=== PATIENT | female | born 1960 | race Caucasian/White ===

== ENCOUNTER 2020-08-23 15:36 | Emergency (ER) | payer MEDICAID, SELFPAY ==
[2020-08-23 15:42] VITALS: BP 110/74; PULSE 78; RESP 14; TEMP 37.1; O2SAT 98; BMI 20.5
[2020-08-23 15:43] VITALS: BP 142/78; PULSE 80
[2020-08-23 15:47] LABS: Glucose, Whole Blood 285 mg/dL (60-115)
[2020-08-23 16:02] VITALS: BP 110/73; PULSE 81; RESP 14; TEMP 37.1; O2SAT 96
--- NOTE | 2020-08-23 17:06 | ED_ITS ---
HPI - General Adult General Chief complaint: General Medical Stated complaint: HYPERGLYCEMIA Time Seen by Provider: 08/23/20 16:52 Source: patient and spanish medical interpreter Mode of arrival: ambulatory Limitations: no limitations History of Present Illness HPI narrative: 59-year-old female history of diabetes, patient was at her primary doctor's office for routine checkup and found to have a high blood sugar patient was sent to the emergency department for further evaluation, patient use oral medication and also to subcu insulin to control blood sugar. Patient also has been complaining of itching for the past 2 weeks itching is worsening at night time, patient have rash a a dose shoulder area, on the back, trunk area. Patient has no other sick contacts, patient lives home alone. Related Data Previous Rx's Medication Instructions Recorded omeprazole 20 mg capsule,delayed 20 mg PO DAILY 90 Days #90 cap 06/26/20 release blood sugar diagnostic #100 ea 08/15/20 metformin 500 mg tablet 500 mg PO BID #60 tab 08/20/20 permethrin 1 appl TOPICAL Q14D #60 g 08/23/20 Allergies Allergy/AdvReac Type Severity Reaction Status Date / Time morphine [Morphine] Allergy Mild ITCHING, Unverified 02/03/20 14:41 pruritus, rash Review of Systems Review of Systems: All other systems are reviewed and are negative Constitutional: Reports as per HPI and Reports no additional constitutional complaints Eyes: Reports as per HPI and Reports no additional eye complaints Reports system reviewed and no additional complaints, except as documented Cardiovascular: Reports as per HPI and Reports no additional cardiovascular complaints Respiratory: Reports as per HPI and Reports no additional respiratory complaints Gastrointestinal: Reports as per HPI and Reports no additional gastrointestinal complaints Genitourinary: Reports no additional female genitourinary complaints Musculoskeletal: Reports no additional musculoskeletal complaints Skin/Breast: Reports system reviewed and no additional complaints, except as docu Psychiatric: Reports no additional psychiatric complaints Endocrine: Reports no additional endocrine complaints Hematologic/Lymphatic: Reports no additional hematologic/lymphatic complaints Allergic/Immunologic: Reports no additional allergic/immunologic complaints Reports system reviewed and no additional complaints, except as documented and Reports Abnormal speech present [facility] Past Medical History Medical History Diabetes mellitus Social History Social History Alcohol intake: never Smoking Status: Never smoker Use of substances other than those prescribed or required for medical reasons: No Advance Directives: No Advance Directives Information Provided: Yes Physical Exam Vital Signs: Vital Signs: Last Vital Signs Temp 98.5 F 08/23/20 18:55 Pulse 72 08/23/20 18:55 Resp 18 08/23/20 18:55 BP 157/75 H 08/23/20 18:55 Pulse Ox 98 08/23/20 18:55 Body Mass Index 20.5 Vital signs have been reviewed as appeared to be correct. Blood pressure normal. Heart rate normal. Respiration rate normal. Temperature normal. Oxygen saturation normal. Appearance: Alert. Oriented X3. No acute distress. Head: Normal external exam. Normocephalic. Atraumatic. No [place] signs noted. N o raccoon eyes noted Eyes: PERRLA. EOMI. Conjunctiva and sclera normal. Eyelids normal. ENT: TM's Normal. Pharynx normal. Uvula midline. Moist mucous membranes. No trismus noted. No drooling noted. No muffled voice noted. Neck: Normal inspection. Neck supple. FROM. No adenopathy. Thyroid Normal. No meningeal signs. No neck mass noted. CVS: Normal heart rate and rhythm. Heart sound normal. No murmurs noted. Pulses normal throughout. Respiratory: No respiratory distress. Painless inspiration. Breath sounds normal. No wheezes/rales/rhonchi noted. Chest nontender. No accessory muscle usage noted or decreased air movement noted. Abdomen: Soft and nontender. Bowel sounds normal in all 4 quadrants. No distention noted. No organomegaly noted. No visible injury noted. Back: No CVA tenderness. Full range of motion noted. Skin: Skin warm and dry. Normal skin color. Normal skin turgor. Diffuse maculopapular rash on both shoulder, abdominal wall, on the back, no rash noticed on the web of the fingers, no lesions/lacerations noted. Extremities: No lower extremity edema. Extremities exhibit normal range of motion. Extremities nontender. Neuro: Oriented X 3. No motor deficit. No sensory deficit. Reflexes normal. Course Course Course Narrative: 59 years old female with history of diabetes came in with uncontrolled diabetes, also been complaining of rash and itching thought to be scabies. Patient was instructed to drink plenty of fluid and be more compliant with her diabetes medication and follow up with her primary doctor. Medical Decision Making Lab Data Lab results reviewed: Yes I reviewed the patient's lab results. Result diagrams: 08/23/20 17:14 08/23/20 17:14 Labs: Lab Results 08/23/20 08/23/20 08/23/20 Range/Units 15:44 17:14 17:14 WBC 9.0 (4.8-10.8) X10*3/uL RBC 4.93 (4.20-5.50) X10*6/uL Hgb 14.6 (12.0-16.0) g/dl Hct 45.4 (37-47) % MCV 92.1 (80-98) fL MCH 29.6 (27.0-33.0) pg MCHC 32.2 (31.0-35.0) g/dl RDW 13.6 (11.0-16.0) % Plt Count 302 (160-400) X10*3/uL MPV 10.1 (9.4-12.3) fL Immature Gran % (Auto) 0.2 (0.0-0.4) % Neut % (Auto) 64.6 (45-73) % Lymph % (Auto) 27.1 (20-40) % Lewis % (Auto) 6.1 (2-11) % Eos % (Auto) 1.8 (0-4) % Baso % (Auto) 0.2 (0-2) % Lymph # (Auto) 2.4 (1.2-4.9) X10*3/uL Lewis # (Auto) 0.6 (0.1-1.2) X10*3/uL Eos # (Auto) 0.2 (0.0-0.4) X10*3/uL Baso # (Auto) 0.0 (0.0-0.2) X10*3/uL Abs Immat Gran (auto) 0.02 (0.00-0.03) X10*3/uL Absolute Neuts (auto) 5.8 (2.0-8.3) X10*3/uL Absolute Nucleated RBC 0.000 (0.0-0.012) X10*3/uL Nucleated RBC % (auto) 0.0 (0.0-0.2) /100WBC Sodium 138 (135-145) mmol/L Potassium 4.3 (3.3-5.1) mmol/L Chloride 103 (96-108) mmol/L Carbon Dioxide 28 (22-29) mmol/L Anion Gap 11 L (12-20) BUN 17 H (9-16) mg/dL Creatinine 0.81 (0.5-1.4) mg/dL Estim Creat Clear Calc 52.4 Estimated GFR > 60 POC Glucose 285 H (60-115) mg/dL Random Glucose 336 H (60-115) mg/dL Calcium 8.9 (8.4-10.2) mg/dL Total Bilirubin 0.5 (0.0-1.0) mg/dL Direct Bilirubin 0.2 (0.0-0.5) mg/dL AST 15 (5-31) U/L ALT 18 (0-31) U/L Alkaline Phosphatase 62 (39-117) U/L Total Protein 6.7 (6.5-8.0) g/dL Albumin 4.2 (3.5-5.0) g/dL Lipase 35 (8-78) U/L 08/23/20 Range/Units 18:00 WBC (4.8-10.8) X10*3/uL RBC (4.20-5.50) X10*6/uL Hgb (12.0-16.0) g/dl Hct (37-47) % MCV (80-98) fL MCH (27.0-33.0) pg MCHC (31.0-35.0) g/dl RDW (11.0-16.0) % Plt Count (160-400) X10*3/uL MPV (9.4-12.3) fL Immature Gran % (Auto) (0.0-0.4) % Neut % (Auto) (45-73) % Lymph % (Auto) (20-40) % Lewis % (Auto) (2-11) % Eos % (Auto) (0-4) % Baso % (Auto) (0-2) % Lymph # (Auto) (1.2-4.9) X10*3/uL Lewis # (Auto) (0.1-1.2) X10*3/uL Eos # (Auto) (0.0-0.4) X10*3/uL Baso # (Auto) (0.0-0.2) X10*3/uL Abs Immat Gran (auto) (0.00-0.03) X10*3/uL Absolute Neuts (auto) (2.0-8.3) X10*3/uL Absolute Nucleated RBC (0.0-0.012) X10*3/uL Nucleated RBC % (auto) (0.0-0.2) /100WBC Sodium (135-145) mmol/L Potassium (3.3-5.1) mmol/L Chloride (96-108) mmol/L Carbon Dioxide (22-29) mmol/L Anion Gap (12-20) BUN (9-16) mg/dL Creatinine (0.5-1.4) mg/dL Estim Creat Clear Calc Estimated GFR POC Glucose 292 H (60-115) mg/dL Random Glucose (60-115) mg/dL Calcium (8.4-10.2) mg/dL Total Bilirubin (0.0-1.0) mg/dL Direct Bilirubin (0.0-0.5) mg/dL AST (5-31) U/L ALT (0-31) U/L Alkaline Phosphatase (39-117) U/L Total Protein (6.5-8.0) g/dL Albumin (3.5-5.0) g/dL Lipase (8-78) U/L Discharge Plan Discharge Clinical Impression: Hyperglycemia, Scabies Patient Disposition: Home, Self-Care Instructions: Scabies (ED) Prescriptions: New permethrin 5 % cream 1 appl topical Q14D Qty: 60 RF: 0 No Action omeprazole 20 mg capsule,delayed release(DR/EC) 20 mg PO DAILY 90 Days Qty: 90 RF: 1 (DME) FreeStyle Test Strip See Rx Instructions .ROUTE .MEDSUPPLY Qty: 100 RF: 11 metformin 500 mg tablet 500 mg PO BID Qty: 60 RF: 5 Referrals: Physician,Unknown [Primary Care Provider] - 2 days
[2020-08-23] MEDS: 0.9 % Sodium Chloride 1,000 ML 999 ML IVCONT ×2 (17:11→18:09)
[2020-08-23] MEDS: diphenhydrAMINE HCL 25 MG TABLET PO (17:11)
[2020-08-23 17:18] LABS: MANUAL DIFF FLAG NO
[2020-08-23 17:20] LABS: Basophils Percent Auto 0.2 % (0-2); Eosinophils Absolute Auto 0.2 X10*3/uL (0.0-0.4); Eosinophils Percent Auto 1.8 % (0-4); Hematocrit 45.4 % (37-47); Hemoglobin 14.6 g/dl (12.0-16.0); Imm Gran Abs Auto 0.02 X10*3/uL (0.00-0.03); Imm Gran Pct Auto 0.2 % (0.0-0.4); Lymphocytes Absolute Auto 2.4 X10*3/uL (1.2-4.9); Lymphocytes Percent Auto 27.1 % (20-40); Mean Corpuscular HGB Conc 32.2 g/dl (31.0-35.0); Mean Corpuscular Hemoglobin 29.6 pg (27.0-33.0); Mean Corpuscular Volume 92.1 fL (80-98); Mean Platelet Volume 10.1 fL (9.4-12.3); Monocytes Absolute Auto 0.6 X10*3/uL (0.1-1.2); Monocytes Percent Auto 6.1 % (2-11); Neutrophils Absolute Auto 5.8 X10*3/uL (2.0-8.3); Neutrophils Percent Auto 64.6 % (45-73); Platelet Count 302 X10*3/uL (160-400); Red Blood Count 4.93 X10*6/uL (4.20-5.50); Red Cell Distribution Width 13.6 % (11.0-16.0)
[2020-08-23 17:47] LABS: Alanine Aminotransferase 18 U/L (0-31); Albumin Level 4.2 g/dL (3.5-5.0); Alkaline Phosphatase 62 U/L (39-117); Anion Gap 11 (12-20); Aspartate Amino Transferase 15 U/L (5-31); Bilirubin Direct 0.2 mg/dL (0.0-0.5); Bilirubin Total 0.5 mg/dL (0.0-1.0); Blood Urea Nitrogen 17 mg/dL (9-16); Calcium 8.9 mg/dL (8.4-10.2); Carbon Dioxide 28 mmol/L (22-29); Chloride 103 mmol/L (96-108); Creatinine Clr Calc Pharmacy 52.4; Estimated Glomerular Filt Rate > 60; Glucose Random 336 mg/dL (60-115); Lipase 35 U/L (8-78); Potassium 4.3 mmol/L (3.3-5.1); Sodium 138 mmol/L (135-145); Total Protein 6.7 g/dL (6.5-8.0)
[2020-08-23 18:04] LABS: Glucose, Whole Blood 292 mg/dL (60-115)
[2020-08-23 18:55] VITALS: BP 157/75; PULSE 72; RESP 18; TEMP 36.9; O2SAT 98
--- NOTE | 2020-08-23 19:05 | PC.NURSE ---
IV flushed with normal saline flush without issue. Normal Saline liter continues to infuse as ordered, but encouraged patient to keep arm straight to increase infusion rate.
--- NOTE | 2020-08-23 20:15 | PC.NURSE ---
Pt requesting to leave. aware. Pt encouraged to stay for another POC glucose check, and agreed. POC Glucose 255. Provider aware. Plan to discharge home.
--- NOTE | 2020-08-23 20:17 | PC.NURSE ---
Insulin 10 units held by . Pt refusing to stay any longer. Provider writing discharge paperwork at this time. IV access removed without issue. Awaiting paperwork.
[2020-08-23 20:20] LABS: Glucose, Whole Blood 255 mg/dL (60-115)
== END 2020-08-23 20:23 | disposition home or self-care (01) ==
PROVIDERS: Emergency Provider Emergency Medicine
DX: E11.65 Type 2 diabetes mellitus with hyperglycemia (principal); Z79.84 Long term (current) use of oral hypoglycemic drugs; Z79.899 Other long term (current) drug therapy
CPT/HCPCS: 36415; 80048; 80076; 82947; 83690; 85025; 96365; 96375; 99284; Q0163

== ENCOUNTER 2020-11-20 21:35 | Emergency (ER) | payer MEDICAID, SELFPAY ==
--- NOTE | 2020-11-20 | ECG_ITS ---
Test Reason : CHEST PAIN Blood Pressure : / mmHG Vent. Rate : 067 BPM Atrial Rate : 067 BPM P-R Int : 136 ms QRS Dur : 084 ms QT Int : 398 ms P-R-T Axes : 038 -29 045 degrees QTc Int : 420 ms Normal sinus rhythm Minimal voltage criteria for LVH, may be normal variant Borderline ECG When compared with ECG of 04-MAY-2019 20:35, Vent. rate has decreased BY 47 BPM Referred By: Generic ED Physician Electronically Signed By:LAN GOODE
--- NOTE | ~2020-11-20 | XR_ITS ---
EXAMINATION: XR CHEST CLINICAL INFORMATION: Chest pain COMPARISON: 05/04/2019 TECHNIQUE: Frontal view of the chest was obtained. FINDINGS: No significant abnormality is noted involving the heart, lungs, mediastinum, bony thorax or soft tissues. XR/XR chest 1V IMPRESSION: Unremarkable examination.
[2020-11-20 21:37] VITALS: BP 170/79; PULSE 72; RESP 18; TEMP 37.2; O2SAT 100; BMI 27.4
--- NOTE | 2020-11-20 21:48 | ED_ITS ---
HPI - Chest Pain General Chief Complaint: Chest Pain Stated Complaint: chest pain Time Seen by Provider: 11/20/20 21:46 Source: patient Mode of arrival: EMS History of Present Illness HPI narrative: 60-year-old female with significant past medical history for diabetes, hypertension, hyperlipidemia called EMS this evening for onset of left -sided chest pressure that she rated initially as a 10/10, nonradiating, but associated with mild diaphoresis / shortness of breath /and nausea but denies dizziness. Otherwise, she denies any recent fever, chills, sore throat but states she has had a dry cough. She also describes some mild abdominal discomfort without diarrhea and denies any urinary pain /burning / frequency. On further questioning patient states that she uses IV drugs and last injected heroin yesterday. She denies any cocaine, marijuana, or alcohol use. Patient now states that her chest pain is 7/10 after receiving aspirin en route by EMS. Related Data Previous Rx's Medication Instructions Recorded omeprazole 20 mg capsule,delayed 20 mg PO DAILY 90 Days #90 cap 06/26/20 release blood sugar diagnostic #100 ea 08/15/20 metformin 500 mg tablet 500 mg PO BID #60 tab 08/20/20 permethrin 1 appl TOPICAL Q14D #60 g 08/23/20 Allergies Allergy/AdvReac Type Severity Reaction Status Date / Time morphine [Morphine] Allergy Mild ITCHING, Unverified 02/03/20 14:41 pruritus, rash Review of Systems Review of Systems: Pertinent positives and negatives as stated in HPI 10 point review of systems is otherwise negative. PMFSH Past Medical History Source: nursing notes reviewed Medical History Diabetes mellitus Social History Social History Alcohol intake: never Advance Directives: No Advance Directives Information Provided: Yes Patient : No Physical Exam Vital Signs: Vital Signs: Last Vital Signs Temp 99 F 11/20/20 21:37 Pulse 78 11/21/20 02:32 Resp 20 11/21/20 02:31 BP 162/90 H 11/21/20 02:32 Pulse Ox 95 11/21/20 00:20 Body Mass Index 27.4 VITAL SIGNS: Reviewed. GENERAL: Well developed, well nourished, in no acute distress. HEAD: Normocephalic/atraumatic EYES: PERRLA, EOMI OROPHARYNX: no oral lesions noted, posterior pharynx clear NECK: Supple, no adenopathy LUNGS: Normal breath sounds. No adventitious sounds or accessory muscle use. SpO2<100> CARDIOVASCULAR: Regular rate and rhythm without noted murmurs, no JVD or lower extremity edema. ABDOMEN: Soft, transient tenderness on palpation to right side of the abdomen but on repeat palpation no evidence of discomfort, non-distended with bowel sounds. SKIN: Inspection of the skin reveals no rashes NEUROLOGIC: Alert and oriented x 4. Strength and sensation to light touch were grossly intact x 4. Course Course Course Narrative: 60-year-old female with history and clinical presentation suggestive of possible pneumonia, cardiac etiology given history of diabetes /hypertension, low clinical suspicion for PE. Review of all investigations without acute findings to suggest pneumonia or infectious etiology, serial troponins detectable and patient is currently experiencing some mild withdrawal symptoms from her heroin and will be provided with clonidine and will obtain 3rd troponin as patient does not have transportation home. 0322: Patient now has a family member in the room despite stating that she had no transportation home and she is refusing the 3rd cardiac enzyme and will be otherwise discharged in stable condition. She has been strongly encouraged to follow-up with her primary care provider. Reevaluation(s) Reevaluation #1: Patient placed in physician observation because the patient needed more time to obtain transportation home. At the time observation was started the patient's vital signs were stable, patient is alert and oriented, neuro: Nonfocal, CV RRR, lungs clear Time: 02:24 Reevaluation #2: physician observation has ended as patient has safe transp ortation home and is noted to be in NAD, lungs clear, CV RRR, abdominal nontender, neuro intact. Time: 03:23 MDM - Chest Pain Lab Data Result diagrams: 11/20/20 22:06 11/20/20 22:06 Labs: Lab Results 11/20/20 11/20/20 11/20/20 Range/Units 22:06 22:06 22:06 WBC 10.7 (4.8-10.8) X10*3/uL RBC 5.04 (4.20-5.50) X10*6/uL Hgb 14.7 (12.0-16.0) g/dl Hct 44.5 (37-47) % MCV 88.3 (80-98) fL MCH 29.2 (27.0-33.0) pg MCHC 33.0 (31.0-35.0) g/dl RDW 14.7 (11.0-16.0) % Plt Count 325 (160-400) X10*3/uL MPV 10.2 (9.4-12.3) fL Immature Gran % (Auto) 0.3 (0.0-0.4) % Neut % (Auto) 77.3 H (45-73) % Lymph % (Auto) 15.3 L (20-40) % [place]uyler % (Auto) 5.9 (2-11) % Eos % (Auto) 0.9 (0-4) % Baso % (Auto) 0.3 (0-2) % Lymph # (Auto) 1.6 (1.2-4.9) X10*3/uL [place]yler # (Auto) 0.6 (0.1-1.2) X10*3/uL Eos # (Auto) 0.1 (0.0-0.4) X10*3/uL Baso # (Auto) 0.0 (0.0-0.2) X10*3/uL Abs Immat Gran (auto) 0.03 (0.00-0.03) X10*3/uL Absolute Neuts (auto) 8.3 (2.0-8.3) X10*3/uL Absolute Nucleated RBC 0.000 (0.0-0.012) X10*3/uL Nucleated RBC % (auto) 0.0 (0.0-0.2) /100WBC PT 13.7 H (9.9-13.0) SEC INR 1.2 H (0.9-1.1) Sodium 136 (135-145) mmol/L Potassium 4.3 (3.3-5.1) mmol/L Chloride 101 (96-108) mmol/L Carbon Dioxide 23 (22-29) mmol/L Anion Gap 16 (12-20) BUN 17 H (9-16) mg/dL Creatinine 0.74 (0.5-1.4) mg/dL Estim Creat Clear Calc 71.2 Estimated GFR > 60 POC Glucose (60-115) mg/dL Random Glucose 327 H (60-115) mg/dL Calcium 9.7 D (8.4-10.2) mg/dL Magnesium (1.6-2.6) mg/dL Total Bilirubin 0.8 (0.0-1.0) mg/dL AST 11 (5-31) U/L ALT 12 (0-31) U/L Alkaline Phosphatase 69 (39-117) U/L Troponin I High Sens (<3.5-17.0) ng/L Total Protein 6.8 (6.5-8.0) g/dL Albumin 4.1 (3.5-5.0) g/dL Lipase (8-78) U/L Urine Color Urine Appearance Urine pH (5.0-8.0) Ur Specific [place] (1.005-1.025) Urine Protein (NEG-TRACE) MG/DL Urine Glucose (UA) (NEG) MG/DL Urine Ketones (NEG) MG/DL Urine Blood (NEG) Urine Nitrite (NEG) Ur Leukocyte Esterase (NEG) Urine RBC (0) /HPF Urine WBC (0-4) /HPF Ur Squamous Epith Cells /LPF Urine Bacteria /LPF Urine Mucus /LPF Urine Yeast /HPF Urine Opiates Screen (Not Detect) Ur Barbiturates Screen (Not Detect) Ur Phencyclidine Scrn (Not Detect) Ur Amphetamines Screen (Not Detect) U Benzodiazepines Scrn (Not Detect) Urine Cocaine Screen (Not Detect) U Marijuana (THC) Screen (Not Detect) Ethyl Alcohol mg/dL 11/20/20 11/20/20 11/20/20 Range/Units 22:06 22:06 22:06 WBC (4.8-10.8) X10*3/uL RBC (4.20-5.50) X10*6/uL Hgb (12.0-16.0) g/dl Hct (37-47) % MCV (80-98) fL MCH (27.0-33.0) pg MCHC (31.0-35.0) g/dl RDW (11.0-16.0) % Plt Count (160-400) X10*3/uL MPV (9.4-12.3) fL Immature Gran % (Auto) (0.0-0.4) % Neut % (Auto) (45-73) % Lymph % (Auto) (20-40) % [place] % (Auto) (2-11) % Eos % (Auto) (0-4) % Baso % (Auto) (0-2) % Lymph # (Auto) (1.2-4.9) X10*3/uL [place] # (Auto) (0.1-1.2) X10*3/uL Eos # (Auto) (0.0-0.4) X10*3/uL Baso # (Auto) (0.0-0.2) X10*3/uL Abs Immat Gran (auto) (0.00-0.03) X10*3/uL Absolute Neuts (auto) (2.0-8.3) X10*3/uL Absolute Nucleated RBC (0.0-0.012) X10*3/uL Nucleated RBC % (auto) (0.0-0.2) /100WBC PT (9.9-13.0) SEC INR (0.9-1.1) Sodium (135-145) mmol/L Potassium (3.3-5.1) mmol/L Chloride (96-108) mmol/L Carbon Dioxide (22-29) mmol/L Anion Gap (12-20) BUN (9-16) mg/dL Creatinine (0.5-1.4) mg/dL Estim Creat Clear Calc Estimated GFR POC Glucose (60-115) mg/dL Random Glucose (60-115) mg/dL Calcium (8.4-10.2) mg/dL Magnesium 1.9 (1.6-2.6) mg/dL Total Bilirubin (0.0-1.0) mg/dL AST (5-31) U/L ALT (0-31) U/L Alkaline Phosphatase (39-117) U/L Troponin I High Sens 3.9 (<3.5-17.0) ng/L Total Protein (6.5-8.0) g/dL Albumin (3.5-5.0) g/dL Lipase 32 (8-78) U/L Urine Color Urine Appearance Urine pH (5.0-8.0) Ur Specific [place] (1.005-1.025) Urine Protein (NEG-TRACE) MG/DL Urine Glucose (UA) (NEG) MG/DL Urine Ketones (NEG) MG/DL Urine Blood (NEG) Urine Nitrite (NEG) Ur Leukocyte Esterase (NEG) Urine RBC (0) /HPF Urine WBC (0-4) /HPF Ur Squamous Epith Cells /LPF Urine Bacteria /LPF Urine Mucus /LPF Urine Yeast /HPF Urine Opiates Screen (Not Detect) Ur Barbiturates Screen (Not Detect) Ur Phencyclidine Scrn (Not Detect) Ur Amphetamines Screen (Not Detect) U Benzodiazepines Scrn (Not Detect) Urine Cocaine Screen (Not Detect) U Marijuana (THC) Screen (Not Detect) Ethyl Alcohol < 10 mg/dL 11/20/20 11/20/20 11/20/20 Range/Units 22:39 23:07 23:07 WBC (4.8-10.8) X10*3/uL RBC (4.20-5.50) X10*6/uL Hgb (12.0-16.0) g/dl Hct (37-47) % MCV (80-98) fL MCH (27.0-33.0) pg MCHC (31.0-35.0) g/dl RDW (11.0-16.0) % Plt Count (160-400) X10*3/uL MPV (9.4-12.3) fL Immature Gran % (Auto) (0.0-0.4) % Neut % (Auto) (45-73) % Lymph % (Auto) (20-40) % [place] % (Auto) (2-11) % Eos % (Auto) (0-4) % Baso % (Auto) (0-2) % Lymph # (Auto) (1.2-4.9) X10*3/uL [place] # (Auto) (0.1-1.2) X10*3/uL Eos # (Auto) (0.0-0.4) X10*3/uL Baso # (Auto) (0.0-0.2) X10*3/uL Abs Immat Gran (auto) (0.00-0.03) X10*3/uL Absolute Neuts (auto) (2.0-8.3) X10*3/uL Absolute Nucleated RBC (0.0-0.012) X10*3/uL Nucleated RBC % (auto) (0.0-0.2) /100WBC PT (9.9-13.0) SEC INR (0.9-1.1) Sodium (135-145) mmol/L Potassium (3.3-5.1) mmol/L Chloride (96-108) mmol/L Carbon Dioxide (22-29) mmol/L Anion Gap (12-20) BUN (9-16) mg/dL Creatinine (0.5-1.4) mg/dL Estim Creat Clear Calc Estimated GFR POC Glucose 288 H (60-115) mg/dL Random Glucose (60-115) mg/dL Calcium (8.4-10.2) mg/dL Magnesium (1.6-2.6) mg/dL Total Bilirubin (0.0-1.0) mg/dL AST (5-31) U/L ALT (0-31) U/L Alkaline Phosphatase (39-117) U/L Troponin I High Sens (<3.5-17.0) ng/L Total Protein (6.5-8.0) g/dL Albumin (3.5-5.0) g/dL Lipase (8-78) U/L Urine Color YELLOW Urine Appearance CLEAR Urine pH 6.5 (5.0-8.0) Ur Specific [place] <= 1.005 (1.005-1.025) Urine Protein NEG (NEG-TRACE) MG/DL Urine Glucose (UA) >=1000 H (NEG) MG/DL Urine Ketones 15 (NEG) MG/DL Urine Blood NEG (NEG) Urine Nitrite NEG (NEG) Ur Leukocyte Esterase NEG (NEG) Urine RBC 0-2 (0) /HPF Urine WBC 0-2 (0-4) /HPF Ur Squamous Epith Cells TRACE /LPF Urine Bacteria NONE /LPF Urine Mucus TRACE /LPF Urine Yeast TRACE /HPF Urine Opiates Screen POSITIVE H (Not Detect) Ur Barbiturates Screen Not Detected (Not Detect) Ur Phencyclidine Scrn Not Detected (Not Detect) Ur Amphetamines Screen Not Detected (Not Detect) U Benzodiazepines Scrn Not Detected (Not Detect) Urine Cocaine Screen Not Detected (Not Detect) U Marijuana (THC) Screen Not Detected (Not Detect) Ethyl Alcohol mg/dL 11/21/20 Range/Units 00:59 WBC (4.8-10.8) X10*3/uL RBC (4.20-5.50) X10*6/uL Hgb (12.0-16.0) g/dl Hct (37-47) % MCV (80-98) fL MCH (27.0-33.0) pg MCHC (31.0-35.0) g/dl RDW (11.0-16.0) % Plt Count (160-400) X10*3/uL MPV (9.4-12.3) fL Immature Gran % (Auto) (0.0-0.4) % Neut % (Auto) (45-73) % Lymph % (Auto) (20-40) % [place] % (Auto) (2-11) % Eos % (Auto) (0-4) % Baso % (Auto) (0-2) % Lymph # (Auto) (1.2-4.9) X10*3/uL [place] # (Auto) (0.1-1.2) X10*3/uL Eos # (Auto) (0.0-0.4) X10*3/uL Baso # (Auto) (0.0-0.2) X10*3/uL Abs Immat Gran (auto) (0.00-0.03) X10*3/uL Absolute Neuts (auto) (2.0-8.3) X10*3/uL Absolute Nucleated RBC (0.0-0.012) X10*3/uL Nucleated RBC % (auto) (0.0-0.2) /100WBC PT (9.9-13.0) SEC INR (0.9-1.1) Sodium (135-145) mmol/L Potassium (3.3-5.1) mmol/L Chloride (96-108) mmol/L Carbon Dioxide (22-29) mmol/L Anion Gap (12-20) BUN (9-16) mg/dL Creatinine (0.5-1.4) mg/dL Estim Creat Clear Calc Estimated GFR POC Glucose (60-115) mg/dL Random Glucose (60-115) mg/dL Calcium (8.4-10.2) mg/dL Magnesium (1.6-2.6) mg/dL Total Bilirubin (0.0-1.0) mg/dL AST (5-31) U/L ALT (0-31) U/L Alkaline Phosphatase (39-117) U/L Troponin I High Sens 5.7 (<3.5-17.0) ng/L Total Protein (6.5-8.0) g/dL Albumin (3.5-5.0) g/dL Lipase (8-78) U/L Urine Color Urine Appearance Urine pH (5.0-8.0) Ur Specific [place] (1.005-1.025) Urine Protein (NEG-TRACE) MG/DL Urine Glucose (UA) (NEG) MG/DL Urine Ketones (NEG) MG/DL Urine Blood (NEG) Urine Nitrite (NEG) Ur Leukocyte Esterase (NEG) Urine RBC (0) /HPF Urine WBC (0-4) /HPF Ur Squamous Epith Cells /LPF Urine Bacteria /LPF Urine Mucus /LPF Urine Yeast /HPF Urine Opiates Screen (Not Detect) Ur Barbiturates Screen (Not Detect) Ur Phencyclidine Scrn (Not Detect) Ur Amphetamines Screen (Not Detect) U Benzodiazepines Scrn (Not Detect) Urine Cocaine Screen (Not Detect) U Marijuana (THC) Screen (Not Detect) Ethyl Alcohol mg/dL ECG Data ECG #1: Attestation: I personally reviewed and interpreted this ECG as follows: Prior ECG tracings: available for review ( 05/04/2019 no acute changes on comparison) Interpretation: normal sinus rhythm, HR - 67, no evidence of acute ischemia, NH / QRS/ QTC are within normal limits. Discharge Plan Discharge Clinical Impression: Atypical chest pain, Heroin use Patient Disposition: Home, Self-Care Instructions: Costochondritis (ED) Additional Instructions: 1. reanude todos los medicamentos caseros seg?n lo prescrito. 2. Recomiende el uso de Tylenol / ibuprofeno de venta darlyn seg?n sea necesario para controlar el dolor de pecho. 3. Harmeet un seguimiento con zhang proveedor de atenci?n primaria en los pr?ximos 2-3 d?as para abigail reevaluaci?n. Regrese a la ester de emergencias por un empeoramiento mary de los s?ntomas. Prescriptions: No Action omeprazole 20 mg capsule,delayed release(DR/EC) 20 mg PO DAILY 90 Days Qty: 90 RF: 1 (DME) FreeStyle Test Strip See Rx Instructions .ROUTE .MEDSUPPLY Qty: 100 RF: 11 metformin 500 mg tablet 500 mg PO BID Qty: 60 RF: 5 permethrin 5 % cream 1 appl topical Q14D Qty: 60 RF: 0 Referrals: Physician,Unknown [Primary Care Provider] - 2 days Print Language: Yi
[2020-11-20 22:11] LABS: MANUAL DIFF FLAG NO
[2020-11-20 22:12] LABS: Basophils Percent Auto 0.3 % (0-2); Eosinophils Absolute Auto 0.1 X10*3/uL (0.0-0.4); Eosinophils Percent Auto 0.9 % (0-4); Hematocrit 44.5 % (37-47); Hemoglobin 14.7 g/dl (12.0-16.0); Imm Gran Abs Auto 0.03 X10*3/uL (0.00-0.03); Imm Gran Pct Auto 0.3 % (0.0-0.4); Lymphocytes Absolute Auto 1.6 X10*3/uL (1.2-4.9); Lymphocytes Percent Auto 15.3 % (20-40); Mean Corpuscular Hemoglobin 29.2 pg (27.0-33.0); Mean Corpuscular Volume 88.3 fL (80-98); Mean Platelet Volume 10.2 fL (9.4-12.3); Monocytes Absolute Auto 0.6 X10*3/uL (0.1-1.2); Monocytes Percent Auto 5.9 % (2-11); Neutrophils Absolute Auto 8.3 X10*3/uL (2.0-8.3); Neutrophils Percent Auto 77.3 % (45-73); Platelet Count 325 X10*3/uL (160-400); Red Blood Count 5.04 X10*6/uL (4.20-5.50); Red Cell Distribution Width 14.7 % (11.0-16.0); White Blood Count 10.7 X10*3/uL (4.8-10.8)
[2020-11-20 22:17] LABS: INTERNATIONAL NORM RATIO 1.2 (0.9-1.1); Prothrombin Time 13.7 SEC (9.9-13.0)
[2020-11-20 22:33] LABS: Ethanol < 10 mg/dL
[2020-11-20 22:37] LABS: Alanine Aminotransferase 12 U/L (0-31); Albumin Level 4.1 g/dL (3.5-5.0); Alkaline Phosphatase 69 U/L (39-117); Anion Gap 16 (12-20); Aspartate Amino Transferase 11 U/L (5-31); Bilirubin Total 0.8 mg/dL (0.0-1.0); Blood Urea Nitrogen 17 mg/dL (9-16); Calcium 9.7 mg/dL (8.4-10.2); Carbon Dioxide 23 mmol/L (22-29); Chloride 101 mmol/L (96-108); Creatinine Clr Calc Pharmacy 71.2; Estimated Glomerular Filt Rate > 60; Glucose Random 327 mg/dL (60-115); Potassium 4.3 mmol/L (3.3-5.1); Sodium 136 mmol/L (135-145); Total Protein 6.8 g/dL (6.5-8.0)
[2020-11-20 22:38] LABS: Lipase 32 U/L (8-78); Magnesium 1.9 mg/dL (1.6-2.6)
[2020-11-20 22:42] LABS: Troponin-I High Sensitivity 3.9 ng/L (<3.5-17.0)
[2020-11-20 22:44] LABS: Glucose, Whole Blood 288 mg/dL (60-115)
[2020-11-20 23:14] LABS: Glucose Urine UA >=1000 MG/DL (NEG); Leukocyte Esterase Urine NEG (NEG); Nitrite Urine NEG (NEG); PH 6.5 (5.0-8.0); Specific Gravity - Urine <= 1.005 (1.005-1.025); Urine Blood NEG (NEG); Urine Ketones 15 MG/DL (NEG); Urine Protein NEG (NEG-TRACE)
[2020-11-20 23:15] LABS: Appearance Urine CLEAR; Color Urine YELLOW
--- NOTE | 2020-11-20 23:16 | PC.NURSE ---
PT AMBULATORY TO BATHROOM WITH STEADY GAIT, ABLE TO PROVIDE A URINE SAMPLE. PT RESTING IN BED, WATCHING TV. PT IN NO DISTRESS.
--- NOTE | 2020-11-20 23:17 | PC.NURSE ---
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
--- NOTE | 2020-11-20 23:23 | PC.NURSE ---
PT RECEIVED 500ML OF 0.9% NS FROM EMS.
[2020-11-20 23:24] LABS: Mucus Urine TRACE /LPF; RBC Urine 0-2 /HPF (0); Squamous Epithelial Cell Urine TRACE /LPF; WBC Urine 0-2 /HPF (0-4)
[2020-11-20 23:25] LABS: Amphetamine Screen Urine Not Detected (Not Detect); Barbiturates, Urine Not Detected (Not Detect); Benzodiazepines Screen Urine Not Detected (Not Detect); Cannabinoid Screen Urine Not Detected (Not Detect); Cocaine Screen Urine Not Detected (Not Detect); Opiate Screen Urine POSITIVE (Not Detect); Phencyclidine Screen Urine Not Detected (Not Detect)
--- NOTE | 2020-11-21 00:10 | PC.NURSE ---
PT PULLED IV OUT BY ACCIDENT. 2-3 ATTEMPTS UNSUCCESSFUL. PT REFUSING FURTHER ATTEMPTS.
[2020-11-21 00:14] VITALS: PULSE 86; RESP 22
[2020-11-21 00:20] VITALS: BP 165/90; PULSE 70; RESP 13; O2SAT 95
[2020-11-21 01:31] LABS: Troponin-I High Sensitivity 5.7 ng/L (<3.5-17.0)
--- NOTE | 2020-11-21 02:27 | PC.NURSE ---
pt at times looks to be experiencing opiate withdrawal symptoms. yawning, not able to stay still, complaint of feeling cold. pt able to hydrate, requested ice water. provider went to speak to pt, pt does not have a ride home until morning.
[2020-11-21 02:31] VITALS: PULSE 70; RESP 20
[2020-11-21 02:32] VITALS: BP 162/90; PULSE 78
[2020-11-21] MEDS: cloNIDine HCL 0.1 MG TABLET PO (02:32)
--- NOTE | 2020-11-21 03:22 | PC.NURSE ---
pt has been in her room alone for the entire er visit. pt told md that she had no way home, and needed to stay until morning. pt's daughter arrived about an hour later, pt now wants to be discharged and is getting dressed. asked daughter if she would be willing to stay for third troponin level, and she replied no.
== END 2020-11-21 03:45 | disposition home or self-care (01) ==
PROVIDERS: Emergency Provider Student in an Organized Health Care Education/Training Program
DX: R07.89 Other chest pain (principal); F11.90 Opioid use, unspecified, uncomplicated; E11.9 Type 2 diabetes mellitus without complications; I10 Essential (primary) hypertension; Z79.84 Long term (current) use of oral hypoglycemic drugs; Z79.899 Other long term (current) drug therapy
CPT/HCPCS: 36415; 71045; 80053; 80307; 81001; 82077; 82947; 83690; 83735; 84484; 85025; 85610; 93005; 96361; 96374; 96375; 99284; 99285; 99291

== ENCOUNTER 2021-02-26 14:35 | Outpatient (REF) | payer MEDICAID, SELFPAY ==
--- NOTE | ~2021-02-26 | US_ITS ---
EXAMINATION: US PELVIS CLINICAL INFORMATION: Pain COMPARISON: CT of the abdomen and pelvis November 2017 TECHNIQUE: Ultrasound of the pelvis is performed using both transabdominal and transvaginal transducers along with Doppler. Transvaginal imaging is performed due to inadequate visualization transabdominally. FINDINGS: The uterus is anteverted and measures 8.2 x 3.1 x 4.8 cm in dimension. There is a 1.6 x 1.4 x 1.1 cm hypoechoic lesion in the posterior uterine fundus suggestive of a fibroid. No other focal uterine lesion is seen. The ovaries are seen transabdominally only. The ovaries are normal-appearing. The right ovary measures 1.9 x 1.3 x 1.9 cm and the left ovary measures 1.6 x 1.1 x 1.3 cm. There is no fluid in the pelvis. US/US pelvic and transvaginal IMPRESSION: Small uterine fibroid otherwise unremarkable exam.
== END 2021-02-26 14:36 | disposition home or self-care (01) ==
LOC: HO.US 14:35
PROVIDERS: PCP Internal Medicine; Visit Provider Internal Medicine
DX: R10.2 Pelvic and perineal pain (principal)
CPT/HCPCS: 76830; 76856

== ENCOUNTER 2021-03-12 14:34 | Emergency (ER) | payer MEDICAID, SELFPAY ==
[2021-03-12 14:39] VITALS: BP 122/83; PULSE 93; RESP 20; TEMP 36.9; O2SAT 98; BMI 22.4
== END 2021-03-12 18:37 | disposition left against medical advice (07) ==
PROVIDERS: Emergency Provider Emergency Medicine; PCP Internal Medicine
DX: R06.00 Dyspnea, unspecified (principal)
CPT/HCPCS: 99281; 99282

== ENCOUNTER 2021-03-15 15:30 | Outpatient (REF) | payer MEDICAID, SELFPAY ==
--- NOTE | ~2021-03-15 | MM_ITS ---
EXAMINATION: MM SCREENING DIGITAL BREAST TOMOSYNTHESIS, BILATERAL CLINICAL INFORMATION: Screening. Asymptomatic. The lifetime risk of breast cancer based on the Tyrer-Cuzick Model is 3.9%. COMPARISON: Mammography: 09/03/2018 and studies dating back to 03/25/2011. TECHNIQUE: Digital breast tomosynthesis is performed in both the craniocaudal and mediolateral oblique views along with computer-aided detection (CAD). Synthesized 2D images are generated from the tomosynthesis. FINDINGS: There are scattered areas of fibroglandular density (ACR BI-RADS breast composition Category b). There is a stable parenchymal pattern of the right breast. On left mediolateral oblique projection in the retroareolar region there is a question of some architectural distortion however this may just represent dense retroareolar tissue but was not seen to the same extent as has been in the past and the nipple is seen to be in profile. There is question of a few associated calcifications and for this reason spot compression view is recommended in mediolateral oblique projection. There is no craniocaudal correlation so this is more likely to represent retroareolar parenchyma. MM/MM tomosynthesis screening BI IMPRESSION: Prominent left retroareolar tissue compared to previous studies for which spot compression view is recommended and possible ultrasound to follow. ASSESSMENT: BI-RADS 0: Incomplete - Need Additional Imaging Evaluation RECOMMENDATION: 1. Additional views of the left breast. 2. Targeted ultrasound if warranted after review of the additional views. 3. Radiology department staff will contact the patient for additional imaging. This patient's information was entered into a reminder system with a target due date for their next mammogram.
== END 2021-03-15 15:31 | disposition home or self-care (01) ==
LOC: HO.MAMMO 15:30
PROVIDERS: Visit Provider Internal Medicine
DX: Z12.31 Encounter for screening mammogram for malignant neoplasm of breast (principal)
CPT/HCPCS: 77063; 77067

== ENCOUNTER 2021-03-28 10:41 | Outpatient (REF) | payer MEDICAID, SELFPAY ==
--- NOTE | ~2021-03-28 | MM_ITS ---
EXAMINATION: MM DIAGNOSTIC DIGITAL MAMMOGRAPHY, LEFT CLINICAL INFORMATION: Retroareolar density COMPARISON: Mammography: March 15, 2021 and studies dating back to June 25, 2013 TECHNIQUE: Digital mammography is performed in the following views: Spot compression view left breast in mediolateral oblique projection. FINDINGS: There are scattered areas of fibroglandular density (ACR BI-RADS breast composition Category b). The density is seen to represent superimposition of fibroglandular tissue with no persistent suspicious mass identified. Results are provided to the patient at time of visit by the technologist. MM/MM added views LT IMPRESSION: No mammographic evidence to suggest malignancy. ASSESSMENT: BI-RADS 1: Negative RECOMMENDATION: Routine annual mammography screening due in 12 months. This patient's information was entered into a reminder system with a target due date for their next mammogram.
== END 2021-03-28 10:42 | disposition home or self-care (01) ==
LOC: HO.MAMMO 10:41
PROVIDERS: Visit Provider Internal Medicine
DX: R92.1 Mammographic calcification found on diagnostic imaging of breast (principal)
CPT/HCPCS: 77065

== ENCOUNTER → 2021-06-22 08:52 | Outpatient (BNVA) | payer MEDICAID, SELFPAY | PROVIDERS: PCP Internal Medicine; Referring Provider Internal Medicine; Visit Provider Nurse Practitioner Family ==

== ENCOUNTER 2021-06-25 08:19 | Outpatient (REF) | payer MEDICAID, SELFPAY ==
--- NOTE | ~2021-06-25 | US_ITS ---
EXAMINATION: US ABDOMEN COMPLETE CLINICAL INFORMATION: Left upper quadrant pain. COMPARISON: CT abdomen and pelvis 12/11/2017. TECHNIQUE: Real-time imaging of the abdominal viscera. FINDINGS: PANCREAS: Normal. ABDOMINAL AORTA: The proximal, mid, and distal segments are normal in caliber. INFERIOR VENA CAVA: Visualized portions are normal. LIVER: Normal. The liver is normal in size. The liver contour is normal. Parenchymal echogenicity is normal. No focal hepatic lesion. There is no intrahepatic biliary duct dilatation seen. GALLBLADDER: Normal. The gallbladder is physiologically distended without evidence of stones, sludge, polyps, wall thickening or pericholecystic fluid. COMMON BILE DUCT: Normal in caliber measuring 0.4 cm in diameter. RIGHT KIDNEY: 2.0 cm benign-appearing lower pole renal cyst, no imaging follow-up recommended. No hydronephrosis or renal calculi. The kidney measures 11.6 cm in maximum dimension. LEFT KIDNEY: Normal. No hydronephrosis. No renal calculi or focal parenchymal lesions. The kidney measures 10.8 cm in maximum dimension. SPLEEN: Normal. The spleen measures 8.5 cm in maximum dimension. FREE FLUID: None. US/US abdomen complete IMPRESSION: Unremarkable abdominal ultrasound.
== END 2021-06-25 08:20 | disposition home or self-care (01) ==
LOC: HO.US 08:19
PROVIDERS: PCP Internal Medicine; Visit Provider Internal Medicine
DX: R10.12 Left upper quadrant pain (principal)
CPT/HCPCS: 76700

== ENCOUNTER 2021-08-18 08:10 | Outpatient (REF) | payer MEDICAID, SELFPAY ==
[2021-08-18 10:11] LABS: TSH reflex Free T4 0.76 uIU/mL (0.32-4.0)
[2021-08-20 09:20] LABS: Folate 18.1 ng/mL (> or = 4.0); Vitamin B12 296 pg/mL (200-900)
[2021-08-22 13:27] LABS: Vitamin D 25-OH, D2 <4 ng/mL; Vitamin D 25-OH, D3 18 ng/mL; Vitamin D 25-OH, Total 18 ng/mL (30-100)
== END 2021-08-18 08:11 | disposition home or self-care (01) ==
LOC: HO.LAB 08:10
PROVIDERS: Visit Provider Nurse Practitioner Family
DX: Z12.11 Encounter for screening for malignant neoplasm of colon (principal); E55.9 Vitamin D deficiency, unspecified; R19.7 Diarrhea, unspecified
CPT/HCPCS: 36415; 82306; 82607; 82746; 84443; 87338

== ENCOUNTER 2021-08-18 18:28 | Outpatient (REF) | payer MEDICAID, SELFPAY | END 2021-08-18 18:29 | disposition home or self-care (01) | LOC: HO.LNP 18:28 | PROVIDERS: Visit Provider Nurse Practitioner Family | DX: K21.9 Gastro-esophageal reflux disease without esophagitis (principal) | CPT/HCPCS: 87338 ==

== ENCOUNTER → 2021-08-20 09:08 | Outpatient (BNVA) | payer MEDICAID, SELFPAY | PROVIDERS: Visit Provider Nurse Practitioner Family | DX: K21.9 Gastro-esophageal reflux disease without esophagitis (principal); K58.1 Irritable bowel syndrome with constipation; K59.01 Slow transit constipation; R14.0 Abdominal distension (gaseous); Z79.899 Other long term (current) drug therapy | CPT/HCPCS: 99212 ==

== ENCOUNTER 2021-08-20 11:41 | Outpatient (REF) | payer MEDICAID, SELFPAY | END 2021-08-20 11:42 | disposition home or self-care (01) | LOC: HO.LNP 11:41 | PROVIDERS: Visit Provider Nurse Practitioner Family | DX: Z13.89 Encounter for screening for other disorder (principal) ==

== ENCOUNTER → 2021-12-06 10:09 | Outpatient (BNVA) | payer MEDICAID, SELFPAY | PROVIDERS: Visit Provider Nurse Practitioner Family | DX: K21.9 Gastro-esophageal reflux disease without esophagitis (principal); K58.1 Irritable bowel syndrome with constipation; K59.04 Chronic idiopathic constipation; Z79.899 Other long term (current) drug therapy | CPT/HCPCS: 99212 ==

== ENCOUNTER 2022-04-05 13:22 | Outpatient (REF) | payer MEDICAID, SELFPAY ==
--- NOTE | ~2022-04-05 | MM_ITS ---
EXAMINATION: MM SCREENING DIGITAL BREAST TOMOSYNTHESIS, BILATERAL CLINICAL INFORMATION: Screening. Asymptomatic. The lifetime risk of breast cancer based on the Tyrer-Cuzick Model is 5%. COMPARISON: Mammography: 03/28/2021, 03/15/2021, 09/03/2018, 11/29/2016, 11/22/2016 TECHNIQUE: Digital breast tomosynthesis is performed in both the craniocaudal and mediolateral oblique views along with computer-aided detection (CAD). Synthesized 2D images are generated from the tomosynthesis. FINDINGS: There are scattered areas of fibroglandular density (ACR BI-RADS breast composition Category b). There are no significant masses, abnormal calcifications, or other abnormalities. Parenchymal pattern is similar to prior studies. There is no developing density or architectural abnormality. The axilla and skin contours are unremarkable. No significant changes. MM/MM tomosynthesis screening BI IMPRESSION: No mammographic evidence of malignancy. ASSESSMENT: BI-RADS 1: Negative RECOMMENDATION: Routine annual mammography screening. This patient's information was entered into a reminder system with a target due date for their next mammogram.
== END 2022-04-05 13:23 | disposition home or self-care (01) ==
LOC: HO.MAMMO 13:22
PROVIDERS: PCP Registered Nurse; Visit Provider Registered Nurse
DX: Z12.31 Encounter for screening mammogram for malignant neoplasm of breast (principal)
CPT/HCPCS: 77063; 77067

== ENCOUNTER 2022-07-15 10:49 | Outpatient (REF) | payer MEDICAID, SELFPAY ==
--- NOTE | ~2022-07-15 | XR_ITS ---
EXAMINATION: BILATERAL KNEE STANDING. BILATERAL KNEE. CLINICAL INFORMATION: Bilateral knee pain. COMPARISON: None TECHNIQUE: AP bilateral knee standing. 2 views each knee. FINDINGS: AP bilateral knee: There is reduction in medial compartment joint space both knees with bony erosive changes. The lateral compartment joint space is preserved. No visible fracture or bony abnormality seen. Left knee: This mild reduction in patellofemoral compartment joint space with mild spurring along the posterior patellar surface. No abnormal suprapatellar joint effusion seen. There are no loose bodies. Right knee: There is mild reduction in the patellofemoral compartment joint space with superior patellar spurring. Also visualized is anterior tibial spurring but no loose bodies or joint effusion suspected. No acute fracture. XR/XR knee RT 2V IMPRESSION: Degenerative arthritic changes medial and patellofemoral compartment both knees. There is spurring along the patellar articular surface left knee and anterior tibial plateau right knee. No acute fracture or dislocation seen.
--- NOTE | ~2022-07-15 | XR_ITS ---
EXAMINATION: BILATERAL KNEE STANDING. BILATERAL KNEE. CLINICAL INFORMATION: Bilateral knee pain. COMPARISON: None TECHNIQUE: AP bilateral knee standing. 2 views each knee. FINDINGS: AP bilateral knee: There is reduction in medial compartment joint space both knees with bony erosive changes. The lateral compartment joint space is preserved. No visible fracture or bony abnormality seen. Left knee: This mild reduction in patellofemoral compartment joint space with mild spurring along the posterior patellar surface. No abnormal suprapatellar joint effusion seen. There are no loose bodies. Right knee: There is mild reduction in the patellofemoral compartment joint space with superior patellar spurring. Also visualized is anterior tibial spurring but no loose bodies or joint effusion suspected. No acute fracture. XR/XR knee LT 2V IMPRESSION: Degenerative arthritic changes medial and patellofemoral compartment both knees. There is spurring along the patellar articular surface left knee and anterior tibial plateau right knee. No acute fracture or dislocation seen.
--- NOTE | ~2022-07-15 | XR_ITS ---
EXAMINATION: BILATERAL KNEE STANDING. BILATERAL KNEE. CLINICAL INFORMATION: Bilateral knee pain. COMPARISON: None TECHNIQUE: AP bilateral knee standing. 2 views each knee. FINDINGS: AP bilateral knee: There is reduction in medial compartment joint space both knees with bony erosive changes. The lateral compartment joint space is preserved. No visible fracture or bony abnormality seen. Left knee: This mild reduction in patellofemoral compartment joint space with mild spurring along the posterior patellar surface. No abnormal suprapatellar joint effusion seen. There are no loose bodies. Right knee: There is mild reduction in the patellofemoral compartment joint space with superior patellar spurring. Also visualized is anterior tibial spurring but no loose bodies or joint effusion suspected. No acute fracture. XR/XR knee standing BI IMPRESSION: Degenerative arthritic changes medial and patellofemoral compartment both knees. There is spurring along the patellar articular surface left knee and anterior tibial plateau right knee. No acute fracture or dislocation seen.
== END 2022-07-15 10:50 | disposition home or self-care (01) ==
LOC: HO.HOSX 10:49
PROVIDERS: Visit Provider Physician Assistant
DX: M17.0 Bilateral primary osteoarthritis of knee (principal)
CPT/HCPCS: 73560; 73565; 99202

== ENCOUNTER 2022-09-19 19:13 | Emergency (ER) | payer MEDICAID, OTHER, SELFPAY ==
[2022-09-19 19:11] VITALS: BP 78/44; PULSE 100; O2SAT 100
[2022-09-19 19:16] VITALS: BP 93/59; PULSE 95; RESP 26; O2SAT 100; BMI 22.7
[2022-09-19] MEDS: Naloxone HCl 0.4 MG/ML VIAL IVPUSH (19:20)
[2022-09-19] MEDS: ondansetron HCL 4 MG/2 ML VIAL IVPUSH ×2 (19:21→21:00)
--- NOTE | 2022-09-19 19:27 | ECG_ITS ---
Test Reason : OD Blood Pressure : / mmHG Vent. Rate : 096 BPM Atrial Rate : 096 BPM P-R Int : 132 ms QRS Dur : 076 ms QT Int : 366 ms P-R-T Axes : 047 -36 028 degrees QTc Int : 462 ms Normal sinus rhythm Left axis deviation Minimal voltage criteria for LVH, may be normal variant ( R in aVL ) Septal infarct , age undetermined Abnormal ECG When compared with ECG of 20-NOV-2020 21:50, Septal infarct is now Present QT has lengthened Referred By: Rimma Gutiérrez Electronically Signed By:JODY BERGER MD
[2022-09-19 19:31] LABS: MANUAL DIFF FLAG NO
--- NOTE | 2022-09-19 19:31 | ED.OVERDOSE ---
HPI - Overdose General Chief Complaint: Overdose Stated Complaint: UNRESPONSIVE,BEING BAGGED @ THIS TIME PER EMS Time Seen by Provider: 09/19/22 19:27 Source: EMS Mode of arrival: EMS History of Present Illness HPI Narrative: 61-year-old female with history of diabetes is brought in by EMS after patient was found unresponsive with agonal breathing, EMS states that they gave a total 4 mg of Narcan without response in have continued to apply supportive ventilation via Ambu bag, POC glucose-over 500. Related Data Home Medications Medication Instructions Recorded Confirmed empagliflozin 25 mg tablet 25 mg PO DAILY 06/22/21 (Jardiance) insulin detemir U-100 100 unit/mL 100 unit subcut DAILY 06/22/21 subcutaneous solution (Levemir U-100 Insulin) insulin lispro 100 unit/mL 5 unit subcut TID 06/22/21 subcutaneous cartridge (Humalog U-100 Insulin) losartan 100 mg tablet 100 mg PO DAILY 06/22/21 insulin lispro 100 unit/mL 10 unit subcut TID 07/15/22 subcutaneous solution Previous Rx's Medication Instructions Recorded permethrin 5 % topical cream 1 appl topical Q14D 2 doses #60 08/23/20 grams simethicone 180 mg capsule (Gas 180 mg PO BID PRN abdominal 12/25/21 Relief (simethicone)) distention #60 caps docusate sodium 100 mg capsule 100 mg PO BEDTIME #30 caps 01/15/22 sennosides 8.6 mg tablet (Natural 17.2 mg PO BEDTIME constipation 01/15/22 Senna Laxative) #60 tabs famotidine 40 mg tablet 40 mg PO BEDTIME #30 tabs 02/05/22 cholecalciferol (vitamin D3) 50 50 mcg PO DAILY #90 caps 04/10/22 mcg (2,000 unit) capsule meloxicam 15 mg tablet 15 mg PO DAILY 30 days #30 tabs 07/15/22 walker #1 ea 07/15/22 walker #1 ea 07/16/22 metformin 500 mg tablet 500 mg PO BID #60 tabs 07/17/22 pantoprazole 40 mg tablet,delayed 40 mg PO DAILY #90 tabs 08/21/22 release blood sugar diagnostic (FreeStyle #100 ea 09/08/22 Test strips) Allergies Allergy/AdvReac Type Severity Reaction Status Date / Time morphine [Morphine] Allergy Mild ITCHING, Verified 07/15/22 09:21 pruritus, rash Review of Systems Review of Systems: Pertinent positives and negatives as stated in [facility] Past Medical History Source: nursing notes reviewed Medical History Diabetes mellitus High blood pressure High cholesterol Social History Social History Household Members: Spouse Alcohol intake: never Patient Tobacco Use Status: Tobacco use Unknown Advance Directives: No Advance Directives Information Provided: No Current occupational status: disabled 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 Medications Administered Discontinued Medications Generic Name Dose Route Start Last Admin Trade Name Freq PRN Reason Stop Dose Admin Sodium Chloride 1,000 mls @ 999 mls/hr 09/19/22 19:45 09/19/22 20:38 Ns IV 09/19/22 20:45 Infused .Q1H1M PAWAN Infusion Naloxone HCl 0.4 mg 09/19/22 19:27 09/19/22 19:20 Naloxone Hcl 0.4 Mg/Ml Vial IVPUSH 09/19/22 19:28 0.4 mg ONCE ONE Administration Naloxone HCl 4 mg 09/19/22 20:57 09/19/22 21:03 Naloxone Hcl Nasal 4 Mg [place] NOSTRILALT 09/19/22 20:58 4 mg ONCE ONE Administration Ondansetron HCl 4 mg 09/19/22 19:27 09/19/22 19:21 Ondansetron Hcl 4 Mg/2 Ml Vial IVPUSH 09/19/22 19:28 4 mg ONCE ONE Administration Ondansetron HCl 4 mg 09/19/22 20:57 09/19/22 21:00 Ondansetron Hcl 4 Mg/2 Ml Vial IVPUSH 05/04/23 20:58 4 mg ONCE ONE Administration Medical Decision Making Medical Decision Making [facility] Narrative: 61-year-old female with arrival via EMS and history standing consistent with overdose but patient also noted to be hyperglycemic, pupils pinpoint bilaterally. Patient oxygenating 100% without spontaneous respiration, EKG not indicative of primary cardiac issue and decision made to give IV Narcan in addition to Zofran with positive results. Patient awoke, asking where she was, blood pressure has improved and she is spontaneously breathing with supplemental oxygen at this time simply is a precaution. - labs, EKG, toxicology 1950: I was notified that when family came into the room to be with the patient the patient endorsed to them that she was attempting to commit suicide by using a bag of heroin. 1-1 has been ordered, patient will be Section 12, care team consult has been placed but at this time patient is not medically cleared. I reviewed all investigations and the noted acidosis on the VBG is secondary to patient's hypoxic event as well as the lactic acid is attributed to this as well. There is no evidence of acute infection. There is no evidence of DKA or HHS the slight bump in troponin is likely attributable to patient's hypoxic event, 13.9. Patient has remained somewhat drowsy and has been placed on capnography and received an additional dose of Zofran as well as 4 mg of Narcan intranasally. Signed out to Dr Bazzi. - f/u POC Glucose and increased arouseability as well as UDS Differential Diagnosis Please see the discussion above Lab Data Please see the discussion above 09/19/22 19:19 09/19/22 19:19 Labs: Lab Results 09/19/22 09/19/22 09/19/22 Range/Units 19:19 19:19 19:19 WBC 10.9 H (4.8-10.8) X10*3/uL RBC 4.75 (4.20-5.50) X10*6/uL Hgb 14.0 (12.0-16.0) g/dl Hct 43.2 (37.0-47.0) % MCV 90.9 (80.0-98.0) fL MCH 29.5 (27.0-33.0) pg MCHC 32.4 (31.0-35.0) g/dl RDW 14.0 (11.0-16.0) % Plt Count 325 (160-400) X10*3/uL MPV 9.9 (9.4-12.3) fL Immature Gran % (Auto) 0.6 H (0.0-0.4) % Neut % (Auto) 51.4 (45-73) % Lymph % (Auto) 39.3 (20-40) % [place] % (Auto) 5.9 (2-11) % Eos % (Auto) 2.5 (0-4) % Baso % (Auto) 0.3 (0-2) % Lymph # (Auto) 4.3 (1.2-4.9) X10*3/uL [place] # (Auto) 0.6 (0.1-1.2) X10*3/uL Eos # (Auto) 0.3 (0.0-0.4) X10*3/uL Baso # (Auto) 0.0 (0.0-0.2) X10*3/uL Abs Immat Gran (auto) 0.06 H (0.00-0.03) X10*3/uL Absolute Neuts (auto) 5.6 (2.0-8.3) x10*3/uL Absolute Nucleated RBC 0.000 (0.0-0.012) X10*3/uL Nucleated RBC % (auto) 0.0 (0.0-0.2) /100WBC PT 11.5 (10.0-13.1) SEC INR 1.0 (0.9-1.1) VBG pH (7.32-7.43) VBG pCO2 mmHg VBG pO2 mmHg VBG HCO3 (22-26) mmol/L VBG O2 Saturation % VBG Base Excess mmol/L Sodium 138 (135-145) mmol/L Potassium 5.0 (3.3-5.1) mmol/L Chloride 104 (96-108) mmol/L Carbon Dioxide 23 (22-29) mmol/L Anion Gap 17 (12-20) BUN 16 (9-16) mg/dL Creatinine 1.13 (0.5-1.4) mg/dL Estim Creat Clear Calc 38.4 Estimated GFR 49 POC Glucose (60-115) mg/dL Random Glucose 561 H* (60-115) mg/dL Lactic Acid (0.5-2.0) mmol/L Calcium 8.5 D (8.4-10.2) mg/dL Total Bilirubin 0.1 (0.0-1.0) mg/dL AST 109 H (5-31) U/L ALT 74 H (0-31) U/L Alkaline Phosphatase 81 (39-117) U/L Troponin I High Sens (<3.5-17.0) ng/L Total Protein 5.6 L (6.5-8.0) g/dL Albumin 3.6 (3.5-5.0) g/dL Acetaminophen Cancelled Ethyl Alcohol < 10 mg/dL Acetone, Qual Negative (Negative) 09/19/22 09/19/22 09/19/22 Range/Units 19:19 19:27 19:29 WBC (4.8-10.8) X10*3/uL RBC (4.20-5.50) X10*6/uL Hgb (12.0-16.0) g/dl Hct (37.0-47.0) % MCV (80.0-98.0) fL MCH (27.0-33.0) pg MCHC (31.0-35.0) g/dl RDW (11.0-16.0) % Plt Count (160-400) X10*3/uL MPV (9.4-12.3) fL Immature Gran % (Auto) (0.0-0.4) % Neut % (Auto) (45-73) % Lymph % (Auto) (20-40) % [place] % (Auto) (2-11) % Eos % (Auto) (0-4) % Baso % (Auto) (0-2) % Lymph # (Auto) (1.2-4.9) X10*3/uL [place] # (Auto) (0.1-1.2) X10*3/uL Eos # (Auto) (0.0-0.4) X10*3/uL Baso # (Auto) (0.0-0.2) X10*3/uL Abs Immat Gran (auto) (0.00-0.03) X10*3/uL Absolute Neuts (auto) (2.0-8.3) x10*3/uL Absolute Nucleated RBC (0.0-0.012) X10*3/uL Nucleated RBC % (auto) (0.0-0.2) /100WBC PT (10.0-13.1) SEC INR (0.9-1.1) VBG pH 7.16 L* (7.32-7.43) VBG pCO2 61 mmHg VBG pO2 91 mmHg VBG HCO3 22 (22-26) mmol/L VBG O2 Saturation 95.0 % VBG Base Excess -7.2 mmol/L Sodium (135-145) mmol/L Potassium (3.3-5.1) mmol/L Chloride (96-108) mmol/L Carbon Dioxide (22-29) mmol/L Anion Gap (12-20) BUN (9-16) mg/dL Creatinine (0.5-1.4) mg/dL Estim Creat Clear Calc Estimated GFR POC Glucose (60-115) mg/dL Random Glucose (60-115) mg/dL Lactic Acid 3.8 H* (0.5-2.0) mmol/L Calcium (8.4-10.2) mg/dL Total Bilirubin (0.0-1.0) mg/dL AST (5-31) U/L ALT (0-31) U/L Alkaline Phosphatase (39-117) U/L Troponin I High Sens 13.9 (<3.5-17.0) ng/L Total Protein (6.5-8.0) g/dL Albumin (3.5-5.0) g/dL Acetaminophen Ethyl Alcohol mg/dL Acetone, Qual (Negative) 09/19/22 Range/Units 19:31 WBC (4.8-10.8) X10*3/uL RBC (4.20-5.50) X10*6/uL Hgb (12.0-16.0) g/dl Hct (37.0-47.0) % MCV (80.0-98.0) fL MCH (27.0-33.0) pg MCHC (31.0-35.0) g/dl RDW (11.0-16.0) % Plt Count (160-400) X10*3/uL MPV (9.4-12.3) fL Immature Gran % (Auto) (0.0-0.4) % Neut % (Auto) (45-73) % Lymph % (Auto) (20-40) % [place] % (Auto) (2-11) % Eos % (Auto) (0-4) % Baso % (Auto) (0-2) % Lymph # (Auto) (1.2-4.9) X10*3/uL [place] # (Auto) (0.1-1.2) X10*3/uL Eos # (Auto) (0.0-0.4) X10*3/uL Baso # (Auto) (0.0-0.2) X10*3/uL Abs Immat Gran (auto) (0.00-0.03) X10*3/uL Absolute Neuts (auto) (2.0-8.3) x10*3/uL Absolute Nucleated RBC (0.0-0.012) X10*3/uL Nucleated RBC % (auto) (0.0-0.2) /100WBC PT (10.0-13.1) SEC INR (0.9-1.1) VBG pH (7.32-7.43) VBG pCO2 mmHg VBG pO2 mmHg VBG HCO3 (22-26) mmol/L VBG O2 Saturation % VBG Base Excess mmol/L Sodium (135-145) mmol/L Potassium (3.3-5.1) mmol/L Chloride (96-108) mmol/L Carbon Dioxide (22-29) mmol/L Anion Gap (12-20) BUN (9-16) mg/dL Creatinine (0.5-1.4) mg/dL Estim Creat Clear Calc Estimated GFR POC Glucose 503 H* (60-115) mg/dL Random Glucose (60-115) mg/dL Lactic Acid (0.5-2.0) mmol/L Calcium (8.4-10.2) mg/dL Total Bilirubin (0.0-1.0) mg/dL AST (5-31) U/L ALT (0-31) U/L Alkaline Phosphatase (39-117) U/L Troponin I High Sens (<3.5-17.0) ng/L Total Protein (6.5-8.0) g/dL Albumin (3.5-5.0) g/dL Acetaminophen Ethyl Alcohol mg/dL Acetone, Qual (Negative) Independent Interpretation I performed an independent interpretation of an: EKG Interpretation: Normal sinus rhythm, HR-96, no STEMI but there are peaked T-waves noted in V3/V4, ME/QRS/QTC is within normal limits. External Record Review External record reviewed: Outpatient record and Prior outpatient labs Chronic Conditions Patient?s care impacted by: Diabetes and Hypertension Discharge Plan Discharge Clinical Impression: Suicide attempt by drug overdose, Hyperglycemia due to diabetes mellitus Patient Disposition: Still a Patient Prescriptions: No Action simethicone [Gas Relief (simethicone)] 180 mg capsule 180 mg PO BID PRN (Reason: abdominal distention) Qty: 60 3RF docusate sodium 100 mg capsule 100 mg PO BEDTIME Qty: 30 3RF sennosides [Natural Senna Laxative] 8.6 mg tablet 17.2 mg PO BEDTIME Qty: 60 3RF famotidine 40 mg tablet 40 mg PO BEDTIME Qty: 30 3RF cholecalciferol (vitamin D3) 50 mcg (2,000 unit) capsule 50 mcg PO DAILY Qty: 90 3RF (DME) osmar [facility] See Rx Instructions .MEDSUPPLY Qty: 1 0RF Rx Instructions: Folding front wheeled walker metformin 500 mg tablet 500 mg PO BID Qty: 60 5RF pantoprazole 40 mg tablet,delayed release (DR/EC) 40 mg PO DAILY Qty: 90 2RF Rx Instructions: take one tablet half an hour before breakfast ([facility]) FreeStyle Test Strip See Rx Instructions .ROUTE .MEDSUPPLY Qty: 100 11RF Rx Instructions: Use 1 test strip four times a day permethrin 5 % cream 1 appl topical Q14D Qty: 60 0RF Rx Instructions: apply second treatment 14 days after first treatment if live lice remain losartan 100 mg tablet 100 mg PO DAILY Levemir U-100 Insulin 100 unit/mL solution 100 unit subcut DAILY Jardiance 25 mg tablet 25 mg PO DAILY Humalog U-100 Insulin 100 unit/mL cartridge 5 unit subcut TID insulin lispro 100 unit/mL solution 10 unit subcut TID ([facility]) osmar [facility] See Rx Instructions .ROUTE .MEDSUPPLY Qty: 1 0RF Rx Instructions: Folding front wheeled walker meloxicam 15 mg tablet 15 mg PO DAILY 30 Days Qty: 30 0RF
[2022-09-19 19:34] LABS: Basophils Percent Auto 0.3 % (0-2); Eosinophils Absolute Auto 0.3 X10*3/uL (0.0-0.4); Eosinophils Percent Auto 2.5 % (0-4); Hematocrit 43.2 % (37.0-47.0); Imm Gran Abs Auto 0.06 X10*3/uL (0.00-0.03); Imm Gran Pct Auto 0.6 % (0.0-0.4); Lymphocytes Absolute Auto 4.3 X10*3/uL (1.2-4.9); Lymphocytes Percent Auto 39.3 % (20-40); Mean Corpuscular HGB Conc 32.4 g/dl (31.0-35.0); Mean Corpuscular Hemoglobin 29.5 pg (27.0-33.0); Mean Corpuscular Volume 90.9 fL (80.0-98.0); Mean Platelet Volume 9.9 fL (9.4-12.3); Monocytes Absolute Auto 0.6 X10*3/uL (0.1-1.2); Monocytes Percent Auto 5.9 % (2-11); Neutrophils Absolute Auto 5.6 x10*3/uL (2.0-8.3); Neutrophils Percent Auto 51.4 % (45-73); Platelet Count 325 X10*3/uL (160-400); Red Blood Count 4.75 X10*6/uL (4.20-5.50); White Blood Count 10.9 X10*3/uL (4.8-10.8)
[2022-09-19] MEDS: 0.9 % Sodium Chloride 1,000 ML 999 ML IV ×2 (19:34→21:53)
[2022-09-19 19:36] LABS: Glucose, Whole Blood 503 mg/dL (60-115)
[2022-09-19 19:39] LABS: VBG Base Excess -7.2 mmol/L; VBG HCO3 22 mmol/L (22-26); VBG pCO2 61 mmHg; VBG pH 7.16 (7.32-7.43); VBG pO2 91 mmHg
[2022-09-19 19:41] LABS: Prothrombin Time 11.5 SEC (10.0-13.1); Venous Blood Gas Refer to POC result
[2022-09-19 19:45] LABS: Acetone, serum QL Negative (Negative)
[2022-09-19 19:52] LABS: Alanine Aminotransferase 74 U/L (0-31); Albumin Level 3.6 g/dL (3.5-5.0); Alkaline Phosphatase 81 U/L (39-117); Aspartate Amino Transferase 109 U/L (5-31); Bilirubin Total 0.1 mg/dL (0.0-1.0); Blood Urea Nitrogen 16 mg/dL (9-16); Calcium 8.5 mg/dL (8.4-10.2); Carbon Dioxide 23 mmol/L (22-29); Chloride 104 mmol/L (96-108); Creatinine Clr Calc Pharmacy 38.4; Estimated Glomerular Filt Rate 49; Ethanol < 10 mg/dL; Glucose Random 561 mg/dL (60-115); Sodium 138 mmol/L (135-145); Total Protein 5.6 g/dL (6.5-8.0)
[2022-09-19 20:04] LABS: Anion Gap 17 (12-20)
[2022-09-19 20:05] LABS: Troponin-I High Sensitivity 13.9 ng/L (<3.5-17.0)
--- NOTE | 2022-09-19 20:15 | PC.NURSE ---
ABDELRAHMAN PCT 1:1 AT BEDSIDE PER FACILITY PROTOCOL.
[2022-09-19 20:23] LABS: Lactic Acid 3.8 mmol/L (0.5-2.0)
[2022-09-19 20:35] VITALS: BP 121/72; PULSE 89; RESP 10; O2SAT 98
--- NOTE | 2022-09-19 20:36 | PC.NURSE ---
PT SOMNOLENT AT THIS TIME, ROUSED BY VOICE. CAPNOGRAPHY IN PLACE ETCO 29, 3L SUPP O2. HOSP SITTER AT BEDSIDE.
[2022-09-19] MEDS: Naloxone HCl Nasal 4 MG SPRAY NOSTRILALT (21:03)
[2022-09-19 21:31] VITALS: BP 121/72; PULSE 86; RESP 12; TEMP 36.6; O2SAT 98
[2022-09-19 21:34] LABS: Glucose, Whole Blood 395 mg/dL (60-115)
--- NOTE | 2022-09-19 22:00 | PC.NURSE ---
Addendum entered by Stacy Amado RN 09/19/22 22:01: Patient asked if she needed to void. she denies the need to urinate. Has gotten 1L from EMS and 1L from ER. Original Note: Patient denies any pain. Patient is c/o that her fingers are numb.
[2022-09-19 22:14] LABS: Reflex Lactate? Lactic Acid Added
--- NOTE | 2022-09-19 22:58 | PC.NURSE ---
Addendum entered by Stacy Amado RN 09/19/22 23:03: Patient confessed to daughters that she wanted to so she used a bag of heroin. Dr. Mcneal notified. Sec. 12. sitter at bedside. changed. Original Note: Patient came in via EMS bagging patient OPA in place. Tele: sinus tachycardia bp 93/59. rr-13, 53 ET CO2 53 2mg narcan given iv push and a second of narcan 0.4mg dose at 0 and zofran 4mg iv push. at 2122 became responsive. vitals in computer.
--- NOTE | 2022-09-19 23:13 | PC.NURSE ---
assumed care of patient at 2300 - pt resting comfortably on stretcher. alert and arousable to stimuli but sleepy. pt on chief airport guide. purewick placed to try to obtain urine sample. sitter in place for SI thoughts. will CTM
[2022-09-19 23:25] LABS: Salicylate < 5.0 mg/dL (15-30)
[2022-09-19 23:26] VITALS: BP 103/73; PULSE 83; RESP 13; TEMP 36.8; O2SAT 99
[2022-09-20 00:22] LABS: Acetaminophen LAB < 17 mcg/mL (<30)
[2022-09-20 01:15] VITALS: BP 119/76; PULSE 86; RESP 10; O2SAT 99
[2022-09-20 02:11] VITALS: BP 123/68; PULSE 102; RESP 18; O2SAT 92
[2022-09-20 03:02] LABS: Appearance Urine Clear; Color Urine Yellow; Glucose Urine UA >=1000 mg/dL (Negative); Leukocyte Esterase Urine Negative (Negative); Nitrite Urine Negative (Negative); Specific Gravity - Urine >= 1.030 (1.005-1.025); UMIC TRIGGER UACC YES; Urine Blood Negative (Negative); Urine Ketones Negative (Negative); Urine Protein Negative (Neg-Trace)
[2022-09-20 03:05] LABS: Glucose, Whole Blood 264 mg/dL (60-115)
[2022-09-20 03:13] LABS: Amphetamine Screen Urine Not Detected (Not Detect); Barbiturates, Urine Not Detected (Not Detect); Benzodiazepines Screen Urine Not Detected (Not Detect); Cannabinoid Screen Urine Not Detected (Not Detect); Cocaine Screen Urine POSITIVE (Not Detect); Fentanyl, urine POSITIVE (Not Detect); Opiate Screen Urine Not Detected (Not Detect); Phencyclidine Screen Urine Not Detected (Not Detect)
[2022-09-20] MEDS: Insulin Lispro 100 UNIT/ML 3 ML VIAL 6 UNIT SUBCUT (03:22)
[2022-09-20] MEDS: ondansetron HCL 4 MG/2 ML VIAL IVPUSH (03:22)
[2022-09-20] MEDS: Insulin Glargine,Hum.rec.anlog 100 UNIT/ML 10 ML VIAL 20 UNIT SUBCUT (03:22)
[2022-09-20 03:40] LABS: Bacteria Urine None Seen (None Seen); Granular Casts Urine Present; RBC Urine 0-2 /HPF (0-2); Squamous Epithelial Cell Urine 0-2 /HPF (0-2); UACC Culture Trigger YES
[2022-09-20 03:59] LABS: COVID-19 Test Negative (Negative); IDNOW Serial# 6674DD1D
--- NOTE | 2022-09-20 04:06 | PC.NURSE ---
Patient just got transferred from main ED after medically cleared, patient is currently in bed appears sleeping, no distress observed/reported, med rec completed/approved, care consult ordered/pending evaluation, behavior non concerning, VSS, will continue to monitor
[2022-09-20 04:55] LABS: Glucose, Whole Blood 216 mg/dL (60-115)
[2022-09-20] MEDS: Omeprazole 20 MG CAPSULE.DR PO (06:30)
[2022-09-20 06:41] LABS: Glucose, Whole Blood 447 mg/dL (60-115)
[2022-09-20 07:08] LABS: Glucose, Whole Blood 144 mg/dL (60-115)
[2022-09-20] MEDS: metFORMIN HCl 500 MG TABLET PO (07:11)
[2022-09-20] MEDS: Insulin Lispro 100 UNIT/ML 3 ML VIAL SUBCUT (07:11)
--- NOTE | 2022-09-20 07:20 | PHA.MEDREC ---
Pharmacy Consult ? Medication Reconciliation Pharmacy has reviewed the medication reconciliation.
[2022-09-20 10:25] VITALS: BP 118/66; PULSE 92; RESP 15; TEMP 36; O2SAT 97
[2022-09-20] MEDS: Ondansetron ODT 4 MG TAB.RAPDIS TRANSLINGU (10:34)
[2022-09-20] MEDS: Naloxone HCl Nasal TAKE HOME 4 MG SPRAY NOSTRILALT (12:14)
--- NOTE | 2022-09-20 12:42 | MHC.CARE ---
Referral to [facility] submitted
--- NOTE | 2022-09-23 14:22 | MHC.CARE ---
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 Pt reports still experiencing physical pain and anxiety and depression.? CARE Team began to provide pt with the number for [facility] but pt then hung up.
--- NOTE | 2022-09-24 12:37 | MHC.CARE ---
Pt was called today for follow up, she reports she did receive a call from [facility], however her phone cut out. She was provided the phone number today and reports she will call the agency to set up appointment.
== END 2022-09-20 12:22 | disposition home or self-care (01) ==
PROVIDERS: Student in an Organized Health Care Education/Training Program; Emergency Provider Internal Medicine
DX: R40.4 Transient alteration of awareness (principal); E11.65 Type 2 diabetes mellitus with hyperglycemia; T40.1X2A Poisoning by heroin, intentional self-harm, initial encounter; Y92.039 Unspecified place in apartment as the place of occurrence of the external cause; Z20.822 Contact with and (suspected) exposure to COVID-19; I10 Essential (primary) hypertension; E78.5 Hyperlipidemia, unspecified; Z79.899 Other long term (current) drug therapy; Z79.4 Long term (current) use of insulin
CPT/HCPCS: 36415; 80053; 80143; 80179; 80307; 81001; 81003; 82009; 82803; 82947; 83605; 84484; 85025; 85610; 87040; 87086; 87635; 93005; 96361; 96374; 96375; 96376; 99285; J2405; S9485

== ENCOUNTER 2022-11-02 21:27 | Emergency (ER) | payer MEDICAID, SELFPAY ==
--- NOTE | 2022-11-02 | ECG_ITS ---
Test Reason : CHEST PAIN Blood Pressure : / mmHG Vent. Rate : 083 BPM Atrial Rate : 083 BPM P-R Int : 132 ms QRS Dur : 084 ms QT Int : 372 ms P-R-T Axes : 043 -34 066 degrees QTc Int : 437 ms Normal sinus rhythm Left axis deviation Minimal voltage criteria for LVH, may be normal variant ( R in aVL ) Abnormal ECG When compared with ECG of 19-SEP-2022 19:14, Criteria for Septal infarct are no longer Present Referred By: Generic ED Physician Electronically Signed By:JODY BERGER MD
--- NOTE | ~2022-11-02 | XR_ITS ---
EXAMINATION: XR CHEST CLINICAL INFORMATION: Chest pain COMPARISON: 11/20/2020 TECHNIQUE: 2 views of the chest were obtained. FINDINGS: Osseous alignment is anatomic. No acute fracture is seen. No evidence of pneumothorax, pleural effusion, or pulmonary edema. The cardiomediastinal contour is unremarkable. No acute osseous findings are seen. XR/XR chest 2V IMPRESSION: No acute cardiopulmonary findings.
[2022-11-02 21:29] VITALS: BP 151/79; PULSE 90; RESP 18; TEMP 36.1; O2SAT 98; BMI 27.5
[2022-11-02 22:00] LABS: MANUAL DIFF FLAG NO
[2022-11-02 22:10] LABS: Basophils Absolute Auto 0.1 X10*3/uL (0.0-0.2); Basophils Percent Auto 0.6 % (0-2); Eosinophils Absolute Auto 0.2 X10*3/uL (0.0-0.4); Eosinophils Percent Auto 2.3 % (0-4); Hematocrit 42.8 % (37.0-47.0); Hemoglobin 14.2 g/dl (12.0-16.0); Imm Gran Abs Auto 0.04 X10*3/uL (0.00-0.03); Imm Gran Pct Auto 0.5 % (0.0-0.4); Lymphocytes Absolute Auto 2.9 X10*3/uL (1.2-4.9); Lymphocytes Percent Auto 33.1 % (20-40); Mean Corpuscular HGB Conc 33.2 g/dl (31.0-35.0); Mean Corpuscular Hemoglobin 30.1 pg (27.0-33.0); Mean Corpuscular Volume 90.7 fL (80.0-98.0); Mean Platelet Volume 9.8 fL (9.4-12.3); Monocytes Absolute Auto 0.5 X10*3/uL (0.1-1.2); Monocytes Percent Auto 5.8 % (2-11); Neutrophils Absolute Auto 5.1 x10*3/uL (2.0-8.3); Neutrophils Percent Auto 57.7 % (45-73); Platelet Count 358 X10*3/uL (160-400); Red Blood Count 4.72 X10*6/uL (4.20-5.50); Red Cell Distribution Width 15.2 % (11.0-16.0); White Blood Count 8.8 X10*3/uL (4.8-10.8)
[2022-11-02 22:13] LABS: Anion Gap 15 (12-20); Blood Urea Nitrogen 10 mg/dL (9-16); Calcium 10.1 mg/dL (8.4-10.2); Carbon Dioxide 25 mmol/L (22-29); Chloride 104 mmol/L (96-108); Creatinine Clr Calc Pharmacy 70.2; Estimated Glomerular Filt Rate > 60; Glucose Random 276 mg/dL (60-115); Potassium 3.9 mmol/L (3.3-5.1); Sodium 140 mmol/L (135-145)
[2022-11-02 22:21] LABS: Troponin-I High Sensitivity 3.6 ng/L (<3.5-17.0)
[2022-11-02 22:47] VITALS: BP 139/77; PULSE 80; RESP 15; TEMP 36.7; O2SAT 97
[2022-11-02 23:30] VITALS: BP 147/76; PULSE 80; RESP 18; TEMP 36.8; O2SAT 97
--- NOTE | 2022-11-02 23:48 | ED_ITS ---
HPI - SOB/Dyspnea General Chief Complaint: Dyspnea Stated Complaint: chest pain Time Seen by Provider: 11/02/22 23:44 Source: patient and family History of Present Illness HPI Narrative: 61-year-old female who presents emergency department for evaluation of left-s ided chest pain and shortness of breath. The patient states that she was moving her stone when she developed pain in her left chest. She states that the pain is a strong, burning, pressure-like pain which is 10/10. She states the pain is intermittent. The pain is worse with movement. She took aspirin at home with no relief for the pain. She had associated nausea with no vomiting. She denied fever, chills, cough. The patient states she does use intranasal cocaine and used cocaine earlier in the morning. Patient was seen in the emergency department on 09/19/2022 for altered mental status patient responded to Narcan and stated that she tried to commit suicide by using 1 bag of intranasal heroin. Related Data Home Medications Medication Instructions Recorded Confirmed aspirin 81 mg tablet,delayed 81 mg PO DAILY 09/20/22 11/02/22 release carvedilol 6.25 mg tablet 6.25 mg PO BID 09/20/22 11/02/22 empagliflozin 25 mg tablet 25 mg PO QAM 09/20/22 11/02/22 (Jardiance) losartan 100 mg tablet 100 mg PO QAM 09/20/22 11/02/22 metformin 500 mg tablet 500 mg PO BID 09/20/22 11/02/22 pantoprazole 40 mg tablet,delayed 40 mg PO QAM 09/20/22 11/02/22 release rosuvastatin 20 mg tablet 20 mg PO BEDTIME 09/20/22 11/02/22 Vitamin D3 units PO DAILY 11/02/22 Allergies Allergy/AdvReac Type Severity Reaction Status Date / Time morphine [Morphine] Allergy Mild ITCHING, Verified 07/15/22 09:21 pruritus, rash Review of Systems Review of Systems: Yes all other systems are reviewed and are negative [facility] Past Medical History Attestation statement: The following information was validated with the patient. 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 Physical Exam Vital Signs: Vital Signs: Last Vital Signs Temp 98.0 F 11/03/22 02:00 Pulse 72 11/03/22 02:00 Resp 16 11/03/22 02:00 BP 139/75 11/03/22 02:00 Pulse Ox 95 11/03/22 02:00 O2 Del Method Room Air 11/03/22 02:00 BMI result Body Mass Index 27.5 Const: Other: Awake, alert, female patient, pleasant, cooperative, she does appear to be in distress secondary to pain, she is holding her left chest HEENT: Head: Yes normal to inspection, Yes normocephalic and Yes atraumatic Ears: external ears normal General nose exam: Normal external nose present Face and sinus: Yes normal facial exam Mouth: Normal oral and palatal mucosa present Throat: Yes posterior oropharynx normal Eyes: General: appearance normal, both eyes and all related structures Pu pils: Equal, round and reactive pupils present Neck: Neck: Yes normal visual inspection, Yes no lymphadenopathy, Yes trachea midline and Yes supple Chest: Other: Patient does have tenderness palpation of her left chest wall Resp: Effort & Inspection: normal respiratory effort and able to speak in com plete sentences Auscultation: clear to auscultation bilaterally Cardio: Rate: regular rate Rhythm: regular rhythm Heart sounds: S1 normal heart sound present, S2 normal heart sound present and no murmurs GI: Inspection: Yes normal to inspection Palpation (GI): Soft to palpation, nontender and no guarding Auscultation: normal bowel sounds : General: Yes no CVA tenderness Back/Spine/Pelvis: Back: no CVA tenderness Skin: General skin exam: no rashes or lesions noted Neuro: Cranial nerves: Yes CN's II-XII intact bilaterally and Yes Equal, round and reactive pupils present Cognition (Neuro): normal cognition Motor exam (neuro): 5/5 motor strength present throughout Extrem: General: Yes normal to inspection Psych: Appearance: grossly normal Speech and movement: Normal speech and movement present Affect: normal affect Attitude: cooperative Thought process: Normal thought process present Thought content: Normal thought content present Medications Administered Discontinued Medications Generic Name Dose Route Start Last Admin Trade Name Alfredo PRN Reason Stop Dose Admin Ketorolac Tromethamine 15 mg 11/03/22 00:08 11/03/22 00:14 Ketorolac Tromethamine 15 Mg/Ml Vial IVPUSH 11/03/22 00:09 15 mg ONCE STA Administration Medical Decision Making Medical Decision Making [facility] Narrative: 61-year-old female with a history of diabetes mellitus, hypertension, hyperlipidemia, osteoarthritis, heroin use disorder, cocaine use disorder who presents emergency department for evaluation of left-sided chest pain that started after she tried moving her stove at 19:00 hours. Patient does admit to using intranasal cocaine this morning. Vital signs revealed an elevated blood pressure of 151/79 otherwise unremarkable pain. Physical examination did reveal reproducible left chest wall tenderness. I ordered the following tests: CBC, BMP,, 12 EKG. Patient was ordered to get Toradol 15 mg IV for her pain. 0145: My independent interpretation of patient's laboratory evaluation is as follows: CBC was normal. Glucose elevated 276. Initial troponin was detectable but not elevated at 3.6. Patient did get significant improvement and is pain-free after receiving IV Toradol. 0241: Patient's repeat troponin was less than 2.7 which is reassuring suggested the patient did not have myocardial infarction or myocardial injury is the cause for chest pain. Patient will be discharged home and advised to take ibuprofen Tylenol for pain. Lab Data [facility] Lab Attestation statement: I reviewed the patient's lab results. 11/02/22 21:55 11/02/22 21:55 Labs: Lab Results 11/02/22 11/02/22 11/02/22 Range/Units 21:55 21:55 21:55 WBC 8.8 (4.8-10.8) X10*3/uL RBC 4.72 (4.20-5.50) X10*6/uL Hgb 14.2 (12.0-16.0) g/dl Hct 42.8 (37.0-47.0) % MCV 90.7 (80.0-98.0) fL MCH 30.1 (27.0-33.0) pg MCHC 33.2 (31.0-35.0) g/dl RDW 15.2 (11.0-16.0) % Plt Count 358 (160-400) X10*3/uL MPV 9.8 (9.4-12.3) fL Immature Gran % (Auto) 0.5 H (0.0-0.4) % Neut % (Auto) 57.7 (45-73) % Lymph % (Auto) 33.1 (20-40) % [place] % (Auto) 5.8 (2-11) % Eos % (Auto) 2.3 (0-4) % Baso % (Auto) 0.6 (0-2) % Lymph # (Auto) 2.9 (1.2-4.9) X10*3/uL [place] # (Auto) 0.5 (0.1-1.2) X10*3/uL Eos # (Auto) 0.2 (0.0-0.4) X10*3/uL Baso # (Auto) 0.1 (0.0-0.2) X10*3/uL Abs Immat Gran (auto) 0.04 H (0.00-0.03) X10*3/uL Absolute Neuts (auto) 5.1 (2.0-8.3) x10*3/uL Absolute Nucleated RBC 0.000 (0.0-0.012) X10*3/uL Nucleated RBC % (auto) 0.0 (0.0-0.2) /100WBC Sodium 140 (135-145) mmol/L Potassium 3.9 D (3.3-5.1) mmol/L Chloride 104 (96-108) mmol/L Carbon Dioxide 25 (22-29) mmol/L Anion Gap 15 (12-20) BUN 10 (9-16) mg/dL Creatinine 0.80 (0.5-1.4) mg/dL Estim Creat Clear Calc 70.2 Estimated GFR > 60 Random Glucose 276 H (60-115) mg/dL Calcium 10.1 D (8.4-10.2) mg/dL Troponin I High Sens 3.6 D (<3.5-17.0) ng/L 11/03/22 Range/Units 01:35 WBC (4.8-10.8) X10*3/uL RBC (4.20-5.50) X10*6/uL Hgb (12.0-16.0) g/dl Hct (37.0-47.0) % MCV (80.0-98.0) fL MCH (27.0-33.0) pg MCHC (31.0-35.0) g/dl RDW (11.0-16.0) % Plt Count (160-400) X10*3/uL MPV (9.4-12.3) fL Immature Gran % (Auto) (0.0-0.4) % Neut % (Auto) (45-73) % Lymph % (Auto) (20-40) % [place] % (Auto) (2-11) % Eos % (Auto) (0-4) % Baso % (Auto) (0-2) % Lymph # (Auto) (1.2-4.9) X10*3/uL [place] # (Auto) (0.1-1.2) X10*3/uL Eos # (Auto) (0.0-0.4) X10*3/uL Baso # (Auto) (0.0-0.2) X10*3/uL Abs Immat Gran (auto) (0.00-0.03) X10*3/uL Absolute Neuts (auto) (2.0-8.3) x10*3/uL Absolute Nucleated RBC (0.0-0.012) X10*3/uL Nucleated RBC % (auto) (0.0-0.2) /100WBC Sodium (135-145) mmol/L Potassium (3.3-5.1) mmol/L Chloride (96-108) mmol/L Carbon Dioxide (22-29) mmol/L Anion Gap (12-20) BUN (9-16) mg/dL Creatinine (0.5-1.4) mg/dL Estim Creat Clear Calc Estimated GFR Random Glucose (60-115) mg/dL Calcium (8.4-10.2) mg/dL Troponin I High Sens < 2.7 (<3.5-17.0) ng/L Independent Interpretation I performed an independent interpretation of an: Plain X-Ray Interpretation: My independent interpretation patient's two view chest x-ray is as follows: no acute disease My independent interpretation of the patient's 12 EKG done at 21:45 hours is as follows: Normal sinus rhythm with a rate of 83, normal PA interval, QRS duration and QTC intervals, no ST segment elevation, no ST segment depression, no significant T-wave abnormalities, no PACs, no PVCs, when compared to EKG dated 09/19/2022 no significant change. Radiology Impression Discussion of test interpretation with radiology: I have reviewed the rad iologist's reading. Radiologist Impression: XR chest 2V IMPRESSION: No acute cardiopulmonary findings. Dictated By:Stoney Bello MD Discharge Plan Discharge Clinical Impression: Chest pain, Acute dyspnea, Cocaine use disorder Patient Disposition: Home, Self-Care Instructions: Chest Pain (ED) Additional Instructions: Your chest x-ray was normal. Your blood work was normal which is reassuring. Your EKG was normal. At this time, I believe that your chest pain is caused by inflammation of the joints and muscles of your chest Take ibuprofen 200 mg pills, 3 pills every 6 hours as needed for pain. Take Tylenol (acetaminophen) 500 mg pills, 2 pills every 4 to 6 hours as needed for pain. Follow-up with your doctor in 2 days. Please return to the emergency department if your symptoms get worse or if you develop any symptoms that are concerning to you. You should consider getting help with your cocaine and opiate use disorder. Prescriptions: No Action Vitamin D3 2,000 units PO DAILY carvedilol 6.25 mg tablet 6.25 mg PO BID pantoprazole 40 mg tablet,delayed release (DR/EC) 40 mg PO QAM Jardiance 25 mg tablet 25 mg PO QAM aspirin 81 mg tablet,delayed release (DR/EC) 81 mg PO DAILY rosuvastatin 20 mg tablet 20 mg PO BEDTIME metformin 500 mg tablet 500 mg PO BID losartan 100 mg tablet 100 mg PO QAM
[2022-11-03] MEDS: Ketorolac Tromethamine 15 MG/ML VIAL IVPUSH (00:14)
[2022-11-03 02:00] VITALS: BP 139/75; PULSE 72; RESP 16; TEMP 36.7; O2SAT 95
[2022-11-03 02:18] LABS: Troponin-I High Sensitivity < 2.7 ng/L (<3.5-17.0)
== END 2022-11-03 03:11 | disposition home or self-care (01) ==
PROVIDERS: Emergency Provider Emergency Medicine Emergency Medical Services
DX: R07.9 Chest pain, unspecified (principal); R06.00 Dyspnea, unspecified; F14.99 Cocaine use, unspecified with unspecified cocaine-induced disorder; E11.9 Type 2 diabetes mellitus without complications; I10 Essential (primary) hypertension; E78.5 Hyperlipidemia, unspecified; Z79.84 Long term (current) use of oral hypoglycemic drugs; Z79.02 Long term (current) use of antithrombotics/antiplatelets; Z79.899 Other long term (current) drug therapy
CPT/HCPCS: 36415; 71046; 80048; 84484; 85025; 93005; 96374; 99284; 99285; J1885

== ENCOUNTER 2023-01-13 16:20 | Outpatient (REF) | payer MEDICAID, SELFPAY ==
[2023-01-15 21:28] LABS: HPV mRNA E6/E7 rflx Not Detected (Not Detected)
== END 2023-01-13 16:21 | disposition home or self-care (01) ==
LOC: HO.HHCLNP 16:20
PROVIDERS: Visit Provider Advanced Practice Midwife
DX: Z12.4 Encounter for screening for malignant neoplasm of cervix (principal); Z11.51 Encounter for screening for human papillomavirus (HPV)
CPT/HCPCS: 87624; 88142

== ENCOUNTER 2023-01-24 12:48 | Outpatient (REF) | payer MEDICAID, SELFPAY ==
--- NOTE | ~2023-01-24 | US_ITS ---
EXAMINATION: US PELVIS COMPLETE CLINICAL INFORMATION: Pelvic pain COMPARISON: Pelvic ultrasound 02/26/2021 TECHNIQUE: Transabdominal and transvaginal imaging was performed. FINDINGS: The uterus is of normal size and echogenicity measuring 9.1 x 4.7 x 5.7 cm. A regular homogeneous endometrium is identified measuring 0.3 cm. Nabothian cysts in the cervix. A 3.4 x 3.5 x 3.7 cm mass in the right fundus of the uterus, previously 1.6 x 1.4 x 1.1 cm and a 1.7 x 1.7 x 1.5 cm mass in the right body of uterus new from prior. Both ovaries are of normal size and echogenicity. The right measures 2.2 x 1.3 x 1.9 cm for a volume of 2.8 mL. The left measures 1.6 x 1.3 x 1.1 cm for a volume of 1.2 mL. There is no pelvic free fluid. US/US pelvic and transvaginal IMPRESSION: A 3.7 cm mass in the right fundus of the uterus is increased in size from prior which and a 1.7 cm mass in the right body of the uterus is new from prior, which would be atypical for myomas given the postmenopausal state and therefore recommend further evaluation with contrast-enhanced MR pelvis. The report will be called to the ordering clinician by a [facility] Registrar.
== END 2023-01-24 12:49 | disposition home or self-care (01) ==
LOC: HO.US 12:48
PROVIDERS: Visit Provider Advanced Practice Midwife
DX: R10.2 Pelvic and perineal pain (principal)
CPT/HCPCS: 76830; 76856

== ENCOUNTER 2023-02-03 11:35 | Outpatient (REF) | payer MEDICAID, SELFPAY ==
[2023-02-03 13:41] LABS: MANUAL DIFF FLAG NO
[2023-02-03 13:54] LABS: Basophils Absolute Auto 0.1 X10*3/uL (0.0-0.2); Basophils Percent Auto 0.6 % (0-2); Eosinophils Absolute Auto 0.2 X10*3/uL (0.0-0.4); Eosinophils Percent Auto 2.8 % (0-4); Hematocrit 45.2 % (37.0-47.0); Hemoglobin 14.5 g/dl (12.0-16.0); Imm Gran Abs Auto 0.02 X10*3/uL (0.00-0.03); Imm Gran Pct Auto 0.2 % (0.0-0.4); Lymphocytes Absolute Auto 2.7 X10*3/uL (1.2-4.9); Lymphocytes Percent Auto 33.2 % (20-40); Mean Corpuscular HGB Conc 32.1 g/dl (31.0-35.0); Mean Corpuscular Hemoglobin 29.7 pg (27.0-33.0); Mean Corpuscular Volume 92.4 fL (80.0-98.0); Mean Platelet Volume 10.7 fL (9.4-12.3); Monocytes Absolute Auto 0.4 X10*3/uL (0.1-1.2); Neutrophils Absolute Auto 4.8 x10*3/uL (2.0-8.3); Neutrophils Percent Auto 58.2 % (45-73); Platelet Count 356 X10*3/uL (160-400); Red Blood Count 4.89 X10*6/uL (4.20-5.50); White Blood Count 8.2 X10*3/uL (4.8-10.8)
[2023-02-03 14:36] LABS: Creatinine Urine 34.03 mg/dL; Microalbum/Creatinine Ratio Ur 26.4 ug/mg cr (<30)
[2023-02-03 14:46] LABS: Alanine Aminotransferase 47 U/L (0-31); Albumin Level 4.6 g/dL (3.5-5.0); Alkaline Phosphatase 67 U/L (39-117); Anion Gap 15 (12-20); Aspartate Amino Transferase 30 U/L (5-31); Bilirubin Total 0.2 mg/dL (0.0-1.0); Blood Urea Nitrogen 25 mg/dL (9-16); Calcium 10.6 mg/dL (8.4-10.2); Carbon Dioxide 26 mmol/L (22-29); Chloride 104 mmol/L (96-108); Cholesterol 174 mg/dL (<200); Estimated Glomerular Filt Rate 59; Glucose Random 250 mg/dL (60-115); HDL Cholesterol 43 mg/dL (>40); LDL Cholesterol Calculated 59 mg/dL (<100); Potassium 4.7 mmol/L (3.3-5.1); Sodium 140 mmol/L (135-145); Total Protein 7.5 g/dL (6.5-8.0); Triglycerides 362 mg/dL (<150)
[2023-02-03 15:00] LABS: Folate 13.2 ng/mL (> or = 4.0); Vitamin B12 351 pg/mL (200-900)
[2023-02-03 15:05] LABS: TSH reflex Free T4 1.13 uIU/mL (0.32-4.0)
[2023-02-03 15:13] LABS: Estimated Average Glucose 220 mg/dL; Hemoglobin A1c % 9.3 % (<6.0)
[2023-02-03 15:19] LABS: CT PCR NOT DETECTED (Not Detect.); NG PCR NOT DETECTED (Not Detect.)
[2023-02-04 04:48] LABS: Syphilis Screen Nonreactive (Nonreactive)
[2023-02-04 05:23] LABS: HBS Num1 0.64 mIU/mL (0-7.99); HBc Num1 0.08 S/CO (0.00-0.79); HBsAGNum1 0.39 S/CO (0.00-0.99); HIV AB/AG Nonreactive (Nonreactive); HIV Num 1 0.05 S/CO (0.00-0.99); Hepatitis B Core Antibody Nonreactive (Nonreactive); Hepatitis B Surface Antigen Negative (Negative); ~HepC Num1 0.04 S/CO (0.00-0.79); ~Hepatitis B Surface Antibody NONREACTIVE (Nonreactive); ~Hepatitis C Antibody Nonreactive (Nonreactive)
[2023-02-08 00:44] LABS: VITAMIN D (1,25 OH) D3 34 pg/mL; Vit D (1,25-Dihydroxy) Total 34 pg/mL (18-72); Vitamin D (1,25 OH) D2 <8 pg/mL
== END 2023-02-03 11:36 | disposition home or self-care (01) ==
LOC: HO.HHCL 11:35
PROVIDERS: Visit Provider Student in an Organized Health Care Education/Training Program
DX: Z00.00 Encounter for general adult medical examination without abnormal findings (principal); Z11.4 Encounter for screening for human immunodeficiency virus [HIV]; Z11.3 Encounter for screening for infections with a predominantly sexual mode of transmission
CPT/HCPCS: 0353U; 80053; 80061; 82043; 82570; 82607; 82652; 82746; 83036; 84443; 85025; 86704; 86706; 86780; 86803; 87340; 87389

== ENCOUNTER 2023-02-04 | Outpatient (REF) | payer MEDICAID, SELFPAY | END 2023-02-04 00:01 | disposition home or self-care (01) | LOC: HO.HHCL | PROVIDERS: Visit Provider Student in an Organized Health Care Education/Training Program | DX: Z13.89 Encounter for screening for other disorder (principal) ==

== ENCOUNTER 2023-02-14 13:50 | Outpatient (AMB) | payer MEDICAID, SELFPAY ==
--- NOTE | 2023-02-14 10:39 | A.OFFVIS_ITS ---
Intake Intake Visit Reasons: LDCT SD Intake Note: Initial visit for this 62yo smoker with a 50PYH. Patient has been smoking since age 11 for 51 years at 1ppd. At Max was 2ppd, mainly 1ppd . Denies marijuana use. Denies second hand smoke exposure. Denies exposure to chemicals or substances like asbestos. . Denies known family history of lung cancer. Denies personal history of cancers. Denies chest CT in last year. . Denies recent travel outside the [place]. Denies recent respiratory illness or recent hospitalization for respiratory issues. Denies testing positive for COVID. Denies receiving COVID Vaccine. . Denies fever, chills, new/worsening cough, hemoptysis, hoarseness or dysphagia. Denies significant chest pain, significant dyspnea or unintentional weight loss. Patient Lung Cancer Screening Questionnaire reviewed with patient by provider. . Shared Decision Making Completed. Patient meets criteria. Discussed in detail with patient, the risk vs benefit of LDCT screening. Patient consents to proceed with scan. Discussed smoking cessation. Allergies morphine [Morphine] Allergy (Mild, Verified 07/15/22 09:21) ITCHING, pruritus, rash PFSH Medical History (Updated 02/14/23 @ 14:04 by Claudia Fontana PA-C) Polysubstance abuse Hypertension Hyperlipidemia Type 2 diabetes mellitus, with long-term current use of insulin IBD (inflammatory bowel disease) Gastroesophageal reflux disease Nicotine dependence, cigarettes, uncomplicated Surgical History (Updated 01/09/23 @ 09:32 by Claudia Fontana PA-C) History of colonoscopy History of esophagogastroduodenoscopy (EGD) History of appendectomy History of cataract surgery Social History (Updated 02/14/23 @ 14:04 by Claudia Fontana PA-C) Household Members: Spouse Alcohol intake: former Patient Tobacco Use Status: Current everyday Tobacco user Tobacco use type: Cigarette Cigarette Packs Per Day: 1 Years Smoked: onset 11yo, 1ppd x 51yrs, 50PYH Substance Use Type: Crack/Cocaine Current occupational status: disabled 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 - Patient meets criteria for LDCT for lung cancer screening purposes and is asymptomatic. - Smoking cessation counseling offered. Patients can always call [phone]. - Will arrange for a LDCT scan of the chest for screening purposes at [facility]. - Risks, benefits, and alternatives were discussed in detail and the patient agrees to proceed. - Risks discussed include but are not limited to: radiation exposure, anxiety during testing and while awaiting results, false negatives, false positives and possibility of additional intervention such as further imaging or surgical procedures for benign disease. - Benefits are obviously detection of lung cancer at an early stage which can lead to improved outcomes. - Discussed the importance of screening program compliance with adherence to yearly LDCT scan as scheduled - or sooner interval scans for personalized screening regimen. - Discussed follow up plan. Our office will send a letter discussing results and if needed set up phone call and office visit based on CT findings. - Patient educated on results categorization and the management decisions for suspicious findings potentially found on the screening LDCT scan. Any patient with a Lung RADS score of 3 or 4 will be reviewed by a multidisciplinary team at [facility] to form a plan of action in regards to scan findings. - If further work up is warranted for a suspicious lung finding this will be followed by the Lung Cancer Screening program in conjunction with the Thoracic Surgery Department at [facility]. - A copy of the office note and LDCT will be sent to the patient's PCP - as well as documentation on any associated further plans of care. - Incidental findings on LDCT are the PCP's responsibility. These findings are indicated with an S finding on the LDCT Assessment. A note discussing the findings will be sent to the PCP who is then responsible for further management. - All questions answered.? Coding Level of Care Code Lung Cancer Screening [id number] Diagnoses Nicotine dependence, cigarettes, uncomplicated F17.210
== END 2023-02-14 15:00 | disposition home or self-care (01) ==
PROVIDERS: Visit Provider Physician Assistant Medical
DX: F17.210 Nicotine dependence, cigarettes, uncomplicated (principal)
CPT/HCPCS: G0296

== ENCOUNTER 2023-02-14 14:05 | Outpatient (REF) | payer MEDICAID, SELFPAY ==
--- NOTE | ~2023-02-14 | CT_ITS ---
EXAMINATION: CT CHEST SCREENING CLINICAL INFORMATION: Current smoker with 51 pack year history COMPARISON: None, baseline TECHNIQUE: Multidetector volumetric CT imaging of the chest is performed without contrast using low dose technique. Additional 2D coronal and sagittal reformatted images and axial 3D maximum intensity projection (MIP) images are generated on the CT workstation. This CT examination was performed using dose optimization techniques as appropriate, variously including the following: *Automated exposure control *Adjustment of mA and/or kV according to patient size (this includes techniques or standardized protocols for targeted exams where dose is matched to indication/reason for exam; i.e. extremities or head) *Use of iterative reconstruction technique DLP: 38 mGy-cm FINDINGS: STEAM PAN SPONGER: Aortic calcifications. LUNGS: Study limited by motion and body habitus. Trachea and bronchi are patent. Dependent atelectasis. 4 mm left upper lobe groundglass nodule containing 2 mm central solid component, 4:20. 4 mm subpleural right upper lobe nodule, 4:14. MEDIASTINUM: Unremarkable thyroid. Nonspecific mediastinal lymph nodes. No pathologic lymphadenopathy. Nonenlarged heart. No pericardial effusions. Atherosclerotic calcifications nonaneurysmal aorta. Nonenlarged pulmonary arteries. CORONARY ARTERY CALCIFICATION: Moderate to moderately severe. PLEURA: There is no pleural effusion. No pleural mass or thickening. AXILLA: No lymphadenopathy. UPPER ABDOMEN: Enlarged spleen hypodense liver. OSSEOUS STRUCTURES: Unremarkable. CT/CT lung screening IMPRESSION: Subsolid and groundglass nodules, none larger than 4 mm. ASSESSMENT: Lung-RADS category 2: Benign RECOMMENDATION: Routine annual low-dose CT screening in 12 months.
== END 2023-02-14 14:06 | disposition home or self-care (01) ==
LOC: HO.CT 14:05
PROVIDERS: Visit Provider Physician Assistant Medical
DX: Z12.2 Encounter for screening for malignant neoplasm of respiratory organs (principal); F17.210 Nicotine dependence, cigarettes, uncomplicated
CPT/HCPCS: 71271; G0296

== ENCOUNTER 2023-03-03 13:04 | Outpatient (REF) | payer MEDICAID, SELFPAY ==
--- NOTE | ~2023-03-03 | MR_ITS ---
EXAMINATION: MR PELVIS WITHOUT AND WITH CONTRAST CLINICAL INFORMATION: Pelvic pain, enlarging uterine fibroid COMPARISON: Ultrasound examination of the pelvis on 01/24/2023 TECHNIQUE: Examination was performed in a high field strength MRI scanner. Pre-contrast multiplanar multisequence MR imaging of the pelvis was performed without IV contrast enhancement. Post-contrast axial T1 weighted fat suppressed images of the pelvis were obtained after IV injection of 6 mL Gadavist. FINDINGS: Uterus is anteverted, measuring 11.1 cm in vertical height, 4.5 cm in width, 6.1 cm in width. Endometrial stripe is normal in thickness. A large mildly T2 hyperintense enhancing mass lesion with scattered T2 hypointense components is seen in uterine fundus, measuring 3.7 cm in AP diameter, 4.1 cm in width, 4.4 cm in vertical height. A smaller T2 hypointense enhancing subserosal tumor is seen protruding from left lateral uterine fundus, measuring 2.4 cm in AP diameter, 1.3 cm in width, 1.6 cm in vertical height. No adnexal mass lesion could be seen. Urinary bladder is well filled with urine. Pelvic fat plane is clean. No pelvic ascites is seen. No abnormally enlarged iliac or inguinal lymph nodes are found. The pelvis and bilateral hips are intact. Bilateral femoral heads and necks show normal signal without focal lesion. No abnormal joint effusion can be seen. The visualized bony pelvis show normal signal. Bilateral sacroiliac joints also appear unremarkable. Exophytic simple cyst is seen protruding from lateral superior right renal cortex measuring 2.0 cm in diameter, for which no follow up imaging is recommended. MR/MR pelvis wo/w con IMPRESSION: A larger midline and a smaller subserosal left lateral uterine fundal leiomyomas are found.
[2023-03-03] MEDS: gadobutroL 7.5 ML VIAL IVPUSH (14:23)
== END 2023-03-03 13:05 | disposition home or self-care (01) ==
LOC: HO.MRI 13:04
PROVIDERS: Visit Provider Advanced Practice Midwife
DX: R10.2 Pelvic and perineal pain (principal); D21.9 Benign neoplasm of connective and other soft tissue, unspecified
CPT/HCPCS: 72197; A9585

== ENCOUNTER 2023-03-10 17:30 | Outpatient (REF) | payer MEDICAID, SELFPAY | END 2023-03-10 17:31 | disposition home or self-care (01) | LOC: HO.HHCLNP 17:30 | PROVIDERS: Visit Provider Nurse Practitioner Primary Care | DX: R35.0 Frequency of micturition (principal) | CPT/HCPCS: 87086; 87088; 87186 ==

== ENCOUNTER 2023-03-24 17:34 | Outpatient (REF) | payer MEDICAID, SELFPAY | END 2023-03-24 17:35 | disposition home or self-care (01) | LOC: HO.HHCLNP 17:34 | PROVIDERS: Visit Provider Emergency Medicine | DX: R30.0 Dysuria (principal) | CPT/HCPCS: 87086 ==

== ENCOUNTER 2023-04-08 13:58 | Outpatient (REF) | payer MEDICAID, SELFPAY ==
--- NOTE | ~2023-04-08 | MM_ITS ---
EXAMINATION: MM SCREENING DIGITAL BREAST TOMOSYNTHESIS, BILATERAL CLINICAL INFORMATION: Screening. Asymptomatic. COMPARISON: 04/05/2022, 03/28/2021, 03/15/2021, 09/03/2018, 11/29/2016, 11/22/2016. TECHNIQUE: Digital breast tomosynthesis is performed in both the craniocaudal and mediolateral oblique views along with computer-aided detection (CAD). Synthesized 2D images are generated from the tomosynthesis. FINDINGS: There are scattered areas of fibroglandular density (ACR BI-RADS breast composition Category b). There are benign appearing dystrophic rare calcifications bilaterally. There are no suspicious masses, suspicious grouped calcifications, or areas of architectural distortion in either breast. The parenchymal pattern is stable from prior exams. MM/MM tomosynthesis screening BI IMPRESSION: No mammographic evidence of malignancy. ASSESSMENT: BI-RADS BI-RADS 2 - Benign Findings RECOMMENDATION: Routine annual mammography screening. 1 year F/U This examination should not preclude the clinical evaluation of a suspicious palpable abnormality. This patient's information was entered into a reminder system with a target due date for their next mammogram.
--- NOTE | ~2023-04-08 | MM_ITS ---
EXAMINATION: BONE DENSITOMETRY CLINICAL INDICATION: Menopausal and perimenopausal disorder. COMPARISON: This is the patient's baseline examination. TECHNIQUE: Using a [employer] DXA System (software version: 13.1) manufactured by [employer], dual-energy x-ray absorptiometry was performed of the lumbar spine and left hip. The images are of good technical quality. Summary results are attached. FINDINGS: LEFT FEMUR, NECK: BMD 0.901 g/cm2, Z-score 0.5, T-score -1.0, normal. LEFT FEMUR, TOTAL: BMD 0.980 g/cm2, Z-score 1.1, T-score -0.2, normal. AP SPINE L1-L4: BMD 1.175 g/cm2, Z-score 1.7, T-score 0.0, normal. IDENTIFIED RISK FACTORS: Early menopause, secondary osteoporosis, history of fracture (adult), recurrent falls, current smoker. HISTORY OF FRACTURE: Wrist. MEDICATIONS: None listed. MM/XR DEXA axial skeleton IMPRESSION: 1. DIAGNOSIS: Normal bone density based on the lowest T-score value of -1.0 in the femoral neck applying World Health Organization criteria. 2. 10-YEAR FRACTURE RISK PREDICTION, FRAX: According to the guidelines, FRAX calculation should only be performed on patients in the osteopenia bone density category. Therefore, FRAX was not performed on this patient. 3. Treatment Recommendations: NOF guidelines recommend consideration for treatment in postmenopausal women and men age 50 and older presenting with the following: -A hip or vertebral (clinical or morphometric) fracture. -T-score less than or equal to -2.5 at the femoral neck or spine after appropriate evaluation to exclude secondary causes. -Low bone mass at the hip or spine and a 10-year fracture probability by FRAX of greater than or equal to 3% for hip fracture or greater than or equal to 20% for major osteoporotic fracture based on the [place] adapted WHO algorithm. 4. Other Recommendations: All treatment decisions require clinical judgment and consideration of individual patient factors, including patient preferences, comorbidities, previous drug use, risk factors not captured in the FRAX model (e.g. frailty, falls, vitamin D deficiency, increased bone turnover, interval significant decline in bone density) and possible under or overestimation of fracture risk by FRAX. FUTURE SCAN RECOMMENDATION: People with diagnosed cases of osteoporosis or at high risk for fracture should have regular bone mineral density tests. For patients eligible for Medicare, routine testing is allowed once every 2 years. The testing frequency can be increased to one year for patients who have rapidly progressing disease, those who are receiving or discontinuing medical therapy to restore bone mass, or have additional risk factors.
== END 2023-04-08 13:59 | disposition home or self-care (01) ==
LOC: HO.MAMMO 13:58
PROVIDERS: PCP Advanced Practice Midwife; Visit Provider Advanced Practice Midwife
DX: Z12.31 Encounter for screening mammogram for malignant neoplasm of breast (principal); Z13.820 Encounter for screening for osteoporosis; Z78.0 Asymptomatic menopausal state
CPT/HCPCS: 77063; 77067; 77080

== ENCOUNTER → 2023-04-08 14:30 | Outpatient (BNV) | payer MEDICAID, SELFPAY | PROVIDERS: PCP Advanced Practice Midwife; Visit Provider Radiology Diagnostic Radiology | DX: Z12.31 Encounter for screening mammogram for malignant neoplasm of breast (principal) | CPT/HCPCS: 77063; 77067 ==

== ENCOUNTER 2023-08-13 08:55 | Outpatient (AMB) | payer MEDICAID, SELFPAY ==
[2023-08-13 09:00] VITALS: BP 110/60; PULSE 84; BMI 23.5
--- NOTE | 2023-08-13 09:00 | A.OFFVIS_ITS ---
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, severe plaque in coronaries Intake Note: New patient dx plaque in coronaries seen on CT scan c/o left arm numbness Photo Colorer Required: Yes Photo Colorer Name: [facility] [place] Customer Supply Coordinator: Customer Supply Coordinator Present Accompanied by: Spouse Allergies morphine [Morphine] Allergy (Mild, Verified 07/15/22 09:21) ITCHING, pruritus, rash Medication List - Last Reconciled 08/13/23 by Erasmo Barroso MD aspirin 81 mg PO DAILY carvedilol 6.25 mg PO BID clonidine HCl 0.1 mg PO empagliflozin (Jardiance) 25 mg PO QAM gabapentin 300 mg PO BEDTIME insulin lispro 6 units subcut TID losartan 100 mg PO QAM metformin 500 mg PO BID pantoprazole 40 mg PO QAM rosuvastatin 20 mg PO BEDTIME [Vitamin D3 multiple units PO DAILY] HPI HPI Comments History of Present Illness Details Thank you for referring Shelby in cardiology consultation today for moderate to moderately severe calcium noted in the coronary arteries on recent CT scan of the lung for lung cancer screening. 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 Patient said over the last 6 months she has been getting intermittent chest tightness which she describes as tightness the chest when she gets under stressful situations. Symptoms usually subside within 10-15 minutes. She does not get any chest pain with exertion but she has very limited exercise capacity related to pain in her joints and muscles when she walks. She says she gets cramping in her legs thighs downward to the calves when she walks. No workup has been performed. She says she currently still smokes about half a pack a day. Has longstanding history of hypertension, hyperlipidemia, diabetes. She has no known prior heart history. She also does not carry any diagnosis of COPD. She denies any palpitations, lightheadedness, syncope. No clear orthopnea, PND, leg edema. [facility] Medical History (Updated 08/13/23 @ 09:59 by Erasmo Barroso MD) CAD (coronary artery disease) Polysubstance abuse Hypertension Hyperlipidemia Type 2 diabetes mellitus, with long-term current use of insulin IBD (inflammatory bowel disease) Gastroesophageal reflux disease Nicotine dependence, cigarettes, uncomplicated Surgical History History of colonoscopy History of esophagogastroduodenoscopy (EGD) History of appendectomy History of cataract surgery Social History Household Members: Spouse Alcohol intake: former Patient Tobacco Use Status: Current everyday Tobacco user Tobacco use type: Cigarette Cigarette Packs Per Day: 1 Years Smoked: onset 11yo, 1ppd x 51yrs, 50PYH Substance Use Type: Crack/Cocaine Current occupational status: disabled 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 [employer] Const Denies chills, Denies daytime sleepiness, Denies fatigue, Denies fever(s), Denies frequent falls, Denies poor appetite, Denies snoring, Denies stops breathing during sleep, Denies weakness, Denies weight gain and Denies weight loss Eyes Denies loss of vision ENT Denies dizziness and Denies hearing loss Card Denies chest pain, Denies claudication, Denies leg edema, Denies lightheadedness, Denies palpitations, Denies dyspnea, Denies dyspnea on exertion and Denies orthopnea Resp Denies cough, Denies excessive phlegm production, Denies dyspnea, Denies dyspnea on exertion, Denies snoring and Denies wheezing GI Denies abdominal pain, Denies hematochezia, Denies change in bowel habits, Denies nausea and Denies vomiting Denies urinary frequency and Denies dysuria Musc Denies arthralgias, Denies muscle weakness, Denies numbness and Denies other (frequent falls) Skin/Breast Denies nail changes and Denies rash Neuro Denies Abnormal speech present, Denies dizziness, Denies frequent falls, Denies loss of vision, Denies memory loss, Denies numbness and Denies weakness Psych Denies depression and Denies memory loss Endo Denies fatigue and Denies palpitations Ata/Lymph Reports easy bruising and Reports other (anemia) Aller/Immun Denies wheezing Physical Exam Vital Signs: Last Vital Signs Pulse 84 08/13/23 09:00 BP 110/60 08/13/23 09:00 BMI result Body Mass Index 23.5 Const General: cooperative, comfortable, no acute distress, alert and awake Nutritional Appearance: thin Orientation/consciousness: patient oriented x3 Limitations: no limitations HEENT Head: Yes normocephalic and Yes atraumatic Neck Neck: Yes trachea midline, Yes supple and Yes no JVD Carotids: bruit Resp Effort & Inspection: normal respiratory effort Auscultation: clear to auscultation bilaterally and diminished lung sounds Cardio Jugular venous distension: no JVD Palpation: normal PMI Rate: regular rate Rhythm: regular rhythm Heart sounds: S1 normal heart sound present, S2 normal heart sound present, no click, no gallops, no murmurs and no rubs Peripheral pulses: other (Reduced distal pulses in the legs) GI Auscultation: normal bowel sounds Skin General skin exam: no rashes or lesions noted Neuro General: patient oriented x3 and no focal motor deficits Speech: No Abnormal speech present Extrem General: Yes no clubbing, cyanosis or edema Office Procedures EKG Details: EKG shows normal sinus rhythm with normal EKG [id number]-[id number], Complete Assessment & Plan Assessment & Plan (1) Atypical angina: Code(s): I20.89 - Other forms of angina pectoris Plan: Patient with symptoms concerning for angina especially chest tightness and stressful situation. She has very limited exercise capacity and does not get any exertional chest tightness although with presence of significant coronary calcium does high likelihood of underlying obstructive coronary artery disease with multiple risk factors including diabetes, hypertension, hyperlipidemia as well as smoking. Recommend her to undergo vasodilating myocardial perfusion imaging to evaluate for further presence of prognostically significant coronary artery disease. Treatment based on the findings. Also suggest her to have an echocardiogram to rule out LV systolic and diastolic function to evaluate for hypertensive heart disease. (2) CAD (coronary artery disease): Code(s): I25.10 - Atherosclerotic heart disease of [place] coronary artery without angina pectoris Plan: Coronary artery disease based on presence of coronary calcium on the CT of chest. She has multiple risk factors for the same. Discussed with her about complete smoking cessation. Continue aggressive risk factor modification. Blo od pressure is currently well optimized. Target goal blood pressure less than 130/84. Importance of good blood pressure control was discussed. Aggressive diabetes control goal hemoglobin A1c less than 7% being pursue through your office. Continue high-intensity statin therapy. Target goal LDL closer to 60 mg/dL. She also complains of bilateral lower extremity discomfort which are suggestive of possible underlying peripheral vascular disease will suggest lower extremity duplex as well as presence of carotid bruits or suggest her to undergo carotid duplex. Will follow up in the clinic in 6 weeks time, sooner p.r.n.. Thank you for allowing me to partake in the care Coding Level of Care Code New Pt Level 4 (73816) Diagnoses Atypical angina I20.89 CAD (coronary artery disease) I25.10 CPT Codes EKG - CPT: 68474-[id number], Complete ([id number])
== END 2023-08-13 09:39 | disposition home or self-care (01) ==
PROVIDERS: PCP Advanced Practice Midwife; Referring Provider Advanced Practice Midwife; Visit Provider Internal Medicine Cardiovascular Disease
DX: I25.10 Atherosclerotic heart disease of native coronary artery without angina pectoris (principal)
CPT/HCPCS: 93010; 99204

== ENCOUNTER → 2023-08-13 08:55 | Outpatient (BNVA) | payer MEDICAID, SELFPAY | PROVIDERS: PCP Advanced Practice Midwife; Visit Provider Internal Medicine Cardiovascular Disease | DX: I25.118 Atherosclerotic heart disease of native coronary artery with other forms of angina pectoris (principal); I10 Essential (primary) hypertension; E78.5 Hyperlipidemia, unspecified; E11.9 Type 2 diabetes mellitus without complications; F17.210 Nicotine dependence, cigarettes, uncomplicated | CPT/HCPCS: 93005; 99202 ==

== ENCOUNTER 2023-08-19 13:37 | Outpatient (REF) | payer MEDICAID, SELFPAY ==
--- NOTE | ~2023-08-19 | US_ITS ---
EXAMINATION: Bilateral LOWER EXTREMITY DUPLEX CLINICAL INFORMATION: Peripheral vascular disease COMPARISON: None TECHNIQUE: Real-time ultrasound and Doppler techniques (integrating B-mode 2-D vascular images, Doppler spectral analysis and color flow Doppler imaging) were utilized to interrogate the lower extremities. FINDINGS: RIGHT LEG: Common femoral artery: 106.8 cm/s, multiphasic Profunda femoris artery: 77.8 cm/s, multiphasic Superficial femoral artery (proximal): 132.6 cm/s, multiphasic Superficial femoral artery (mid): 136.2 cm/s, multiphasic Superficial femoral artery (distal): 74.8 cm/s, multiphasic Proximal popliteal artery: 60.6 cm/s, multiphasic Distal popliteal artery: 100.5 cm/s, multiphasic Anterior tibial artery: 69.5 cm/s, multiphasic Peroneal artery: 26 cm/s, monophasic Posterior tibial artery: 52.9 cm/s, multiphasic Dorsalis pedis artery: 116.5 cm/s, multiphasic LEFT LEG: Common femoral artery: 118.4 cm/s, multiphasic Profunda femoris artery: 51.2 cm/s, multiphasic Superficial femoral artery (proximal): 74.6 cm/s, multiphasic Superficial femoral artery (mid): 118.8 cm/s, multiphasic Superficial femoral artery (distal): 75.3 cm/s, multiphasic Proximal popliteal artery: 80.7 cm/s, multiphasic Distal popliteal artery: 57.9 cm/s, multiphasic Anterior tibial artery: 77.2 cm/s, multiphasic Peroneal artery: Occluded Posterior tibial artery: 18.2 cm/s, monophasic Dorsalis pedis artery: 82.1 cm/s, multiphasic US/US arterial duplex LE BI IMPRESSION: Mild right lower extremity peripheral vascular disease without hemodynamic significance including monophasic waveform within the peroneal artery Left lower extremity peroneal artery occlusion. There is distal small vessel disease with monophasic waveform in the posterior tibial artery.
--- NOTE | ~2023-08-19 | US_ITS ---
EXAMINATION: US EXTRACRANIAL CAROTID DUPLEX, BILATERAL CLINICAL INFORMATION: Occlusion and stenosis of carotid artery COMPARISON: None available. TECHNIQUE: Real-time ultrasound and Doppler techniques (integrating B-mode 2-D vascular images, Doppler spectral analysis and color-flow Doppler imaging) were utilized to interrogate the extracranial carotid arteries, the vertebral arteries and proximal subclavian arteries bilaterally. The degree of stenosis is determined by criteria similar to NASCET. FINDINGS: Right Side: 1. There is mild atherosclerotic plaque seen in the bifurcation/proximal ICA region. 2. The common carotid artery PSV proximally is 69.9 cm/s and distally 57.1 cm/s. 3. The proximal internal carotid artery velocities are 63.3 cm/s systolic and 19.6 cm/s diastolic. 4. The proximal external carotid artery PSV is 94.5 cm/s. 5. The vertebral artery shows antegrade flow. 6. The subclavian artery waveforms are normal. Left Side: 1. There is mild atherosclerotic plaque seen in the bifurcation/proximal ICA region. 2. The common carotid artery PSV proximally is 64.9 cm/s and distally 60.4 cm/s. 3. The proximal internal carotid artery velocities are 60.7 cm/s systolic and 22.3 cm/s diastolic. 4. The proximal external carotid artery PSV is 66 cm/s. 5. The vertebral artery shows antegrade flow. 6. The subclavian artery waveforms are normal. US/US carotid duplex BI IMPRESSION: 1. RIGHT: Minimal, non-hemodynamically significant stenosis of the proximal right internal carotid artery corresponding to a 0-49% stenosis by velocity criteria. 2. LEFT: Minimal, non-hemodynamically significant stenosis of the proximal left internal carotid artery corresponding to a 0-49% stenosis by velocity criteria.
== END 2023-08-19 13:38 | disposition home or self-care (01) ==
LOC: HO.US 13:37
PROVIDERS: PCP Student in an Organized Health Care Education/Training Program; Visit Provider Internal Medicine Cardiovascular Disease
DX: I73.9 Peripheral vascular disease, unspecified (principal); I65.29 Occlusion and stenosis of unspecified carotid artery
CPT/HCPCS: 93880; 93925

== ENCOUNTER 2023-11-10 08:55 | Outpatient (REF) | payer MEDICAID, SELFPAY ==
[2023-11-10 12:44] LABS: Estimated Average Glucose 275 mg/dL; Hemoglobin A1c % 11.2 % (<6.0)
[2023-11-10 12:54] LABS: Alanine Aminotransferase 19 U/L (0-31); Albumin Level 4.6 g/dL (3.5-5.0); Alkaline Phosphatase 64 U/L (39-117); Anion Gap 17 (12-20); Aspartate Amino Transferase 16 U/L (5-31); Bilirubin Total 0.3 mg/dL (0.0-1.0); Blood Urea Nitrogen 15 mg/dL (9-16); Calcium 10.1 mg/dL (8.4-10.2); Carbon Dioxide 27 mmol/L (22-29); Chloride 103 mmol/L (96-108); Cholesterol 157 mg/dL (<200); Estimated Glomerular Filt Rate > 60; Glucose Random 361 mg/dL (60-115); HDL Cholesterol 44 mg/dL (>40); LDL Cholesterol Calculated 61 mg/dL (<100); Potassium 5.1 mmol/L (3.3-5.1); Sodium 142 mmol/L (135-145); Total Protein 7.9 g/dL (6.5-8.0); Triglycerides 260 mg/dL (<150)
[2023-11-10 13:06] LABS: Vitamin B12 275 pg/mL (200-900)
== END 2023-11-10 08:56 | disposition home or self-care (01) ==
LOC: HO.HHCL 08:55
PROVIDERS: Visit Provider Student in an Organized Health Care Education/Training Program
DX: E11.65 Type 2 diabetes mellitus with hyperglycemia (principal); Z79.4 Long term (current) use of insulin
CPT/HCPCS: 36415; 80053; 80061; 82607; 83036

== ENCOUNTER 2024-01-05 08:36 | Outpatient (REF) | payer MEDICARE, MEDICAID, SELFPAY ==
--- NOTE | ~2024-01-05 | XR_ITS ---
EXAMINATION: XR HIP, RIGHT CLINICAL INFORMATION: Right hip pain COMPARISON: None available. TECHNIQUE: Two views of the right hip. FINDINGS: No fracture. Alignment is anatomic. Hip joint space is maintained. Soft tissues are unremarkable. XR/XR hip RT min 2V IMPRESSION: Normal right hip.
== END 2024-01-05 08:37 | disposition home or self-care (01) ==
LOC: HO.HHCX 08:36
PROVIDERS: Visit Provider Student in an Organized Health Care Education/Training Program
DX: M25.551 Pain in right hip (principal)
CPT/HCPCS: 73502

== ENCOUNTER 2024-01-06 11:18 | Outpatient (REF) | payer MEDICARE, MEDICAID, SELFPAY ==
--- NOTE | ~2024-01-06 | CT_ITS ---
EXAMINATION: CT ABDOMEN AND PELVIS WITH CONTRAST CLINICAL INFORMATION: Right lower quadrant abdominal pain COMPARISON: 12/11/2017 and MRI pelvis from 03/03/2023 TECHNIQUE: Multidetector volumetric images were obtained from the superior aspect of the liver through the pubic symphysis following administration 85 mL of Omnipaque 350 intravenous contrast. Sagittal and coronal reformatted images were obtained on the technologist's workstation. Oral contrast: Yes This CT examination was performed using dose optimization techniques as appropriate, variously including the following: *Automated exposure control *Adjustment of mA and/or kV according to patient size (this includes techniques or standardized protocols for targeted exams where dose is matched to indication/reason for exam; i.e. extremities or head) *Use of iterative reconstruction technique DLP: 263 mGy-cm FINDINGS: LUNG BASES: The visualized lung bases are unremarkable. LIVER, GALLBLADDER, AND BILIARY TREE: The liver is normal in size, shape, and attenuation. No focal hepatic lesion or biliary ductal dilatation is present. The gallbladder is unremarkable with no evidence of radiopaque gallstones, gallbladder wall thickening, or obvious pericholecystic inflammatory changes. PANCREAS: Unremarkable. SPLEEN: Unremarkable. ADRENAL GLANDS: Unremarkable. KIDNEYS AND URETERS: The kidneys are normal in size, shape, and attenuation. No hydronephrosis, hydroureter, seen. No perinephric stranding. Stable exophytic simple cyst in the upper pole of the right kidney measuring 2.4 cm. No follow-up indicated. . 3 mm nonobstructing calcified stone in the upper pole of the right kidney. No ureteral calcifications seen BLADDER: Unremarkable. GASTROINTESTINAL TRACT: The small and large bowel are unremarkable. The appendix is not visualized. No secondary signs of acute appendicitis. ABDOMINAL WALL: No significant hernia is appreciated. LYMPH NODES: Normal. VASCULAR: Unremarkable. PELVIC VISCERA: Heterogeneous enhancing fibroid is seen in the right fundus of the uterus measuring 6.8 x 6.4 cm, previously measuring approximate 4.4 x 4.1 cm. No adnexal mass lesions OSSEOUS STRUCTURES: Unremarkable. CT/CT abdomen pelvis w IV con IMPRESSION: 1. No acute process. 2. Nonobstructing right renal calculus. 3. Uterine fibroid which has increased in size compared to the prior study. Electronically signed by: Ramses Cisneros MD 01/06/2024 04:02 PM EDT RP
[2024-01-06] MEDS: Barium Sulfate Oral (Vanilla) 450 ML ORAL.SUSP 900 ML PO (14:57)
[2024-01-06] MEDS: iohexoL 350 MG/ML 100 ML INFUS..BTL IV (14:59)
[2024-01-07 14:16] LABS: Creatinine POC 0.7 mg/dL (0.5-1.4); GFR POC 60
== END 2024-01-06 11:19 | disposition home or self-care (01) ==
LOC: HO.CT 11:18
PROVIDERS: PCP Student in an Organized Health Care Education/Training Program; Visit Provider Student in an Organized Health Care Education/Training Program
DX: R10.30 Lower abdominal pain, unspecified (principal)
CPT/HCPCS: 74177; 82565; Q9967

== ENCOUNTER 2024-04-20 11:18 | Outpatient (REF) | payer MEDICARE, MEDICAID, SELFPAY ==
--- NOTE | ~2024-04-20 | MM_ITS ---
EXAMINATION: MM SCREENING DIGITAL BREAST TOMOSYNTHESIS, BILATERAL CLINICAL INFORMATION: Screening. Asymptomatic. COMPARISON: Mammography: Comparison is made with available priors TECHNIQUE: Digital breast mammography with tomosynthesis is performed in both the craniocaudal and mediolateral oblique views along with computer-aided detection (CAD). FINDINGS: There are scattered areas of fibroglandular density (ACR BI-RADS breast composition Category b). There are no significant masses, abnormal calcifications, or other abnormalities. MM/MM tomosynthesis screening BI IMPRESSION: No mammographic evidence of malignancy. ASSESSMENT: BI-RADS BI-RADS 1 - Negative RECOMMENDATION: Routine annual mammography screening. 1 year F/U This examination should not preclude the clinical evaluation of a suspicious palpable abnormality. This patient's information was entered into a reminder system with a target due date for their next mammogram. Electronically signed by: Dulce Lopez DO 04/26/2024 05:25 PM [facility]
== END 2024-04-20 11:19 | disposition home or self-care (01) ==
LOC: HO.MAMMO 11:18
PROVIDERS: PCP Student in an Organized Health Care Education/Training Program; Visit Provider Advanced Practice Midwife
DX: Z12.31 Encounter for screening mammogram for malignant neoplasm of breast (principal)
CPT/HCPCS: 77063; 77067

== ENCOUNTER → 2024-04-20 12:00 | Outpatient (BNV) | payer MEDICARE, MEDICAID, SELFPAY | PROVIDERS: PCP Student in an Organized Health Care Education/Training Program; Visit Provider Internal Medicine | DX: Z12.31 Encounter for screening mammogram for malignant neoplasm of breast (principal) | CPT/HCPCS: 77063; 77067 ==

== ENCOUNTER 2024-04-29 13:23 | Outpatient (REF) | payer MEDICARE, MEDICAID, SELFPAY ==
[2024-04-29 10:47] VITALS: PULSE 81; O2SAT 98
--- NOTE | 2024-04-29 13:50 | PFT_ITS ---
Indication: Cough Spirometry [FEV1 to FVC 84%; FEV1 3.38 L; FVC 1.64 L. there was a significant worsening her both the FVC in the FEV1 after bronchodilators were administered.] Lung Volumes [Patient had difficulties with maneuvers therefore the lung volumes could not be measured appropriately.] Diffusion Capacity [DLCO 88% predicted] Comparisons [none] Interpretation [This is a suboptimal pulmonary function study. No evidence of any obstructive ventilatory defects. The patient could not perform the lung volumes. Diffusion capacity was within normal limits. Based on the limited results I would caution the accuracy of the measurements. Clinical correlation warranted.] MTDD
== END 2024-04-29 13:24 | disposition home or self-care (01) ==
LOC: HO.RESP 13:23
PROVIDERS: PCP Student in an Organized Health Care Education/Training Program; Visit Provider Student in an Organized Health Care Education/Training Program
DX: R05.3 Chronic cough (principal)
CPT/HCPCS: 94010; 94640; 94727; 94729

== ENCOUNTER → 2024-04-29 13:50 | Outpatient (BNV) | payer MEDICARE, MEDICAID, SELFPAY | PROVIDERS: PCP Student in an Organized Health Care Education/Training Program; Visit Provider Hospitalist | DX: R05.9 Cough, unspecified (principal) | CPT/HCPCS: 94060; 94729 ==

== ENCOUNTER 2024-06-10 09:59 | Emergency (ER) | payer OTHER, SELFPAY ==
--- NOTE | ~2024-06-10 | CT_ITS ---
CLINICAL HISTORY: low abdominal pain right side CT abdomen and pelvis without contrast Comparison: 01/06/2024, 07/23/2017 Findings: Nonspecific 1.5 cm left upper lobe nodule. Recommend follow-up nonemergent chest CT. Right lung base clear. No acute bony abnormalities. Multiple solid lesions in the liver, not well visualized. Findings concerning for metastatic disease. Pancreas and adrenal glands unremarkable. Gallbladder within normal limits. Punctate nonobstructing right renal stone noted. Small right renal cyst also noted. No bilateral ureteral stone or hydronephrosis. No evidence for aortic aneurysm. No free fluid or adenopathy is noted in the pelvis. No evidence for diverticulitis. Appendix not identified. Enlarged lobular uterus consistent with fibroids. No adnexal abnormalities. Impression: Multiple poorly defined hepatic lesions consistent with metastasis Left upper lobe nodule concerning for metastasis No acute process in the abdomen or pelvis This document has been electronically signed by: Stoney Arguelles MD on 06/10/2024 19:52:54
[2024-06-10 10:15] VITALS: BP 124/66; PULSE 89; RESP 16; TEMP 35.9; O2SAT 97; BMI 24.9
[2024-06-10 12:11] LABS: MANUAL DIFF FLAG NO
[2024-06-10 12:13] LABS: Basophils Absolute Auto 0.1 X10*3/uL (0.0-0.2); Basophils Percent Auto 0.4 % (0-2); Eosinophils Absolute Auto 0.2 X10*3/uL (0.0-0.4); Eosinophils Percent Auto 1.8 % (0-4); Hematocrit 41.5 % (37.0-47.0); Imm Gran Abs Auto 0.03 X10*3/uL (0.00-0.03); Imm Gran Pct Auto 0.3 % (0.0-0.4); Lymphocytes Absolute Auto 2.4 X10*3/uL (1.2-4.9); Lymphocytes Percent Auto 20.3 % (20-40); Mean Corpuscular HGB Conc 31.3 g/dl (31.0-35.0); Mean Corpuscular Hemoglobin 28.1 pg (27.0-33.0); Mean Corpuscular Volume 89.8 fL (80.0-98.0); Mean Platelet Volume 8.8 fL (9.4-12.3); Monocytes Absolute Auto 0.8 X10*3/uL (0.1-1.2); Monocytes Percent Auto 6.4 % (2-11); Neutrophils Absolute Auto 8.2 x10*3/uL (2.0-8.3); Neutrophils Percent Auto 70.8 % (45-73); Platelet Count 489 X10*3/uL (160-400); Red Blood Count 4.62 X10*6/uL (4.20-5.50); Red Cell Distribution Width 15.3 % (11.0-16.0); White Blood Count 11.6 X10*3/uL (4.8-10.8)
[2024-06-10 12:32] LABS: Alanine Aminotransferase 19 U/L (0-31); Albumin Level 4.3 g/dL (3.5-5.0); Alkaline Phosphatase 164 U/L (39-117); Anion Gap 14 (12-20); Aspartate Amino Transferase 24 U/L (5-31); Bilirubin Total 0.2 mg/dL (0.0-1.0); Blood Urea Nitrogen 15 mg/dL (9-16); Calcium 10.3 mg/dL (8.4-10.2); Carbon Dioxide 24 mmol/L (22-29); Chloride 109 mmol/L (96-108); Creatinine Clr Calc Pharmacy 65.6; Estimated Glomerular Filt Rate > 60; Glucose Random 228 mg/dL (60-115); Potassium 4.7 mmol/L (3.3-5.1); Sodium 142 mmol/L (135-145); Total Protein 7.9 g/dL (6.5-8.0)
[2024-06-10] MEDS: Ketorolac Tromethamine 15 MG/ML VIAL IVPUSH (16:40)
[2024-06-10] MEDS: HYDROmorphone HCl 0.5 MG/0.5 ML SYRINGE 0.25 MG IVPUSH (18:06)
[2024-06-10 18:24] VITALS: BP 139/70; PULSE 97; RESP 24; TEMP 36.7; O2SAT 95
--- NOTE | 2024-06-10 18:43 | ED_ITS ---
HPI - Abdominal Pain General Chief Complaint: Abdominal Pain Stated Complaint: ovaries r side pain into leg Time Seen by Provider: 06/10/24 14:49 History of Present Illness HPI narrative: Patient complains of right low abdominal pain which has been present mildly for many weeks and is attributed to a fibroid, but in the last 24 hours pain has become much more severe, she does have an appointment in a month to have it removed She denies fever she denies nausea vomiting or diarrhea,, denies any change to bowel or bladder no diarrhea no dysuria no frequency no constipation no incontinence There is no chest pain no cough no runny nose no sore throat no shortness of breath no blood in the stool no rash Related Data Home Medications ?Medication ?Instructions ?Recorded ?Confirmed aspirin 81 mg tablet,delayed 81 mg PO DAILY 09/20/22 08/13/23 release carvedilol 6.25 mg tablet 6.25 mg PO BID 09/20/22 08/13/23 empagliflozin 25 mg tablet 25 mg PO QAM 09/20/22 08/13/23 (Jardiance) losartan 100 mg tablet 100 mg PO QAM 09/20/22 08/13/23 metformin 500 mg tablet 500 mg PO BID 09/20/22 08/13/23 rosuvastatin 20 mg tablet 20 mg PO BEDTIME 09/20/22 08/13/23 Vitamin D3 units PO DAILY 11/02/22 08/13/23 clonidine HCl 0.1 mg tablet 0.1 mg PO 08/13/23 08/13/23 gabapentin 300 mg capsule 300 mg PO BEDTIME 08/13/23 08/13/23 insulin lispro 100 unit/mL 6 unit subcut TID diabetes mellitus 08/13/23 08/13/23 subcutaneous solution Previous Rx's ?Medication ?Instructions ?Recorded pantoprazole 40 mg tablet,delayed 40 mg PO QAM #30 tabs 03/22/24 release oxycodone 5 mg tablet 2.5 mg (1/2 x 5 mg) PO TID PRN 06/10/24 pain #12 tabs cefuroxime axetil 250 mg tablet 250 mg PO BID #14 tabs 06/12/24 Allergies Allergy/AdvReac Type Severity Reaction Status Date / Time morphine [Morphine] Allergy Mild ITCHING, Verified 06/10/24 10:22 pruritus, rash PMFSH Past Medical History Source: nursing notes reviewed Medical History (Updated 06/11/24 @ 00:01 by Rei Fox) CAD (coronary artery disease) Polysubstance abuse Hypertension Hyperlipidemia Type 2 diabetes mellitus, with long-term current use of insulin IBD (inflammatory bowel disease) Gastroesophageal reflux disease Nicotine dependence, cigarettes, uncomplicated Surgical History History of colonoscopy History of esophagogastroduodenoscopy (EGD) History of appendectomy History of cataract surgery Social History Social History Household Members: Spouse Alcohol intake: former Patient Tobacco Use Status: Current everyday Tobacco user Tobacco use type: Cigarette Cigarette Packs Per Day: 1 Years Smoked: onset 11yo, 1ppd x 51yrs, 50PYH Substance Use Type: Crack/Cocaine Advance Directives: No Advance Directives Information Provided: Yes Do you have a plan to hurt others: No Plan Current occupational status: disabled 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 Physical Exam ED Vital Signs: Vital Signs - 24 hr 06/10/24 10:15 06/10/24 18:24 Temperature 96.7 F L 98.1 F Pulse Rate 89 97 Respiratory Rate 16 24 H Blood Pressure 124/66 139/70 Pulse Oximetry 97 95 Oxygen Delivery Method Room Air Room Air BMI result Body Mass Index 24.9 General appearance is no acute distress but very uncomfortable cooperative alert and oriented Eyes anicteric no pallor Neck is supple Chest clear to auscultation bilateral Heart no murmur Abdomen is soft but there is tenderness on both sides of the lower abdomen and when I press on the left it hurts more on the right, there is no rebound or guarding, upper abdomen nontender, no masses palpated Extremities full range of motion x4 Skin no rash Neuro interaction comprehension and expression are all normal, motor is 5/5 x4, sensation intact and symmetrical, no focal deficits Course Course Course Narrative: CBC showed a white count of 11.6 no anemia Glucose was 228, renal function was normal, ALP was 164, no other acute abnormal on chemistry After analgesia was administrated with 0.25 of Dilaudid patient's pain was gone, I did repeat the abdominal exam which now is basically nontender, CT results still pending At 19:[address] I signed out to physician assistant to the vice president Cassia to follow urinalysis results and CT results and dispo patient >1723--received sign-out from TSEPHON Burrows patient awaiting CT results and UA however patient would like to leave AMA, would like her IV removed immediately. Reevaluation(s) Reevaluation #1: 16:33 06/12/24 Misty Zarate NP Received urinalysis results from ER visit 06/10/2024 positive nitrates, 1+ leukocyte esterase, 1+ urine bacteria, seen for abdominal pain, urine culture thus far growing Gram-negative rods concerning for urinary tract infection. Patient was contacted at home with use of a video game repair technician. I have sent a prescription for antibiotic to her pharmacy advised her to complete the entire course. Discussed worrisome signs and symptoms that would warrant re-evaluation in the emergency department. All questions answered. Medical Decision Making Lab Data MDM Lab Attestation statement: I reviewed the patient's lab results. 06/10/24 12:07 06/10/24 12:07 Labs: Lab Results 06/10/24 06/10/24 Range/Units 12:07 19:02 WBC 11.6 H (4.8-10.8) X10*3/uL RBC 4.62 (4.20-5.50) X10*6/uL Hgb 13.0 (12.0-16.0) g/dl Hct 41.5 (37.0-47.0) % MCV 89.8 (80.0-98.0) fL MCH 28.1 (27.0-33.0) pg MCHC 31.3 (31.0-35.0) g/dl RDW 15.3 (11.0-16.0) % Plt Count 489 H D (160-400) X10*3/uL MPV 8.8 L (9.4-12.3) fL Immature Gran % (Auto) 0.3 (0.0-0.4) % Neut % (Auto) 70.8 (45-73) % Lymph % (Auto) 20.3 (20-40) % [place] % (Auto) 6.4 (2-11) % Eos % (Auto) 1.8 (0-4) % Baso % (Auto) 0.4 (0-2) % Lymph # (Auto) 2.4 (1.2-4.9) X10*3/uL [place] # (Auto) 0.8 (0.1-1.2) X10*3/uL Eos # (Auto) 0.2 (0.0-0.4) X10*3/uL Baso # (Auto) 0.1 (0.0-0.2) X10*3/uL Abs Immat Gran (auto) 0.03 (0.00-0.03) X10*3/uL Absolute Neuts (auto) 8.2 (2.0-8.3) x10*3/uL Absolute Nucleated RBC 0.000 (0.0-0.012) X10*3/uL Nucleated RBC % (auto) 0.0 (0.0-0.2) /100WBC Sodium 142 (135-145) mmol/L Potassium 4.7 (3.3-5.1) mmol/L Chloride 109 H (96-108) mmol/L Carbon Dioxide 24 (22-29) mmol/L Anion Gap 14 (12-20) BUN 15 (9-16) mg/dL Creatinine 0.71 (0.5-1.4) mg/dL Estim Creat Clear Calc 65.6 Estimated GFR > 60 Random Glucose 228 H (60-115) mg/dL Calcium 10.3 H (8.4-10.2) mg/dL Total Bilirubin 0.2 (0.0-1.0) mg/dL AST 24 (5-31) U/L ALT 19 (0-31) U/L Alkaline Phosphatase 164 H (39-117) U/L Total Protein 7.9 (6.5-8.0) g/dL Albumin 4.3 (3.5-5.0) g/dL Urine Color Yellow Urine Appearance Clear Urine pH 5.5 (5.0-9.0) Ur Specific [place] >= 1.030 H (1.005-1.025) Urine Protein Negative (Neg-Trace) mg/dL Urine Glucose (UA) >=1000 H (Negative) mg/dL Urine Ketones Trace (Negative) mg/dL Urine Blood Negative (Negative) Urine Nitrite Positive H (Negative) Ur Leukocyte Esterase Small (1+) H (Negative) Urine RBC 0-2 (0-2) /HPF Urine WBC >50 H (0-5) /HPF Ur Squamous Epith Cells 0-2 (0-2) /HPF Urine Bacteria 1+ (None Seen) Hyaline Casts 0-2 (0-2) /LPF Medications Administered Discontinued Medications Generic Name Dose Route Start Last Admin Trade Name Yongq PRN Reason Stop Dose Admin Hydromorphone HCl 0.25 mg 06/10/24 17:33 06/10/24 18:06 Hydromorphone Hcl 0.5 Mg/0.5 Ml Syringe IVPUSH 06/10/24 17:34 0.25 mg ONCE ONE Administration Protocol Ketorolac Tromethamine 15 mg 06/10/24 16:36 06/10/24 16:40 Ketorolac Tromethamine 15 Mg/Ml Vial IVPUSH 06/10/24 16:37 15 mg ONCE ONE Administration Discharge Plan Discharge Clinical Impression: Fibroid Patient Disposition: Left Against Medical Advice Additional Instructions: No worrisome finding on labs or CT I wrote for oxycodone if needed if Tylenol does not work Follow with as scheduled your social services coordinator for further treatment of the fibroid Return to the ER any time any worse condition or any concerns Prescriptions: New oxycodone 5 mg tablet 2.5 mg PO TID PRN (Reason: pain) Qty: 12 0RF Rx Instructions: Partial Fill upon patient request. cefuroxime axetil 250 mg tablet 250 mg PO BID Qty: 14 0RF No Action pantoprazole 40 mg tablet,delayed release (DR/EC) 40 mg PO QAM Qty: 30 3RF Vitamin D3 2,000 units PO DAILY carvedilol 6.25 mg tablet 6.25 mg PO BID Jardiance 25 mg tablet 25 mg PO QAM aspirin 81 mg tablet,delayed release (DR/EC) 81 mg PO DAILY rosuvastatin 20 mg tablet 20 mg PO BEDTIME metformin 500 mg tablet 500 mg PO BID losartan 100 mg tablet 100 mg PO QAM insulin lispro 100 unit/mL solution 6 unit subcut TID gabapentin 300 mg capsule 300 mg PO BEDTIME clonidine HCl 0.1 mg tablet 0.1 mg PO Referrals: Linda Lorenzo MD [Primary Care Provider] - Stand Alone Forms: Against Medical Advice, Work/School Release Interventions: ED Discharge Assessment Last Done: 06/10/24 19:36 Discharge Date/Time: 06/10/24 19:39 Print Language: Faroese
[2024-06-10 19:08] LABS: Appearance Urine Clear; Color Urine Yellow; Glucose Urine UA >=1000 mg/dL (Negative); Leukocyte Esterase Urine Small (1+) (Negative); Nitrite Urine Positive (Negative); PH 5.5 (5.0-9.0); Specific Gravity - Urine >= 1.030 (1.005-1.025); UMIC TRIGGER UACC YES; Urine Blood Negative (Negative); Urine Ketones Trace mg/dL (Negative); Urine Protein Negative (Neg-Trace)
[2024-06-10 19:36] VITALS: BP 139/70; PULSE 97; RESP 24; TEMP 36.7; O2SAT 95
--- NOTE | 2024-06-10 19:38 | PC.NURSE ---
this nurse assumed care of pt at 1900. pt spouse called t/w to room, wanted to know status of imaging. Advised imaging has still not resulted. pt them lifted her arm requested IV be removed and to leave. IV was removed for R-FA, spoke with STEPHON steward pt to sign out AMA.
[2024-06-10 19:46] LABS: Bacteria Urine 1+ (None Seen); Hyaline Casts Urine 0-2 /LPF (0-2); RBC Urine 0-2 /HPF (0-2); Squamous Epithelial Cell Urine 0-2 /HPF (0-2); UACC Culture Trigger YES; WBC Urine >50 /HPF (0-5)
== END 2024-06-10 19:39 | disposition left against medical advice (07) ==
PROVIDERS: Emergency Provider Emergency Medicine; PCP Student in an Organized Health Care Education/Training Program
DX: D25.9 Leiomyoma of uterus, unspecified (principal); R10.9 Unspecified abdominal pain; I10 Essential (primary) hypertension; E11.9 Type 2 diabetes mellitus without complications; Z79.899 Other long term (current) drug therapy; Z53.29 Procedure and treatment not carried out because of patient's decision for other reasons
CPT/HCPCS: 36415; 74176; 80053; 81001; 85025; 87086; 87088; 87186; 96374; 96375; 99284; J1171; J1885

== ENCOUNTER → 2024-06-10 17:58 | Outpatient (BNV) | payer OTHER, SELFPAY | PROVIDERS: Emergency Provider Emergency Medicine; PCP Student in an Organized Health Care Education/Training Program; Visit Provider Radiology Diagnostic Radiology | DX: K76.89 Other specified diseases of liver (principal); R91.1 Solitary pulmonary nodule | CPT/HCPCS: 74176 ==

== ENCOUNTER 2024-06-15 10:18 | Emergency (ER) | payer OTHER, SELFPAY ==
--- NOTE | 2024-06-15 10:22 | ECG_ITS ---
Test Reason : abd pain Blood Pressure : */* mmHG Vent. Rate : 86 BPM Atrial Rate : 86 BPM P-R Int : 140 ms QRS Dur : 76 ms QT Int : 360 ms P-R-T Axes : 44 -35 50 degrees QTcB Int : 430 ms Normal sinus rhythm Left axis deviation Septal infarct , age undetermined Abnormal ECG When compared with ECG of 02-Nov-2022 21:45, Septal infarct is now Present Referred By: Katelynn Starr Electronically Signed By: LAN GOODE
--- NOTE | 2024-06-15 10:22 | ED_ITS ---
HPI - General Adult General Chief complaint: Abdominal Pain Stated complaint: RLQ RAD TO BACK PAIN ON/OFF FOR MONTHS PER EMS Time Seen by Provider: 06/15/24 10:22 Source: patient, EMS, RN notes reviewed, old records reviewed and inspector outside production Mode of arrival: EMS Limitations: language barrier History of Present Illness ED Provider: Matty HPI narrative: Patient is a 63-year-old Marshallese speaking female with history of CAD, HTN, HLD, T2DM on insulin, IBD, GERD, nicotine dependence, smoker 50PYH, polysubstance use, known uterine fibroid presenting to the emergency department with complaint of right lower quadrant abdominal pain for weeks to months, worsening over past few days. Reports constipation but denies nausea, vomiting or diarrhea. Describes the pain as cramping, likens it to menstrual cramps. Denies fevers. Denies hematochezia or melena. Seen in this ED 06/10 but left AMA. She was treated for UTI and states she has been taking the antibiotics as prescribed without a change in symptoms. MD complaint: abdominal pain Onset (ago): week(s) Location: abdomen Radiation: non-radiation Severity: severe Pain Consistency: colicky Related Data Home Medications ?Medication ?Instructions ?Recorded ?Confirmed aspirin 81 mg tablet,delayed 81 mg PO DAILY 09/20/22 08/13/23 release carvedilol 6.25 mg tablet 6.25 mg PO BID 09/20/22 08/13/23 empagliflozin 25 mg tablet 25 mg PO QAM 09/20/22 08/13/23 (Jardiance) losartan 100 mg tablet 100 mg PO QAM 09/20/22 08/13/23 metformin 500 mg tablet 500 mg PO BID 09/20/22 08/13/23 rosuvastatin 20 mg tablet 20 mg PO BEDTIME 09/20/22 08/13/23 Vitamin D3 units PO DAILY 11/02/22 08/13/23 clonidine HCl 0.1 mg tablet 0.1 mg PO 08/13/23 08/13/23 gabapentin 300 mg capsule 300 mg PO BEDTIME 08/13/23 08/13/23 insulin lispro 100 unit/mL 6 unit subcut TID diabetes mellitus 08/13/23 08/13/23 subcutaneous solution Previous Rx's ?Medication ?Instructions ?Recorded pantoprazole 40 mg tablet,delayed 40 mg PO QAM #30 tabs 03/22/24 release oxycodone 5 mg tablet 2.5 mg (1/2 x 5 mg) PO TID PRN 06/10/24 pain #12 tabs cefuroxime axetil 250 mg tablet 250 mg PO BID #14 tabs 06/12/24 Allergies Allergy/AdvReac Type Severity Reaction Status Date / Time morphine [Morphine] Allergy Mild ITCHING, Verified 06/15/24 10:39 pruritus, rash Review of Systems 2 Review of Systems: As per HPI Yes all other systems are reviewed and are negative Constitutional: Constitutional: Reports as per HPI [facility] Past Medical History Medical History (Updated 06/15/24 @ 13:40 by Katelynn Starr NP) CAD (coronary artery disease) Polysubstance abuse Hypertension Hyperlipidemia Type 2 diabetes mellitus, with long-term current use of insulin IBD (inflammatory bowel disease) Gastroesophageal reflux disease Nicotine dependence, cigarettes, uncomplicated Surgical History History of colonoscopy History of esophagogastroduodenoscopy (EGD) History of appendectomy History of cataract surgery Social History Social History Household Members: Spouse Alcohol intake: former Patient Tobacco Use Status: Current everyday Tobacco user Tobacco use type: Cigarette Cigarette Packs Per Day: 1 Years Smoked: onset 11yo, 1ppd x 51yrs, 50PYH Smoked in Last 30 Days: Yes Use of substances other than those prescribed or required for medical reasons: No Substance Use Type: Crack/Cocaine Advance Directives: No Advance Directives Information Provided: Yes Do you have a plan to hurt others: No Plan Current occupational status: disabled 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 Blood pressure normal. Heart rate normal. Respiratory rate normal. Temperature normal. Oxygen saturation normal. Const General: cooperative, healthy appearing and no acute distress Orientation/consciousness: oriented to person, oriented to place, oriented to time and patient oriented x3 Limitations: no limitations HENMT Head: Yes normocephalic and Yes atraumatic Ears: external ears normal General nose exam: Normal external nose present Face and sinus: Yes face symmetric Mouth: oropharynx normal and moist mucous membranes Throat: Yes uvula midline Eyes Pupils: Equal, round and reactive pupils present Neck Neck: Yes normal visual inspection and Yes supple Resp Effort & Inspection: normal respiratory effort and able to speak in complete sentences Auscultation: clear to auscultation bilaterally Cardio Rate: regular rate Rhythm: regular rhythm Heart sounds: S1 normal heart sound present and S2 normal heart sound present GI Palpation (GI): Soft to palpation, Tenderness to palpation present (GI) in the RLQ, no guarding and No Rebound tenderness present Auscultation: normoactive bowel sounds General: Yes no CVA tenderness Back/Spine/Pelvis Back: no CVA tenderness Skin General skin exam: elasticity normal and turgor normal Neuro General: oriented to person, oriented to place, oriented to time, patient oriented x3, moves all extremities, no focal motor deficits and CN's II-XI intact bilaterally Cranial nerves: Yes Equal, round and reactive pupils present Cognition (Neuro): normal cognition Extrem General: Yes full ROM, Yes no pedal edema and Yes no calf tenderness Psych Mental Status: mental status grossly normal Affect: normal affect Thought process: Normal thought process present Medical Decision Making Medical Decision Making MDM Narrative: Patient is a 63-year-old Marshallese speaking female with history of CAD, HTN, HLD, T2DM on insulin, IBD, GERD, nicotine dependence, smoker 50PYH, polysubstance use, known uterine fibroid presenting to the emergency department with complaint of right lower quadrant abdominal pain for weeks to months, worsening over past few days. On exam patient is awake, A+Ox3, VS WNL, afebrile, normal neurological exam without focal deficits, physical exam findings as above. Given reported symptoms and physical exam findings, initial differential includes but is not limited to uterine fibroid, electrolyte abnormality, UTI/pyelonephritis. Unlikely appendicitis, obstruction, perforation based on length of symptoms. Labs notable for mild leukocytosis, elevated glucose without anion gap, elevated alk phos, negative troponin. Review of CT A/P from 06/10 shows multiple hepatic and lung nodules concerning for metastasis as well as uterine fibroids. Urinalysis is without evidence of infection. Viral panel negative. Results of CT performed on 06/10/2024 were discussed with patient and . Will refer to General surgery and Hematology/Oncology for further evaluation. Instructed patient to contact surgeon's office who is scheduled to remove fibroids to discuss sooner appointment due to pain. Return precautions discussed at bedside. Patient verbalized understanding of and agreement with plan. In-person specialties operator was utilized for all interactions, assessments, and discussions. Differential Diagnosis Differential Diagnoses: The differential diagnosis associated with the presentation includes As per [facility] Admission/Observation Consideration of admission/observation: Escalation of care including admission/observation considered Patient would have been admitted to the hospital had their work up had any findings where hospital admission was appropriate and their clinical presentation warranted hospital admission. Lab Data [facility] Lab Attestation statement: I reviewed the patient's lab results. As per [facility] 06/15/24 11:06 06/15/24 11:06 Labs: Lab Results 06/15/24 06/15/24 Range/Units 11:06 11:10 WBC 12.9 H (4.8-10.8) X10*3/uL RBC 4.53 (4.20-5.50) X10*6/uL Hgb 12.8 (12.0-16.0) g/dl Hct 40.2 (37.0-47.0) % MCV 88.7 (80.0-98.0) fL MCH 28.3 (27.0-33.0) pg MCHC 31.8 (31.0-35.0) g/dl RDW 15.4 (11.0-16.0) % Plt Count 555 H (160-400) X10*3/uL MPV 8.6 L (9.4-12.3) fL Immature Gran % (Auto) 0.5 H (0.0-0.4) % Neut % (Auto) 73.1 H (45-73) % Lymph % (Auto) 17.5 L (20-40) % [place] % (Auto) 6.4 (2-11) % Eos % (Auto) 2.1 (0-4) % Baso % (Auto) 0.4 (0-2) % Lymph # (Auto) 2.3 (1.2-4.9) X10*3/uL [place] # (Auto) 0.8 (0.1-1.2) X10*3/uL Eos # (Auto) 0.3 (0.0-0.4) X10*3/uL Baso # (Auto) 0.1 (0.0-0.2) X10*3/uL Abs Immat Gran (auto) 0.06 H (0.00-0.03) X10*3/uL Absolute Neuts (auto) 9.4 H (2.0-8.3) x10*3/uL Absolute Nucleated RBC 0.000 (0.0-0.012) X10*3/uL Nucleated RBC % (auto) 0.0 (0.0-0.2) /100WBC PT 13.5 H (10.9-12.4) SEC INR 1.2 H (0.9-1.1) Sodium 137 (135-145) mmol/L Potassium 4.5 (3.3-5.1) mmol/L Chloride 103 (96-108) mmol/L Carbon Dioxide 25 (22-29) mmol/L Anion Gap 14 (12-20) BUN 14 (9-16) mg/dL Creatinine 0.64 (0.5-1.4) mg/dL Estim Creat Clear Calc 72.8 Estimated GFR > 60 Random Glucose 228 H (60-115) mg/dL Calcium 10.0 (8.4-10.2) mg/dL Total Bilirubin 0.2 (0.0-1.0) mg/dL AST 21 (5-31) U/L ALT 18 (0-31) U/L Alkaline Phosphatase 177 H (39-117) U/L Troponin I High Sens < 2.7 (<3.5-17.0) ng/L Total Protein 7.9 (6.5-8.0) g/dL Albumin 4.3 (3.5-5.0) g/dL Lipase 19 (8-78) U/L Urine Color Yellow Urine Appearance Clear Urine pH 5.5 (5.0-9.0) Ur Specific [place] 1.020 (1.005-1.025) Urine Protein Negative (Neg-Trace) mg/dL Urine Glucose (UA) >=1000 H (Negative) mg/dL Urine Ketones Negative (Negative) mg/dL Urine Blood Negative (Negative) Urine Nitrite Negative (Negative) Ur Leukocyte Esterase Negative (Negative) Urine RBC 0-2 (0-2) /HPF Urine WBC 0-5 (0-5) /HPF Ur Squamous Epith Cells 0-2 (0-2) /HPF Urine Bacteria None Seen (None Seen) Hyaline Casts 0-2 (0-2) /LPF Influenza Type A (PCR) NEGATIVE (Negative) Influenza Type B (PCR) NEGATIVE (Negative) RSV RNA Qual (PCR) NEGATIVE (Negative) SARS-CoV-2 RNA (RT-PCR) NEGATIVE (Negative) Independent Historian Clinical information obtained from an independent historian. History obtained from or confirmed by: Spouse External Record Review External record reviewed: Inpatient record, Office record and Outpatient record Discharge Plan Discharge Clinical Impression: Fibroid, uterine, Abnormal abdominal CT scan Patient Disposition: Home, Self-Care Additional Instructions: You were evaluated in the emergency department today for abdominal pain. Your evaluation did not show evidence of conditions requiring emergent medical treatment at this time. When you were here on 06/10/2024, you had a CT scan of your abdomen and pelvis. The scan has concerning findings and you need to follow-up with your primary care provider as well as General surgery for further evaluation. We recommend that you take acetaminophen (Tylenol) 650mg every 6 hours as needed for pain. You can also apply warm compresses to the affected area. We also recommend that you use the topical lidocaine patches that you have at home to the affected area. You can wear the lidocaine patches for up to 12 hours in a 24 hour period. Return to the emergency department with any new or concerning symptoms. Findings: Nonspecific 1.5 cm left upper lobe nodule. Recommend follow-up nonemergent chest CT. Right lung base clear. No acute bony abnormalities. Multiple solid lesions in the liver, not well visualized. Findings concerning for metastatic disease. Pancreas and adrenal glands unremarkable. Gallbladder within normal limits. Punctate nonobstructing right renal stone noted. Small right renal cyst also noted. No bilateral ureteral stone or hydronephrosis. No evidence for aortic aneurysm. No free fluid or adenopathy is noted in the pelvis. No evidence for diverticulitis. Appendix not identified. Enlarged lobular uterus consistent with fibroids. No adnexal abnormalities. Impression: Multiple poorly defined hepatic lesions consistent with metastasis Left upper lobe nodule concerning for metastasis No acute process in the abdomen or pelvis Prescriptions: No Action pantoprazole 40 mg tablet,delayed release (DR/EC) 40 mg PO QAM Qty: 30 3RF Vitamin D3 2,000 units PO DAILY carvedilol 6.25 mg tablet 6.25 mg PO BID Jardiance 25 mg tablet 25 mg PO QAM aspirin 81 mg tablet,delayed release (DR/EC) 81 mg PO DAILY rosuvastatin 20 mg tablet 20 mg PO BEDTIME metformin 500 mg tablet 500 mg PO BID losartan 100 mg tablet 100 mg PO QAM oxycodone 5 mg tablet 2.5 mg PO TID PRN (Reason: pain) Qty: 12 0RF Rx Instructions: Partial Fill upon patient request. cefuroxime axetil 250 mg tablet 250 mg PO BID Qty: 14 0RF insulin lispro 100 unit/mL solution 6 unit subcut TID gabapentin 300 mg capsule 300 mg PO BEDTIME clonidine HCl 0.1 mg tablet 0.1 mg PO Referrals: [facility] [Provider Group] - 1 week (Findings: Nonspecific 1.5 cm left upper lobe nodule. Recommend follow-up nonemergent chest CT. Right lung base clear. No acute bony abnormalities. Multiple solid lesions in the liver, not well visualized. Findings concerning for metastatic disease. Pancreas and adrenal glands unremarkable. Gallbladder within normal limits. Punctate nonobstructing right renal stone noted. Small right renal cyst also noted. No bilateral ureteral stone or hydronephrosis. No evidence for aortic aneurysm. No free fluid or adenopathy is noted in the pelvis. No evidence for diverticulitis. Appendix not identified. Enlarged lobular uterus consistent with fibroids. No adnexal abnormalities. Impression: Multiple poorly defined hepatic lesions consistent with metastasis Left upper lobe nodule concerning for metastasis No acute process in the abdomen or pelvis) Mile Kaiser MD [Physician] - Print Language: Marshallese
[2024-06-15 10:25] VITALS: BP 174/92; PULSE 92; O2SAT 97
[2024-06-15 10:38] VITALS: BP 147/71; PULSE 89; RESP 16; TEMP 37.1; O2SAT 97; BMI 24.9
[2024-06-15 10:45] VITALS: BP 147/71; PULSE 89; RESP 16; TEMP 37.1; O2SAT 97
[2024-06-15 11:10] LABS: MANUAL DIFF FLAG NO
[2024-06-15 11:11] LABS: Basophils Absolute Auto 0.1 X10*3/uL (0.0-0.2); Basophils Percent Auto 0.4 % (0-2); Eosinophils Absolute Auto 0.3 X10*3/uL (0.0-0.4); Eosinophils Percent Auto 2.1 % (0-4); Hematocrit 40.2 % (37.0-47.0); Hemoglobin 12.8 g/dl (12.0-16.0); Imm Gran Abs Auto 0.06 X10*3/uL (0.00-0.03); Imm Gran Pct Auto 0.5 % (0.0-0.4); Lymphocytes Absolute Auto 2.3 X10*3/uL (1.2-4.9); Lymphocytes Percent Auto 17.5 % (20-40); Mean Corpuscular HGB Conc 31.8 g/dl (31.0-35.0); Mean Corpuscular Hemoglobin 28.3 pg (27.0-33.0); Mean Corpuscular Volume 88.7 fL (80.0-98.0); Mean Platelet Volume 8.6 fL (9.4-12.3); Monocytes Absolute Auto 0.8 X10*3/uL (0.1-1.2); Monocytes Percent Auto 6.4 % (2-11); Neutrophils Absolute Auto 9.4 x10*3/uL (2.0-8.3); Neutrophils Percent Auto 73.1 % (45-73); Platelet Count 555 X10*3/uL (160-400); Red Blood Count 4.53 X10*6/uL (4.20-5.50); Red Cell Distribution Width 15.4 % (11.0-16.0); White Blood Count 12.9 X10*3/uL (4.8-10.8)
[2024-06-15 11:16] LABS: Appearance Urine Clear; Color Urine Yellow; Glucose Urine UA >=1000 mg/dL (Negative); Leukocyte Esterase Urine Negative (Negative); Nitrite Urine Negative (Negative); PH 5.5 (5.0-9.0); UMIC TRIGGER UACC YES; Urine Blood Negative (Negative); Urine Ketones Negative (Negative); Urine Protein Negative (Neg-Trace)
[2024-06-15 11:17] LABS: INTERNATIONAL NORM RATIO 1.2 (0.9-1.1); Prothrombin Time 13.5 SEC (10.9-12.4)
[2024-06-15 11:19] LABS: Bacteria Urine None Seen (None Seen); Hyaline Casts Urine 0-2 /LPF (0-2); RBC Urine 0-2 /HPF (0-2); Squamous Epithelial Cell Urine 0-2 /HPF (0-2); WBC Urine 0-5 /HPF (0-5)
[2024-06-15 11:33] LABS: Alanine Aminotransferase 18 U/L (0-31); Albumin Level 4.3 g/dL (3.5-5.0); Alkaline Phosphatase 177 U/L (39-117); Anion Gap 14 (12-20); Aspartate Amino Transferase 21 U/L (5-31); Bilirubin Total 0.2 mg/dL (0.0-1.0); Blood Urea Nitrogen 14 mg/dL (9-16); Carbon Dioxide 25 mmol/L (22-29); Chloride 103 mmol/L (96-108); Creatinine Clr Calc Pharmacy 72.8; Estimated Glomerular Filt Rate > 60; Glucose Random 228 mg/dL (60-115); Lipase 19 U/L (8-78); Potassium 4.5 mmol/L (3.3-5.1); Sodium 137 mmol/L (135-145); Total Protein 7.9 g/dL (6.5-8.0)
[2024-06-15 11:42] LABS: Troponin-I High Sensitivity < 2.7 ng/L (<3.5-17.0)
[2024-06-15 11:56] LABS: Influenza A PCR NEGATIVE (Negative); Influenza B PCR NEGATIVE (Negative); Resp Syncy Virus RNA Qual PCR NEGATIVE (Negative); SARS COV2 PCR INHOUSE NEGATIVE (Negative)
--- OUTSIDE RECORDS SUMMARY | 2024-06-15 12:01 | XMS_ITS | Encounter Summary ---
Author Organization [email or web address] Address [address] [place] [address] Care Team Providers Care Automobile Travel Club Counselor Name Role Phone Linda Lorenzo MD Primary Care Pro vider Encounter Details Date Type Department Care Team (Late st Contact Info) Description 06/15/2024 Orders Only GENERIC EXTERNAL DATA DEPARTMENT Provider, Generic External Data Social History Tobacco Use Types Packs/Day Years Used Date Smoking Tobacco: Every Day Cigarettes Passive Smoke Exposure: Never Smokeless Tobacco: Never Comments:Since 11 y of age u ntil now , 1 PQT a day x for majority of years since last 3 years decrease to 1/2 PQT a day Alcohol Use Standard Drinks/Week Comments Not Currently 0 (1 standard drink = 0.6 oz pur e alcohol) Depression Answer Date Recorded Patient Health Questionnaire-9 Score 6 06/12/2023 Patient Health Questionnaire-9 Score 6 06/12/2023 Last PHQ-9: Questionnaire Data Not on file 0 06/12/2023 Housing Stability Answer Date Recorded What is your housing situation today? I have tierney [place] 03/03/[address] you li ve. Do you have problems with any of the following? None of the above 03/03/2023 Food Insecurity Answer Date Recorded Within the past 12 months, y ou worried that your food would run out before you got money to buy more: Never True 03/03/2023 Within the past 12 months,th e food you bought just didn't last and you didn't have enough money to get more: Never True Transportation Answer Date Recorded In the past 12 months, has l ack of transportation kept you from medical appts, meetings, work or from getting things needed for daily living? No 03/03/2023 Utilities Answer Date Recorded In the past 12 months, has t he electric, gas, oil or water company threatened to shut off services in your home? No 03/03/2023 Depression Answer Date Recorded Patient Health Questionnaire-2 Score 2 06/12/2023 Comments No Sex and Gender Information Value Date Recorded Sex Assigned at Female 03/18/2022 10:14 AM EDT Legal Sex Female 10:14 AM EDT Gender Identity Female 03/18/2022 10:14 AM EDT Sexual Orientation Straight 12/10/2022 10 :37 AM EDT documented as of this encounter Plan of Treatment Not on file documented as of this encounter Procedures Procedure Name Priority Date/Time Associated Diagnosis Comments URINALYSIS, COMPLETE, WITH REFLEX TO CULTURE Routine 06/15/2024 11:10 AM EST documented in this encounter Results * (ABNORMAL) Urinalysis, Complete, with Reflex to Culture (06/15/2024 11:10 AM EST) Color Urine Yellow [facility] Appearance Urine Clear [facility] PH 5.5 5.0 - 9.0 [facility] Glucose Urine UA >=1000(A) Negative mg/dL [facility] Urine Blood Negative Negative [facility] Specific [place] - Urine 1.020 1.005 - 1.025 [facility] Urine Protein Negative Neg-Trace mg/dL [facility] Urine Ketones Negative Negative mg/dL [facility] Nitrite Urine Negative Negative [facility] Leukocyte Esterase Urine Negative Negative [facility] RBC Urine 0-2 0 - 2 /HPF [facility] Urine WBC 0-5 0 - 5 /HPF [facility] Urine Squamous Epithelial Cell 0-2 0 - 2 /HPF [facility] Urine Bacteria None Seen None Seen [facility] Hyaline Casts, Urine 0-2 0 - 2 /LPF [facility] 06/15/2024 11:1 0 AM EST 06/15/2024 11:13 AM EST Narrative [facility] - 06/15/2024 11:20 AM EST [id number], Clean [employer] us Generic External Data Provider LAB URINE ORDERAB LES Final Result [facility] [address] [place] [address] [phone] documented in this encounter Visit Diagnoses Not on filedocumented in this encounter Additional Health Concerns Assessment Noted Time PHQ-9 Depression Total Score: 6 06/12/19 24 10:45 AM EST documented as of this encounter Care Teams Automobile Travel Club Counselor Relationship Specialty Start Date End Date Linda Lorenzo MD [address] [place] [address] PCP - General Internal Medicine 10/21/22 documented as of this encounter
--- OUTSIDE RECORDS SUMMARY | 2024-06-15 12:01 | XMS_ITS | Encounter Summary ---
Author Organization [employer] Address [address] [place] [address] Care Team Providers Care Mailing Specialist Name Role Phone Linda Lorenzo MD Primary Care Pro vider Reason for Visit * Reason Comments Med Refill Patient walked reque sting refill for Motrin for patient , patient stated she went to pharmacy to get medication and it wasn't ready they sent her to green team. Encounter Details Date Type Department Care Team (Late st Contact Info) Description 01/21/2024 Refill [facility] [address] [place], [place] [phone] Linda Lorenzo MD [address] [place], [place] [phone] Social History Tobacco Use Types Packs/Day Years [...] the past 12 months, has t he [employer], gas, oil or water company threatened to [...] AM EDT documented as of this encounter Miscellaneous Notes * Telephone Encounter - Melida Hanley - 01/30/2024 9:40 AM EDT Patient walked requesting refill for Motrin for patient , patient stated she went to pharmacy to get medication and it wasn't ready they sent her to green team. documented in this encounter Plan of Treatment Not on file documented as of this encounter Visit Diagnoses Not on filedocumented in this encounter Additional Health Concerns Assessment Noted Time PHQ-9 Depression Total Score: 6 06/12/19 24 10:45 AM EST documented as of this encounter Care Teams Mailing Specialist Relationship Specialty Start Date End Date Linda Lorenzo MD [address] [place] [id number] PCP - General Internal Medicine 10/21/22 documented as of this encounter
--- OUTSIDE RECORDS SUMMARY | 2024-06-15 12:01 | XMS_ITS | Encounter Summary ---
Author Organization [employer] Address [address] [place] [address] Care Team Providers Care Anthropology Lecturer Name Role Phone Linda Lorenzo MD Primary Care Pro vider Reason for Visit * Reason Onset Date Comments Nurse Triage 06/15/2024 Encounter Details Date Type Department Care Team ([facility] st Contact Info) Description 06/15/2024 Telephone [facility] [address] [place], [place] [phone] Barb Hines RN [address] [place] [address] Nurse Triage Social History Tobacco Use Types Packs/Day Years [...] your housing situation today? I have tierney eliu 03/03/[address] you li [...] encounter Miscellaneous Notes * Telephone Encounter - Barb Hines RN - 06/15/2024 10:02 AM EST Pt being seen for CDTM visit when she started reporting 02/25 pelvic pain radiating to right flank.Pt doubled over, clutching her abdomen. Reports was at [facility] ED 06/12 Dxd with UTI,given cefuroxime 250mg. Urinary Sx have improved but pain worsened starting 3 days ago. Yesterday pt developed nausea and H/A. ANKITA Oneal saw pt briefly and agreed that she should return to the ED. EMS called to escort pt to [facility]. Pt agreeable. Tasking to green nurses to do status check once discharged. documented in this encounter Plan of Treatment Not on file documented as of this encounter Visit Diagnoses Not on filedocumented in this encounter Additional Health Concerns Assessment Noted Time PHQ-9 Depression Total Score: 6 06/12/19 24 10:45 AM EST documented as of this encounter Care Teams Anthropology Lecturer Relationship Specialty Start Date End Date Linda Lorenzo MD [address] [place] [id number] PCP - General Internal Medicine 10/21/22 documented as of this encounter
--- OUTSIDE RECORDS SUMMARY | 2024-06-15 12:01 | XMS_ITS | Encounter Summary ---
Author Organization [employer] Address [address] [facility] 7t [place] [address] Care Team Providers Care Cow Trimmer Name Role Phone Linda Lorenzo MD Primary Care Pro vider Reason for Referral * Consultation (STAT) - Authorized Specialty Diagnoses / Procedures Referred By Contsadi t Referred To Contact Hematology and Oncology Diagnoses Lung nodule seen on imaging study Lesion of liver Yaquelin Subramanian ANP [address] [place] [address] Phone: tel: fax: [facility] Referral ID Status Reason Start Date Expiration Date Visits Requested Visits Authorized [id number] Authorized Specialty Services Required 06/15/2024 06/15/2025 1 1 Encounter Details Date Type Department Care Team ([facility] st Contact Info) Description 06/11/2024 Orders Only [facility] MEDICINE [address] [place], [place] [phone] Yaquelin Subramanian ANP [address] [place], [place] [phone] Lung nodule seen on imaging study (Primary Dx); Lesion of liver; Acute cystitis without hematuria Social History Tobacco Use Types Packs/Day Years [...] AM EDT documented as of this encounter Progress Notes * ALICIA Oneal - 06/11/2024 4:22 PM EST Images from the original note were not included. In preparation for appointment Friday: PMH includes smoking, 50+ PYH, uncontrolled T2DM UPDATE: Pt no-showed to appt 06/14/24 to review ED imaging findings 06/10/24 concerning for malignancy (she left w/o being seen from ED). Does have appt w/ pharmacy today for CDTM for DM and did attend. Pharmacy discussed findings with pt and notified of referral to oncology. I also briefly discussedfindings with pt and reiterated same. Of note, pt sent back to [facility] ED today 06/15/24 (from pharmacy visit) d/t uncontrolled L flank and pelvic pain, chills, urinary retention. Patient had CT abdomen pelvis done December 2023 which was as below CT/CT abdomen pelvis w IV con IMPRESSION: 1. No acute process. 2. Nonobstructing right renal calculus. 3. Uterine fibroid which has increased in size compared to the prior study. Then, had ER visit for abdominal pain 06/10/2024 with concerning findings on CT abdomen pelvis as below. Patient does not have any history of malignancy but findings were concerning for metastasis. Patient left AMA without being seen from ER. Labs there were mildly abnormal, UA consistent w/ UTI, culture resulted. Started on cefuroxime 250mg BID x 7d 06/12/24. From last PCP note 03/19/2024 Reports pain for the last year in her RLQ that radiated to her right hip ,described as pressure ,tearing, can be intense, takes motring that helps w pain, Seen w similarcomplaints by INTELLIGENCE DIRECTOR ,never saw GI referred before. Pt had CT scan of Abd with enlarging uterine fibroid in right side, missed apt w INTELLIGENCE DIRECTOR scheduled by RN last time ,also has not seen GI Referral to GI active as of 12/2023 Lab Results Component Value Date HGBA1C 11.6 (A) 03/19/2024 HGBA1C 11.2 (H) 11/10/2023 HGBA1C 12.7 (A) 09/11/2023 LDCT Lung-RADS 2 02/2023. Mammo BI-RADS 1 - Negative 04/2024 Colonoscopy 2011: grade 1 Internal hemorrhoids , referred for repeat 2023 pap smear 12/2022 neg/ HPV neg [facility] ED CT abdomen pelvis wo IV con 06/10/[address] [address] [address] Scan Report Signed Patient: Shelby Dockery MR#: [id number] : 1960 Acct:[id number] Age/Sex: 63 / F ADM Date: 06/10/24 Loc: HO.ED Attending Dr: Ordering Physician: Kingsley Robles Date of Service: 06/10/24 Procedure(s): CT abdomen pelvis wo IV con Accession Number(s): [id number] cc: Linda Lorenzo MD; Kingsley Robles Report Number: [id number]: Total DLP = 396.00 mGy-cm CLINICAL HISTORY: low abdominal pain right side CT abdomen and pelvis without contrast Comparison: 01/06/2024, 07/23/2017 Findings: Nonspecific 1.5 cm left upper lobe nodule. Recommend follow-up nonemergent chest CT. Right lung base clear. No acute bony abnormalities. Multiple solid lesions in the liver, not well visualized. Findings concerning for metastatic disease. Pancreas and adrenal glands unremarkable. Gallbladder within normal limits. Punctate nonobstructing right renal stone noted. Small right renal cyst also noted. No bilateral ureteral stone or hydronephrosis. No evidence for aortic aneurysm. No free fluid or adenopathy is noted in the pelvis. No evidence for diverticulitis. Appendix not identified. Enlarged lobular uterus consistent with fibroids. No adnexal abnormalities. Impression: Multiple poorly defined hepatic lesions consistent with metastasis Left upper lobe nodule concerning for metastasis No acute process in the abdomen or pelvis This document has been electronically signed by: Stoney Arguelles MD on 06/10/2024 19:52:54 Labs from [facility] ED 06/10/24: documented in this encounter Plan of Treatment Scheduled Referrals Name Type Priority Associated Diagnoses Order Schedule Referral to Hematology / Oncology Outpatient Referral STAT Lung nodule seen on imaging study Lesion of liver Expected: 06/15/2024 (Approximate), Expires: 06/15/2025 documented as of this encounter Visit Diagnoses Diagnosis Lung nodule seen on imaging study- Primary Lesion of liver Acute cystitis without hematuria documented in this encounter Additional Health Concerns Assessment Noted Time PHQ-9 Depression Total Score: 6 06/12/19 24 10:45 AM EST documented as of this encounter Care Teams Cow Trimmer Relationship Specialty Start Date End Date Linda Lorenzo MD [address] [place] [phone] PCP - General Internal Medicine 10/21/22 documented as of this encounter
--- OUTSIDE RECORDS SUMMARY | 2024-06-15 12:01 | XMS_ITS | Encounter Summary ---
Author Organization [employer] Address [address] [facility] [address] 7[address] [place] [address] Care Team Providers Care Car Body Mechanic Name Role Phone Linda Lorenzo MD Primary Care Pro vider Reason for Visit * Reason Onset Date Comments Results 06/11/2024 Appointment Request 06/11/2024 Encounter Details Date Type Department Care Team ([facility] Contact Info) Description 06/11/2024 Telephone [facility] MEDICINE [address] [place], [place] [phone] Park Cordero DO [address] [place], [place] [phone] Results; Appointment Request Social History Tobacco Use Types Packs/Day Years [...] encounter Miscellaneous Notes * Telephone Encounter - Misty Dewitt RN - 06/11/2024 3:33 PM EST Telephone call to pt to advise of below request for appt to discuss results from ED visit. Scheduled pt for appt on 06/14 at 2:15pm. Reviewed with pt the director of special education nurse available 09/12 and also walk in clinic hours if any symptoms return before then. Pt verbalized understanding, to call clinic PRN. * Telephone Encounter - Park Cordero DO - 06/11/2024 2:22 PM EST Pt seen in ED with multiple liver lesions on CT concerning for metastasis. Please schedule pt for f/u with team provider constantin. Thank you. documented in this encounter Plan of Treatment Not on file documented as of this encounter Visit Diagnoses Not on filedocumented in this encounter Additional Health Concerns Assessment Noted Time PHQ-9 Depression Total Score: 6 06/12/19 10:45 AM EST documented as of this encounter Care Teams Car Body Mechanic Relationship Specialty Start Date End Date Linda Lorenzo MD [address] [place] [phone] PCP - General Internal Medicine 10/21/22 documented as of this encounter
--- OUTSIDE RECORDS SUMMARY | 2024-06-15 12:01 | XMS_ITS | Encounter Summary ---
Author Organization [employer] Address [address] [facility] [address] 7[address] [place] [address] Care Team Providers Care Contractor Field Hauling Name Role Phone Linda Lorenzo MD Primary Care Pro vider Encounter Details Date Type Department Care Team ([facility] st Contact Info) Description 02/25/2024 Orders Only [facility] MEDICINE [address] [place], [place] [phone] Hyun Monsivais MD [address] [place] [address] Social History Tobacco Use Types Packs/Day Years [...] documented as of this encounter Care Teams Contractor Field Hauling Relationship Specialty Start Date End Date Linda Lorenzo MD [address] [place] [phone] PCP - General Internal Medicine 10/21/22 documented as of this encounter
--- OUTSIDE RECORDS SUMMARY | 2024-06-15 12:01 | XMS_ITS | Encounter Summary ---
Author Organization [employer] Address [address] [facility] [address] 7[address] [place] [address] Care Team Providers Care Communications Advisor Name Role Phone Linda Lorenzo MD Primary Care Pro vider Encounter Details Date Type Department Care Team ([facility] st Contact Info) Description 06/10/2024 Telephone C OPTOMETRY [address] [place], [place] [phone] Maico, Mattie, OD [address] [place] [address] Social History Tobacco Use Types Packs/Day Years [...] documented as of this encounter Care Teams Communications Advisor Relationship Specialty Start Date End Date Linda Lorenzo MD [address] [place] [phone] PCP - General Internal Medicine 10/21/22 documented as of this encounter
--- OUTSIDE RECORDS SUMMARY | 2024-06-15 12:01 | XMS_ITS | Encounter Summary ---
Author Organization [employer] Address [address] [facility] 7t [place] [address] Care Team Providers Care Pipe Crew Foreman Name Role Phone Linda Lorenzo MD Primary Care Pro vider Reason for Visit * Reason Onset Date Comments Med Refill 06/10/2024 Encounter Details Date Type Department Care Team ([facility] st Contact Info) Description 06/10/2024 Refill [facility] MED & PEDS [address] [place], [place] [phone] Linda Lorenzo MD [address] [place] [address] Social History Tobacco Use Types Packs/Day Years [...] encounter Miscellaneous Notes * Telephone Encounter - Park Parks LPN - 06/10/2024 11:37 AM EST PCP off. Last seen 03/19/24. documented in this encounter Plan of Treatment Not on file documented as of this encounter Visit Diagnoses Not on filedocumented in this encounter Additional Health Concerns Assessment Noted Time PHQ-9 Depression Total Score: 6 06/12/19 24 10:45 AM EST documented as of this encounter Care Teams Pipe Crew Foreman Relationship Specialty Start Date End Date Linda Lorenzo MD [address] [place] [phone] PCP - General Internal Medicine 10/21/22 documented as of this encounter
--- OUTSIDE RECORDS SUMMARY | 2024-06-15 12:01 | XMS_ITS | Encounter Summary ---
Author Organization [employer] Address [address] [facility] [address] 7[address] [place] [address] Care Team Providers Care Farmworker Cranberry Name Role Phone Linda Lorenzo MD Primary Care Pro vider Encounter Details Date Type Department Care Team (Latest Contact Info) Description 06/15/2024 Travel Social History Tobacco Use Types Packs/Day Years [...] documented as of this encounter Care Teams Farmworker Cranberry Relationship Specialty Start Date End Date Linda Lorenzo MD [address] [place] [phone] PCP - General Internal Medicine 10/21/22 documented as of this encounter
--- OUTSIDE RECORDS SUMMARY | 2024-06-15 12:01 | XMS_ITS | Encounter Summary ---
Author Organization [employer] Address [address] [facility] [address] [place] [address] Care Team Providers Care Truck Greaser Name Role Phone Linda Lorenzo MD Primary Care Pro vider Encounter Details Date Type Department Care Team (Late st Contact Info) Description 06/10/2024 Orders Only GENERIC EXTERNAL DATA DEPARTMENT Provider, [...] Procedure Name Priority Date/Time Associated Diagnosis Comments CT ABDOMEN PELVIS WO CONTRAST Routine 06/10/2024 7:52 PM EST URINALYSIS, COMPLETE, WITH REFLEX TO CULTURE Routine 06/10/2024 7:02 PM EST CBC WITH AUTO DIFFERENTIAL Routine 06/10/2024 12:07 PM EST COMPREHENSIVE METABOLIC PANEL Routine 06/10/2024 12:07 PM EST CULTURE, URINE, ROUTINE Routine 06/10/2024 12:00 AM EST documented in this encounter Results * CT Abdomen Pelvis w/o Contrast (06/10/2024 7:52 PM EST) Anatomical Region Laterality Modality Body, Pelvis, Abdomen Computed T omography 06/10/2024 7:52 PM EST Narrative 06/10/2024 7:53 PM EST ? [facility] ?[address] ?[place] [address] ? CT Scan Report ? Signed ? Patient: Sarkis,Shelby ?MR#: [id number] ?? [id number] ? : 1960 ?Acct:[id number] ? Age/Sex: 63 / F ?ADM Date: 01/23/25 ? Loc: HO.ED ? Attending Dr: ? Ordering Physician: Kingsley Robles ?? Date of Service: 06/10/24 ?? Procedure(s): CT abdomen pelvis wo IV con ?? Accession Number(s): [id number] ? cc: Linda Lorenzo MD; Kingsley Robles ? Report Number: ?? [id number]: Total DLP = ??396.00 mGy-cm ? CLINICAL HISTORY: low abdominal pain right side ? CT abdomen and pelvis without contrast ? Comparison: 01/06/2024, 07/23/2017 ? Findings: ? Nonspecific 1.5 cm left upper lobe nodule. ?? Recommend follow-up nonemergent chest CT. ?? Right lung base clear. No acute bony abnormalities. ? Multiple solid lesions in the liver, not well visualized. ?? Findings concerning for metastatic disease. ?? Pancreas and adrenal glands unremarkable. ?? Gallbladder within normal limits. ? Punctate nonobstructing right renal stone noted. ?? Small right renal cyst also noted. ?? No bilateral ureteral stone or hydronephrosis. ? No evidence for aortic aneurysm. ? No free fluid or adenopathy is noted in the pelvis. ?? No evidence for diverticulitis. Appendix not identified. ? Enlarged lobular uterus consistent with fibroids. ?? No adnexal abnormalities. ? Impression: ? Multiple poorly defined hepatic lesions consistent with metastasis ? Left upper lobe nodule concerning for metastasis ? No acute process in the abdomen or pelvis ? This document has been electronically signed by: Stoney Arguelles MD on ?? 06/10/2024 19:52:54 ? Dictated By: ?Stoney Arguelles MD ? Signed By: ?<Electronically signed by Stoney Arguelles MD in OV> ? 06/10/241952 ? DD/ 51 ? TD/TT: 06/10/241951 ? Assembly Line Machine Operator: ? Procedure Note Pinky, Image - 06/10/[address] [address] [address] Scan Report Signed Patient: Shelby Dockery#: [id number] : 9Acct:[id number] Age/Sex: 63 / FADM Date: 06/10/24 Loc: HO.ED Attending Dr: Ordering Physician: Kingsley Robles Date of Service: 06/10/24 Procedure(s): CT abdomen pelvis wo IV con Accession Number(s): [id number] cc: Linda Lorenzo MD; Kingsley Robles Report Number: [id number]: Total DLP = 396.00 mGy-cm CLINICAL HISTORY: [...] by: Stoney Arguelles MD on 06/10/2024 19:52:54 Dictated By: Stoney Arguelles MD Signed By: <Electronically signed by Stoney Arguelles MD in OV> 06/10/241952 DD/ 51 TD/TT: 06/10/241951 Assembly Line Machine Operator: [facility] External Provider IMG CT PROCEDURES Final Result * (ABNORMAL) Urinalysis, Complete, with Reflex to Culture (06/10/2024 7:02 PM EST) Color Urine Yellow [facility] Appearance Urine Clear [facility] PH 5.5 5.0 - 9.0 [facility] Glucose Urine UA >=1000(A) Negative mg/dL [facility] Urine Blood Negative Negative [facility] Specific [place] - Urine >=1.030(H) 1.005 - 1.025 [facility] Urine Protein Negative Neg-Trace mg/dL [facility] Urine Ketones Trace Negative mg/dL [facility] Nitrite Urine Positive(A) Negative [facility] Leukocyte Esterase Urine Small (1+)(A) Negative [facility] RBC Urine 0-2 0 - 2 /HPF [facility] Urine WBC >50(A) 0 - 5 /HPF [facility] Urine Squamous Epithelial Cell 0-2 0 - 2 /HPF [facility] Urine Bacteria 1+ None Seen [facility] Hyaline Casts, Urine 0-2 0 - 2 /LPF [facility] 06/10/2024 7:02 PM EST 06/10/2024 7:05 PM EST Narrative [facility] - 06/10/2024 7:46 PM EST 1842Urine, Clean Catch us Generic External Data Provider LAB URINE ORDERAB LES Final Result [facility] [address] [place] [phone] * (ABNORMAL) Comprehensive Metabolic Panel (06/10/2024 12:07 PM EST) Sodium 142 135 - 145 mmol/L [facility] Potassium 4.7 3.3 - 5.1 mmol/L [facility] Chloride 109(H) 96 - 108 mmol/L [facility] Carbon Dioxide 24 22 - 29 mmol/L [facility] Anion Gap 14 12 - 20 [facility] Urea Nitrogen (BUN) 15 9 - 16 mg/dL [facility] Creatinine, Serum 0.71 0.5 - 1.4 mg/dL [facility] Creatinine Clr Calc Pharmacy 65.6 [facility] Comment:Provided height and weight: 154.94 cm,59.874 kg.eGFR (calculated from the MDRD study equation) and eCrCl(calculated from the Cockcroft-Gault equation) are based ondifferent parameters and may not yield comparable results.If eCrCl result is absurd, please check patient'sheight/weight. Estimated Glomerular Filt Rate >60 [facility] Comment:Chronic Kidney Disea se: Estimated GFR < 60 mL/min/1.87o5Xicfis Kidney Disease: Estimated GFR < 15 mL/min/1.73m2 Glucose 228(H) 60 - 115 mg/dL [facility] Calcium 10.3(H) 8.4 - 10.2 mg/dL [facility] Bilirubin, Total 0.2 0.0 - 1.0 mg/dL [facility] Aspartate Amino Transferase 24 5 - 31 U/L [facility] Alanine Aminotransferase 19 0 - 31 U/L [facility] Total Protein 7.9 6.5 - 8.0 g/dL [facility] Albumin Level 4.3 3.5 - 5.0 g/dL [facility] Alkaline Phosphatase 164(H) 39 - 117 U/L [facility] 06/10/2024 12:0 7 PM EST 06/10/2024 12:10 PM EST us Generic External Data Provider LAB BLOOD ORDERAB LES Final Result [facility] [address] [place] [address] [phone] * (ABNORMAL) CBC auto differential (06/10/2024 12:07 PM EST) White Blood Count 11.6(H) 4.8 - 10.8 X10*3/uL [facility] Red Blood Count 4.62 4.20 - 5.50 X10*6/uL [facility] Hemoglobin 13.0 12.0 - 16.0 g/dl [facility] Hematocrit 41.5 37.0 - 47.0 % [facility] Mean Corpuscular Volume 89.8 80.0 - 98.0 fL [facility] Mean Corpuscular Hemoglobin 28.1 27.0 - 33.0 pg [facility] Mean Corpuscular HGB Conc 31.3 31.0 - 35.0 g/dl [facility] Red Cell Distribution Width 15.3 11.0 - 16.0 % [facility] Platelet Count 489(H) 160 - 400 X10*3/uL [facility] Mean Platelet Volume 8.8(L) 9.4 - 12.3 fL [facility] Neutrophils Percent Auto 70.8 45 - 73 % [facility] Imm Gran Pct Auto 0.3 0.0 - 0.4 % [facility] Lymphocytes Percent Auto 20.3 20 - 40 % [facility] Monocytes Percent Auto 6.4 2 - 11 % [facility] Eosinophils Percent Auto 1.8 0 - 4 % [facility] Basophils Percent Auto 0.4 0 - 2 % [facility] NRBC Pct Auto 0.0 0.0 - 0.2 /100WBC [facility] Neutrophils Absolute Auto 8.2 2.0 - 8.3 x10*3/uL [facility] Imm Gran Abs Auto 0.03 0.00 - 0.03 X10*3/uL [facility] Lymphocytes Absolute Auto 2.4 1.2 - 4.9 X10*3/uL [facility] Monocytes Absolute Auto 0.8 0.1 - 1.2 X10*3/uL [facility] Eosinophils Absolute Auto 0.2 0.0 - 0.4 X10*3/uL [facility] Basophils Absolute Auto 0.1 0.0 - 0.2 X10*3/uL [facility] NRBC Abs Auto 0.000 0.0 - 0.012 X10*3/uL [facility] 06/10/2024 12:0 7 PM EST 06/10/2024 12:10 PM EST us Generic External Data Provider LAB BLOOD ORDERAB LES Final Result [facility] [address] [place] [phone] * Culture, Urine, Routine (06/10/2024 12:00 AM EST) Urine Urine specimen obtained by clean catch procedure / Unknown 06/10/2024 06/10/2024 [facility] N[facility] - 06/13/2024 7:33 AM EST Escherichia coli Quant > 100,000 cfu/mL Escherichia coli: Ampicillin <=2(S) Escherichia coli: Cefazolin (Urine) <=1(S) Escherichia coli: Cefepime <=0.12(S) Escherichia coli: Ceftriaxone <=0.25(S) Escherichia coli: Ciprofloxacin <=0.06(S) Escherichia coli: Gentamicin <=1(S) Escherichia coli: Nitrofurantoin <=16(S) Escherichia coli: Trimethoprim/Sulfamethoxazole <=20(S) Specimen Source: Urine clean catch us Generic External Data Provider LAB MICROBIOLOGY - GENERAL ORDERABLES Final Result [facility] [address] [place] [address] [phone] documented in this encounter Visit Diagnoses Not on filedocumented in this encounter Additional Health Concerns Assessment Noted Time PHQ-9 Depression Total Score: 6 06/12/19 24 10:45 AM EST documented as of this encounter Care Teams Truck Greaser Relationship Specialty Start Date End Date Linda Lorenzo MD [address] [place] [phone] PCP - General Internal Medicine 10/21/22 documented as of this encounter
--- OUTSIDE RECORDS SUMMARY | 2024-06-15 12:01 | XMS_ITS | Encounter Summary ---
Author Organization [employer] Address [address] [facility] 7t [place] [address] Care Team Providers Care Front Office Attendant Name Role Phone Linda Lorenzo MD Primary Care Pro vider Reason for Visit * Reason Onset Date Comments No Show 06/14/2024 Encounter Details Date Type Department Care Team ([facility] Contact Info) Description 06/14/2024 Telephone [facility] MEDICINE [address] [place], [place] [phone] Linda Lorenzo MD [address] [place], [place] [phone] No Show Social History Tobacco Use Types Packs/Day Years [...] encounter Miscellaneous Notes * Telephone Encounter - Delia Hurtado - 06/14/2024 3:49 PM EST Patient no show to FOLLOW UP appointment on 06/14/23. documented in this encounter Plan of Treatment Not on file documented as of this encounter Visit Diagnoses Not on filedocumented in this encounter Additional Health Concerns Assessment Noted Time PHQ-9 Depression Total Score: 6 06/12/19 10:45 AM EST documented as of this encounter Care Teams Front Office Attendant Relationship Specialty Start Date End Date Linda Lorenzo MD [address] [place] [phone] PCP - General Internal Medicine 10/21/22 documented as of this encounter
--- OUTSIDE RECORDS SUMMARY | 2024-06-15 12:02 | XMS_ITS | Encounter Summary ---
Author Organization [employer] Address [address] [facility] [address] [place] [address] Care Team Providers Care Corporate Traffic Manager Name Role Phone Linda Lorenzo MD Primary Care Pro vider Reason for Referral * Consultation (Routine) - Pending Review Specialty Diagnoses / Procedures Referred By Contsadi t Referred To Contact Pharmacy Diagnoses Type 2 diabetes mellitus with hyperglycemia, with long-term current use of insulin ([facility]) Juanpablo Watson MD [address] [place] [address] Phone: tel: fax: Referral ID Status Reason Start Date Expiration Date Visits Requested Visits Authorized [id number] Pending Review Consult and Treat 05/26/2024 05/26/2025 6 6 Encounter Details Date Type Department Care Team (Late st Contact Info) Description 05/26/[address] [facility] MEDICINE [address] [place], [place] [phone] Juanpablo Watson MD [address] [place], [place] [phone] Social History Tobacco Use Types Packs/Day Years [...] as of this encounter Miscellaneous Notes * Addendum Note - Juanpablo Felipe MD - 05/26/2024 4:29 PM ESTAddended by: JUANPABLO STEIN on: 05/26/2024 04:29 PM Modules accepted: Orders * Telephone Encounter - Ginger Bonner - 05/26/2024 4:12 PM EST Pharmacy is requesting an updated CDTM referral with a diagnosis of diabetes .Type 2 diabetes mellitus with hyperglycemia, with long-term current use of insulin [E11.65 and Essential hypertension [I10] This is to replace existing referral that no longer meets visit requirements. Please send at your earliest convenience. Thank you! documented in this encounter Plan of Treatment Scheduled Referrals Name Type Priority Associated Diagnoses Orde r Schedule Referral to Pharmacy CDTM Outpatient Referral Routine Type 2 diabetes mellitus with hyperglycemia, with long-term current use of insulin ([facility]) Ordered: 05/26/2024 documented as of this encounter Visit Diagnoses Diagnosis Type 2 diabetes mellitus with hyperglycemia, with long-term current use of insulin (CMS/[facility])- Primary documented in this encounter Additional Health Concerns Assessment Noted Time PHQ-9 Depression Total Score: 6 06/12/19 24 10:45 AM EST documented as of this encounter Care Teams Corporate Traffic Manager Relationship Specialty Start Date End Date Linda Lorenzo MD [address] [place] [id number] PCP - General Internal Medicine 10/21/22 documented as of this encounter
--- OUTSIDE RECORDS SUMMARY | 2024-06-15 12:02 | XMS_ITS | Encounter Summary ---
Author Organization [employer] Address [address] [facility] [address] [place] [address] Care Team Providers Care Plastics Sheet Finishing Press Operator Name Role Phone Linda Lorenzo MD Primary Care Pro vider Reason for Visit * Reason Comments Med Refill Encounter Details Date Type Department Care Team ([facility] st Contact Info) Description 03/03/[address] [facility] MEDICINE [address] [place], [place] [phone] Linda Lorenzo MD [address] [place] [address] Social History Tobacco Use Types Packs/Day Years [...] Answer Date Recorded Patient Health Questionnaire-9 Score 9 01/07/2023 Housing Stability Answer Date Recorded What is [...] Answer Date Recorded Patient Health Questionnaire-2 Score 3 01/07/2023 Comments No Sex and Gender Information Value [...] Assessment Noted Time PHQ-9 Depression Total Score: 9 01/08/20 23 11:21 AM EDT documented as of this encounter Care Teams Plastics Sheet Finishing Press Operator Relationship Specialty Start Date End Date Linda Lorenzo MD [address] [place] [id number] PCP - General Internal Medicine 10/21/22 documented as of this encounter
--- OUTSIDE RECORDS SUMMARY | 2024-06-15 12:02 | XMS_ITS | Encounter Summary ---
Author Organization [employer] Address [address] [facility] [address] [place] [address] Care Team Providers Care Senior Cost Analyst Name Role Phone Linda Lorenzo MD Primary Care Pro vider Reason for Visit * Reason Comments Med Refill Encounter Details Date Type Department Care Team ([facility] st Contact Info) Description 05/27/2023 Refill [facility] MEDICINE [address] [place], [place] [phone] Juanpablo Watson MD [address] [place] [address] Social History Tobacco Use Types Packs/Day Years [...] documented as of this encounter Care Teams Senior Cost Analyst Relationship Specialty Start Date End Date Linda Lorenzo MD [address] [place] [phone] PCP - General Internal Medicine 10/21/22 documented as of this encounter
--- OUTSIDE RECORDS SUMMARY | 2024-06-15 12:02 | XMS_ITS | Encounter Summary ---
Author Organization [employer] Address [address] [facility] [address] [place] [address] Care Team Providers Care Banquet Cook Name Role Phone Jhoana Oneal Primary Care Provider [phone] Linda Lorenzo MD Primary Care Pro vider Encounter Details Date Type Department Care Team (Late st Contact Info) Description 06/06/2022 Orders Only [facility] MEDICINE [address] [place] [phone] Muriel Velazquez LPN Social History Tobacco Use Types Packs/Day Years Used Date Smoking Tobacco: Some Days Cigarettes Smokeless Tobacco: Never Comments Unknown Sex and Gender Information Value Date Recorded Sex Assigned at Female 03/18/2022 10:14 AM EDT Legal Sex Female 10:14 AM EDT Gender Identity Female 03/18/2022 10:14 AM EDT Sexual Orientation Straight 12/10/2022 10 :37 AM EDT COVID-19 Exposure Response Date Recorded In the last 10 days, have yo u been in contact with someone who was confirmed or suspected to have Coronavirus/COVID-19? No / Unsure 06/06/2022 8:33 AM EST documented as of this encounter Plan of Treatment Not on file documented as of this encounter Visit Diagnoses Not on filedocumented in this encounter Care Teams Banquet Cook Relationship Specialty Start Date End Date Jhoana Oneal FNP PCP - General Family Medicine 04/04/22 10/20/22 Linda Lorenzo MD [address] [place], [place] [phone] PCP - General Internal Medicine 10/21/22 documented as of this encounter
--- OUTSIDE RECORDS SUMMARY | 2024-06-15 12:02 | XMS_ITS | Clinical Summary ---
Author Organization [employer] Address [address] [place] [address] Care Team Providers Care Drafting Layout Man Name Role Phone Linda Lorenzo MD Primary Care Pro vider Allergies Active Allergy Reactions Criticality Noted Date Comments Morphine Itching 04/29/2013 Medications * This document contains information received from the source organization and may not represent a complete record from that organization. pantoprazole (ProtoNix) 40 MG EC tablet Take 40 mg by mouth before breakfast. Do not crush, chew, or split. Active Diclofenac Sodium 1 % gel Apply 2 g topically every 6 (six) hours. 50 g 12/11/19 23 Active D3 Super Strength 50 MCG (1999 UT) capsuleIndications :Other specified abnormal findings of blood chemistry TAKE 1 CAPSULE BY MOUTH EVERY MORNING 90 capsule 3 08/05/19 24 Active carvedilol (Coreg) 6.25 MG tablet TAKE 1 TABLET BY MOUTH TWICE DAILY IN THE MORNING AND IN THE EVENING WITH FOOD 180 tablet 3 08/28/19 24 Active TRUEplus Insulin Syringe 31G X 5/16 0.5 ML misc USE FOUR TIMES DAILY 120 each 11 09/23/19 24 Active nitroglycerin (Nitrostat) 0.4 MG SL tablet DISSOLVE 1 TABLET UNDER THE TONGUE EVERY 5 MINUTES NEEDED FOR CHEST PAIN. CALL 911 IF NO RELIEF 25 tablet 1 11/03/19 24 Active dulaglutide (Trulicity) 4.5 MG/0.5ML solution pen-injectorIndica tions:Type 2 diabetes mellitus with hyperglycemia, with long-term current use of insulin ([facility]) Inject 4.5 mg under the skin 1 (one) time per week. If not available 4.5 mg dose please give 3 mg until can get 4.5 mg dose --thanks 4 each 11 01/02/20 Active triamcinolone (Kenalog) 0.1 % ointment Apply topically 2 times daily. 14 g 01/02/20 Active ipratropium (Atrovent) 17 MCG/ACT inhalerIndications :Chronic cough Inhale 2 puffs in the morning, at noon, in the evening, and at bedtime. 12.9 g 5 03/19/20 24 025 Active rosuvastatin (Crestor) 20 MG tabletIndications: Mixed hyperlipidemia Take 1 tablet (20 mg) by mouth at bedtime. 90 tablet 03/19/20 24 Active Aspirin Adult Low Strength 81 MG EC tabletIndications: Mixed hyperlipidemia TAKE 1 TABLET BY MOUTH EVERYDAY AT NOON 90 tablet 03/19/20 24 Active losartan (Cozaar) 100 MG tabletIndications: Primary hypertension TAKE 1 TABLET BY MOUTH EVERY MORNING 90 tablet 03/19/20 Active metFORMIN (Glucophage) 1000 MG tablet TAKE 1 TABLET BY MOUTH TWICE DAILY IN THE MORNING AND IN THE EVENING WITH FOOD 180 tablet 03/19/20 Active insulin lispro (HumaLOG Rodríguez KwikPen) 100 UNIT/ML injection Inject 15 Units under the skin with breakfast, with lunch, and with evening meal. 10.8 mL 2 03/19/20 24 Active insulin glargine (Lantus SoloStar) 100 UNIT/ML pen Inject 50 Units under the skin at bedtime. 15 mL 11 03/19/20 Active Continuous Glucose Sensor (FreeStyle Eulalio 14 Day Sensor) [facility] USE DIRECTED EVERY 14 DAYS 14 each 1 03/19/20 24 Active Continuous Glucose [employer] (FreeStyle Eulalio 14 Day [place]) device Inject 1 Device under the skin 4 times daily. 1 each 03/19/20 24 Active cloNIDine (Catapres) 0.1 MG tablet TAKE 1 TABLET BY MOUTH TWICE DAILY IN THE MORNING AND AT BEDTIME 60 tablet 2 03/22/20 Active gabapentin (Neurontin) 100 MG capsule Take 1 capsule (100 mg) by mouth Once per day. -continue??ga bapentin 300 mg HS and 100 mg in am 90 capsule 04/05/20 24 025 Active gabapentin (Neurontin) 300 MG capsule Take 1 capsule (300 mg) by mouth at bedtime. 90 capsule 04/05/20 24 Active ibuprofen 400 MG tablet Take 1 tablet (400 mg) by mouth every 8 (eight) hours if needed for moderate pain. 30 tablet 04/07/20 24 Active glucose blood (FREESTYLE LITE) test stripIndications:T ype 2 diabetes mellitus without complications ([facility]) TEST BLOOD SUGAR ONCE DAILY NEEDED 100 strip 11 04/22/20 Active FreeStyle lancets 1 each by Other route Once per day. Use as needed to verify Eulalio reading. dx type 2 diabetes 60 each 11 04/22/20 24 Active empagliflozin (Jardiance) 25 MGIndications:Type 2 diabetes mellitus with microalbuminuria, with long-term current use of insulin ([facility]) TAKE 1 TABLET BY MOUTH EVERY MORNING 90 tablet 1 04/22/20 24 Active pen needle 32G x 5 mm misc USE FOUR TIMES DAILY 100 each 3 06/10/19 25 Active nitrofurantoin, macrocrystal-monoh ydrate, (Macrobid) 100 MG capsuleIndications :Acute cystitis without hematuria Take 1 capsule (100 mg) by mouth 2 times daily for 5 days. 10 capsule 06/15/19 25 025 Discontin ued(Alter madeline therapy) Active Problems Problem Noted Date Diagnosed Date Poor memory 03/20/2024 Chronic cough 03/20/2024 Lower abdominal pain 01/02/2024 Knee pain 10/20/2023 Mood disorder 06/13/2023 Uncomplicated opioid dependence 06/12/2023 Moderate nonproliferative di abetic retinopathy of both eyes without macular edema associated with type 2 diabetes mellitus 06/12/2023 Uterine leiomyoma 06/12/2023 Coronary artery calcification 06/12/2023 Hyperlipidemia 12/10/2022 Assessment & Plan (02/04/2023 1:12 PM EDT): 01/2023 LDL 59,total ch 174, HDL 43,trig 362 not in fasting, AST 30<---109,ALT 47<---74 -per pt to be complaint w statins ,test was not done in fasting -will repeat fasting lipids and chem in 2 mo , if trig still elevated will add omega 3 daily Knee osteoarthritis 12/10/2022 Assessment & Plan (02/04/2023 1:04 PM EDT): From records hx of knee OA-not found XR in previous system Chronic pain affecting with ambulation -advised tylenol prn and topical diclofenac -referred today for bl knee XR -prescribed already RW and shower chair- -request today again to nurse staff to check status of prescription -pt anxious to get supplies Assessment & Plan (01/07/2023 12:30 PM EDT): From records hx of knee OA-not found XR in previous system Chronic pain affecting with ambulation -advised tylenol prn and topical diclofenac -will refer at next apt x bl knee XR If not able to obtain records of last XR- per pt done recently at [facility] knee XR -requested already to nurse staff for RW and shower chair-done already -request today nurse staff to check status of prescription -pt anxious to get supplies Assessment & Plan (12/10/2022 12:45 PM EDT): From records hx of knee OA-not found XR in previous system Chronic pain affecting with ambulation -advised tylenol prn and topical diclofenac -will refer at next apt x bl knee XR -requested today to nurse staff for RW and shower chair Neuropathy 12/10/2022 Assessment & Plan (02/04/2023 1:00 PM EDT): Pt reports symptoms of neuropathy in her hands and feet likely associated w uncontrolled DM Improving since started gabapentin -will try to improve DM control -referred to marketing communications associate -TAURUS gave today to pt # to call for apt -increase gabapentin to 200 from 100 mg HS Assessment & Plan (01/07/2023 12:27 PM EDT): Pt reports symptoms of neuropathy in her hands and feet likely associated w uncontrolled DM -will try to improve DM control -referred to marketing communications associate -TAURUS to check status of referral -start gabapentin 100 mg HS-explained possible SE -if tolerates will increase dose at next apt Assessment & Plan (12/10/2022 12:53 PM EDT): Pt reports symptoms of neuropathy in her hands and feet likely associated w uncontrolled DM -will try to improve DM control -referred today to marketing communications associate -start cymbalta today for depression and may help w neuropathy ' -if symptoms not improve will refer to neurologist Health care maintenance 12/10/2022 Assessment & Plan (02/04/2023 1:23 PM EDT): -menopause: 48 y of age -pap smear : pap neg/ HPV neg. ---from [facility] note: Pelvic ultrasound showed fibroids,enlarged for which was referred for MRI with contrast--pt reports to have apt x next month -MM 03/2022: BIRADS 1 -Colonoscopy : 2012: grade 1 Internal hemorrhoids -referred already to GI -DEXA scan: will start next year at 63 -vaccines: s/p p23x3, s/p p20, tdap 11/2022 ,zoster x2, covid : none -refuse vaccination offered again today , flu vaccine today, hep B not immune to start series today ---- 01/2023 BUN 25 and ca elevated as well at 10.6 ,denies melenas nor BRPR so BUN elev seems not related w GIB but most likely w dehydration -she had labs yesterday that is when used cocaine -will repeat chem in 2 months , FOBT order today Assessment & Plan (01/07/2023 12:38 PM EDT): -menopause: 48 y of age -pap smear :last 2014 was neg-referred today here -MM 03/2022: BIRADS 1 -Colonoscopy : 2012: grade 1 Internal hemorrhoids -referred already to GI -DEXA scan: will start next year at 63 -vaccines: s/p p23x3, s/p p20, tdap 11/2022 ,,zoster x2, covid : none -refuse vaccination offered again today -labs x annual exam -will RTC in fasting -pt agreed to have STI testing including HIV to have for baseline -encouraged again to pt to have blood workup ordered at last visit -print orders today for pt Assessment & Plan (12/10/2022 1:00 PM EDT): -menopause: 48 y of age -pap smear : last 1 y ago per pt--- ---- requested record to [facility]RIS 03/2022: BIRADS 1 -Colonoscopy : 2012: grade ! Internal hemorrhoids -referred today to GI -DEXA scan: will start next year at 63 -vaccines: s/p p23x3, today p20, tdap 2013 today booster,zoster x2, covid : none -refuse vaccination -labs x annual exam -will RTC in fasting -pt agreed to have STI testing including HIV to have for baseline --- -debrox x ear wax Depression 12/10/2022 Assessment & Plan (02/04/2023 1:16 PM EDT): PHQ9: 9 again ,denies anxiety,hallucinations nor elias,no fx hx of psych dx , denies SI but reports sometimes thoughts to be better off ,symptoms are reported as chronic -never on tx per pt -tried cymbalta 30 mg daily for depression and neuropathy -only took 1 dose and had worsening depression and anger -discussed w pt that usually symptoms improves after taking for couple weeks but pt refusing to continue trying and refusing to try any other antidepressant for now. Pt appears more calm -since previous visits and seems gabapentin started recently maybe helping with her mood as well increasing dose today for neuropathy -pt was seen already by at last apt and referred for out pt tx -pt states that s not getting any call but does not want to do therapy -will continue to monitor -I called today [facility] service and discussed all meds changes done today Assessment & Plan (01/07/2023 12:42 PM EDT): PHQ9 today is 9 again ,denies anxiety,hallucinations nor elias,no fx hx of psych dx , denies SI but reports sometimes thoughts to be better off ,symptoms are reported as chronic -never on tx per pt -tried cymbalta 30 mg daily for depression and neuropathy -only took 1 dose and had worsening depression and anger -discussed w pt that usually symptoms improves after taking for couple weeks antidepressants but pt refusing to continue trying and refusing to try any other antidepressant for now. -pt was seen already by at last apt and referred for out pt tx -pt states that s not getting any call but does not want to do therapy -will monitor here in 4 weeks ,to start today clonidine for cocaine cravings and gabapentin for neuropathy that may have an effect in her mood. --I called today [facility] px service and discussed all meds changes done today -alarm signs and symptoms discussed Assessment & Plan (12/10/2022 12:59 PM EDT): PHQ9 today is 9 ,denies anxiety,hallucinations nor elias,no fx hx of psych dx , denies SI but reports sometimes thoughts to be better off ,symptoms are reported as chronic -never on tx per pt -will start low dose cymbalta 30 mg daily x now for depression and neuropathy -explained possible SE to pt---if tolerates to increase at next apt to 60 mg daily -I called today -they saw pt today in office to refer x outpt therapy -will monitor here in 4 weeks History of cocaine use 09/13/2022 Assessment & Plan (02/04/2023 1:09 PM EDT): Pt reports snort cocaine -last use yesterday -refusing referral x CRS x now and recovery couches offered again today -p tolerating well clonidine 0.1 mg daily x cravings -will increase dose to BID ( advised pt to monitor BP if lowering will need to decrease at next apt dose of her losartan at next apt-pt will call clinic if noticing low BP readings Assessment & Plan (01/07/2023 12:35 PM EDT): Pt reports snort cocaine -states sporadically but last use today -refusing referral x CRS x now and recovery couches -pt agreed to try clonidine-to start 0.1 mg daily x cravings Assessment & Plan (12/10/2022 12:49 PM EDT): Pt reports snorted cocaine -states sporadically -refusing referral x CRS x now and recovery couches -will discuss w pt about clonidine x cravings at next apt Type 2 diabetes mellitus 09/13/2022 Assessment & Plan (02/04/2023 2:40 PM EDT): 01/2023 hb1AC 9.3<----10.5 , CBG 370. microalb neg, LDL 59,total ch 174, HDL 43,trig 362 not in fasting Pt not started yet GLP1 but unfortunately she decreased her basal insulin to 40 mg HS and rapid insulin to 6 u TID -rec only when she starts GLP1 -ophthalmology : w Moderate nonproliferative diabetic retinopathy of both eyes seen in 12/2022 to f in 1 year -Store Custodian referred already-gave today phone number to Call for apt -continue jardiance 25 mg ,resume previous dose of insulin basal 50 u HS and lispro 10 u TID and metformin 1000 mg BID -To start trulicity 0.75 mg weekly-confirm today med is cover w px staff - ozempic not covered-denies personal of fx hx of thyroid ca nor pancreatitis hx -px to get trained . Once starts getting GLP1 advise to decrease basal insulin by 20 % ( so levemir to decrease to 40 u HS and lispro 6 u w meals) -advised to continue f CBGS premeals and 2 h after biggest meal -pt on continues glucose check -refusing manager outpatient referral -DM labs in 2 months in fasting Assessment & Plan (01/07/2023 12:33 PM EDT): 11/2022 hb1AC 10.5 , CBG 237 -DM labs -Pd to be done -ophthalmology : w diabetic retinopathy seen in 06/2022 To f in 12/2022 -Store Custodian referred already -pt on jardiance 25 mg ,insulin basal 50 u HS and lispro 10 u TID and metformin recently increased at last visit to 1000 mg BID -will add today ozempic 0.25 mg weekly x 4 weeks and then 0.5 mg weekly-denies personal of fx hx of thyroid ca nor pancreatitis hx -pt states she knows how to use med but advised as well to check with px to get trained as well. Once starts getting ozempic advise to decrease basal insulin by 20 % ( so levemir to decrease to 40 u HS and lispro 6 u w meals) -advised to continue f CBGS premeals and 2 h after biggest meal -pt on continues glucose check -will discuss about manager outpatient referral at next apt Assessment & Plan (12/10/2022 1:04 PM EDT): Today hb1AC 10.5 , CBG 237 -DM labs -ophthalmology : w diabetic retinopathy seen in 06/2022 To f in 12/2022 -Store Custodian referred today -pt on jardiance 25 mg ,insulin basal 50 u HS and lispro 10 u TID and metformin --will increase for now metformin to 1000 mg BID-denies SE w med ,not recalls higher doses. -will consider GLP1 at next apt -advised to continue f CBGS premeals and 2 h after biggest meal -pt on continues glucose check -will discuss about manager outpatient referral at next apt Substance abuse 12/04/2012 Assessment & Plan (02/04/2023 1:10 PM EDT): stopped heroine in 09/2022 ,Sill cocaine use snort -used to be on suboxone program but had SE from med and refusing to try anything else x now --noted ER visit in 09/2022 x heroine overdose -from note pt was suicidal - pt denies having SI and states is trying to avoid -will continue to monitor at next visit and to discuss again about other options as methadone -advised to continue CRS program in 1st floor bur refusing -refill Already narcan Assessment & Plan (01/07/2023 12:36 PM EDT): stopped heroine in 09/2022 ,Sill cocaine use snort -used to be on suboxone program but had SE from med and refusing to try anything else x now --noted ER visit in 09/2022 x heroine overdose -from note pt was suicidal - pt denies having SI and states is trying to avoid -will continue to monitor at next visit and to discuss again about other options as methadone -advised to continue CRS program in 1st floor bur refusing -refill Already narcan Assessment & Plan (12/10/2022 12:52 PM EDT): stopped heroine in 09/2022 ,Sill cocaine use snort -used to be on suboxone program but had SE from med and refusing to try anything else x now --noted ER visit in 09/2022 x heroine overdose -from note pt was suicidal - pt denies having SI and states is trying to avoid -will continue to monitor at next visit and to discuss again about other options as methadone -advised to continue CRS program in 1st floor bur refusing -refill today narcan Gastroesophageal reflux disease 06/29/2012 Assessment & Plan (02/04/2023 1:03 PM EDT): On chronic PPIs -gastric empty study 2020: normal -Abd US 2021:Unremarkable abdominal ultrasound. -used to f w GI but lost care -referred back to GI may need to repeat EGD and colonoscopy -MA gave today to pt written info for pt to all for apt Assessment & Plan (01/07/2023 12:29 PM EDT): On chronic PPIs -gastric empty study 2020: normal -Abd US 2021:Unremarkable abdominal ultrasound. -used to f w GI but lost care -referred back to GI may need to repeat EGD and colonoscopy -MA to check today status of referral Assessment & Plan (12/10/2022 1:03 PM EDT): On chronic PPIs -gastric empty studue 2020: normal -Abd US 2021:Unremarkable abdominal ultrasound. -used to f w GI but lost care -referred today back to GI may need to repeat EGD and colonoscopy Tobacco dependence syndrome 06/29/2012 Assessment & Plan (02/04/2023 1:10 PM EDT): Since 11 y of age until now , 1 PQT a day x for majority of years since last 3 years decrease to 1/2 PQT a day ,smoking x 49 years until now .PQT calc 51 -referred already for tobacco cessation program-not following -referred x lung ca screening program x CT chest-has apt for 01/2023 -pt agreed today to try w nicotine patch will start 14 mg daily x 6 weeks and then will decrease dose to 7 mg daily for 2 weeks + nicotine lozenges 2 mg Prn -will monitor at next visit Assessment & Plan (01/07/2023 12:36 PM EDT): Since 11 y of age until now , 1 PQT a day x for majority of years since last 3 years decrease to 1/2 PQT a day ,smoking x 49 years until now .PQT calc 51 -referred already for tobacco cessation program-per pt has upcoming apt -will monitor at next visit -referred x lung ca screening program x CT chest-has apt for 01/2023 Assessment & Plan (12/10/2022 12:50 PM EDT): Since 11 y of age until now , 1 PQT a day x for majority of years since last 3 years decrease to 1/2 PQT a day ,smoking x 49 years until now .PQT calc 51 -advised x tobacco cessation program-pt agreed -referred today -will monitor at next visit -referred today x lung ca screening program x CT chest Essential hypertension 10/28/2011 Assessment & Plan (02/04/2023 1:02 PM EDT): BP controlled today -ophthalmology : w Moderate nonproliferative diabetic retinopathy of both eyes seen in 12/2022 to f in 1 year 12/2022 Microalb neg EKG for baseline today : normal variant,QTC 444, HR 82x' -advised pt to bring home BP readings-pt to bring BP machine at next apt Assessment & Plan (01/07/2023 12:28 PM EDT): BP controlled today -advised pt to bring home BP readings -ophthalmology seen in 06/2022 w diabetic retinopathy to f in 6 mo ---next apt x 01/10/2023 -microalb ordered -will do EKG at next apt x baseline Assessment & Plan (12/10/2022 12:43 PM EDT): Slight elevated BP today -reports took her BP meds prior coming -advised pt to bring home BP readings at next apt and would adjust meds as needed -may need to consider clonidine for cocaine use -ophthalmology seen in 06/2022 w diabetic retinopathy to f in 6 mo ---next apt x 12/23/2022 -microalb -will do EKG at next apt x baseline Resolved Problems Problem Noted Date Diagnosed Date Resolved Date Chronic pain 12/06/2022 12/10/2022 Type 2 diabetes mellitus without complication 12/07/19 23 12/10/2022 Pure hypercholesterolemia 10/28/2011 Encounters Date Type Department Care Team Description 06/15/2024 Orders Only GENERIC EXTERNAL DATA DEPARTMENT Provider, Generic External Data 06/15/2024 Telephone [facility] [address] [place] [address] Barb Hines, RN Nurse Triage 06/15/2024 Travel 06/14/2024 Telephone [facility] [address] [place] [address] Linda Lorenzo MD No Show 06/11/2024 Orders Only [facility] [address] [place] [address] Yaquelin Subramanian ANP Lung nodule seen on imaging study (Primary Dx); Lesion of liver; Acute cystitis without hematuria 06/11/2024 Telephone [facility] [address] [place] [address] Park Cordero DO Results; Appointment Request 06/10/2024 Telephone [facility] [address] [place] [address] Mattie Nina, OD 06/10/2024 Orders Only GENERIC EXTERNAL DATA DEPARTMENT Provider, Generic External Data 06/10/2024 Refill [facility] [address] [place] [address] Linda Lorenzo MD 06/08/2024 Telephone [facility] [address] [place] [address] Linda Lorenzo MD Medication Question 05/26/2024 Telephone [facility] [address] [place] [address] Juanpablo Watson MD 04/22/2024 Refill [facility] [address] [place] [address] Barb Hines, RN Type 2 diabetes mellitus without complications ([facility]); Type 2 diabetes mellitus with microalbuminuria, with long-term current use of insulin ([facility]) 04/22/2024 Refill [facility] [address] [place] [address] Linda Lorenzo MD Type 2 diabetes mellitus with microalbuminuria, with long-term current use of insulin ([facility]) 04/07/2024 Refill [facility] [address] [place] [address] Linda Lorenzo MD 04/05/2024 Telephone [facility] [place] [address] Misty Dewitt RN 04/05/2024 Orders Only [facility] [address] [place] [address] Linda Lorenzo MD 03/25/[address] [address] Carmen Celaya [place] Notes requested from [place] 03/20/2024 Refill [facility] [address] [place] [address] Linda Lorenzo MD 03/19/2024 9:00 AM EDT Office Visit [address] [address] Linda Lorenzo MD Type 2 diabetes mellitus with hyperglycemia, with long-term current use of insulin (CMS/HCC) (Primary Dx); Essential hypertension; Encounter for immunization; Chronic cough; Memory problem; Mixed hyperlipidemia; Primary hypertension; Type 2 diabetes mellitus with microalbuminuria, with long-term current use of insulin (CMS/HCC); Poor memory; Lower abdominal pain; Uterine leiomyoma, unspecified location; Health care maintenance; History of cocaine use; Tobacco dependence syndrome 03/19/[address] [address] Barb Hines, RN Error (VOID this visit) 03/19/[address] [address] Barb Hines, RN Appointment Request 03/19/[address] [address] Robyn Stephens [place] Appointment 03/19/2024 Travel from Last 3 Months Immunizations Name Administration Dates Next Due Hep B, adult 08/07/2023,03/06/2023,02/04/2023 Influenza injectable quadriv alent preservative free 02/04/2023 Influenza, High Dose Seasona l, Preservative Free 03/19/2024 Influenza, IIV3, injectable 05/08/2017,1 05/31/2014,03/17/2014,01/29 Influenza, Split (incl. lo fied surface antigen) 06/29/2012 Pneumococcal Polysaccharide PPSV23 2018,,07/23/2001 RSV Bivalent 04/05/2024 TD (adult), 2 Lf tetanus tox oid, preservative free, adsorbed 10/19/2003 Tdap 06/29/2012 Zoster, Recombinant 01/23/2021,01/09/2021 Social History Tobacco Use Types Packs/Day Years Used Date Smoking Tobacco: Every Day Cigarettes Passive Smoke Exposure: Never Smokeless Tobacco: Never Tobacco Cessation:Ready to Q uit: Not Asked; Counseling Given: Not Answered Comments:Since 11 y of age until now , 1 PQT a day x [...] is your housing situation today? I have [place] 03/03/[address] you [...] Orientation Straight 12/10/2022 10 :37 AM EDT Last Filed Vital Signs Vital Sign Reading Time Taken Comments Blood Pressure 149/83 03/19/2024 9:05 AM EDT Pulse 53 03/19/2024 9:05 AM EDT Temperature 36.3 ??C (97.3 ??F) 03/19/2024 9:05 AM ED T Respiratory Rate 20 03/19/2024 9:05 AM EDT Oxygen Saturation 98% 03/19/2024 9:05 AM EDT Inhaled Oxygen Concentration - - Weight 60.4 kg (133 lb 3.2 oz) 03/19/2024 9:05 A M EDT Height 154.9 cm (5' 1 ) 03/19/2024 9:05 AM EDT Body Mass Index 25.17 03/19/2024 9:05 AM EDT Plan of Treatment Health Maintenance Due Date Last Done Comments CT Colonography 1960 Colonoscopy 1960 Colorectal Cancer Screening 1960 FIT DNA/Cologuard 1958 FIT 1960 FOBT 1960 Sigmoidoscopy 1958 Diabetes: Foot Exam 1968 Alcohol/Substance Use Screening 1970 Hepatitis A Vaccines (1 of 2 - Risk 2-dose series) 1977 Pneumococcal Vaccine: 65+ Years (2 of 2 - PCV) 11/14/2019 2018, 05/08/2017, 07/23/2001 Zoster Vaccines (2 of 2) 03/20/2021 01/23/2021, 12/18 DTaP/Tdap/Td Vaccines (2 - Td or Tdap) 06/29/2022 06/29/2012, 10/19/2003 Eye Exam 01/11/2024 01/10/2023, 12/18, 01/10/2023, Additional history exists COVID-19 Vaccine ( season) 2024 SDOH Screening 06/04/2024 06/04/2023 Depression Screening 06/12/2024 06/12/2023, 06/12/19 Diabetes: Hemoglobin A1C 06/19/2024 024, 11/10/2023, 09/11/2023, Additional history exists Lipid Panel 11/09/2024 11/10/2023, 01/17, 01/25/2021 Tobacco Screening 06/15/2025 06/15/2024 Pap Smear 01/13/2026 01/13/2023 Mammogram 04/20/2026 04/20/2024, 03/20, 04/05/2022, Additional history exists Cervical Cancer Screening 01/14/2028 HPV/Cotest 01/14/2028 01/13/2023 Hepatitis C Screening Completed 02/03/2023 Hepatitis B Vaccines Completed 08/07/2023, 03/06/2023, 02/04/2023 Influenza Vaccine Completed 03/19/2024, , 05/08/2017, Additional history exists RSV Patients and Patients Aged 60 years or older Completed 04/05/2024 HIB Vaccines Aged Out No longer eligi ble based on patient's age to complete this topic HPV Vaccines Aged Out No longer eligi ble based on patient's age to complete this topic IPV Vaccines Aged Out No longer eligi ble based on patient's age to complete this topic Meningococcal Vaccine Aged Out No yanique marie eligible based on patient's age to complete this topic RSV under 20 months Aged Out No longe r eligible based on patient's age to complete this topic Rotavirus Vaccines Aged Out No longer eligible based on patient's age to complete this topic Procedures Procedure Name Priority Date/Time Associated Diagnosis Comments URINALYSIS, COMPLETE, WITH REFLEX TO CULTURE Routine 06/15/2024 11:[address] ABDOMEN PELVIS WO CONTRAST Routine 06/10/2024 7:52 PM EST URINALYSIS, COMPLETE, WITH REFLEX TO CULTURE Routine 06/10/2024 7:02 PM EST COMPREHENSIVE METABOLIC PANEL Routine 06/10/2024 12:07 PM EST CBC WITH AUTO DIFFERENTIAL Routine 06/10/2024 12:07 PM EST CULTURE, URINE, ROUTINE Routine 06/10/2024 12:00 AM EST BI MAMMOGRAM SCREENING TOMOSYNTHESIS BILATERAL Routine 04/20/2024 11:30 AM EST POCT GLYCATED HEMOGLOBIN, TOTAL Routine 03/19/2024 9:47 AM EDT Type 2 diabetes mellitus with hyperglycemia, with long-term current use of insulin ([facility]/HCC) POCT GLUCOSE Routine 03/19/2024 9:30 AM EDT Type 2 diabetes mellitus with hyperglycemia, with long-term current use of insulin (CMS/HCC) LIPID PANEL, STANDARD Routine 11/10/2023 9:02 AM EDT Type 2 diabetes mellitus with hyperglycemia, with long-term current use of insulin (CMS/HCC) HEPATITIS C AB W/REFL TO HCV RNA, QN, PCR Routine 02/03/2023 11:42 AM EDT Health care maintenance HPV MRNA E6/E7 REFLEX TO HPV 16, 18/45 Routine 01/13/2023 11:06 AM EDT PAP SMEAR Routine 01/13/2023 11:06 AM EDT from Last 3 Months or Most Recently Relevant to Health Maintenance Results * (ABNORMAL) Urinalysis, Complete, with Reflex to Culture (06/15/2024 11:10 AM EST) Only the most recent of2 resultswithin the time period is included. Color Urine Yellow [facility] Appearance Urine Clear [facility] PH 5.5 5.0 - 9.0 [facility] Glucose Urine UA >=1000(A) Negative mg/dL [facility] Urine Blood Negative Negative [facility] Specific [place] - Urine 1.020 1.005 - 1.025 [facility] Urine Protein Negative Neg-Trace mg/dL [facility] Urine Ketones Negative Negative mg/dL [facility] Nitrite Urine Negative Negative [facility] Leukocyte Esterase Urine Negative Negative [facility] RBC Urine 0-2 0 - 2 /HPF [facility] Urine WBC 0-5 0 - 5 /HPF [facility] Urine Squamous Epithelial Cell 0-2 0 - 2 /HPF [facility] Urine Bacteria None Seen None Seen [facility] Hyaline Casts, Urine 0-2 0 - 2 /LPF [facility] 06/15/2024 11:1 0 AM EST 06/15/2024 11:13 AM EST Narrative [facility] - 06/15/2024 11:20 AM EST [id number], Clean Catch us Generic External Data Provider LAB URINE ORDERAB LES Final Result Performing Organization Address City/State/[facility] Co de Phone Number [facility] [address] [place] [address] [phone] * CT Abdomen Pelvis w/o Contrast (06/10/2024 7:52 PM EST) Anatomical Region Laterality Modality Body, Pelvis, Abdomen Computed T omography 06/10/2024 7:52 PM EST Narrative 06/10/2024 7:53 PM EST ? [facility] ?[address] ?[place] [address] ? CT Scan Report ? Signed ? Patient: Sarkis,Shelby ?MR#: [id number] ?? [id number] ? : 1960 ?Acct:[id number] ? Age/Sex: 63 / F ?ADM Date: 01/23/25 ? Loc: HO.ED ? Attending Dr: ? Ordering Physician: Kingsley Robles ?? Date of Service: 06/10/24 ?? Procedure(s): CT abdomen pelvis wo IV con ?? Accession Number(s): [id number] ? cc: Linda Lorenzo MD; Kingsley Robles ? Report Number: ?? [id number]: Total DLP = ??396.00 mGy-cm ? CLINICAL [...] ? DD/ 51 ? TD/TT: 06/10/241951 ? Casting Cleaner: ? Procedure Note Estevan Vance - 06/10/[address] [address] [address] Scan Report Signed Patient: Shelby DockeryMR#: [id number] : 9Acct:[id number] Age/Sex: 63 / FADM Date: 06/10/24 Loc: HO.ED Attending Dr: Ordering Physician: Kingsley Robles Date of Service: 06/10/24 Procedure(s): CT abdomen pelvis wo IV con Accession Number(s): [id number] cc: Linda Lorenzo MD; Kingsley Robles Report Number: [id number]: Total DLP = 396.00 mGy-cm CLINICAL HISTORY: [...] in OV> 06/10/241952 DD/ 51 TD/TT: 06/10/241951 Casting Cleaner: [facility] External Provider IMG CT PROCEDURES Final Result * (ABNORMAL) CBC auto differential (06/10/2024 12:07 PM EST) White Blood Count 11.6(H) 4.8 - 10.8 X10*3/uL [facility] Red Blood Count 4.62 4.20 - 5.50 X10*6/uL [facility] Hemoglobin 13.0 12.0 - 16.0 g/dl [facility] Hematocrit 41.5 37.0 - 47.0 % [facility] Mean Corpuscular Volume 89.8 80.0 - 98.0 fL [facility] Mean Corpuscular Hemoglobin 28.1 27.0 - 33.0 pg [facility] Mean Corpuscular HGB Conc 31.3 31.0 - 35.0 g/dl [facility] Red Cell Distribution Width 15.3 11.0 - 16.0 % [facility] Platelet Count 489(H) 160 - 400 X10*3/uL [facility] Mean Platelet Volume 8.8(L) 9.4 - 12.3 fL [facility] Neutrophils Percent Auto 70.8 45 - 73 % [facility] Imm Gran Pct Auto 0.3 0.0 - 0.4 % [facility] Lymphocytes Percent Auto 20.3 20 - 40 % [facility] Monocytes Percent Auto 6.4 2 - 11 % [facility] Eosinophils Percent Auto 1.8 0 - 4 % [facility] Basophils Percent Auto 0.4 0 - 2 % [facility] NRBC Pct Auto 0.0 0.0 - 0.2 /100WBC [facility] Neutrophils Absolute Auto 8.2 2.0 - 8.3 x10*3/uL [facility] Imm Gran Abs Auto 0.03 0.00 - 0.03 X10*3/uL [facility] Lymphocytes Absolute Auto 2.4 1.2 - 4.9 X10*3/uL [facility] Monocytes Absolute Auto 0.8 0.1 - 1.2 X10*3/uL [facility] Eosinophils Absolute Auto 0.2 0.0 - 0.4 X10*3/uL [facility] Basophils Absolute Auto 0.1 0.0 - 0.2 X10*3/uL [facility] NRBC Abs Auto 0.000 0.0 - 0.012 X10*3/uL [facility] 06/10/2024 12:0 7 PM EST 06/10/2024 12:10 PM EST us Generic External Data Provider LAB BLOOD ORDERAB LES Final Result [facility] [address], [place] [phone] * (ABNORMAL) Comprehensive Metabolic Panel (06/10/2024 12:07 PM EST) Sodium 142 135 - 145 mmol/L [facility] Potassium 4.7 3.3 - 5.1 mmol/L [facility] Chloride 109(H) 96 - 108 mmol/L [facility] Carbon Dioxide 24 22 - 29 mmol/L [facility] Anion Gap 14 12 - 20 [facility] Urea Nitrogen (BUN) 15 9 - 16 mg/dL [facility] Creatinine, Serum 0.71 0.5 - 1.4 mg/dL [facility] Creatinine Clr Calc Pharmacy 65.6 [facility] Comment:Provided height and weight: 154.94 cm,59.874 kg.eGFR (calculated from the MDRD study equation) and eCrCl(calculated from the Cockcroft-Gault equation) are based ondifferent parameters and may not yield comparable results.If eCrCl result is absurd, please check patient'sheight/weight. Estimated Glomerular Filt Rate >60 [facility] Comment:Chronic Kidney Disea se: Estimated GFR < 60 mL/min/1.03f9Azszge Kidney Disease: Estimated GFR < 15 mL/min/1.73m2 Glucose 228(H) 60 - 115 mg/dL [facility] Calcium 10.3(H) 8.4 - 10.2 mg/dL [facility] Bilirubin, Total 0.2 0.0 - 1.0 mg/dL [facility] Aspartate Amino Transferase 24 5 - 31 U/L [facility] Alanine Aminotransferase 19 0 - 31 U/L [facility] Total Protein 7.9 6.5 - 8.0 g/dL [facility] Albumin Level 4.3 3.5 - 5.0 g/dL [facility] Alkaline Phosphatase 164(H) 39 - 117 U/L [facility] 06/10/2024 12:0 7 PM EST 06/10/2024 12:10 PM EST us Generic External Data Provider LAB BLOOD ORDERAB LES Final Result [facility] [address] [place] [address] [phone] * Culture, Urine, Routine (06/10/2024 12:00 AM EST) Urine Urine specimen obtained by clean catch procedure / Unknown 06/10/2024 06/10/2024 Comment:[facility] Narrative [facility] - 06/13/2024 7:33 AM EST Escherichia coli Quant > 100,000 cfu/mL Escherichia coli: Ampicillin <=2(S) Escherichia coli: Cefazolin (Urine) <=1(S) Escherichia coli: Cefepime <=0.12(S) Escherichia coli: Ceftriaxone <=0.25(S) Escherichia coli: Ciprofloxacin <=0.06(S) Escherichia coli: Gentamicin <=1(S) Escherichia coli: Nitrofurantoin <=16(S) Escherichia coli: Trimethoprim/Sulfamethoxazole <=20(S) Specimen Source: Urine clean catch Generic External Data Provider LAB MICROBIOLOGY - GENERAL ORDERABLES Final Result [facility] [address] [place] [address] [phone] * BI Mammogram Screening Tomosynthesis Bilateral (04/20/2024 11:30 AM EST) Anatomical Region Laterality Modality Breast Bilateral Mammography 04/20/2024 11:3 0 AM EST Narrative 04/26/2024 5:28 PM EST ? [facility] [place] ? [address] [facility] ?[place] [address] ? Mammography Report ? Signed ? Patient: Sarkis,Shelby ?MR#: [id number] ?? [id number] ? : 1960 ?Acct:[id number] ? Age/Sex: 63 / F ?ADM Date: 12/03/24 ? Loc: HO.MAMMO ? Attending Dr: Maral Morrissey CNM ? Ordering Physician: Linda Lorenzo MD ?Re ?? sults: 1Negative ? Date of Service: 04/20/24 ?Follow Up: 1 Year From Orig ?? inal Mammogram ? Procedure(s): MM tomosynthesis screening BI ?? Accession Number(s): [id number] ? cc: Linda Lorenzo MD ? EXAMINATION: ?? MM SCREENING DIGITAL BREAST TOMOSYNTHESIS, BILATERAL ? CLINICAL INFORMATION: ? Screening. Asymptomatic. ? COMPARISON: ?? Mammography: Comparison is made with available priors ? TECHNIQUE: ?? Digital breast mammography with tomosynthesis is performed in both the ?? craniocaudal and mediolateral oblique views along with computer-aided ?? detection (CAD). ? FINDINGS: ?? There are scattered areas of fibroglandular density (ACR BI-RADS breast ?? composition Category b). ? There are no significant masses, abnormal calcifications, or other ?? abnormalities. ? MM/MM tomosynthesis screening BI ?? IMPRESSION: ?? No mammographic evidence of malignancy. ? ASSESSMENT: ? BI-RADS BI-RADS 1 - Negative ? RECOMMENDATION: ?? Routine annual mammography screening. ? 1 year F/U ? This examination should not preclude the clinical evaluation of a ?? suspicious palpable abnormality. ? This patient's information was entered into a reminder system with a ?? target due date for their next mammogram. ? Electronically signed by: ??Dulce Lopez DO ??04/26/2024 05:25 PM EST ?? RP ? Dictated By: ?Dulce Lopez DO ? Signed By: ?<Electronically signed by Dulce Lopez, DO in OV> ? 04/26/24 1725 ? DD/ 1130 ? TD/TT: 04/20/24 1135 ? Casting Cleaner: ? Procedure Note Donotstephanyinterpreter, Image - 04/26/2024 Ghada [facility] [address] [place] [address] Mammography Report Signed Patient: Shelby DockeryMR#: [id number] : 9Acct:[id number] Age/Sex: 63 / FADM Date: 04/20/24 Loc: HO.MAMMO Attending Dr: Maral Morrissey CNM Ordering Physician: Linda Lorenzo sults: 1Negative Date of Service: 04/20/24Follow Up: 1 Year From Orig inal Mammogram Procedure(s): MM tomosynthesis screening BI Accession Number(s): [id number] cc: Linda Lorenzo MD EXAMINATION: MM SCREENING DIGITAL BREAST TOMOSYNTHESIS, BILATERAL CLINICAL INFORMATION: Screening. Asymptomatic. COMPARISON: Mammography: Comparison is made with available priors TECHNIQUE: Digital breast mammography with tomosynthesis is performed in both the craniocaudal and mediolateral oblique views along with computer-aided detection (CAD). FINDINGS: There are scattered areas of fibroglandular density (ACR BI-RADS breast composition Category b). There are no significant masses, abnormal calcifications, or other abnormalities. MM/MM tomosynthesis screening BI IMPRESSION: No mammographic evidence of malignancy. ASSESSMENT: BI-RADS BI-RADS 1 - Negative RECOMMENDATION: Routine annual mammography screening. 1 year F/U This examination should not preclude the clinical evaluation of a suspicious palpable abnormality. This patient's information was entered into a reminder system with a target due date for their next mammogram. Electronically signed by: Dulce Lopez DO 04/26/2024 05:25 PM EST Dictated By: Dulce Lopez DO Signed By: <Electronically signed by Dulce Lopez DO in OV> 04/26/24 1725 DD/ 1130 TD/TT: 04/20/24 1135 Casting Cleaner: Linda Bond MD IMG BI PROCEDURES Final Result * (ABNORMAL) POCT HGB A1C (03/19/2024 9:47 AM EDT) Pathologist [facility] Hemoglobin A1C 11.6(A) 4.0 - 6.0 % QC Media Lot # [id number] Lot# Expiration Date ,535 Blood 03/19/2024 9:47 AM EDT Linda Bond MD POINT OF CARE MAEGAN T ENTER/EDIT ORDERABLES Final Result * (ABNORMAL) POCT Glucose (03/19/2024 9:30 AM EDT) Pathologist [facility] Glucose Blood, POC 324(A) 60 - 200 mg/dL QC Media Lot # [id number] Lot# Expiration Date [id number] Blood Capillary blood specimen / Unknown 03/19/2024 9:30 AM EDT Linda Bond MD POINT OF CARE MAEGAN T ENTER/EDIT ORDERABLES Final Result * (ABNORMAL) Lipid Panel, Standard (11/10/2023 9:02 AM EDT) Pathologist [facility] Triglycerides 260(H) <150 mg/dL [facility] Comment:Desirable Triglyceri de: less than 150 mg/dLBorderline High Triglyceride 150-199 mg/dLHigh Triglyceride: 200-499 mg/dLVery High Triglyceride: greater than or equal to 5OO mg/dL Cholesterol 157 <200 mg/dL [facility] Comment:Desirable Cholestero l: less than 200 mg/dLBorderline High Cholesterol: 200-239 mg/dLHigh Cholesterol: greater than 239 mg/dL LDL Cholesterol Calculated 61 <100 mg/dL [facility] Comment:Desirable LDL: less than 100 mg/dLNear Optimal/Above Optimal LDL: 110- 129 mg/dLBorderline High LDL: 130-159 mg/dLHigh LDL: 160-189 mg/dLVery High LDL: greater than or equal to 190 mg/dL HDL Cholesterol 44 >40 mg/dL [facility] Comment:Desirable HDL: great er than 40 mg/dL Note: This HDL assay may give artificially low results in patients with liver disease. Blood Venous blood specimen / Unknown 11/10/2023 9:02 AM EDT 11/10/2023 12:13 PM EDT us Linda Bond MD LAB BLOOD ORDERAB LES Final Result Performing Organization Address [facility]/ZIP Co de Phone Number [facility] [address] [place] [phone] * Hepatitis C Antibody with Reflex to HCV, RNA, Quantitative, Real-Time PCR (02/03/2023 11:42 AM EDT) Hepatitis C Antibody Nonreactive Nonreactive [facility] Comment:Antibodies to HCV no t detected; does not exclude early acuteHCV infection. Blood Venous blood specimen / Unknown 02/03/2023 11:42 AM EDT 02/03/2023 1:37 PM EDT us Linda Bond MD LAB BLOOD ORDERAB LES Final Result Performing Organization Address [facility] Co de Phone Number [facility] [address] [place] [phone] * HPV mRNA E6/E7 w/Reflex to HPV Genotypes 16, 18/45 (01/13/2023 11:06 AM EDT) HPV nRNA E6/E7 Not Detected Not Detected [facility] Comment:Methodology: Transcr iption-Mediated AmplificationThis assay detects E6/E7 viral messenger RNA (mRNA) from 14high-risk HPV types (16,18,31,33,35,39,45,51,52,56,58,59,66,68).Cervical sources are required for HPV testing.If a vaginal source from a patient who has had atotal hysterectomy with removal of cervix wassubmitted, please contact the testing laboratoryfor alternative testing options.For additional information, please refer [email or web address]/[email or web address](This link if provided for information/educational purposes only.)THIS TEST WAS PERFORMED AT:[facility] [place] [phone] RUIZ MD HPV mRNA E6/E7 TNP [facility] HPV 16 RNA TNP [facility] HPV 18/45 RNA TNP [facility] 01/13/2023 11:0 6 AM EDT 01/14/2023 11:25 AM EDT Maral Morrissey CNM LAB CYTOLOGY ORDERABLES F inal Result [facility] [address] [place] [address] [phone] * Pap Smear (01/13/2023 11:06 AM EDT) 01/13/2023 11:0 6 AM EDT 01/14/2023 11:25 AM EDT Narrative [facility] - 01/25/2023 2:15 PM EDT ----- ------- Name: Shelby Dockery ?Age/Sex: 62/F ? : 1960 Unit#: [id number] ?? Attend Dr: MARAL MORRISSEY CNM ?Re01/13/23 ?Status: DEP REF ? [facility] ? Disch: ? ----- ------- SPEC : [id number] ?RECD: 01/14/23 ? STATUS: ??SOUT ? REQ NUM: [id number] ? JAMES: 01/13/23-1106 ? SUBM DR: MARAL MORRISSEY CNM ? ENTERED: ??01/14/23-1222 ?SP TYPE: Pap Smr ?OTHR : ? ORDERED: ??Pap Smear ? Interpretation ?? Satisfactory for evaluation. ?? Negative for intraepithelial lesion or malignancy. ?? Moderate inflammation. ?? Atrophic. ? HPV mRNA E6/E7: ?NOT DETECTED ? This assay detects E6/E7 viral messenger RNA (mRNA) from 14 high-risk HPV types (16, 18, ?? 31, 33, 35, 39, 45, 51, 52, 56, 58, 59, 66, 68) ? HPV testing performed by [employer], [place], [place]. ??See reference laboratory ?? portion of the EMR for entire report. ?Clinical Information LMP: Unknown date Previous PAP test: Unknown date/findings ? Material Received ?? ThinPrep-Vaginal/Cervical ----- ------- Signed (signature on file) Meredith Hernandez Red 01/25/23 1415 ? ----- ------- ? END OF REPORT ? us Maral Morrissey [facility] CYTOLOGY ORDERABLES F inal Result [facility] [address], [place] [phone] from Last 3 Months or Most Recently Relevant to Health Maintenance Insurance [facility] Care Teams Drafting Layout Man Relationship Specialty Start Date End Date Linda Lorenzo MD [address] [place] [phone] PCP - General Internal Medicine 10/21/22
--- OUTSIDE RECORDS SUMMARY | 2024-06-15 12:02 | XMS_ITS | Encounter Summary ---
Author Organization [employer] Address [address] [facility] [address] [place] [address] Care Team Providers Care Gas Desulfurizer Name Role Phone Linda Lorenzo MD Primary Care Pro vider Reason for Visit * Reason Onset Date Comments Medication Question 06/08/2024 Encounter Details Date Type Department Care Team ([facility] Contact Info) Description 06/08/2024 Telephone [facility] [address] [place], [place] [phone] Linda Lorenzo MD [address] [place], [place] [phone] Medication Question Social History Tobacco Use Types Packs/Day Years [...] encounter Miscellaneous Notes * Telephone Encounter - Rosalie Katz RN - 06/11/2024 12:08 PM EST Request for pended rx noted. Per review of chart, rx for pen needles was sent to pharmacy yesterdayby covering provider. * Telephone Encounter - Misty Dewitt RN - 06/09/2024 3:21 PM EST Called [facility] pharmacy, pt no longer on insulin via vials just pens (lantus and humalog). Will send message to covering provider to send pen needles. * Telephone Encounter - Abimael Hanley - 06/08/2024 3:00 PM EST Tc from [facility] pharmacy requesting call calling in regards to [employer] Insulin Syringe 31G X 5/16 0.5ML [facility] stating they need a script for pen needles because pt uses pens instead of vials. If any questions you can contact pharmacy at [phone]. documented in this encounter Plan of Treatment Not on file documented as of this encounter Visit Diagnoses Not on filedocumented in this encounter Additional Health Concerns Assessment Noted Time PHQ-9 Depression Total Score: 6 06/12/19 24 10:45 AM EST documented as of this encounter Care Teams Gas Desulfurizer Relationship Specialty Start Date End Date Linda Lorenzo MD [address] [place] [phone] PCP - General Internal Medicine 10/21/22 documented as of this encounter
--- OUTSIDE RECORDS SUMMARY | 2024-06-15 12:02 | XMS_ITS | Encounter Summary ---
Author Organization [employer] Address [address] [facility] [address] [place] [address] Care Team Providers Care Yard Jockey Name Role Phone Linda Lorenzo MD Primary Care Pro vider Reason for Visit * Reason Comments Med Refill Encounter Details Date Type Department Care Team ([facility] st Contact Info) Description 03/04/2023 Refill [facility] [address] [place], [place] [phone] Linda Lorenzo MD [address] [place] [phone] Social History Tobacco Use Types Packs/Day Years [...] documented as of this encounter Care Teams Yard Jockey Relationship Specialty Start Date End Date Linda Lorenzo MD [address] [place] [phone] PCP - General Internal Medicine 10/21/22 documented as of this encounter
[2024-06-15 14:18] VITALS: BP 142/85; PULSE 93; RESP 15; TEMP 36.7; O2SAT 95
[2024-06-15] MEDS: Acetaminophen 325 MG TABLET 650 MG PO (14:21)
== END 2024-06-15 14:19 | disposition home or self-care (01) ==
PROVIDERS: Registered Nurse Emergency; Emergency Provider Emergency Medicine Emergency Medical Services; PCP Student in an Organized Health Care Education/Training Program
DX: D25.9 Leiomyoma of uterus, unspecified (principal); R10.31 Right lower quadrant pain; R93.5 Abnormal findings on diagnostic imaging of other abdominal regions, including retroperitoneum; E11.9 Type 2 diabetes mellitus without complications; I10 Essential (primary) hypertension; E78.5 Hyperlipidemia, unspecified; F19.10 Other psychoactive substance abuse, uncomplicated; F17.210 Nicotine dependence, cigarettes, uncomplicated; Z03.818 Encounter for observation for suspected exposure to other biological agents ruled out; Z79.4 Long term (current) use of insulin; Z79.82 Long term (current) use of aspirin; Z79.84 Long term (current) use of oral hypoglycemic drugs; Z79.02 Long term (current) use of antithrombotics/antiplatelets; Z79.899 Other long term (current) drug therapy
CPT/HCPCS: 0241U; 80053; 81001; 83690; 84484; 85025; 85610; 93005; 99283; 99285

== ENCOUNTER → 2024-06-15 10:22 | Outpatient (BNV) | payer OTHER, SELFPAY | PROVIDERS: Emergency Provider Emergency Medicine Emergency Medical Services; PCP Student in an Organized Health Care Education/Training Program; Visit Provider Internal Medicine | DX: R94.31 Abnormal electrocardiogram [ECG] [EKG] (principal) | CPT/HCPCS: 93010 ==

== ENCOUNTER → 2024-06-21 14:42 | Outpatient (BNV) | payer OTHER, SELFPAY | PROVIDERS: PCP Student in an Organized Health Care Education/Training Program; Visit Provider Internal Medicine Medical Oncology | DX: C78.7 Secondary malignant neoplasm of liver and intrahepatic bile duct (principal); C80.1 Malignant (primary) neoplasm, unspecified | CPT/HCPCS: 99203 ==

== ENCOUNTER → 2024-06-23 08:58 | Outpatient (BNVA) | payer OTHER, SELFPAY | PROVIDERS: PCP Student in an Organized Health Care Education/Training Program; Visit Provider Surgery | DX: R91.8 Other nonspecific abnormal finding of lung field (principal); C78.7 Secondary malignant neoplasm of liver and intrahepatic bile duct; C80.1 Malignant (primary) neoplasm, unspecified; F17.210 Nicotine dependence, cigarettes, uncomplicated | CPT/HCPCS: 99202 ==

== ENCOUNTER 2024-06-23 15:19 | Outpatient (REF) | payer OTHER, SELFPAY ==
--- NOTE | ~2024-06-23 | CT_ITS ---
EXAMINATION: CT CHEST WITHOUT CONTRAST CLINICAL INFORMATION: Liver metastases and lung nodules. COMPARISON: CT lung screening 02/14/2023 TECHNIQUE: Multidetector volumetric CT imaging of the chest was done. Axial MIP volume rendering provided. Sagittal and coronal reformatted images were obtained. This CT examination was performed using dose optimization techniques as appropriate, variously including the following: *Automated exposure control *Adjustment of mA and/or kV according to patient size (this includes techniques or standardized protocols for targeted exams where dose is matched to indication/reason for exam; i.e. extremities or head) *Use of iterative reconstruction technique Patient refuse IV contrast. DLP: 176 mGy/cm. FINDINGS: BEHAVIORAL HEALTH ASSISTANT: Well-inflated lungs. LUNGS: The multiple bilateral pulmonary nodules. The former nodule right upper lobe axial image 24/3, a lobulated 1.3 cm nodule right upper lobe axial image 65/3 4 mm nodule right lower lobe axial image 64/3 ligated appearing lung nodules measuring 7 mm, 5 mm and 7 mm right lower lobe axial image 75/3 through 77/3 Large lingular nodule measuring 2 cm axial image 83/3, 4 and nodule left lower lobe anterior segment axial image 78/3, 3 mm nodule left upper lobe axial image 49/3, 8 mm nodule left lower lobe superior segment axial image 43/3, 2 minute nodule left lung apex image 21/3. MEDIASTINUM: The thyroid lobes are symmetrical and normal. The central trachea and the bronchi are widely patent. Heart size and the great vessels are normal caliber. No abnormal size mediastinal or hilar lymph nodes seen. No pericardial effusion. CORONARY ARTERY CALCIFICATION: Moderate coronary artery calcifications are noted. PLEURA: There is no pleural effusion. No pleural mass or thickening. AXILLA: No abnormal axillary lymph nodes seen. The chest wall is unremarkable. UPPER ABDOMEN: There is a solitary large hypodense lesion left hepatic lobe measuring 3.4 cm axial image 45/2. It is new since 01/06/2024 CT abdomen exam. The exam is limited secondary lack of IV contrast which patient refused. Spleen, pancreas and adrenal glands are unremarkable. OSSEOUS STRUCTURES: No aggressive lytic or sclerotic process seen. CT/CT chest wo IV con IMPRESSION: Multiple bilateral lung nodules consistent metastatic disease. Several nodules are new with the largest nodule measuring 2 cm in the lingula. Metastatic liver nodules in the left hepatic lobe. Lack of IV contrast restricts evaluation of liver and other nodules. Fleischner guidelines were followed. Electronically signed by: Hal Mai MD 06/23/2024 04:58 PM [facility] RP
--- OUTSIDE RECORDS SUMMARY | 2024-06-23 16:14 | XMS_ITS | Encounter Summary ---
Author Organization [employer] Address [address] [facility] [address] 7t [place] [address] Care Team Providers Care Steel Division Supervisor Name Role Phone Linda Lorenzo MD Primary [...] as of this encounter Plan of Treatment Upcoming Encounters Date Type Department Care Team (Late st Contact Info) Description 07/07/2024 11:15 AM EST Office Visit [facility] [address] [place], [place] [phone] Hyun Monsivais MD [address] [place] [address] documented as of this encounter Procedures Procedure Name Priority Date/Time Associated Diagnosis Comments URINALYSIS, COMPLETE, WITH REFLEX TO CULTURE Routine 06/15/2024 11:10 AM EST documented in this encounter Results * (ABNORMAL) Urinalysis, Complete, with Reflex to Culture (06/15/2024 11:10 AM EST) Color Urine Yellow [facility] Appearance Urine Clear [facility] PH 5.5 5.0 - 9.0 [facility] Glucose Urine UA >=1000(A) Negative mg/dL [facility] Urine Blood Negative Negative [facility] Specific [place] - Urine 1.020 1.005 - 1.025 [facility] Urine Protein Negative Neg-Trace mg/dL [facility] Urine Ketones Negative Negative mg/dL [facility] Nitrite Urine Negative Negative [facility] Leukocyte Esterase Urine Negative Negative [facility] RBC Urine 0-2 0 - 2 /HPF [facility] Urine WBC 0-5 0 - 5 /HPF [facility] Urine Squamous Epithelial Cell 0-2 0 - 2 /HPF [facility] Urine Bacteria None Seen None Seen [facility] Hyaline Casts, Urine 0-2 0 - 2 /LPF [facility] 06/15/2024 11:1 0 AM EST 06/15/2024 11:13 AM EST Narrative [facility] - 06/15/2024 11:20 AM EST [id number], Clean Catch us Generic External Data Provider LAB URINE ORDERAB LES Final Result Performing Organization Address City/State/[facility] Co de Phone Number [facility] [address] [place] [phone] [phone] documented in this encounter Visit Diagnoses Not on filedocumented in this encounter Additional Health Concerns Assessment Noted Time PHQ-9 Depression Total Score: 6 06/12/19 24 10:45 AM EST documented as of this encounter Care Teams Steel Division Supervisor Relationship Specialty Start Date End Date Linda Lorenzo MD [address] [place] [phone] PCP - General Internal Medicine 10/21/22 documented as of this encounter
--- OUTSIDE RECORDS SUMMARY | 2024-06-23 16:14 | XMS_ITS | Encounter Summary ---
Author Organization [employer] Address [address] [facility] [address] [place] [address] Care Team Providers Care Traffic Survey Technician Name Role Phone Linda Lorenzo MD Primary Care Pro vider Reason for Visit * Reason Comments Med Refill Patient walked reque sting refill for Motrin for patient , patient stated she went to pharmacy to get medication and it wasn't ready they sent her to green team. Encounter Details Date Type Department Care Team (Late st Contact Info) Description 01/21/[address] [facility] MED[facility] [address] [place], [place] [phone] Linda Lorenzo MD 230 [place], [place] [phone] Social History Tobacco Use Types Packs/Day Years [...] the past 12 months, has t he [employer], gas, oil or water [employer] threatened to shut off services in your [...] documented in this encounter Plan of Treatment Upcoming Encounters Date Type Department Care Team (Late st Contact Info) Description 07/07/2024 11:15 AM EST Office Visit [facility] [address] [place] [phone] Hyun Monsivais MD [address] [place] [phone] documented as of this encounter Visit Diagnoses Not on filedocumented in this encounter Additional Health Concerns Assessment Noted Time PHQ-9 Depression Total Score: 6 06/12/19 24 10:45 AM EST documented as of this encounter Care Teams Traffic Survey Technician Relationship Specialty Start Date End Date Linda Lorenzo MD [address] [place] [phone] PCP - General Internal Medicine 10/21/22 documented as of this encounter
--- OUTSIDE RECORDS SUMMARY | 2024-06-23 16:14 | XMS_ITS | Encounter Summary ---
Author Organization [employer] Address 75 [facility] 7t [place] [address] Care Team Providers Care Managed Care Director Name Role Phone Linda Lorenzo MD Primary Care Pro vider Reason for Referral * Consultation (STAT) - Closed Specialty Diagnoses / Procedures Referred By Contsadi t Referred To Contact Hematology and Oncology Diagnoses Lung nodule seen on imaging study Lesion of liver Yaquelin Subramanian ANP [address] [place] [address] Phone: tel: fax: [facility] Referral ID Status Reason Start Date Expiration Date V isits Requested Visits Authorized [id number] Closed Specialty Services Required 06/15/2024 06/15/2025 1 1 Encounter Details Date Type Department Care Team ([facility] st Contact Info) Description 06/11/2024 Orders Only [facility]INE [address] [place], [place] [phone] Yaquelin Subramanian ANP [address] [place], [place] [phone] Lung nodule seen on imaging study (Primary [...] same. Of note, pt sent back to [facility] today 06/15/24 (from pharmacy visit) d/t [...] helps w pain, Seen w similarcomplaints by PETROLEUM INSPECTOR ,never saw GI referred before. Pt had CT scan of Abd with enlarging uterine fibroid in right side, missed apt w PETROLEUM INSPECTOR scheduled by RN last time ,also has not seen GI Referral to GI active as of 12/2023 Lab Results Component Value Date HGBA1C 11.6 (A) 03/19/2024 HGBA1C 11.2 (H) 11/10/2023 HGBA1C 12.7 (A) 09/11/2023 LDCT Lung-RADS 2 02/2023. Mammo BI-RADS 1 - Negative 04/2024 Colonoscopy 2011: grade 1 Internal hemorrhoids , referred for repeat 2023 pap smear 12/2022 neg/ HPV neg [facility] ED CT abdomen pelvis wo IV con 06/10/[address] [address] [address] Scan Report Signed Patient: Shelby Dockery MR#: [id number] : 1960 Acct:[id number] Age/Sex: 63 / F ADM Date: 06/10/24 Loc: HO.ED Attending Dr: Ordering Physician: Kingsley Robles Date of Service: 06/10/24 Procedure(s): CT abdomen pelvis wo IV con Accession Number(s): [id number] cc: Linda Lorenzo MD; Kingsley Robles Report Number: [id number]: Total DLP = 396.00 mGy-cm CLINICAL HISTORY: [...] Arguelles MD on 06/10/2024 19:52:54 Labs from [facility] 06/10/24: documented in this encounter Plan of Treatment Upcoming Encounters Date Type Department Care Team (Late st Contact Info) Description 07/07/2024 11:15 AM EST Office Visit [facility] [address] [place] [phone] Hyun Monsivais MD [address] [place] [phone] Pending Results Name Type Priority Associated Diagnoses Date /Time Referral to Hematology / Oncology Outpatient Referral STAT Lung nodule seen on imaging study Lesion of liver 06/21/2024 Scheduled Referrals Name Type Priority Associated Diagnoses [...] documented as of this encounter Care Teams Managed Care Director Relationship Specialty Start Date End Date Linda Lorenzo MD [address] [place] [phone] PCP - General Internal Medicine 10/21/22 documented as of this encounter
--- OUTSIDE RECORDS SUMMARY | 2024-06-23 16:14 | XMS_ITS | Encounter Summary ---
Author Organization [employer] Address 75 [facility] 7t [place] [address] Care Team Providers Care Mortgage Loan Assistant Name Role Phone Linda Lorenzo MD Primary Care Pro vider Reason for Visit * Reason Comments Med Refill Encounter Details Date Type Department Care Team ([facility] st Contact Info) Description 06/19/2024 Refill [facility] [address] [place], [place] [phone] Linda Lorenzo MD 230 [place] [address] Social History Tobacco Use Types Packs/Day Years [...] housing situation today? I have tierney [place] 06/21/[address] you li ve. Do you have problems with any of the following? None of the above 06/21/2024 Food Insecurity Answer Date Recorded Within the past 12 months, y ou worried that your food would run out before you got money to buy more: Never True 06/21/2024 Within the past 12 months,th e food you bought just didn't last and you didn't have enough money to get more: Never True 07/2024 Transportation Answer Date Recorded In the past 12 months, has l ack of transportation kept you from medical appts, meetings, work or from getting things needed for daily living? No 06/21/2024 Utilities Answer Date Recorded In the past 12 months, has t he electric, gas, oil or water company threatened to shut off services in your home? No 06/21/2024 Depression Answer Date Recorded Patient Health Questionnaire-2 Score 2 06/12/2023 Internet Access Answer Date Recorded Internet Access Q1 No 06/21/2024 Internet Access Q2 Not on file 06/21/2024 Comments No Sex and Gender Information Value [...] Description 07/07/2024 11:15 AM EST Office Visit [facility] [address] [place] [phone] Hyun Monsivais MD [address] [place] [phone] documented as of this encounter Visit Diagnoses Not on filedocumented in this encounter Additional Health Concerns Assessment Noted Time PHQ-9 Depression Total Score: 6 06/12/19 24 10:45 AM EST documented as of this encounter Care Teams Mortgage Loan Assistant Relationship Specialty Start Date End Date Linda Lorenzo MD [address] [place] [phone] PCP - General Internal Medicine 10/21/22 documented as of this encounter
--- OUTSIDE RECORDS SUMMARY | 2024-06-23 16:14 | XMS_ITS | Encounter Summary ---
Author Organization [employer] Address [address] [facility] [address] 7t [place] [address] Care Team Providers Care Livestock Exhibitor Name Role Phone Linda Lorenzo MD Primary [...] Description 07/07/2024 11:15 AM EST Office Visit [facility] MEDICINE [address] [place] [address] [phone] Hyun Monsivais MD [address] [place] [phone] documented as of this encounter Visit Diagnoses Not on filedocumented in this encounter Additional Health Concerns Assessment Noted Time PHQ-9 Depression Total Score: 6 06/12/19 24 10:45 AM EST documented as of this encounter Care Teams Livestock Exhibitor Relationship Specialty Start Date End Date Linda Lorenzo MD [address] [place] [address] [phone] PCP - General Internal Medicine 10/21/22 documented as of this encounter
--- OUTSIDE RECORDS SUMMARY | 2024-06-23 16:14 | XMS_ITS | Encounter Summary ---
Author Organization [employer] Address 75 [facility] 7t [place] [address] Care Team Providers Care Literacy Tutor Name Role Phone Linda Lorenzo MD Primary Care Pro vider Reason for Visit * Reason Onset Date Comments Med Refill 06/10/2024 Encounter Details Date Type Department Care Team ([facility] st Contact Info) Description 06/10/2024 Refill [facility] [address] [place], [place] [phone] Linda Lorenzo MD [address] [place] [address] Social History Tobacco Use Types Packs/Day Years [...] Description 07/07/2024 11:15 AM EST Office Visit [facility] MEDICINE [address] [place] [phone] Hyun Monsivais MD [address] [place] [address] documented as of this encounter Visit Diagnoses Not on filedocumented in this encounter Additional Health Concerns Assessment Noted Time PHQ-9 Depression Total Score: 6 06/12/19 10:45 AM EST documented as of this encounter Care Teams Literacy Tutor Relationship Specialty Start Date End Date Linda Lorenzo MD [address] [place] [phone] PCP - General Internal Medicine 10/21/22 documented as of this encounter
--- OUTSIDE RECORDS SUMMARY | 2024-06-23 16:14 | XMS_ITS | Encounter Summary ---
Author Organization [employer] Address [address] [facility] [address] 7t [place] [address] Care Team Providers Care Hr Recruiter Name Role Phone Linda Lorenzo MD Primary Care Pro vider Reason for Visit * Reason Onset Date Comments Nurse Triage 06/15/2024 Encounter Details Date Type Department Care Team ([facility] Contact Info) Description 06/15/2024 Telephone [facility] MEDICINE 230 [place], [place] [phone] Barb Hines RN [address] [place] [address] Nurse Triage Social History Tobacco Use Types [...] encounter Miscellaneous Notes * Telephone Encounter - Ursula Buckley RN - 06/17/2024 10:36 AM EST TC placed to pt with S alteration worker Meg #[id number] to inquire on [facility] ED visit on 06/15/2024. Pt was sent out from [facility] for pelvic and right flank pain. Pt was currently on a course of antibiotics for adiagnosed UTI. Pt was discharged with findings including a uterine fibroid and abnormal CT scan. Pthas already been referred to general surgery and Hematology/Oncology. Pt was scheduled to see Yaquelin Subramanian on 06/14 to go over recent results but pt did not attend this appointment. Pt agreeable to scheduling with Dr. Monsivais on 06/21/2024 to f/u on this ED visit and abnormal CT findings. * Telephone Encounter - Barb Hines RN - 06/15/2024 10:02 AM EST Pt being seen for CDTM visit when she started reporting 1010 pelvic pain radiating to right flank.Pt doubled over, clutching her abdomen. Reports was at [facility] ED 06/12 Dxd with UTI,given cefuroxime 250mg. Urinary Sx have improved but pain worsened starting 3 days ago. Yesterday pt developed nausea and H/A. ANKITA Oneal saw pt briefly and agreed that she should return to the ED. EMS called to escort pt to [facility]. Pt agreeable. Tasking to green nurses to do status check once discharged. documented in this encounter Plan of Treatment Upcoming Encounters Date Type Department Care Team (Late st Contact Info) Description 07/07/2024 11:15 AM EST Office Visit [facility] MEDICINE [address] [place] [address] [phone] Hyun Monsivais MD [address] [place] [address] [phone] documented as of this encounter Visit Diagnoses Not on filedocumented in this encounter Additional Health Concerns Assessment Noted Time PHQ-9 Depression Total Score: 6 06/12/19 24 10:45 AM EST documented as of this encounter Care Teams Hr Recruiter Relationship Specialty Start Date End Date Linda Lorenzo MD [address] [place] [address] [phone] PCP - General Internal Medicine 10/21/22 documented as of this encounter
--- OUTSIDE RECORDS SUMMARY | 2024-06-23 16:14 | XMS_ITS | Encounter Summary ---
Author Organization [employer] Address [address] [facility] [address] 7[address] [place] [address] Care Team Providers Care Appliances Sample Maker Name Role Phone Linda Lorenzo MD Primary Care Pro vider Encounter Details Date Type Department Care Team ([facility] st Contact Info) Description 06/10/2024 Telephone [facility] [address] [place], [place] [phone] Maico, Mattie, OD [address] [place] [address] Social History Tobacco Use Types Packs/Day Years [...] Description 07/07/2024 11:15 AM EST Office Visit [facility] MEDICINE [address] [place] [phone] Hyun Monsivais MD [address] [place] [phone] documented as of this encounter Visit Diagnoses Not on filedocumented in this encounter Additional Health Concerns Assessment Noted Time PHQ-9 Depression Total Score: 6 06/12/19 24 10:45 AM EST documented as of this encounter Care Teams Appliances Sample Maker Relationship Specialty Start Date End Date Linda Lorenzo MD [address] [place] [address] PCP - General Internal Medicine 10/21/22 documented as of this encounter
--- OUTSIDE RECORDS SUMMARY | 2024-06-23 16:14 | XMS_ITS | Encounter Summary ---
Author Organization [employer] Address 75 [facility] 7t [place] [address] Care Team Providers Care Change Management Consultant Name Role Phone Linda Lorenzo MD Primary Care Pro vider Reason for Visit * Reason Onset Date Comments No Show 06/14/2024 Encounter Details Date Type Department [facility] Description 06/14/2024 Telephone [facility]INE [address] [place], [place] [phone] Linda Lorenzo MD 230 [place], [place] [phone] No Show Social History Tobacco Use Types [...] Description 07/07/2024 11:15 AM EST Office Visit [facility] MED[facility]INE [address] [place] [phone] Hyun Monsivais MD [address] [place] [phone] documented as of this encounter Visit Diagnoses Not on filedocumented in this encounter Additional Health Concerns Assessment Noted Time PHQ-9 Depression Total Score: 6 06/12/19 10:45 AM EST documented as of this encounter Care Teams Change Management Consultant Relationship Specialty Start Date End Date Linda Lorenzo MD [address] [place] [phone] PCP - General Internal Medicine 10/21/22 documented as of this encounter
--- OUTSIDE RECORDS SUMMARY | 2024-06-23 16:14 | XMS_ITS | Encounter Summary ---
Author Organization [employer] Address [address] [facility] [address] 7t [place] [address] Care Team Providers Care Doctor Podiatric Medicine Name Role Phone Linda Lorenzo MD Primary Care Pro vider Reason for Visit * Reason Onset Date Comments Results 06/11/2024 Appointment Request 06/11/2024 Encounter Details Date Type Department Care Team ([facility] Contact Info) Description 06/11/2024 Telephone [facility] MED[facility]INE 230 [place], [place] [phone] Park Cordero DO 230 [place], [place] [phone] Results; Appointment Request Social History Tobacco Use [...] 06/14 at 2:15pm. Reviewed with pt the continuing education instructor nurse available 09/12 and also walk in [...] 11:15 AM EST Office Visit [facility]INE 230 [place] [address] Hyun Monsivais MD [address] [place] [phone] documented as of this encounter Visit Diagnoses Not on filedocumented in this encounter Additional Health Concerns Assessment Noted Time PHQ-9 Depression Total Score: 6 06/12/19 24 10:45 AM EST documented as of this encounter Care Teams Doctor Podiatric Medicine Relationship Specialty Start Date End Date Linda Lorenzo MD 230 [place] [address] PCP - General Internal Medicine 10/21/22 documented as of this encounter
--- OUTSIDE RECORDS SUMMARY | 2024-06-23 16:14 | XMS_ITS | Encounter Summary ---
Author Organization [employer] Address [address] [facility] [place] [address] Care Team Providers Care Variety Saw Operator Name Role Phone Linda Lorenzo MD Primary Care Pro vider Encounter Details Date Type Department Care Team (Late st Contact Info) Description 06/21/2024 11:00 AM EST Office Visit [facility] [address] [place], [place] [phone] Hyun Monsivais MD [address] [place], [place] [phone] Right lower quadrant pain (Primary Dx); Type 2 diabetes mellitus with hyperglycemia, with long-term current use of insulin (CMS/HCC); Pulmonary nodule, left; Lesion of liver; Essential hypertension Social History Tobacco Use Types Packs/Day Years [...] the past 12 months, has t he [employer], gas, oil or water company threatened to [...] AM EDT documented as of this encounter Last Filed Vital Signs Vital Sign Reading Time Taken Comments Blood Pressure 134/79 06/21/2024 10:31 AM EST Pulse 114 06/21/2024 10:31 AM EST Temperature 36.1 ??C (96.9 ??F) 06/21/2024 1 0:31 AM EST Respiratory Rate 14 06/21/2024 10:3 1 AM EST Oxygen Saturation 97% 06/21/2024 10: 31 AM EST Inhaled Oxygen Concentration - - Weight 62.5 kg (137 lb 12.8 oz) 025 10:31 AM EST Height - - Body Mass Index 26.04 03/19/2024 9:05 AM EDT documented in this encounter Progress Notes * Hyun Monsivais MD - 06/21/2024 11:00 AM EST Subjective Shelby Dockery is a 63 y.o. female who has hypertension, diabetes mellitus type 2, and mood disorder, and patient presents for ED visit follow up. Background: Seen [place] [facility] on 06/10/24 for RLQ pain. Patient attributed it to fibroids. UA suggestive of UTI. Patient left before completing all the evaluation. Abd/pelvis CT were still pending. Rx cefuroxime andoxycodone. On-call provider, Dr. Cordero, received a call regarding to abnormal imaging result. 06/10/24 Findings: Nonspecific 1.5 cm left upper lobe [...] acute process in the abdomen or pelvis Patient missed appointment with Yaquelin VARGAS on 06/14/24. Referred to Heme/Onc by Yaquelin. Seen in [facility] on 06/15/24 for persistent pain despite prescribed antibiotic. Patient was referred to general surgeon. Today: The pt reports lower quadrant abdominal pain. It has been seven months with this pain, with an increase in intensity over the last few months. She describes the pain as constant and compares the feeling to labor contractions, but without actual contractions. She visited the emergency department twice where a CT scan was performed. She was informed of spots on the liver and lung, raising concerns about possible metastasis. She denies any family history of cancer. She has upcoming appointment on 06/23/24 for further evaluation of the lung. She denies any history of kidney stones. She denies smoking or drinking. She denies any difficulty breathing, difficulty urinating, blood in urine, or nausea. Review of Systems Constitutional: Negative for activity change, appetite change and fever. Respiratory: Negative for shortness of breath. Cardiovascular: Negative for chest pain. Gastrointestinal: Negative for nausea. Genitourinary: Negative for difficulty urinating. Objective Vitals: 06/21/24 1031 BP: 134/79 Pulse: (!) 114 Resp: 14 Temp: 96.9 ??F (36.1 ??C) TempSrc: Oral SpO2: 97% Weight: 137 lb 12.8 oz (62.5 kg) Physical Exam Constitutional: General: She is not in acute distress. Appearance: Normal appearance. She is ill-appearing. HENT: Head: Normocephalic and atraumatic. Mouth/Throat: Mouth: Mucous membranes are moist. Eyes: Extraocular Movements: Extraocular movements intact. Pupils: Pupils are equal, round, and reactive to light. Cardiovascular: Rate and Rhythm: Normal rate and regular rhythm. Heart sounds: No murmur heard. Pulmonary: Effort: Pulmonary effort is normal. No respiratory distress. Breath sounds: Normal breath sounds. No wheezing or rhonchi. Abdominal: General: Bowel sounds are normal. Palpations: Abdomen is soft. Tenderness: There is abdominal tenderness in the right lower quadrant. Skin: General: Skin is warm. Neurological: Mental Status: She is alert. Mental status is at baseline. Psychiatric: Mood and Affect: Mood normal. Results: Lab Results Component Value Date NA 142 06/10/2024 K 4.7 06/10/2024 CL 109 (H) 06/10/2024 CO2 24 06/10/2024 BUN 15 06/10/2024 CREATININE 0.71 06/10/2024 CRCLCALCPH 65.6 06/10/2024 EGFR >60 06/10/2024 GLUCOSE 228 (H) 06/10/2024 TOTALBILIRUB 0.2 06/10/2024 AST 24 06/10/2024 ALT 19 06/10/2024 TOTPROTEIN 7.9 06/10/2024 ALB 4.3 06/10/2024 ALP 164 (H) 06/10/2024 Lab Results Component Value Date TRIG 260 (H) 11/10/2023 CHOL 157 11/10/2023 LDLCHOLCAL 61 11/10/2023 HDL 44 11/10/2023 Lab Results Component Value Date HGBA1C 11.6 (A) 03/19/2024 MICROALBUR 9.0 02/03/2023 CREATUR 34.03 02/03/2023 MICROALBCREU 26.4 02/03/2023 Lab Results Component Value Date WBC 11.6 (H) 06/10/2024 HGB 13.0 06/10/2024 HCT 41.5 06/10/2024 PLT 489 (H) 06/10/2024 MCV 89.8 06/10/2024 The 10-year ASCVD risk score (Fouzia JAIME, et al., 2019) is: 25.7% Values used to calculate the score: Age: 63 years Sex: Female Is Non- : No Diabetic: Yes Tobacco smoker: Yes Systolic Blood Pressure: 134 mmHg Is BP treated: Yes HDL Cholesterol: 44 mg/dL Total Cholesterol: 157 mg/dL Assessment/Plan Problem List Items Addressed This Visit Essential hypertension Type 2 diabetes mellitus (CMS/HCC) 01/2023 hb1AC 9.3<----10.5 , CBG 370. microalb [...] in 12/2022 to f in 1 year -Pinking Machine Operator referred already-gave today phone number to Call for apt -continue jardiance 25 mg ,resume previous dose of insulin basal 50 u HS and lispro 10 u TID and metformin 1000 mg BID -To start trulicity 0.75 mg weekly-confirm today med is cover w px staff - ozempic not covered-denies personal of fx hx of thyroid ca nor pancreatitis hx - px to get trained . Once starts getting GLP1 advise to decrease basal insulin by 20 % ( so levemir to decrease to 40 u HS and lispro 6 u w meals) -advised to continue f CBGS premeals and 2 h after biggest meal -pt on continues glucose check -refusing mobile application engineer referral -DM labs in 2 months in fasting Relevant Orders POCT glucose manually resulted POCT glycosylated hemoglobin (Hgb A1c) Right lower quadrant pain - Primary - UTI recently. Treated with cefuroxime. - current pain is not the location of liver. ?ureteral stone. - Advised the patient on the risk of oxycodone and the possibility of having to use Narcan if she overdoses. Relevant Medications oxyCODONE (Roxicodone) 5 MG immediate release tablet naloxone (Narcan) 4 mg/0.1 mL nasal spray Pulmonary nodule, left - incidental finding on abdominal CT - upcoming appointment with oncologist Lesion of liver - multiple lesions on recent CT scan - upcoming appointment with oncologist for further evaluation Allergies Allergen Reactions Morphine Itching Current Outpatient Medications Medication Instructions Aspirin Adult Low Strength 81 MG EC tablet TAKE 1 TABLET BY MOUTH EVERYDAY AT NOON carvedilol (Coreg) 6.25 MG tablet TAKE 1 TABLET BY MOUTH TWICE DAILY IN THE MORNING AND IN THE EVENING WITH FOOD cloNIDine (Catapres) 0.1 MG tablet TAKE 1 TABLET BY MOUTH TWICE DAILY IN THE MORNING AND AT BEDTIME Continuous Glucose Cutting Machine Operator Helper (FreeStyle Eulalio 14 Day [place]) device 1 Device, Subcutaneous, 4 times daily Continuous Glucose Sensor (FreeStyle Eulalio 14 Day Sensor) misc USE DIRECTED EVERY 14 DAYS D3 Super Strength 50 mcg, Oral, Every morning Diclofenac Sodium 2 g, Topical, Every 6 hours empagliflozin (Jardiance) 25 MG TAKE 1 TABLET BY MOUTH EVERY MORNING FreeStyle lancets 1 each, Other, Daily, Use as needed to verify Eulalio reading. dx type 2 diabetes gabapentin (NEURONTIN) 100 mg, Oral, Daily, -continue gabapentin 300 mg HS and 100 mg in am gabapentin (NEURONTIN) 300 mg, Oral, Nightly glucose blood (FREESTYLE LITE) test strip TEST BLOOD SUGAR ONCE DAILY NEEDED ibuprofen 400 mg, Oral, Every 8 hours PRN insulin lispro (HUMALOG BAKARI KWIKPEN) 15 Units, Subcutaneous, 3 times daily with meals ipratropium (Atrovent) 17 MCG/ACT inhaler 2 puffs, Inhalation, 4 times daily RT Lantus SoloStar 50 Units, Subcutaneous, Nightly losartan (Cozaar) 100 MG tablet TAKE 1 TABLET BY MOUTH EVERY MORNING metFORMIN (Glucophage) 1000 MG tablet TAKE 1 TABLET BY MOUTH TWICE DAILY IN THE MORNING AND IN THE EVENING WITH FOOD naloxone (NARCAN) 4 mg, Nasal, As needed, May repeat every 2-3 minutes if needed, alternating nostrils, until medical assistance becomes available. nitroglycerin (Nitrostat) 0.4 MG SL tablet DISSOLVE 1 TABLET UNDER THE TONGUE EVERY 5 MINUTES NEEDED FOR CHEST PAIN. CALL 911 IF NO RELIEF oxyCODONE (ROXICODONE) 2.5 mg, Oral, 2 times daily PRN pantoprazole (PROTONIX) 40 mg, Oral, Daily before breakfast, Do not crush, chew, or split. pen needle 32G x 5 mm misc USE FOUR TIMES DAILY rosuvastatin (CRESTOR) 20 mg, Oral, Nightly triamcinolone (Kenalog) 0.1 % ointment Topical, 2 times daily TRUEplus Insulin Syringe 31G X 5/16 0.5 ML misc USE FOUR TIMES DAILY Trulicity 4.5 mg, Subcutaneous, Weekly, If not available 4.5 mg dose please give 3 mg until can get4.5 mg dose --thanks Follow-up: 2 weeks or sooner if any problem arises. Scribe Attestation: Vu Ridley, am serving as a scribe to document services personally performed by Hyun Monsivais MD,based on the patient's response to questions by provider and provides statements to me. Physicians Attestation: IHyun, have reviewed the information by the scribe, Harpreet Robles, for accuracy and agree with its content. documented in this encounter Miscellaneous Notes * Assessment & Plan Note - Hyun Monsivais MD - 06/21/2024 9:52 PM ESTAssociated Problem(s): Lesion of liver - multiple lesions on recent CT scan - upcoming appointment with oncologist for further evaluation * Assessment & Plan Note - Hyun Monsivais MD - 06/21/2024 9:51 PM ESTAssociated Problem(s): Pulmonary nodule, left - incidental finding on abdominal CT - upcoming appointment with oncologist * Assessment & Plan Note - Vu Mauro - 06/21/2024 11:24 AM ESTAssociated Problem(s): Right lower quadrant pain - UTI recently. Treated with cefuroxime. - current pain is not the location of liver. ?ureteral stone. - Advised the patient on the risk of oxycodone and the possibility of having to use Narcan if she overdoses. * Assessment & Plan Note - Vu Mauro - 06/21/2024 11:22 AM ESTAssociated Problem(s): Type 2 diabetes mellitus (CMS/HCC) 01/2023 hb1AC 9.3<----10.5 , CBG 370. microalb [...] in 12/2022 to f in 1 year -Pinking Machine Operator referred already-gave today phone number to Call for apt -continue jardiance 25 mg ,resume previous dose of insulin basal 50 u HS and lispro 10 u TID and metformin 1000 mg BID -To start trulicity 0.75 mg weekly-confirm today med is cover w px staff - ozempic not covered-denies personal of fx hx of thyroid ca nor pancreatitis hx - px to get trained . Once starts getting GLP1 advise to decrease basal insulin by 20 % ( so levemir to decrease to 40 u HS and lispro 6 u w meals) -advised to continue f CBGS premeals and 2 h after biggest meal -pt on continues glucose check -refusing mobile application engineer referral -DM labs in 2 months in fasting documented in this encounter Plan of Treatment Upcoming Encounters Date Type Department Care Team (Late st Contact Info) Description 07/07/2024 11:15 AM EST Office Visit [facility] [address] [place] [phone] Hyun Monsivais MD [address] [place] [address] documented as of this encounter Procedures Procedure Name Priority Date/Time Associated Diagnosis Comments POCT GLYCOSYLATED HEMOGLOBIN (HGB A1C) Routine 06/21/2024 9:36 AM EST Type 2 diabetes mellitus with hyperglycemia, with long-term current use of insulin (CMS/[facility]) POCT GLUCOSE Routine 06/21/2024 9:36 AM EST Type 2 diabetes mellitus with hyperglycemia, with long-term current use of insulin ([facility]) documented in this encounter Results * (ABNORMAL) POCT glycosylated hemoglobin (Hgb A1c) (06/21/2024 9:36 AM EST) Hemoglobin A1C 9.8(A) 4.0 - 6.0 % QC Media Lot # [id number] Lot# Expiration Date Blood Capillary blood specimen / Unknown 06/21/2024 9:36 AM EST us Hyun Monsivais MD POINT OF CARE TEST ENTER/EDIT OR DERABLES Final Result * POCT glucose manually resulted (06/21/2024 9:36 AM EST) Glucose Blood, POC 123 60 - 200 mg/dL QC Media Lot # [id number] Lot# Expiration Date Blood Capillary blood specimen / Unknown 06/21/2024 9:36 AM EST us Hyun Monsivais MD POINT OF CARE TEST ENTER/EDIT OR DERABLES Final Result documented in this encounter Visit Diagnoses Diagnosis Right lower quadrant pain- Primary Type 2 diabetes mellitus with hyperglycemia, with long-term current use of insulin ([facility]) Pulmonary nodule, left Other diseases of lung, not elsewhere classified Lesion of liver Essential hypertension Unspecified essential hypertension documented in this encounter Additional Health Concerns Assessment Noted Time PHQ-9 Depression Total Score: 6 06/12/19 24 10:45 AM EST documented as of this encounter Care Teams Variety Saw Operator Relationship Specialty Start Date End Date Linda Lorenzo MD [address] [place] [phone] PCP - General Internal Medicine 10/21/22 documented as of this encounter
--- OUTSIDE RECORDS SUMMARY | 2024-06-23 16:14 | XMS_ITS | Encounter Summary ---
Author Organization [employer] Address [address] [facility] [address] [place] [address] Care Team Providers Care Emergency Department Director Name Role Phone Linda Lorenzo MD Primary Care Pro vider Encounter Details Date Type Department Care Team (Latest Contact Info) Description 06/21/2024 Travel Social History Tobacco Use Types Packs/Day [...] Description 07/07/2024 11:15 AM EST Office Visit [facility] [address] [place] [address] [phone] Hyun Monsivais MD [address] [place] [address] [phone] documented as of this encounter Visit Diagnoses Not on filedocumented in this encounter Additional Health Concerns Assessment Noted Time PHQ-9 Depression Total Score: 6 06/12/19 24 10:45 AM EST documented as of this encounter Care Teams Emergency Department Director Relationship Specialty Start Date End Date Linda Lorenzo MD [address] [place] [address] [phone] PCP - General Internal Medicine 10/21/22 documented as of this encounter
--- OUTSIDE RECORDS SUMMARY | 2024-06-23 16:14 | XMS_ITS | Encounter Summary ---
Author Organization [employer] Address [address] [facility] 7t [place] [address] Care Team Providers Care Mineral Mixer Name Role Phone Linda Lorenzo MD Primary Care Pro vider Encounter Details Date Type Department Care Team ([facility] st Contact Info) Description 06/21/2024 Telephone [facility] [address] [place], [place] [phone] Linda Lorenzo MD [address] [place] [address] Social History Tobacco Use Types Packs/Day Years [...] Description 07/07/2024 11:15 AM EST Office Visit [facility] [address] [place] [phone] Hyun Monsivais MD [address] [place] [address] [phone] documented as of this encounter Visit Diagnoses Not on filedocumented in this encounter Additional Health Concerns Assessment Noted Time PHQ-9 Depression Total Score: 6 06/12/19 24 10:45 AM EST documented as of this encounter Care Teams Mineral Mixer Relationship Specialty Start Date End Date Linda Lorenzo MD [address] [place] [address] [phone] PCP - General Internal Medicine 10/21/22 documented as of this encounter
--- OUTSIDE RECORDS SUMMARY | 2024-06-23 16:14 | XMS_ITS | Encounter Summary ---
Author Organization [employer] Address [address] [facility] [address] [place] [address] Care Team Providers Care Field Liability Generalist Name Role Phone Linda Lorenzo MD Primary Care Pro vider Encounter Details Date Type Department Care Team ([facility] st Contact Info) Description 02/25/2024 Orders Only [facility] [address] [place], [place] [phone] Hyun Monsivais MD [address] [place] [address] Social History Tobacco Use Types Packs/Day Years [...] Description 07/07/2024 11:15 AM EST Office Visit [facility] [address] [place] [phone] Hyun Monsivais MD [address] [place] [phone] documented as of this encounter Visit Diagnoses Not on filedocumented in this encounter Additional Health Concerns Assessment Noted Time PHQ-9 Depression Total Score: 6 06/12/19 24 10:45 AM EST documented as of this encounter Care Teams Field Liability Generalist Relationship Specialty Start Date End Date Linda Lorenzo MD [address] [place] [phone] PCP - General Internal Medicine 10/21/22 documented as of this encounter
--- OUTSIDE RECORDS SUMMARY | 2024-06-23 16:15 | XMS_ITS | Encounter Summary ---
Author Organization [employer] Address [address] [place] [address] Care Team Providers Care Slab Depiler Operator Name Role Phone Linda Lorenzo MD [...] Description 07/07/2024 11:15 AM EST Office Visit [facility] [address] [place], [place] [phone] Hyun Monsivais MD [address] [place] [address] documented as of this encounter Procedures Procedure [...] EST Narrative 06/10/2024 7:53 PM EST ? [facility] ?[address] ?[place] [address] ? CT Scan Report ? Signed ? Patient: Sarkis,Shelby ?MR#: [id number] ?? [id number] ? : 1960 ?Acct:[id number] ? Age/Sex: 63 / F ?ADM Date: 06/10/24 ? Loc: HO.ED ? Attending Dr: ? Ordering Physician: Kingsley Robles ?? Date of Service: 06/10/24 ?? Procedure(s): CT abdomen pelvis wo IV con ?? Accession Number(s): [id number] ? cc: Linda Lorenzo MD; Kingsley Robles ? Report Number: ?? [id number]: Total DLP = ??396.00 mGy-cm ? CLINICAL [...] ? DD/ 51 ? TD/TT: 06/10/241951 ? Aids Nurse: ? Procedure Note Pinky, Estevan - 06/10/[address] [address] [address] Scan Report Signed Patient: Shelby DockeryMR#: [id number] : 9Acct:[id number] Age/Sex: 63 / FADM Date: 06/10/24 Loc: HO.ED Attending Dr: Ordering Physician: Kingsley Robles Date of Service: 06/10/24 Procedure(s): CT abdomen pelvis wo IV con Accession Number(s): [id number] cc: Linda Lorenzo MD; Kingsley Robles Report Number: [id number]: Total DLP = 396.00 mGy-cm CLINICAL HISTORY: [...] in OV> 06/10/241952 DD/ 51 TD/TT: 06/10/241951 Aids Nurse: [facility] External Provider IMG CT PROCEDURES Final Result * (ABNORMAL) Urinalysis, Complete, with Reflex to Culture (06/10/2024 7:02 PM EST) Color Urine Yellow [facility] Appearance Urine Clear [facility] PH 5.5 5.0 - 9.0 [facility] Glucose Urine UA >=1000(A) Negative mg/dL [facility] Urine Blood Negative Negative [facility] Specific Alba - Urine >=1.030(H) 1.005 - 1.025 [facility] Urine Protein Negative Neg-Trace mg/dL [facility] Urine Ketones Trace Negative mg/dL [facility] Nitrite Urine Positive(A) Negative [facility] Leukocyte Esterase Urine Small (1+)(A) Negative [facility] RBC Urine 0-2 0 - 2 /HPF [facility] Urine WBC >50(A) 0 - 5 /HPF [facility] Urine Squamous Epithelial Cell 0-2 0 - 2 /HPF [facility] Urine Bacteria 1+ None Seen [facility] Hyaline Casts, Urine 0-2 0 - 2 /LPF [facility] 06/10/2024 7:02 PM EST 06/10/2024 7:05 PM EST Narrative [facility] - 06/10/2024 7:46 PM EST 1842Urine, Clean Catch us Generic External Data Provider LAB URINE ORDERAB LES Final Result Performing Organization Address City/State/[facility] Co de Phone Number [facility] [address] [place] [phone] * (ABNORMAL) Comprehensive Metabolic Panel (06/10/2024 12:07 PM EST) Sodium 142 135 - 145 mmol/L [facility] Potassium 4.7 3.3 - 5.1 mmol/L [facility] Chloride 109(H) 96 - 108 mmol/L [facility] Carbon Dioxide 24 22 - 29 mmol/L [facility] Anion Gap 14 12 - 20 [facility] Urea Nitrogen (BUN) 15 9 - 16 mg/dL [facility] Creatinine, Serum 0.71 0.5 - 1.4 mg/dL [facility] Creatinine Clr Calc Pharmacy 65.6 [facility] Comment:Provided height and weight: 154.94 cm,59.874 kg.eGFR (calculated from the MDRD study equation) and eCrCl(calculated from the Cockcroft-Gault equation) are based ondifferent parameters and may not yield comparable results.If eCrCl result is absurd, please check patient'sheight/weight. Estimated Glomerular Filt Rate >60 [facility] Comment:Chronic Kidney Disea se: Estimated GFR < 60 mL/min/1.74y0Bpssmy Kidney Disease: Estimated GFR < 15 mL/min/1.73m2 Glucose 228(H) 60 - 115 mg/dL [facility] Calcium 10.3(H) 8.4 - 10.2 mg/dL [facility] Bilirubin, Total 0.2 0.0 - 1.0 mg/dL [facility] Aspartate Amino Transferase 24 5 - 31 U/L [facility] Alanine Aminotransferase 19 0 - 31 U/L [facility] Total Protein 7.9 6.5 - 8.0 g/dL [facility] Albumin Level 4.3 3.5 - 5.0 g/dL [facility] Alkaline Phosphatase 164(H) 39 - 117 U/L [facility] 06/10/2024 12:0 7 PM EST 06/10/2024 12:10 PM EST us Generic External Data Provider LAB BLOOD ORDERAB LES Final Result [facility] [address] [place] [address] [phone] * (ABNORMAL) CBC auto differential (06/10/2024 12:07 PM EST) White Blood Count 11.6(H) 4.8 - 10.8 X10*3/uL [facility] Red Blood Count 4.62 4.20 - 5.50 X10*6/uL [facility] Hemoglobin 13.0 12.0 - 16.0 g/dl [facility] Hematocrit 41.5 37.0 - 47.0 % [facility] Mean Corpuscular Volume 89.8 80.0 - 98.0 fL [facility] Mean Corpuscular Hemoglobin 28.1 27.0 - 33.0 pg [facility] Mean Corpuscular HGB Conc 31.3 31.0 - 35.0 g/dl [facility] Red Cell Distribution Width 15.3 11.0 - 16.0 % [facility] Platelet Count 489(H) 160 - 400 X10*3/uL [facility] Mean Platelet Volume 8.8(L) 9.4 - 12.3 fL [facility] Neutrophils Percent Auto 70.8 45 - 73 % [facility] Imm Gran Pct Auto 0.3 0.0 - 0.4 % [facility] Lymphocytes Percent Auto 20.3 20 - 40 % [facility] Monocytes Percent Auto 6.4 2 - 11 % [facility] Eosinophils Percent Auto 1.8 0 - 4 % [facility] Basophils Percent Auto 0.4 0 - 2 % [facility] NRBC Pct Auto 0.0 0.0 - 0.2 /100WBC [facility] Neutrophils Absolute Auto 8.2 2.0 - 8.3 x10*3/uL [facility] Imm Gran Abs Auto 0.03 0.00 - 0.03 X10*3/uL [facility] Lymphocytes Absolute Auto 2.4 1.2 - 4.9 X10*3/uL [facility] Monocytes Absolute Auto 0.8 0.1 - 1.2 X10*3/uL [facility] Eosinophils Absolute Auto 0.2 0.0 - 0.4 X10*3/uL [facility] Basophils Absolute Auto 0.1 0.0 - 0.2 X10*3/uL [facility] NRBC Abs Auto 0.000 0.0 - 0.012 X10*3/uL [facility] 06/10/2024 12:0 7 PM EST 06/10/2024 12:10 PM EST us Generic External Data Provider LAB BLOOD ORDERAB LES Final Result [facility] [address] [place] [phone] * Culture, Urine, Routine (06/10/2024 12:00 AM EST) Urine Urine specimen obtained by clean catch procedure / Unknown 06/10/2024 06/10/2024 Comment:UACC Narrative [facility] - 06/13/2024 7:33 AM EST Escherichia coli Quant > 100,000 cfu/mL Escherichia coli: Ampicillin <=2(S) Escherichia coli: Cefazolin (Urine) <=1(S) Escherichia coli: Cefepime <=0.12(S) Escherichia coli: Ceftriaxone <=0.25(S) Escherichia coli: Ciprofloxacin <=0.06(S) Escherichia coli: Gentamicin <=1(S) Escherichia coli: Nitrofurantoin <=16(S) Escherichia coli: Trimethoprim/Sulfamethoxazole <=20(S) Specimen Source: Urine clean catch Generic External Data Provider LAB MICROBIOLOGY - GENERAL ORDERABLES Final Result [facility] [address] [place] [phone] documented in this encounter Visit Diagnoses Not on filedocumented in this encounter Additional Health Concerns Assessment Noted Time PHQ-9 Depression Total Score: 6 06/12/19 24 10:45 AM EST documented as of this encounter Care Teams Slab Depiler Operator Relationship Specialty Start Date End Date Linda Lorenzo MD [address] [place] [phone] PCP - General Internal Medicine 10/21/22 documented as of this encounter
--- OUTSIDE RECORDS SUMMARY | 2024-06-23 16:15 | XMS_ITS | Encounter Summary ---
Author Organization [employer] Address [address] [facility] 7t [place] [address] Care Team Providers Care Ur Coordinator Name Role Phone Linda Lorenzo MD Primary Care Pro vider Reason for Visit * Reason Onset Date Comments chart prep 06/08/2024 Encounter Details Date Type Department Care Team ([facility] Contact Info) Description 06/08/2024 Telephone [facility] [address] [place], [place] [phone] Linda Lorenzo MD [address] [place] [phone] chart prep Social History Tobacco Use Types Packs/Day Years [...] encounter Miscellaneous Notes * Telephone Encounter - Kimber Hurtado [place] - 06/17/2024 1:43 PM EST ..Chart Prep Labs: not applicable Images: not applicable Vaccines due: Covid Due, Tdap Due, Hep A Due, PCV20 Due, and Shingles in pharmacy Due Referrals: Completed Screenings: Colonoscopy , Eye Exam, and Foot Exam Overdue care gaps: A1C, Glucose, Sbirt, and SDOH * Telephone Encounter - Rosalie Katz RN - 06/11/2024 12:08 PM EST Request for pended rx noted. Per review of chart, rx for pen needles was sent to pharmacy yesterdayby covering provider. * Telephone Encounter - Misty Dewitt RN - 06/09/2024 3:21 PM EST Called [facility] pharmacy, pt no longer on insulin via vials just pens (lantus and humalog). Will send message to covering provider to send pen needles. * Telephone Encounter - Abimael Hanley - 06/08/2024 3:00 PM EST Tc from [facility] pharmacy requesting call calling in regards to [employer] Insulin Syringe 31G X 5/16 0.5ML misc stating they need a script for pen needles because pt uses pens instead of vials. If any questions you can contact pharmacy at [phone]. documented in this encounter Plan of Treatment Upcoming Encounters Date Type Department Care Team (Late st Contact Info) Description 07/07/2024 11:15 AM EST Office Visit [facility] [address] [place] [address] [phone] Hyun Monsivais MD [address] [place] [address] [phone] documented as of this encounter Visit Diagnoses Not on filedocumented in this encounter Additional Health Concerns Assessment Noted Time PHQ-9 Depression Total Score: 6 06/12/19 24 10:45 AM EST documented as of this encounter Care Teams Ur Coordinator Relationship Specialty Start Date End Date Linda Lorenzo MD [address] [place] [phone] PCP - General Internal Medicine 10/21/22 documented as of this encounter
--- OUTSIDE RECORDS SUMMARY | 2024-06-23 16:15 | XMS_ITS | Encounter Summary ---
Author Organization [employer] Address [address] [facility] 7t [place] [address] Care Team Providers Care Bill Adjuster Name Role Phone Linda Lorenzo MD Primary Care Pro vider Reason for Visit * Reason Comments Med Refill Encounter Details Date Type Department Care Team ([facility] st Contact Info) Description 03/04/2023 Refill [facility] 230 [place], [place] [phone] Linda Lorenzo MD 230 [place] [address] Social History Tobacco Use Types Packs/Day Years [...] Description 07/07/2024 11:15 AM EST Office Visit [facility] [address] [place] [address] [phone] Hyun Monsivais MD [address] [place] [address] [phone] documented as of this encounter Visit Diagnoses Not on filedocumented in this encounter Additional Health Concerns Assessment Noted Time PHQ-9 Depression Total Score: 9 01/08/20 23 11:21 AM EDT documented as of this encounter Care Teams Bill Adjuster Relationship Specialty Start Date End Date Linda Lorenzo MD [address] [place] [address] [phone] PCP - General Internal Medicine 10/21/22 documented as of this encounter
--- OUTSIDE RECORDS SUMMARY | 2024-06-23 16:15 | XMS_ITS | Encounter Summary ---
Author Organization [employer] Address [address] [facility] 7t [place] [address] Care Team Providers Care Banjo Repairer Name Role Phone Jhoana Oneal Tuyet HEBERT Primary Care Provider [phone] Linda Lorenzo MD Primary Care Pro vider Encounter Details Date Type Department Care Team (Late st Contact Info) Description 06/06/2022 Orders Only [facility] [address] [place] [address] [phone] Muriel Velazquez LPN Social History Tobacco Use [...] Description 07/07/2024 11:15 AM EST Office Visit [facility] [address] [place] [address] [phone] Hyun Monsivais MD 230 [place] [phone] documented as of this encounter Visit Diagnoses Not on filedocumented in this encounter Care Teams Banjo Repairer Relationship Specialty Start Date End Date Jhoana Oneal FNP PCP - General Family Medicine 04/04/22 10/20/22 Linda Lorenzo MD [address] [place] [phone] PCP - General Internal Medicine 10/21/22 documented as of this encounter
--- OUTSIDE RECORDS SUMMARY | 2024-06-23 16:15 | XMS_ITS | Encounter Summary ---
Author Organization [employer] Address [address] 7[address] [place] [address] Care Team Providers Care Director Of [employer] Name Role Phone Linda Lorenzo MD Primary Care Pro vider Reason for Visit * Reason Comments Med Refill Encounter Details Date Type Department Care Team ([facility] st Contact Info) Description 05/27/2023 Refill [facility] [address] [place], [place] [phone] Juanpablo Watson MD [address] [place] [address] Social History Tobacco Use Types Packs/Day Years [...] Description 07/07/2024 11:15 AM EST Office Visit [facility] [address] [place] [address] [phone] Hyun Monsivais MD [address] [place] [phone] documented as of this encounter Visit Diagnoses Not on filedocumented in this encounter Additional Health Concerns Assessment Noted Time PHQ-9 Depression Total Score: 9 01/08/20 23 11:21 AM EDT documented as of this encounter Care Teams Director Of [employer] Relationship Specialty Start Date End Date Linda Lorenzo MD [address] [place] [address] [phone] PCP - General Internal Medicine 10/21/22 documented as of this encounter
--- OUTSIDE RECORDS SUMMARY | 2024-06-23 16:15 | XMS_ITS | Encounter Summary ---
Author Organization [employer] Address [address] [facility] 7t [place] [address] Care Team Providers Care Biology Faculty Member Name Role Phone Linda Lorenzo MD Primary Care Pro vider Reason for Referral * Consultation (Routine) - Pending Review Specialty Diagnoses / Procedures Referred By Contsadi t Referred To Contact Pharmacy Diagnoses Type 2 diabetes mellitus with hyperglycemia, with long-term current use of insulin ([facility]) Juanpablo Watson MD 230 [place] [address] Phone: tel: fax: Referral ID Status Reason Start Date Expiration Date Visits Requested Visits Authorized [id number] Pending Review Consult and Treat 05/26/2024 05/26/2025 6 6 Encounter Details Date Type Department Care Team (Late st Contact Info) Description 05/26/2024 Telephone [facility] [address] [place], [place] [phone] Juanpablo Watson MD 230 [place], [place] [phone] Social History Tobacco Use Types Packs/Day Years [...] Description 07/07/2024 11:15 AM EST Office Visit [facility] [address] [place] [phone] Hyun Monsivais MD [address] [place] [phone] Scheduled Referrals Name Type Priority Associated Diagnoses Orde r Schedule Referral to Pharmacy CDTM Outpatient Referral Routine Type 2 diabetes mellitus with hyperglycemia, with long-term current use of insulin (CMS/HCC) Ordered: 05/26/2024 documented as of this encounter Visit Diagnoses Diagnosis Type 2 diabetes mellitus with hyperglycemia, with long-term current use of insulin (CMS/HCC)- Primary documented in this encounter Additional Health Concerns Assessment Noted Time PHQ-9 Depression Total Score: 6 06/12/19 24 10:45 AM EST documented as of this encounter Care Teams Biology Faculty Member Relationship Specialty Start Date End Date Linda Lorenzo MD [address] [place] [phone] PCP - General Internal Medicine 10/21/22 documented as of this encounter
--- OUTSIDE RECORDS SUMMARY | 2024-06-23 16:15 | XMS_ITS | Clinical Summary ---
Author Organization [employer] Address [address] [place] [address] Care Team Providers Care Underwriting Support Specialist Name Role Phone Linda Lorenzo MD [...] topically every 6 (six) hours. 50 g 023 Active D3 Super Strength 50 MCG (1999 UT) capsuleIndication s:Other specified abnormal findings of blood chemistry TAKE 1 CAPSULE BY MOUTH EVERY MORNING 90 capsule 3 024 Active carvedilol (Coreg) 6.25 MG tablet TAKE 1 TABLET BY MOUTH TWICE DAILY IN THE MORNING AND IN THE EVENING WITH FOOD 180 tablet 3 024 Active TRUEplus Insulin Syringe 31G X 5/16 0.5 ML misc USE FOUR TIMES DAILY 120 each 11 024 Active nitroglycerin (Nitrostat) 0.4 MG SL tablet DISSOLVE 1 TABLET UNDER THE TONGUE EVERY 5 MINUTES NEEDED FOR CHEST PAIN. CALL 911 IF NO RELIEF 25 tablet 1 024 Active dulaglutide (Trulicity) 4.5 MG/0.5ML solution pen-injectorIndic ations:Type 2 diabetes mellitus with hyperglycemia, with long-term current use of insulin ([facility]) Inject 4.5 mg under the skin 1 (one) time per week. If not available 4.5 mg dose please give 3 mg until can get 4.5 mg dose --thanks 4 each 11 Active triamcinolone (Kenalog) 0.1 % ointment Apply topically 2 times daily. 14 g Active ipratropium (Atrovent) 17 MCG/ACT inhalerIndication s:Chronic cough Inhale 2 puffs in the morning, at noon, in the evening, and at bedtime. 12.9 g 5 2024 Active rosuvastatin (Crestor) 20 MG tabletIndications :Mixed hyperlipidemia Take 1 tablet (20 mg) by mouth at bedtime. 90 tablet Active Aspirin Adult Low Strength 81 MG EC tabletIndications :Mixed hyperlipidemia TAKE 1 TABLET BY MOUTH EVERYDAY AT NOON 90 tablet Active losartan (Cozaar) 100 MG tabletIndications :Primary hypertension TAKE 1 TABLET BY MOUTH EVERY MORNING 90 tablet Active metFORMIN (Glucophage) 1000 MG tablet TAKE 1 TABLET BY MOUTH TWICE DAILY IN THE MORNING AND IN THE EVENING WITH FOOD 180 tablet Active insulin lispro (HumaLOG Rodríguez KwikPen) 100 UNIT/ML injection Inject 15 Units under the skin with breakfast, with lunch, and with evening meal. 10.8 mL 2 2024 Active insulin glargine (Lantus SoloStar) 100 UNIT/ML pen Inject 50 Units under the skin at bedtime. 15 mL 11 Active Continuous Glucose Sensor (FreeStyle Eulalio 14 Day Sensor) [facility] USE DIRECTED EVERY 14 DAYS 14 each 1 Active Continuous Glucose Payroll Officer (FreeStyle Eulalio 14 Day Terry) device Inject 1 Device under the skin 4 times daily. 1 each Active gabapentin (Neurontin) 100 MG capsule Take 1 capsule (100 mg) by mouth Once per day. -continue??giovanna apentin 300 mg HS and 100 mg in am 90 capsule 024 2024 Active gabapentin (Neurontin) 300 MG capsule Take 1 capsule (300 mg) by mouth at bedtime. 90 capsule Active ibuprofen 400 MG tablet Take 1 tablet (400 mg) by mouth every 8 (eight) hours if needed for moderate pain. 30 tablet Active glucose blood (FREESTYLE LITE) test stripIndications: Type 2 diabetes mellitus without complications ([facility]) TEST BLOOD SUGAR ONCE DAILY NEEDED 100 strip 11 Active FreeStyle lancets 1 each by Other route Once per day. Use as needed to verify Eulalio reading. dx type 2 diabetes 60 each 11 Active empagliflozin (Jardiance) 25 MGIndications:Typ e 2 diabetes mellitus with microalbuminuria, with long-term current use of insulin ([facility]) TAKE 1 TABLET BY MOUTH EVERY MORNING 90 tablet 1 Active pen needle 32G x 5 mm misc USE FOUR TIMES DAILY 100 each 3 Active cloNIDine (Catapres) 0.1 MG tablet TAKE 1 TABLET BY MOUTH TWICE DAILY IN THE MORNING AND AT BEDTIME 60 tablet 2 Active oxyCODONE (Roxicodone) 5 MG immediate release tabletIndications :Right lower quadrant pain Take 0.5 tablets (2.5 mg) by mouth if needed in the morning and at bedtime for severe pain. 28 tablet Active naloxone (Narcan) 4 mg/0.1 mL nasal sprayIndications: Right lower quadrant pain Administer 1 spray (4 mg) into affected nostril(s) if needed for opioid reversal. May repeat every 2-3 minutes if needed, alternating nostrils, until medical assistance becomes available. 2 each 025 2025 Active cloNIDine (Catapres) 0.1 MG tablet TAKE 1 TABLET BY MOUTH TWICE DAILY IN THE MORNING AND AT BEDTIME 60 tablet 2 024 2024 Discontinued nitrofurantoin, macrocrystal-mono hydrate, (Macrobid) 100 MG capsuleIndication s:Acute cystitis without hematuria Take 1 capsule (100 mg) by mouth 2 times daily for 5 days. 10 capsule 025 2024 Discontinued(A lternate therapy) Active Problems Problem Noted Date Diagnosed Date Pulmonary nodule, left 06/21/2024 Assessment & Plan (06/21/2024 9:51 PM EST): - incidental finding on abdominal CT - upcoming appointment with oncologist Lesion of liver 06/21/2024 Assessment & Plan (06/21/2024 9:52 PM EST): - multiple lesions on recent CT scan - upcoming appointment with oncologist for further evaluation Poor memory 03/20/2024 Chronic cough 03/20/2024 Right lower quadrant pain 01/02/2024 Assessment & Plan (06/21/2024 9:54 PM EST): - UTI recently. Treated with cefuroxime. - current pain is not the location of liver. ?ureteral stone. - Advised the patient on the risk of oxycodone and the possibility of having to use Narcan if she overdoses. Knee pain 10/20/2023 Mood disorder 06/13/2023 Uncomplicated [...] last XR- per pt done recently at [facility] knee XR -requested already to nurse staff [...] try to improve DM control -referred to electrical assembler -MA gave today to pt # to call for apt -increase gabapentin to 200 from 100 mg HS Assessment & Plan (01/07/2023 12:27 PM EDT): Pt reports symptoms of neuropathy in her hands and feet likely associated w uncontrolled DM -will try to improve DM control -referred to electrical assembler -MA to check status of referral -start gabapentin 100 mg HS-explained possible SE -if tolerates will increase dose at next apt Assessment & Plan (12/10/2022 12:53 PM EDT): Pt reports symptoms of neuropathy in her hands and feet likely associated w uncontrolled DM -will try to improve DM control -referred today to electrical assembler -start cymbalta today for depression and may [...] per pt--- ---- requested record to Marquis GuerrierMM 03/2022: BIRADS 1 -Colonoscopy : 2012: grade ! Internal hemorrhoids -referred today to GI -DEXA scan: will start next year at 63 -vaccines: s/p p23x3, today p20, tdap 2012 today booster,zoster x2, covid : none -refuse [...] 2 diabetes mellitus 09/13/2022 Assessment & Plan (06/21/2024 11:22 AM EST): 01/2023 hb1AC 9.3<----10.5 , CBG 370. microalb [...] in 12/2022 to f in 1 year -Trimmer And Borer Machine Operator referred already-gave today phone number [...] meal -pt on continues glucose check -refusing industrial roofer helper referral -DM labs in 2 months in fasting Assessment & Plan (02/04/2023 2:40 PM EDT): [...] in 12/2022 to f in 1 year -Trimmer And Borer Machine Operator referred already-gave today phone number [...] meal -pt on continues glucose check -refusing industrial roofer helper referral -DM labs in 2 months in fasting Assessment & Plan (01/07/2023 12:33 PM EDT): 11/2022 hb1AC 10.5 , CBG 237 -DM labs -Pd to be done -ophthalmology : w diabetic retinopathy seen in 06/2022 To f in 12/2022 -Trimmer And Borer Machine Operator referred already -pt on jardiance 25 mg [...] on continues glucose check -will discuss about industrial roofer helper referral at next apt Assessment & Plan (12/10/2022 1:04 PM EDT): Today hb1AC 10.5 , CBG 237 -DM labs -ophthalmology : w diabetic retinopathy seen in 06/2022 To f in 12/2022 -Trimmer And Borer Machine Operator referred today -pt on jardiance 25 mg ,insulin basal 50 u HS and lispro 10 u TID and metformin --will increase for now metformin to 1000 mg BID-denies SE w med ,not recalls higher doses. -will consider GLP1 at next apt -advised to continue f CBGS premeals and 2 h after biggest meal -pt on continues glucose check -will discuss about industrial roofer helper referral at next apt Substance abuse 12/04/2012 [...] 12/10/2022 Type 2 diabetes mellitus without complication 12/07/1912/10/2022 Pure hypercholesterolemia 10/28/2011 Encounters Date Type Department Care Team Description 06/21/2024 11:00 AM EST Office Visit [address] [address] Hyun Monsivais MD Right lower quadrant pain (Primary Dx); Type 2 diabetes mellitus with hyperglycemia, with long-term current use of insulin (CMS/HCC); Pulmonary nodule, left; Lesion of liver; Essential hypertension 06/21/2024 Telephone [facility] MEDICINE [address] [place] [phone] Linda Lorenzo MD 06/21/2024 Travel 06/19/2024 Refill [facility] MED & PEDS [address] [place] [address] Linda Lorenzo MD 06/15/2024 Orders Only GENERIC EXTERNAL DATA DEPARTMENT Provider, Generic External Data 06/15/[address] [address] Barb Hines, RN Nurse Triage 06/15/2024 Travel 06/14/[address] [phone] Linda Lorenzo MD No Show 06/11/2024 Orders Only [address] [address] Yaquelin Subramanian ANP Lung nodule seen on imaging study (Primary Dx); Lesion of liver; Acute cystitis without hematuria 06/11/[address] [address] Park Cordero, DO Results; Appointment Request 06/10/2024 Telephone [facility] OPTOMETRY [address] [place] [address] Mattie Nina OD 06/10/2024 Orders Only GENERIC EXTERNAL DATA DEPARTMENT Provider, Generic External Data 06/10/2024 Refill [facility] MED & PEDS [address] [place] [address] Linda Lorenzo MD 06/08/2024 Telephone [facility] MEDICINE [address] [place] [address] Linda Lorenzo MD chart prep 05/26/2024 Telephone [facility] MEDICINE [address] [place] [phone] Juanpablo Watson MD 04/22/2024 Refill [facility] MEDICINE [address] [place] [address] Barb Hines, RN Type 2 diabetes mellitus without complications ([facility]); Type 2 diabetes mellitus with microalbuminuria, with long-term current use of insulin ([facility]) 04/22/2024 Refill [facility] MED & PEDS [address] [place] [address] Linda Lorenzo MD Type 2 diabetes mellitus with microalbuminuria, with long-term current use of insulin ([facility]) 04/07/2024 Refill [facility] MED & PEDS [address] [place] [address] Linda Lorenzo MD 04/05/2024 Telephone [facility] MEDICINE [address] [place] [address] Misty Dewitt RN 04/05/2024 Orders Only [facility] MEDICINE [address] [place] [address] Linda Lorenzo MD 03/25/2024 Telephone [facility] MEDICINE [address] [place] [address] Carmen Celaya MA Notes requested from Sheldon from Last 3 Months Immunizations Name Administration [...] 12.8 oz) 025 10:31 AM EST Height 154.9 cm (5' 1 ) 03/19/2024 9:05 AM EDT Body Mass Index 26.04 03/19/2024 9:05 AM EDT Plan of Treatment Upcoming Encounters Date Type Department Care Team (Late st Contact Info) Description 07/07/2024 11:15 AM EST Office Visit [facility] MEDICINE [address] [place] [phone] Hyun Monsivais MD [address] [place] [address] Health Maintenance Due Date Last Done Comments CT Colonography 1960 Colonoscopy 1960 Colorectal Cancer Screening 1960 FIT DNA/Cologuard 1960 FIT 1960 FOBT 1960 Sigmoidoscopy 1958 Diabetes: Foot Exam 1968 Hepatitis A Vaccines (1 of 2 - Risk 2-dose series) 1977 Pneumococcal Vaccine: 50+ Years (2 of 2 - PCV) 11/14/2019 2018, 05/08/2017, 07/23/2001 Zoster Vaccines (2 of 2) 03/20/2021 01/23/2021, 12/18 DTaP/Tdap/Td Vaccines (2 - Td or Tdap) 06/29/2022 06/29/2012, 10/19/2003 Eye Exam 01/11/2024 01/10/2023, 12/18, 01/10/2023, Additional history exists COVID-19 Vaccine ( season) 2024 Depression Screening 06/12/2024 06/12/2023, 06/12/19 Diabetes: Hemoglobin A1C 09/18/2024 025, 03/19/2024, 11/10/2023, Additional history exists Lipid Panel 11/09/2024 11/10/2023, 01/17, 01/25/2021 Alcohol/Substance Use Screening 06/21/2025 06/21/2024 SDOH Screening 06/21/2025 06/21/2024 Tobacco Screening 06/21/2025 06/21/2024 Pap Smear 01/13/2026 01/13/2023 Mammogram 04/20/2026 04/20/2024, [...] with long-term current use of insulin (CMS/HCC) POCT GLUCOSE Routine 06/21/2024 9:36 AM EST Type 2 diabetes mellitus with hyperglycemia, with long-term current use of insulin (CMS/HCC) URINALYSIS, COMPLETE, WITH REFLEX TO CULTURE Routine [...] TOMOSYNTHESIS BILATERAL Routine 04/20/2024 11:30 AM EST LIPID PANEL, STANDARD Routine 11/10/2023 9:02 AM EDT Type 2 diabetes mellitus with hyperglycemia, with long-term current use of insulin ([facility]/HCC) HEPATITIS C AB W/REFL TO HCV RNA, QN, PCR Routine 02/03/2023 11:42 AM EDT Health care maintenance HPV MRNA E6/E7 REFLEX TO HPV 16, 18/45 Routine 01/13/2023 11:06 AM EDT PAP SMEAR Routine 01/13/2023 11:06 AM EDT from Last 3 Months or Most Recently Relevant to Health Maintenance Results * (ABNORMAL) POCT glycosylated hemoglobin (Hgb A1c) (06/21/2024 9:36 AM EST) Hemoglobin A1C 9.8(A) 4.0 - 6.0 % QC Media Lot # [id number] Lot# Expiration Date Blood Capillary blood specimen / Unknown 06/21/2024 9:36 AM EST Hyun Monsivais MD POINT OF CARE TEST ENTER/EDIT OR DERABLES Final Result * POCT glucose manually resulted (06/21/2024 9:36 AM EST) Glucose Blood, POC 123 60 - 200 mg/dL QC Media Lot # [id number] Lot# Expiration Date Blood Capillary blood specimen / Unknown 06/21/2024 9:36 AM EST Hyun Monsivais MD POINT OF CARE TEST ENTER/EDIT OR DERABLES Final Result * (ABNORMAL) Urinalysis, Complete, with Reflex to Culture (06/15/2024 11:10 AM EST) Only the most recent of2 resultswithin the time period is included. Color Urine Yellow [facility] Appearance Urine Clear [facility] PH 5.5 5.0 - 9.0 [facility] Glucose Urine UA >=1000(A) Negative mg/dL [facility] Urine Blood Negative Negative [facility] Specific [place] - Urine 1.020 1.005 - 1.025 [facility] Urine Protein Negative Neg-Trace mg/dL [facility] Urine Ketones Negative Negative mg/dL [facility] Nitrite Urine Negative Negative [facility] Leukocyte Esterase Urine Negative Negative [facility] RBC Urine 0-2 0 - 2 /HPF [facility] Urine WBC 0-5 0 - 5 /HPF [facility] Urine Squamous Epithelial Cell 0-2 0 - 2 /HPF [facility] Urine Bacteria None Seen None Seen [facility] Hyaline Casts, Urine 0-2 0 - 2 /LPF [facility] 06/15/2024 11:1 0 AM EST 06/15/2024 11:13 AM EST Narrative [facility] - 06/15/2024 11:20 AM EST [id number], Clean Catch us Generic External Data Provider LAB URINE ORDERAB LES Final Result [facility] [address] [place] [address] [phone] * CT Abdomen Pelvis w/o Contrast (06/10/2024 7:52 PM EST) Anatomical Region Laterality Modality Body, Pelvis, Abdomen Computed T omography 06/10/2024 7:52 PM EST Narrative 06/10/2024 7:53 PM EST ? [facility] ?[address] ?[place] [address] ? CT Scan Report ? Signed ? Patient: Shelby Dockery ?MR#: [id number] ?? [id number] ? : 1960 ?Acct:[id number] ? Age/Sex: 63 / F ?ADM Date: 06/10/24 ? Loc: HO.ED ? Attending Dr: ? Ordering Physician: Kingsley Robles ?? Date of Service: 06/10/24 ?? Procedure(s): CT abdomen pelvis wo IV con ?? Accession Number(s): [id number] ? cc: Linda Lorenzo MD; Kingsley Robles ? Report Number: ?? [id number]: Total DLP = ??396.00 mGy-cm ? CLINICAL [...] ? DD/ 51 ? TD/TT: 06/10/241951 ? Meal Packer: ? Procedure Note Donfrantzter, Image - 06/10/[address] [place] [address] [address] Scan Report Signed Patient: Shelby DockeryMR#: [id number] : 9Acct:[id number] Age/Sex: 63 / FADM Date: 06/10/24 Loc: HO.ED Attending Dr: Ordering Physician: Kingsley Robles Date of Service: 06/10/24 Procedure(s): CT abdomen pelvis wo IV con Accession Number(s): [id number] cc: Linda Lorenzo MD; Kingsley Robles Report Number: [id number]: Total DLP = 396.00 mGy-cm CLINICAL HISTORY: [...] in OV> 06/10/241952 DD/ 51 TD/TT: 06/10/241951 Meal Packer: [facility] External Provider IMG CT PROCEDURES Final Result * (ABNORMAL) CBC auto differential (06/10/2024 12:07 PM EST) White Blood Count 11.6(H) 4.8 - 10.8 X10*3/uL [facility] Red Blood Count 4.62 4.20 - 5.50 X10*6/uL [facility] Hemoglobin 13.0 12.0 - 16.0 g/dl [facility] Hematocrit 41.5 37.0 - 47.0 % [facility] Mean Corpuscular Volume 89.8 80.0 - 98.0 fL [facility] Mean Corpuscular Hemoglobin 28.1 27.0 - 33.0 pg [facility] Mean Corpuscular HGB Conc 31.3 31.0 - 35.0 g/dl [facility] Red Cell Distribution Width 15.3 11.0 - 16.0 % [facility] Platelet Count 489(H) 160 - 400 X10*3/uL [facility] Mean Platelet Volume 8.8(L) 9.4 - 12.3 fL [facility] Neutrophils Percent Auto 70.8 45 - 73 % [facility] Imm Gran Pct Auto 0.3 0.0 - 0.4 % [facility] Lymphocytes Percent Auto 20.3 20 - 40 % [facility] Monocytes Percent Auto 6.4 2 - 11 % [facility] Eosinophils Percent Auto 1.8 0 - 4 % [facility] Basophils Percent Auto 0.4 0 - 2 % [facility] NRBC Pct Auto 0.0 0.0 - 0.2 /100WBC [facility] Neutrophils Absolute Auto 8.2 2.0 - 8.3 x10*3/uL [facility] Imm Gran Abs Auto 0.03 0.00 - 0.03 X10*3/uL [facility] Lymphocytes Absolute Auto 2.4 1.2 - 4.9 X10*3/uL [facility] Monocytes Absolute Auto 0.8 0.1 - 1.2 X10*3/uL [facility] Eosinophils Absolute Auto 0.2 0.0 - 0.4 X10*3/uL [facility] Basophils Absolute Auto 0.1 0.0 - 0.2 X10*3/uL [facility] NRBC Abs Auto 0.000 0.0 - 0.012 X10*3/uL [facility] 06/10/2024 12:0 7 PM EST 06/10/2024 12:10 PM EST us Generic External Data Provider LAB BLOOD ORDERAB LES Final Result [facility] [address] [place] [phone] * (ABNORMAL) Comprehensive Metabolic Panel (06/10/2024 12:07 PM EST) Sodium 142 135 - 145 mmol/L [facility] Potassium 4.7 3.3 - 5.1 mmol/L [facility] Chloride 109(H) 96 - 108 mmol/L [facility] Carbon Dioxide 24 22 - 29 mmol/L [facility] Anion Gap 14 12 - 20 [facility] Urea Nitrogen (BUN) 15 9 - 16 mg/dL [facility] Creatinine, Serum 0.71 0.5 - 1.4 mg/dL [facility] Creatinine Clr Calc Pharmacy 65.6 [facility] Comment:Provided height and weight: 154.94 cm,59.874 kg.eGFR (calculated from the MDRD study equation) and eCrCl(calculated from the Cockcroft-Gault equation) are based ondifferent parameters and may not yield comparable results.If eCrCl result is absurd, please check patient'sheight/weight. Estimated Glomerular Filt Rate >60 [facility] Comment:Chronic Kidney Disea se: Estimated GFR < 60 mL/min/1.10c4Hsktun Kidney Disease: Estimated GFR < 15 mL/min/1.73m2 Glucose 228(H) 60 - 115 mg/dL [facility] Calcium 10.3(H) 8.4 - 10.2 mg/dL [facility] Bilirubin, Total 0.2 0.0 - 1.0 mg/dL [facility] Aspartate Amino Transferase 24 5 - 31 U/L [facility] Alanine Aminotransferase 19 0 - 31 U/L [facility] Total Protein 7.9 6.5 - 8.0 g/dL [facility] Albumin Level 4.3 3.5 - 5.0 g/dL [facility] Alkaline Phosphatase 164(H) 39 - 117 U/L [facility] 06/10/2024 12:0 7 PM EST 06/10/2024 12:10 PM EST us Generic External Data Provider LAB BLOOD ORDERAB LES Final Result [facility] [address] [place] [address] [phone] * Culture, Urine, Routine (06/10/2024 12:00 AM EST) Urine Urine specimen obtained by clean catch procedure / Unknown 06/10/2024 06/10/2024 Comment:UACC Narrative [facility] - 06/13/2024 7:33 AM EST Escherichia coli Quant > 100,000 cfu/mL Escherichia coli: Ampicillin <=2(S) Escherichia coli: Cefazolin (Urine) <=1(S) Escherichia coli: Cefepime <=0.12(S) Escherichia coli: Ceftriaxone <=0.25(S) Escherichia coli: Ciprofloxacin <=0.06(S) Escherichia coli: Gentamicin <=1(S) Escherichia coli: Nitrofurantoin <=16(S) Escherichia coli: Trimethoprim/Sulfamethoxazole <=20(S) Specimen Source: Urine clean catch us Generic External Data Provider LAB MICROBIOLOGY - GENERAL ORDERABLES Final Result [facility] [address] [place] [address] [phone] * BI Mammogram Screening Tomosynthesis Bilateral (04/20/2024 11:30 AM EST) Anatomical Region Laterality Modality Breast Bilateral Mammography 04/20/2024 11:3 0 AM EST Narrative 04/26/2024 5:28 PM EST ? [facility] [place] ? [address] ?[place] [address] ? Mammography Report ? Signed ? Patient: Sarkis,Shelby ?MR#: [id number] ?? [id number] ? : 1960 ?Acct:[id number] ? Age/Sex: 63 / F ?ADM Date: 04/20/ ? Loc: HO.MAMMO ? Attending Dr: Maral Morrissey CNM ? Ordering Physician: Linda Lorenzo MD ?Re ?? sults: 1Negative ? Date of Service: 04/20/24 ?Follow Up: 1 Year From Orig ?? inal Mammogram ? Procedure(s): MM tomosynthesis screening BI ?? Accession Number(s): [id number] ? cc: Linda Lorenzo MD ? EXAMINATION: [...] DD/ 1130 ? TD/TT: 04/20/24 1135 ? Meal Packer: ? Procedure Note Estevan Vance - 04/26/2024 [facility] [address] [place], [place] [address] Mammography Report Signed Patient: Shelby DockeryMR#: [id number] : 9Acct:[id number] Age/Sex: 63 / FADM Date: 04/20/24 Loc: HO.MAMMO Attending Dr: Maral WILLIS Ordering Physician: Linda Lorenzo sults: 1Negative Date of Service: 04/20/24Follow Up: 1 Year From Orig ina Mammogram Procedure(s): MM tomosynthesis screening BI Accession Number(s): [id number] cc: Linda Lorenzo MD EXAMINATION: MM SCREENING [...] by: Dulce Lopez DO 04/26/2024 05:25 PM [facility] Dictated By: Dulce Lopez DO Signed By: <Electronically signed by Dulce Lopez DO in OV> 04/26/24 1725 DD/ 1130 TD/TT: 04/20/24 1135 Meal Packer: us Linda Bond MD IMG BI PROCEDURES Final Result * (ABNORMAL) Lipid Panel, Standard (11/10/2023 9:02 AM EDT) Triglycerides 260(H) <150 mg/dL [facility] Comment:Desirable Triglyceri de: less than 150 mg/dLBorderline High Triglyceride 150-199 mg/dLHigh Triglyceride: 200-499 mg/dLVery High Triglyceride: greater than or equal to 5OO mg/dL Cholesterol 157 <200 mg/dL [facility] Comment:Desirable Cholestero l: less than 200 mg/dLBorderline High Cholesterol: 200-239 mg/dLHigh Cholesterol: greater than 239 mg/dL LDL Cholesterol Calculated 61 <100 mg/dL [facility] Comment:Desirable LDL: less than 100 mg/dLNear Optimal/Above Optimal LDL: 110- 129 mg/dLBorderline High LDL: 130-159 mg/dLHigh LDL: 160-189 mg/dLVery High LDL: greater than or equal to 190 mg/dL HDL Cholesterol 44 >40 mg/dL [facility] Comment:Desirable HDL: great er than 40 mg/dL Note: This HDL assay may give artificially low results in patients with liver disease. Blood Venous blood specimen / Unknown 11/10/2023 9:02 AM EDT 11/10/2023 12:13 PM EDT us Linda Bond MD LAB BLOOD ORDERAB LES Final Result Performing Organization Address [facility] Co de Phone Number [facility] [address] [place], [place] [phone] * Hepatitis C Antibody with Reflex to HCV, RNA, Quantitative, Real-Time PCR (02/03/2023 11:42 AM EDT) Hepatitis C Antibody Nonreactive Nonreactive [facility] Comment:Antibodies to HCV no t detected; does not exclude early acuteHCV infection. Blood Venous blood specimen / Unknown 02/03/2023 11:42 AM EDT 02/03/2023 1:37 PM EDT us Linda Bond MD LAB BLOOD ORDERAB LES Final Result Performing Organization Address [facility] Co de Phone Number [facility] [address] [place] [phone] * HPV mRNA E6/E7 w/Reflex to HPV Genotypes 16, 18/45 (01/13/2023 11:06 AM EDT) HPV nRNA E6/E7 Not Detected Not Detected [facility] Comment:Methodology: Transcr iption-Mediated AmplificationThis assay detects E6/E7 viral messenger RNA (mRNA) from 14high-risk HPV types (16,18,31,33,35,39,45,51,52,56,58,59,66,68).Cervical sources are required for HPV testing.If a vaginal source from a patient who has had atotal hysterectomy with removal of cervix wassubmitted, please contact the testing laboratoryfor alternative testing options.For additional information, please refer tohttp://education.[employer]/faq/YBY624s7(This link if provided for information/educational purposes only.)THIS TEST WAS PERFORMED AT:[facility] [place] [phone] RUIZ MD HPV mRNA E6/E7 [facility] HPV 16 RNA [facility] HPV 18/45 RNA [facility] 01/13/2023 11:0 6 AM EDT 01/14/2023 11:25 AM EDT Maral Morrissey [facility] CYTOLOGY ORDERABLES F inal Result [facility] [address] [place] [phone] * Pap Smear (01/13/2023 11:06 AM EDT) 01/13/2023 11:0 6 AM EDT 01/14/2023 11:25 AM EDT Narrative [facility] - 01/25/2023 2:15 PM EDT ----- ------- Name: Shelby Dockery ?Age/Sex: 62/F ? : 1960 Unit#: [id number] ?? Attend Dr: MARAL MORRISSEY CNM ?Re01/13/23 ?Status: DEP REF ? Location: [facility] ? Disch: ? ----- ------- SPEC : [id number] ?RECD: 01/14/23 ? STATUS: ??SOUT ? REQ NUM: [id number] ? JAMES: 01/13/23-1106 ? SUBM DR: MARAL [...] 66, 68) ? HPV testing performed by [facility], [place], [place]. ??See reference laboratory ?? portion of the EMR for entire report. ?Clinical Information LMP: Unknown date Previous PAP test: Unknown date/findings ? Material Received ?? ThinPrep-Vaginal/Cervical ----- ------- Signed (signature on file) Meredith Hernandez Red 01/25/23 1415 ? ----- ------- ? END OF REPORT ? us aMral Morrissey [facility] CYTOLOGY ORDERABLES F inal Result [facility] [address] [place] [phone] from Last 3 Months or Most Recently Relevant to Health Maintenance Insurance [facility] STANDARD Member Subscriber Plan / Payer (Ef fective 2023-Present) Name:Shelby Dockery Relation to Subscriber:Self Name:Shelby Dockery Payer ID:Not on file Group ID:Not on file Type:Medicaid Address: [address] [place] [id number] [place] [address] HMO Care Teams Underwriting Support Specialist Relationship Specialty Start Date End Date Linda Lorenzo MD [address] [place] [phone] PCP - General Internal Medicine 10/21/22
--- OUTSIDE RECORDS SUMMARY | 2024-06-23 16:15 | XMS_ITS | Encounter Summary ---
Author Organization [employer] Address [address] [facility] [address] [place] [address] Care Team Providers Care Mother Repairer Name Role Phone Linda Lorenzo MD Primary Care Pro vider Reason for Visit * Reason Comments Med Refill Encounter Details Date Type Department Care Team ([facility] st Contact Info) Description 03/03/2023 Refill [facility] [address] [place], [place] [phone] Linda Lorenzo MD [address] [place] [phone] Social History Tobacco Use Types Packs/Day Years [...] 11:15 AM EST Office Visit [facility] [address] [place] [address] [phone] Hyun Monsivais MD [address] [place] [address] [phone] documented as of this encounter Visit Diagnoses Not on filedocumented in this encounter Additional Health Concerns Assessment Noted Time PHQ-9 Depression Total Score: 9 01/08/20 23 11:21 AM EDT documented as of this encounter Care Teams Mother Repairer Relationship Specialty Start Date End Date Linda Lorenzo MD [address] [place] [address] [phone] PCP - General Internal Medicine 10/21/22 documented as of this encounter
== END 2024-06-23 15:20 | disposition home or self-care (01) ==
LOC: HO.CT 15:19
PROVIDERS: PCP Student in an Organized Health Care Education/Training Program; Visit Provider Internal Medicine Medical Oncology
DX: C78.7 Secondary malignant neoplasm of liver and intrahepatic bile duct (principal); C80.1 Malignant (primary) neoplasm, unspecified; R91.8 Other nonspecific abnormal finding of lung field; F17.210 Nicotine dependence, cigarettes, uncomplicated
CPT/HCPCS: 71250; 99202

== ENCOUNTER → 2024-06-23 15:22 | Outpatient (BNV) | payer OTHER, SELFPAY | PROVIDERS: PCP Student in an Organized Health Care Education/Training Program; Visit Provider Radiology Diagnostic Radiology | DX: R91.1 Solitary pulmonary nodule (principal) | CPT/HCPCS: 71250 ==

== ENCOUNTER 2024-07-12 08:53 | Day surgery (SDC) | payer OTHER, SELFPAY ==
[2024-07-12] VITALS (12 sets, daily range): BP systolic 104–154; BP diastolic 64–86; PULSE 89–102; RESP 15–26; TEMP 36.3–36.9; O2SAT 95–97; BMI 26.1
--- NOTE | ~2024-07-12 | US_ITS ---
63-year-old female with multiple liver masses, in addition to lung masses. Oncology requests a biopsy of a liver mass. PROCEDURES: 1. Limited preprocedure ultrasound of the abdomen. Permanent images saved in PACS. 2. Ultrasound-guided biopsy of the right lobe liver mass. 3. Limited post procedure ultrasound of the abdomen. Permanent images saved in PACS. CLINICIANS: Rakan Ivory PA-C MEDICATIONS: -Versed 1 mg, Fentanyl 75 mcg, and lidocaine 1% 10 mL SQ -Antibiotics: None -For additional details, please see nursing flowsheet. COMPLICATIONS: None ESTIMATED BLOOD LOSS: < 5 ml CONTRAST: None SPECIMENS: 6 x 20 g cores were sent to pathology MODERATE SEDATION TIME: 15 min PROCEDURE NOTE: The procedure, risks, benefits, and alternatives were carefully explained to the patient and written informed consent was obtained. The patient was placed supine on the exam table. A timeout was performed. A limited ultrasound of the abdomen was performed to localize the right lobe liver lesion and choose appropriate needle entry and trajectory. The patient was prepped and draped in usual sterile fashion. The skin and deeper soft tissues were anesthetized with lidocaine. Under ultrasound guidance, a 19 gauge trocar needle was advanced to the right lobe liver lesion. A 20 gauge biopsy device was inserted through the trocar needle advanced into the liver lesion. A total of 6, 20 gauge cores were performed. The specimens were placed in formalin. A total of 2 Gelfoam torpedoes were then administered through the trocar needle into the biopsy tract and at the level of the liver capsule. The needle was removed. A limited post procedure ultrasound was then performed. Images were saved in PACS. A dry dressing was applied and secured with Tegaderm. There were no immediate complications. The patient was stable after the procedure and was transferred to the post anesthesia care unit. The procedure was done under moderate sedation with a dedicated nurse for monitoring of vital signs. US/US biopsy liver Impression: Ultrasound-guided biopsy of a right lobe liver mass. This procedure was performed by Rakan Ivory PA-C and supervised by Dr. Kovacs. Electronically signed by: Mike Kovacs MD 07/12/2024 04:17 PM [facility]
[2024-07-12 10:33] LABS: Glucose, Whole Blood 202 mg/dL (60-115)
--- NOTE | 2024-07-12 11:47 | MHC.SHP ---
Pre-Procedural Eval Section A - 24 Hr Update-Section A only Date of Service: 07/12/24 Section B - Complete if H&P > 30 days Chief Complaint: malignant neoplasm of liver Details of Present Illness: 62 y/o female with liver masses concerning for metastases Relevant Family History (Specify if Yes): No Relevant Social History: Tobacco Use Present Medications: see Short Stay Collaborative assessment Medical History: Significant History History of Previous Operations: No relevant previous surgery Allergies: Allergies Allergy/AdvReac Type Severity Reaction Status Date / Time morphine [Morphine] Allergy Mild ITCHING, Verified 06/23/24 09:06 pruritus, rash Review of Systems Sugical H&P ROS: Negative: Constitution, Cardiovascular and Respiratory and Yes, Specify: Musculoskeletal (leg pain) Exam Surgical H&P Exam: Normal: Heart, Normal: Lungs, Normal: Abdomen (soft, nt), Normal: Skin and Normal: Neurological Plan 62 y/o female with multiple liver masses -Image guided liver biopsy Time Spent With Patient Time: Total time managing care of this patient today ____ minutes.
[2024-07-12] MEDS: Midazolam HCl 2 MG/2 ML VIAL 1 MG IVPUSH (11:58)
[2024-07-12] MEDS: fentaNYL citrate/PF 100 MCG/2 ML VIAL 50 MCG IVPUSH (11:59)
[2024-07-12] MEDS: fentaNYL citrate/PF 100 MCG/2 ML VIAL 25 MCG IVPUSH (12:04)
[2024-07-12] MEDS: Lidocaine HCl 1 % MPF 5 ML VIAL 10 ML SUBCUT (12:18)
[2024-07-12] MEDS: BUPivacaine MPF 0.25 % 30 ML VIAL 10 ML SUBCUT (12:19)
== END 2024-07-12 14:05 | disposition home or self-care (01) ==
LOC: HO.SSS 08:54
PROVIDERS: Physician Assistant Surgical; PCP Student in an Organized Health Care Education/Training Program; Visit Provider Internal Medicine Medical Oncology
DX: D37.6 Neoplasm of uncertain behavior of liver, gallbladder and bile ducts (principal); R91.1 Solitary pulmonary nodule; I10 Essential (primary) hypertension; I25.10 Atherosclerotic heart disease of native coronary artery without angina pectoris; E78.5 Hyperlipidemia, unspecified; E11.9 Type 2 diabetes mellitus without complications; Z79.4 Long term (current) use of insulin; Z79.84 Long term (current) use of oral hypoglycemic drugs; Z79.82 Long term (current) use of aspirin; Z79.899 Other long term (current) drug therapy; Z88.5 Allergy status to narcotic agent; F19.10 Other psychoactive substance abuse, uncomplicated; F17.210 Nicotine dependence, cigarettes, uncomplicated
CPT/HCPCS: 47000; 76942; 82947; 86850; 86900; 86901; 88307; 88313; 88341; 88342; J0665; J2003; J2250; J2310; J3010

== ENCOUNTER → 2024-07-12 10:37 | Outpatient (BNV) | payer OTHER, SELFPAY | PROVIDERS: PCP Student in an Organized Health Care Education/Training Program; Visit Provider Physician Assistant Surgical | DX: R16.0 Hepatomegaly, not elsewhere classified (principal) | CPT/HCPCS: 47000; 76942 ==

== ENCOUNTER 2024-08-04 15:19 | Outpatient (REF) | payer OTHER, SELFPAY | END 2024-08-04 15:20 | disposition home or self-care (01) | LOC: HO.MRI 15:19 | PROVIDERS: PCP Student in an Organized Health Care Education/Training Program; Visit Provider Internal Medicine Medical Oncology | DX: Z13.89 Encounter for screening for other disorder (principal) ==

== ENCOUNTER 2024-08-19 16:02 | Outpatient (REF) | payer OTHER, SELFPAY ==
--- NOTE | ~2024-08-19 | MR_ITS ---
CLINICAL HISTORY: [place] liver,to delineate lesions prior toTACE MR abdomen with and without gadolinium Comparison: CT/SD/SR - CT ABDOMEN PELVIS WO IV CON - 06/10/24 18:[address]/SR - CT ABDOMEN PELVIS W IV CON - 01/06/24 14:35 EDT Findings: There are multiple bibasilar pulmonary nodules, largest visualized of which is in the left anterior lung base measuring 18 mm. Heart size is normal. Multiple heterogeneously enhancing hepatic masses are present, largest of which is in the right hepatic lobe inferomedially measuring 42 mm, and within the medial segment left hepatic lobe measuring 47 mm. Gallbladder, biliary tree, and pancreas are within normal limits. Spleen, adrenals, and kidneys are within normal limits. Visualized bowel loops and vasculature are normal in caliber. No adenopathy. Visualized osseous structures are within normal limits. IMPRESSION: 1. 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 This document has been electronically signed by: Isac Calderon MD on 08/19/2024 18:47:44
[2024-08-19] MEDS: gadobutroL 7.5 ML VIAL IVPUSH (16:53)
--- OUTSIDE RECORDS SUMMARY | 2024-08-19 17:09 | XMS_ITS | Encounter Summary ---
Author Organization [employer] Address [address] [facility] [address] [place] [address] Care Team Providers Care Truss Driver Helper Name Role Phone Linda Lorenzo MD Primary Care Pro vider Reason for Visit * Reason Comments Med Refill Encounter Details Date Type Department Care Team ([facility] st Contact Info) Description 03/04/2023 Refill [facility] [address] [place], [place] [phone] Linda Lorenzo MD [address] [place] [address] Social History Tobacco Use Types Packs/Day Years [...] Care Team (Late st Contact Info) Description 08/26/2024 2:15 PM EDT Office Visit [facility] [address] [place] [phone] Linda Lorenzo MD [address] [place] [phone] documented as of this encounter Visit Diagnoses Not on filedocumented in this encounter Additional Health Concerns Assessment Noted Time PHQ-9 Depression Total Score: 9 01/08/20 23 11:21 AM EDT documented as of this encounter Care Teams Truss Driver Helper Relationship Specialty Start Date End Date Linda Lorenzo MD [address] [place] [address] [phone] PCP - General Internal Medicine 10/21/22 documented as of this encounter
--- OUTSIDE RECORDS SUMMARY | 2024-08-19 17:09 | XMS_ITS | Clinical Summary ---
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 50 g 023 Active TRUEplus Insulin Syringe 31G X 5/16 0.5 ML misc USE FOUR TIMES DAILY 120 each 024 Active nitroglycerin (Nitrostat) 0.4 MG SL tablet DISSOLVE 1 TABLET UNDER THE TONGUE EVERY 5 MINUTES NEEDED FOR CHEST PAIN. CALL 911 IF NO RELIEF 25 tablet 1 024 Active dulaglutide (Trulicity) 4.5 MG/0.5ML solution pen-injectorIndi cations:Type 2 diabetes mellitus with hyperglycemia, with long-term current use of insulin ([facility]) Inject 4.5 mg under the skin 1 (one) time per week. If not available 4.5 mg dose please give 3 mg until can get 4.5 mg dose --thanks 4 each 11 Active triamcinolone (Kenalog) 0.1 % ointment Apply topically 2 times daily. 14 g 024 Active ipratropium (Atrovent) 17 MCG/ACT inhalerIndicatio ns:Chronic cough Inhale 2 puffs in the morning, at noon, in the evening, and at bedtime. 12.9 g 5 2024 Active insulin glargine (Lantus SoloStar) 100 UNIT/ML pen Inject 50 Units under the skin at bedtime. 15 mL 11 Active Continuous Glucose Sensor (FreeStyle Eulalio 14 Day Sensor) misc USE DIRECTED EVERY 14 DAYS 14 each 1 Active Continuous Glucose Music Orchestrator (FreeStyle Eulalio 14 Day [employer]) device Inject 1 Device under the skin 4 times daily. 1 each Active gabapentin (Neurontin) 100 MG capsule Take 1 capsule (100 mg) by mouth Once per day. -continue??gabap entin 300 mg HS and 100 mg in am 90 capsule 2024 Active ibuprofen 400 MG tablet Take 1 tablet (400 mg) by mouth every 8 (eight) hours if needed for moderate pain. 30 tablet Active glucose blood (FREESTYLE LITE) test stripIndications :Type 2 diabetes mellitus without complications ([facility]/HCC) TEST BLOOD SUGAR ONCE DAILY NEEDED 100 strip 11 Active FreeStyle lancets 1 each by Other route Once per day. Use as needed to verify Eulalio reading. dx type 2 diabetes 60 each 11 Active empagliflozin (Jardiance) 25 MGIndications:Ty pe 2 diabetes mellitus with microalbuminuria , with long-term current use of insulin ([facility]) TAKE 1 TABLET BY MOUTH EVERY MORNING 90 tablet 1 Active pen needle 32G x 5 mm misc USE FOUR TIMES DAILY 100 each 3 Active cloNIDine (Catapres) 0.1 MG tablet TAKE 1 TABLET BY MOUTH TWICE DAILY IN THE MORNING AND AT BEDTIME 60 tablet 2 Active naloxone (Narcan) 4 mg/0.1 mL nasal sprayIndications :Right lower quadrant pain Administer 1 spray (4 mg) into affected nostril(s) if needed for opioid reversal. May repeat every 2-3 minutes if needed, alternating nostrils, until medical assistance becomes available. 2 each 025 2025 Active losartan (Cozaar) 100 MG tabletIndication s:Primary hypertension TAKE 1 TABLET BY MOUTH EVERY MORNING 90 tablet 025 Active gabapentin (Neurontin) 300 MG capsule TAKE 1 CAPSULE BY MOUTH AT BEDTIME 30 capsule 1 025 Active insulin lispro (HumaLOG Rodríguez KwikPen) 100 UNIT/ML pen INJECT 15 UNITS SUBCUTANEOUSLY WITH BREAKFAST, WITH LUNCH, AND WITH DINNER 15 mL 2 025 Active cholecalciferol (D3 Super Strength) 50 MCG (1999 UT) capsuleIndicatio ns:Other specified abnormal findings of blood chemistry TAKE 1 CAPSULE BY MOUTH EVERY MORNING 90 capsule 025 Active oxyCODONE (Roxicodone) 5 MG immediate release tabletIndication s:Right lower quadrant pain Take 1 tablet (5 mg) by mouth at bedtime. Do not start before August 13, 2024. 28 tablet 025 Active aspirin (Aspirin Low Dose) 81 MG EC tabletIndication s:Mixed hyperlipidemia TAKE 1 TABLET BY MOUTH EVERYDAY AT NOON 90 tablet 1 025 Active metFORMIN (Glucophage) 1000 MG tablet TAKE 1 TABLET BY MOUTH TWICE DAILY IN THE MORNING AND IN THE EVENING WITH FOOD 180 tablet 1 025 Active rosuvastatin (Crestor) 20 MG tabletIndication s:Mixed hyperlipidemia TAKE 1 TABLET BY MOUTH AT BEDTIME 90 tablet 1 025 Active carvedilol (Coreg) 6.25 MG tablet TAKE 1 TABLET BY MOUTH TWICE DAILY IN THE MORNING AND IN THE EVENING WITH FOOD 180 tablet 1 025 Active carvedilol (Coreg) 6.25 MG tablet TAKE 1 TABLET BY MOUTH TWICE DAILY IN THE MORNING AND IN THE EVENING WITH FOOD 180 tablet 3 024 2024 Discontinued(R eorder (will not trigger notification to Pharmacy)) rosuvastatin (Crestor) 20 MG tabletIndication s:Mixed hyperlipidemia Take 1 tablet (20 mg) by mouth at bedtime. 90 tablet 024 2024 Discontinued Aspirin Adult Low Strength 81 MG EC tabletIndication s:Mixed hyperlipidemia TAKE 1 TABLET BY MOUTH EVERYDAY AT NOON 90 tablet 024 2024 Discontinued metFORMIN (Glucophage) 1000 MG tablet TAKE 1 TABLET BY MOUTH TWICE DAILY IN THE MORNING AND IN THE EVENING WITH FOOD 180 tablet 024 2024 Discontinued oxyCODONE (Roxicodone) 5 MG immediate release tabletIndication s:Right lower quadrant pain Take 1 tablet (5 mg) by mouth at bedtime. 28 tablet 025 2024 Discontinued(R eorder (will not trigger notification to Pharmacy)) Active Problems Problem Noted Date Diagnosed Date Pulmonary nodule, left 06/21/2024 Assessment & Plan (06/21/2024 9:51 PM EST): - incidental finding on abdominal CT - upcoming appointment with oncologist Lesion of liver 06/21/2024 Assessment & Plan (07/11/2024 5:27 PM EST): - multiple lesions on recent CT scan - had appointment with oncologist and general surgeon for further evaluation Assessment & Plan (06/21/2024 9:52 PM EST): - multiple lesions on recent CT scan - upcoming appointment with oncologist for further evaluation Poor memory 03/20/2024 Chronic cough 03/20/2024 Right lower quadrant pain 01/02/2024 Assessment & Plan (07/07/2024 12:39 PM EST): - Pt is currently in the process of cancer evaluation and staging - Continue judicial use of Oxycodone 5 mg at night time Assessment & Plan (06/21/2024 9:54 PM EST): [...] last XR- per [facility] -requested already to nurse [...] try to improve DM control -referred to fiberglass ski maker -MA gave today to pt # to call for apt -increase gabapentin to 200 from 100 mg HS Assessment & Plan (01/07/2023 12:27 PM EDT): Pt reports symptoms of neuropathy in her hands and feet likely associated w uncontrolled DM -will try to improve DM control -referred to fiberglass ski maker -[place] to check status of referral -start gabapentin 100 mg HS-explained possible SE -if tolerates will increase dose at next apt Assessment & Plan (12/10/2022 12:53 PM EDT): Pt reports symptoms of neuropathy in her hands and feet likely associated w uncontrolled DM -will try to improve DM control -referred today to fiberglass ski maker -start cymbalta today for depression and may [...] month -MM 03/2022: BIRADS 1 -Colonoscopy : 2011: grade 1 Internal hemorrhoids -referred already to [...] here -MM 03/2022: BIRADS 1 -Colonoscopy : 2011: grade 1 Internal hemorrhoids -referred already to [...] 2 diabetes mellitus 09/13/2022 Assessment & Plan (07/07/2024 12:40 PM EST): 01/2023 hb1AC 9.3<----10.5 , CBG 370. [...] in 12/2022 to f in 1 year -Lead Enterprise Architect referred already-gave today phone number to Call [...] meal -pt on continues glucose check -refusing flotation tender referral -DM labs in 2 months in fasting Assessment & Plan (06/21/2024 11:22 AM EST): [...] in 12/2022 to f in 1 year -Lead Enterprise Architect referred already-gave today phone number to Call [...] meal -pt on continues glucose check -refusing flotation tender referral -DM labs in 2 months in [...] in 12/2022 to f in 1 year -Lead Enterprise Architect referred already-gave today phone number to Call [...] meal -pt on continues glucose check -refusing flotation tender referral -DM labs in 2 months in fasting Assessment & Plan (01/07/2023 12:33 PM EDT): 11/2022 hb1AC 10.5 , CBG 237 -DM labs -Pd to be done -ophthalmology : w diabetic retinopathy seen in 06/2022 To f in 12/2022 -Lead Enterprise Architect referred already -pt on jardiance 25 mg [...] on continues glucose check -will discuss about flotation tender referral at next apt Assessment & Plan (12/10/2022 1:04 PM EDT): Today hb1AC 10.5 , CBG 237 -DM labs -ophthalmology : w diabetic retinopathy seen in 06/2022 To f in 12/2022 -Lead Enterprise Architect referred today -pt on jardiance 25 mg ,insulin basal 50 u HS and lispro 10 u TID and metformin --will increase for now metformin to 1000 mg BID-denies SE w med ,not recalls higher doses. -will consider GLP1 at next apt -advised to continue f CBGS premeals and 2 h after biggest meal -pt on continues glucose check -will discuss about flotation tender referral at next apt Substance abuse 12/04/2012 [...] Tobacco dependence syndrome 06/29/2012 Assessment & Plan (07/11/2024 5:28 PM EST): Since 11 y of age until now [...] monitor at next visit Assessment & Plan (02/04/2023 1:10 PM EDT): [...] chest Essential hypertension 10/28/2011 Assessment & Plan (07/07/2024 12:40 PM EST): BP controlled today -ophthalmology : w Moderate nonproliferative diabetic retinopathy of both eyes seen in 12/2022 to f in 1 year 12/2022 Microalb neg EKG for baseline today : normal variant,QTC 444, HR 82x' -advised pt to bring home BP readings-pt to bring BP machine at next apt Assessment & Plan (02/04/2023 1:02 PM EDT): [...] Encounters Date Type Department Care Team Description 08/18/2024 Refill [facility] [address] [place] [address] Linda Lorenzo MD Mixed hyperlipidemia 08/18/2024 Refill [facility] [address] [place] [address] Juanpablo Watson MD 08/17/2024 Telephone [facility] [address] [place] [address] Linda Lorenzo MD chart prep 08/16/2024 Telephone [facility] [address] [place] [address] Linda Lorenzo MD Appointment Confirmation 08/09/2024 Refill [facility] [address] [facility] [place] [address] Lyla Cha RN Right lower quadrant pain 08/09/2024 Telephone [facility] [address] [place] [address] Linda Lorenzo MD Med Refill 07/22/2024 Telephone [facility] [address] [place] [address] Linda Lorenzo MD 07/19/2024 Refill [facility] [address] [place] [address] Linda Lorenzo MD Other specified abnormal findings of blood chemistry 07/18/2024 Refill [facility] [address] [place] [address] Linda Lorenzo MD Other specified abnormal findings of blood chemistry 07/12/2024 Orders Only GENERIC EXTERNAL DATA DEPARTMENT Provider, [facility] External Data 07/08/2024 Telephone [facility] [address] [place] [address] Linda Lorenzo MD Appointment Request 07/07/2024 11:15 AM EST Office Visit [facility] [address] [place] [address] Hyun Monsivais MD Essential hypertension (Primary Dx); Right lower quadrant pain; Type 2 diabetes mellitus with hyperglycemia, with long-term current use of insulin (CMS/HCC); Dietary counseling; Exercise counseling; Overweight; Lesion of liver; Mood disorder (CMS/HCC); Tobacco dependence syndrome 07/07/2024 Travel 06/25/2024 Refill [facility] [address] [place] [address] Linda Lorenzo MD Primary hypertension 06/23/2024 Orders Only [facility] External Provider, [facility] 06/21/2024 11:00 AM EST Office Visit [facility] [address] [place] [address] Hyun Monsivais MD Right lower quadrant pain (Primary Dx); Type 2 diabetes mellitus with hyperglycemia, with long-term current use of insulin (CMS/HCC); Pulmonary nodule, left; Lesion of liver; Essential hypertension 06/21/2024 Telephone [facility] [address] [place] [address] Linda Lorenzo MD 06/21/2024 Travel 06/19/2024 Refill [facility] [address] [place], [place] [phone] Linda Lorenzo MD 06/15/2024 Orders Only GENERIC EXTERNAL DATA DEPARTMENT Provider, Generic External Data 06/15/2024 Telephone [facility] [address] [place] [phone] Barb Hines, RN Nurse Triage 06/15/2024 Travel 06/14/2024 Telephone [facility] [address] [place] [address] Linda Lorenzo MD No Show 06/11/2024 Orders Only [facility] [address] [place] [phone] Yaquelin Subramanian ANP Lung nodule seen on imaging study (Primary Dx); Lesion of liver; Acute cystitis without hematuria 06/11/2024 Telephone [facility] [address] [place] [address] Park Cordero DO Results; Appointment Request 06/10/2024 Telephone [facility] [address] [place] [address] Mattie Nina, VANIA 06/10/2024 Orders Only GENERIC EXTERNAL DATA DEPARTMENT Provider, Generic External Data 06/10/2024 Refill [facility] [address] [place] [address] Linda Lorenzo MD 06/08/2024 Telephone [facility] [address] [place] [phone] Linda Lorenzo MD chart prep 05/26/2024 Telephone [facility] [address] [place], [place] [phone] Juanpablo Watson MD from Last 3 Months Immunizations Name Administration Dates Next Due Hep B, adult 08/07/2023,03/06/2023,02/04/2023 Influenza injectable quadriv alent preservative free 02/04/2023 Influenza, High Dose Seasona l, Preservative Free 03/19/2024 Influenza, IIV3, injectable 05/08/2017,1 05/31/2014,03/17/2014,01/29 Influenza, Split (incl. ol fied surface antigen) 06/29/2012 Pneumococcal Polysaccharide PPSV23 [...] housing situation today? I have [place] 06/21/[address] you [...] Sign Reading Time Taken Comments Blood Pressure 160/74 07/07/2024 10:59 AM EST Pulse 105 07/07/2024 10:59 AM EST Temperature 36.1 ??C (96.9 ??F) 07/07/2024 1 0:59 AM EST Respiratory Rate 14 07/07/2024 10:5 9 AM EST Oxygen Saturation 97% 06/21/2024 10: 31 AM EST Inhaled Oxygen Concentration - - Weight 61.1 kg (134 lb 12.8 oz) 025 10:59 AM EST Height 154.9 cm (5' 1 ) 03/19/2024 9:05 AM EDT Body Mass Index 25.47 03/19/2024 9:05 AM EDT Plan of Treatment Upcoming Encounters Date Type Department Care Team (Late st Contact Info) Description 08/26/2024 2:15 PM EDT Office Visit [facility] [address] [place] [phone] Linda Lorenzo MD [address] [place], [place] [phone] Health Maintenance Due Date Last Done Comments [...] 06/21/2024 SDOH Screening 06/21/2025 06/21/2024 Tobacco Screening 07/11/2025 07/11/2024 Pap Smear 01/13/2026 01/13/2023 Mammogram 04/20/2026 04/20/2024, [...] Procedure Name Priority Date/Time Associated Diagnosis Comments CEA STAIN Routine 07/12/2024 12:11 PM EST US GUIDED NEEDLE LIVER BIOPSY Routine 07/12/2024 11:50 AM EST TYPE AND SCREEN Routine 07/12/2024 10:50 AM EST GLUCOSE, WHOLE BLOOD Routine 07/12/2024 10:[address] CHEST WO CONTRAST Routine 06/23/2024 3:43 PM EST POCT GLYCOSYLATED HEMOGLOBIN (HGB A1C) Routine 06/21/2024 9:36 AM EST Type 2 diabetes mellitus with hyperglycemia, with long-term current use of insulin ([facility]) POCT GLUCOSE Routine 06/21/2024 9:36 AM EST Type 2 diabetes mellitus with hyperglycemia, with long-term current use of insulin ([facility]) URINALYSIS, COMPLETE, WITH REFLEX TO CULTURE Routine [...] Recently Relevant to Health Maintenance Results * CEA Stain (07/12/2024 12:11 PM EST) 07/12/2024 12:1 1 PM EST 07/12/2024 1:12 PM EST [facility] - 07/28/2024 12:48 PM EDT ----- ------- Name: Shelby Dockery ?Age/Sex: 63/F ? : 1960 Unit#: [id number] ?? Attend Dr: Jean Duggan MD ?Re07/12/24 ?Status: DEP SDC ? Location: HO.SSS ?Disch: ? ----- ------- SPEC : [id number] ?RECD: 07/12/24-1311 ? STATUS: ??SOUT ? REQ NUM: [id number] ? JAMES: 07/12/24-1 ? SUBM DR: Rakan Ivory ? ENTERED: ??07/12/24-1316 ?SP TYPE: Surgical ? OTHR DR: Jean Duggan MD ?Linda Lorenzo MD ORDERED: ??CEA Stain, HE Stain/2, Gross Micro L5, Cytokeratin, S 100, IHC, Add. /15, ?Special st. 2, CK7, CK20, Napsin, PAX-8, TTF-1, CD10 COMMENTS: Block A1 sent to [facility] for multiple IHC's on 07/23/24. ?Block A1 sent to [facility] for CK EUGENIO, Arginase 1, Glypican-3 ?and Desmin IHC's on 07/15/24. ? Diagnosis ?? Liver, right lobe mass, needle biopsy: ??Pleomorphic epithelioid neoplasm. ??See ?? description and comment. ? 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 ?Clinical History Liver masses ?Microscopic Description Sections have cores of liver tissue largely replaced by a carcinoma comprised of sheets of pleomorphic tumor cells with abundant eosinophilic cytoplasm and oval/irregularly-shaped nuclei with variably dark chromatin, many with distinct nucleoli. ??By immunohistochemistry, the tumor cells are reactive with caldesmon, smooth muscle actin and desmin; they are non- reactive with CK7, CK20, CEA, HSA, pancytokeratin, PAX8, CD10, S-100, napsin, TTF1, EUGENIO keratin, arginase, glypican, inhibin, myoD1, myogenin, HMB-45 and Melan A. ? Material Received ?? Right lobe liver mass-6x20 g cores ? Gross Description Received in formalin labeled ?right lobe liver mass? are several minute to 1.1 cm in length irregular shards and cylindrical threads of pale, bentley-white tissue, submitted in toto in cassettes A1 and A2. ??CEDS Tumor block: A2 This case was reviewed intradepartmentally; preliminary results were communicated to Dr. Duggan via secure text on 07/23/2024. Special studies ordered and performed: immunostains for caldesmon, smooth muscle actin, desmin, CK7, CK20, CEA, HSA, pancytokeratin, PAX8, CD10, S-100, napsin, TTF1, EUGENIO keratin, arginase, glypican, inhibin, myoD1, myogenin, HMB-45 and Melan A. ? CONTINUED ON NEXT PAGE ----- ------- Name: Shelby Dockery ?Age/Sex: 63/F ? : 1960 Unit#: [id number] ?? Attend Dr: Jean Duggan MD ?Re07/12/24 ?Status: DEP SDC ? Location: HO.SSS ?Disch: ? ----- ------- SPEC : [id number] ?RECD: 07/12/24-1311 ? STATUS: ??SOUT ? REQ NUM: [id number] ? JAMES: 07/12/24-1210 ? SUBM DR: Rakan Ivory ? ENTERED: ??07/12/24-1316 ?SP TYPE: Surgical ? OTHR DR: Jean Duggan MD ?Linda Lorenzo MD ORDERED: ??CEA Stain, HE Stain/2, Gross Micro L5, Cytokeratin, S 100, IHC, Add. immunos/15, ?Special st. 2, CK7, CK20, Napsin, PAX-8, TTF-1, CD10 COMMENTS: Block A1 sent to [facility] for multiple IHC's on 07/23/24. ?Block A1 sent to [facility] for CK EUGENIO, Arginase 1, Glypican-3 ?and Desmin IHC's on 07/15/24. ? Gross Description ?(Continued) Technical services for HMB45, MelanA, myoD1, myogenin, SMA, caldesmon, arginase, EUGENIO keratin, glypican and desmin immunohistochemistry studies performed at [facility] [employer] [address] Sumit Graham [place]; [place] #[id number] Copies To: ?? Jean Duggan MD ?? [facility] Oncology/Hematology ?? [address] ?? [place] [address] ?? [phone] ?? Linda Lorenzo MD ?? [address] [facility] ?? [place] [address] ?? [phone] ?? Rakan Ivory ?? [address] ?? [place] ?? [phone] ?? [email or web address] ----- ------- Signed (signature on file) Stefano Zamora MD 07/28/24 1248 ? ----- ------- ? END OF REPORT ? us Generic External Data Provider LAB MICROBIOLOGY - GENERAL ORDERABLES Final Result [facility] [address] [place] [address] [phone] * US Guided Needle Liver Biopsy (07/12/2024 11:50 AM EST) Anatomical Region Laterality Modality Liver Ultrasound 07/12/2024 11:5 0 AM EST Narrative 07/12/2024 4:20 PM EST ? [facility] ?[address] ?[place] [address] ? Ultrasound Report ? Signed ? Patient: Sarkis,Shelby ?MR#: [id number] ?? [id number] ? : 1960 ?Acct:[id number] ? Age/Sex: 63 / F ?ADM Date: 07/12/24 ? Loc: HO.SSS ? Attending Dr: Jean Duggan MD ? Ordering Physician: Jean Duggan MD ?? Date of Service: 07/12/24 ?? Procedure(s): US biopsy liver ?? Accession Number(s): [id number] ? cc: Jean Duggan MD; Linda Lorenzo MD ? 63-year-old female with multiple liver masses, in addition to lung ?? masses. Oncology requests a biopsy of a liver mass. ?? PROCEDURES: ?? 1. Limited preprocedure ultrasound of the abdomen. Permanent images ?? saved in PACS. ?? 2. Ultrasound-guided biopsy of the right lobe liver mass. ?? 3. Limited post procedure ultrasound of the abdomen. Permanent images ?? saved in PACS. ? CLINICIANS: ?? Rakan Ivory PA-C ? MEDICATIONS: ?? -Versed 1 mg, Fentanyl 75 mcg, and lidocaine 1% 10 mL SQ ?? -Antibiotics: None ?? -For additional details, please see nursing flowsheet. ? COMPLICATIONS: None ?? ESTIMATED BLOOD LOSS: < 5 ml ?? CONTRAST: None ?? SPECIMENS: 6 x 20 g cores were sent to pathology ?? MODERATE SEDATION TIME: 15 min ? PROCEDURE NOTE: ?? The procedure, risks, benefits, and alternatives were carefully ?? explained to the patient and written informed consent was obtained. The ?? patient was placed supine on the exam table. A timeout was performed. A ?? limited ultrasound of the abdomen was performed to localize the right ?? lobe liver lesion and choose appropriate needle entry and trajectory. ?? The patient was prepped and draped in usual sterile fashion. ? The skin and deeper soft tissues were anesthetized with lidocaine. ?? Under ultrasound guidance, a 19 gauge trocar needle was advanced to the ?? right lobe liver lesion. A 20 gauge biopsy device was inserted through ?? the trocar needle advanced into the liver lesion. A total of 6, 20 ?? gauge cores were performed. The specimens were placed in formalin. A ?? total of 2 Gelfoam torpedoes were then administered through the trocar ?? needle into the biopsy tract and at the level of the liver capsule. The ?? needle was removed. A limited post procedure ultrasound was then ?? performed. Images were saved in PACS. A dry dressing was applied and ?? secured with Tegaderm. There were no immediate complications. ? The patient was stable after the procedure and was transferred to the ?? post anesthesia care unit. ? The procedure was done under moderate sedation with a dedicated nurse ?? for monitoring of vital signs. ? US/US biopsy liver ?? Impression: ?? Ultrasound-guided biopsy of a right lobe liver mass. ? This procedure was performed by Rakan Ivory PA-C and supervised by ?? Fermín. ? Electronically signed by: ??Mike Kovacs MD ??07/12/2024 04:17 PM EST RP ? Dictated By: ?Cachorro,Rakan SZYMANSKI ? Signed By: ?<Electronically signed by Rakan Ivory in OV> ? 07/12/24 1617 ?<Electronically signed by Mike Kovacs MD in OV> ? 07/12/24 1620 ? DD/ 1150 ? TD/TT: 07/12/24 1220 ? Silk Screen Operator: ? Procedure Note Donotuseinterpreter, Image - 07/12/2024 [place] [id number] Ultrasound Report Signed Patient: Shelby DockeryMR#: [id number] : 9Acct:[id number] Age/Sex: 63 / FADM Date: 07/12/24 Loc: .[facility] Attending Dr: Jean Duggan MD Ordering Physician: Jean Duggan MD Date of Service: 07/12/24 Procedure(s): US biopsy liver Accession Number(s): [id number] cc: Jean Duggan MD; Linda Lorenzo MD 63-year-old female with multiple liver masses, in addition to lung masses. Oncology requests a biopsy of a liver mass. PROCEDURES: 1. Limited preprocedure ultrasound of the abdomen. Permanent images saved in PACS. 2. Ultrasound-guided biopsy of the right lobe liver mass. 3. Limited post procedure ultrasound of the abdomen. Permanent images saved in PACS. CLINICIANS: Rakan Ivory PA-C MEDICATIONS: -Versed 1 mg, Fentanyl 75 mcg, and lidocaine 1% 10 mL SQ -Antibiotics: None -For additional details, please see nursing flowsheet. COMPLICATIONS: None ESTIMATED BLOOD LOSS: < 5 ml CONTRAST: None SPECIMENS: 6 x 20 g cores were sent to pathology MODERATE SEDATION TIME: 15 min PROCEDURE NOTE: The procedure, risks, benefits, and alternatives were carefully explained to the patient and written informed consent was obtained. The patient was placed supine on the exam table. A timeout was performed. A limited ultrasound of the abdomen was performed to localize the right lobe liver lesion and choose appropriate needle entry and trajectory. The patient was prepped and draped in usual sterile fashion. The skin and deeper soft tissues were anesthetized with lidocaine. Under ultrasound guidance, a 19 gauge trocar needle was advanced to the right lobe liver lesion. A 20 gauge biopsy device was inserted through the trocar needle advanced into the liver lesion. A total of 6, 20 gauge cores were performed. The specimens were placed in formalin. A total of 2 Gelfoam torpedoes were then administered through the trocar needle into the biopsy tract and at the level of the liver capsule. The needle was removed. A limited post procedure ultrasound was then performed. Images were saved in PACS. A dry dressing was applied and secured with Tegaderm. There were no immediate complications. The patient was stable after the procedure and was transferred to the post anesthesia care unit. The procedure was done under moderate sedation with a dedicated nurse for monitoring of vital signs. US/US biopsy liver Impression: Ultrasound-guided biopsy of a right lobe liver mass. This procedure was performed by Rakan Ivory PA-C and supervised by Dr. Kovacs. Electronically signed by: Mike Kovacs MD 07/12/2024 04:17 PM EST Dictated By: Rakan Ivory Signed By: <Electronically signed by Rakan Ivory in OV> 07/12/24 1617 <Electronically signed by Mike Kovacs MD in OV> 07/12/24 1620 DD/ 1150 TD/TT: 07/12/24 1220 Silk Screen Operator: us [facility] External Provider IMG US PROCEDURES Final Result * Type and screen (07/12/2024 10:50 AM EST) Blood Type AP [facility] Antibody Screen NEGATIVE [facility] 07/12/2024 10:5 0 AM EST 07/12/2024 10:56 AM EST us Generic External Data Provider LAB BLOOD BANK TE ST ORDERABLES Final Result [facility] [address] [place] [phone] * (ABNORMAL) Glucose, Whole Blood (07/12/2024 10:28 AM EST) Glucose, Whole Blood 202(H) 60 - 115 mg/dL [facility] Comment:METER #: [id number] 07/12/2024 10:2 8 AM EST 07/12/2024 10:32 AM EST us Generic External Data Provider LAB BLOOD ORDERAB LES Final Result [facility] [address] [facility] [phone] * CT Chest w/o Contrast (06/23/2024 3:43 PM EST) Anatomical Region Laterality Modality Body, Chest Computed Tomogra phy 06/23/2024 3:43 PM EST Narrative 06/23/2024 5:00 PM EST ? [facility] ?[address] ?[place] [address] ? CT Scan Report ? Signed ? Patient: Sarkis,Shelby ?MR#: [id number] ?? [id number] ? : 1960 ?Acct:[id number] ? Age/Sex: 63 / F ?ADM Date: 06/23/24 ? Loc: HO.CT ? Attending Dr: Jean Duggan MD ? Ordering Physician: Jean Duggan MD ?? Date of Service: 06/23/24 ?? Procedure(s): CT chest wo IV con ?? Accession Number(s): [id number] ? cc: Jean Duggan MD; Linda Lorenzo MD ? Report Number: ?? [id number]: Total DLP = ??176.00 mGy-cm ?? EXAMINATION: ?? CT CHEST WITHOUT CONTRAST ? CLINICAL INFORMATION: ?? Liver metastases and lung nodules. ? COMPARISON: ?? CT lung screening 02/14/2023 ? TECHNIQUE: ?? Multidetector volumetric CT imaging of the chest was done. Axial MIP ?? volume rendering provided. Sagittal and coronal reformatted images were ?? obtained. ? This CT examination was performed using dose optimization techniques as ?? appropriate, variously including the following: ?? *Automated exposure control ?? *Adjustment of mA and/or kV according to patient size (this includes ?? techniques or standardized protocols for targeted exams where dose is ?? matched to indication/reason for exam; i.e. extremities or head) ?? *Use of iterative reconstruction technique ?? Patient refuse IV contrast. DLP: 176 mGy/cm. ? FINDINGS: ? BUSINESS ANALYSIS ANALYST: Well-inflated lungs. ? LUNGS: The multiple bilateral pulmonary nodules. The former nodule ?? right upper lobe axial image 24/3, a lobulated 1.3 cm nodule right ?? upper lobe axial image 65/3 4 mm nodule right lower lobe axial image ?? 64/3 ligated appearing lung nodules measuring 7 mm, 5 mm and 7 mm right ?? lower lobe axial image 75/3 through 77/3 ? Large lingular nodule measuring 2 cm axial image 83/3, 4 and nodule ?? left lower lobe anterior segment axial image 78/3, 3 mm nodule left ?? upper lobe axial image 49/3, 8 mm nodule left lower lobe superior ?? segment axial image 43/3, 2 minute nodule left lung apex image 21/3. ? MEDIASTINUM: The thyroid lobes are symmetrical and normal. The central ?? trachea and the bronchi are widely patent. Heart size and the great ?? vessels are normal caliber. No abnormal size mediastinal or hilar lymph ?? nodes seen. No pericardial effusion. ? CORONARY ARTERY CALCIFICATION: Moderate coronary artery calcifications ?? are noted. ? PLEURA: There is no pleural effusion. No pleural mass or thickening. ? AXILLA: No abnormal axillary lymph nodes seen. The chest wall is ?? unremarkable. ? UPPER ABDOMEN: There is a solitary large hypodense lesion left hepatic ?? lobe measuring 3.4 cm axial image 45/2. It is new since 01/06/2024 CT ?? abdomen exam. The exam is limited secondary lack of IV contrast which ?? patient refused. Spleen, pancreas and adrenal glands are unremarkable. ? OSSEOUS STRUCTURES: No aggressive lytic or sclerotic process seen. ? CT/CT chest wo IV con ?? IMPRESSION: ?? Multiple bilateral lung nodules consistent metastatic disease. Several ?? nodules are new with the largest nodule measuring 2 cm in the lingula. ? Metastatic liver nodules in the left hepatic lobe. Lack of IV contrast ?? restricts evaluation of liver and other nodules. ? Fleischner guidelines were followed. ? Electronically signed by: ??Hal Mai MD ??06/23/2024 04:58 PM EST RP ? Dictated By: ?Hal Mai MD ? Signed By: ?<Electronically signed by Hal Mai MD in OV> ?06/23/24 1658 ? DD/ 1543 ? TD/TT: 06/23/24 1615 ? Silk Screen Operator: MSM ? Procedure Note Donfrantzter, Image - 06/23/[address] [address] [address] Scan Report Signed Patient: Shelby DockeryMR#: [id number] : 9Acct:[id number] Age/Sex: 63 / FADM Date: 06/23/24 Loc: HO.CT Attending Dr: Jean Duggan MD Ordering Physician: Jean Duggan MD Date of Service: 06/23/24 Procedure(s): CT chest wo IV con Accession Number(s): [id number] cc: Jean Duggan MD; Linda Lorenzo MD Report Number: [id number]: Total DLP = 176.00 mGy-cm EXAMINATION: CT CHEST WITHOUT CONTRAST CLINICAL INFORMATION: Liver metastases and lung nodules. COMPARISON: CT lung screening 02/14/2023 TECHNIQUE: Multidetector volumetric CT imaging of the chest was done. Axial MIP volume rendering provided. Sagittal and coronal reformatted images were obtained. This CT examination was performed using dose optimization techniques as appropriate, variously including the following: *Automated exposure control *Adjustment of mA and/or kV according to patient size (this includes techniques or standardized protocols for targeted exams where dose is matched to indication/reason for exam; i.e. extremities or head) *Use of iterative reconstruction technique Patient refuse IV contrast. DLP: 176 mGy/cm. FINDINGS: BUSINESS ANALYSIS ANALYST: Well-inflated lungs. LUNGS: The multiple bilateral pulmonary nodules. The former nodule right upper lobe axial image 24/3, a lobulated 1.3 cm nodule right upper lobe axial image 65/3 4 mm nodule right lower lobe axial image 64/3 ligated appearing lung nodules measuring 7 mm, 5 mm and 7 mm right lower lobe axial image 75/3 through 77/3 Large lingular nodule measuring 2 cm axial image 83/3, 4 and nodule left lower lobe anterior segment axial image 78/3, 3 mm nodule left upper lobe axial image 49/3, 8 mm nodule left lower lobe superior segment axial image 43/3, 2 minute nodule left lung apex image 21/3. MEDIASTINUM: The thyroid lobes are symmetrical and normal. The central trachea and the bronchi are widely patent. Heart size and the great vessels are normal caliber. No abnormal size mediastinal or hilar lymph nodes seen. No pericardial effusion. CORONARY ARTERY CALCIFICATION: Moderate coronary artery calcifications are noted. PLEURA: There is no pleural effusion. No pleural mass or thickening. AXILLA: No abnormal axillary lymph nodes seen. The chest wall is unremarkable. UPPER ABDOMEN: There is a solitary large hypodense lesion left hepatic lobe measuring 3.4 cm axial image 45/2. It is new since 01/06/2024 CT abdomen exam. The exam is limited secondary lack of IV contrast which patient refused. Spleen, pancreas and adrenal glands are unremarkable. OSSEOUS STRUCTURES: No aggressive lytic or sclerotic process seen. CT/CT chest wo IV con IMPRESSION: Multiple bilateral lung nodules consistent metastatic disease. Several nodules are new with the largest nodule measuring 2 cm in the lingula. Metastatic liver nodules in the left hepatic lobe. Lack of IV contrast restricts evaluation of liver and other nodules. Fleischner guidelines were followed. Electronically signed by: Hal Mai MD 06/23/2024 04:58 PM EST Dictated By: Hal Mai MD Signed By: <Electronically signed by Hal Mai MD in OV> 06/23/24 1658 DD/ 1543 TD/TT: 06/23/24 1615 Silk Screen Operator: BONITA [facility] External Provider IMG CT PROCEDURES Edited Result - Final * (ABNORMAL) POCT glycosylated hemoglobin (Hgb A1c) (06/21/2024 9:36 AM EST) Hemoglobin A1C 9.8(A) 4.0 - 6.0 % QC Media Lot # [id number] Lot# Expiration Date 252 Blood Capillary blood specimen / Unknown 06/21/2024 [...] time period is included. Color Urine Yellow [facility] Appearance Urine Clear [facility] PH 5.5 5.0 - 9.0 [facility] Glucose Urine UA >=1000(A) Negative mg/dL [facility] Urine Blood Negative Negative [facility] Specific [place] - Urine 1.020 1.005 - 1.025 [facility] Urine Protein Negative Neg-Trace mg/dL [facility] Urine Ketones Negative Negative mg/dL [facility] Nitrite Urine Negative Negative [facility] Leukocyte Esterase Urine Negative Negative [facility] RBC Urine 0-2 0 - 2 /HPF [facility] Urine WBC 0-5 0 - 5 /HPF [facility] Urine Squamous Epithelial Cell 0-2 0 - 2 /HPF [facility] Urine Bacteria None Seen None Seen [facility] Hyaline Casts, Urine 0-2 0 - 2 /LPF [facility] 06/15/2024 11:1 0 AM EST 06/15/2024 11:13 AM EST Narrative [facility] - 06/15/2024 11:20 AM EST [id number], Clean Catch us Generic External Data Provider LAB URINE ORDERAB LES Final Result Performing Organization Address [facility]/State/ZIP Co de Phone Number [facility] [address] [facility] [place] [address] [phone] * CT Abdomen Pelvis w/o Contrast (06/10/2024 7:52 PM EST) Anatomical Region Laterality Modality Body, Pelvis, Abdomen Computed T omography 06/10/2024 7:52 PM EST Narrative 06/10/2024 7:53 PM EST ? [facility] ?[address] ?[place] [address] ? CT Scan Report ? Signed ? Patient: Sarkis,Shelby ?MR#: [id number] ?? [id number] ? : 1960 ?Acct:[id number] ? Age/Sex: 63 / F ?ADM Date: 06/10/24 ? Loc: HO.ED ? Attending Dr: ? Ordering Physician: Kingsley Robles ?? Date of Service: 06/10/24 ?? Procedure(s): CT abdomen pelvis wo IV con ?? Accession Number(s): [id number] ? cc: Linda Lorenzo MD; Kingsley Robles ? Report Number: ?? [id number]: Total DLP = ??396.00 mGy-cm ? CLINICAL [...] ? DD/ 51 ? TD/TT: 06/10/241951 ? Silk Screen Operator: ? Procedure Note Donfrantzter, Image - 06/10/[address] [place] [address] [address] Scan Report Signed Patient: Shelby DockeryMR#: [id number] : 9Acct:[id number] Age/Sex: 63 / FADM Date: 06/10/24 Loc: HO.ED Attending Dr: Ordering Physician: Kingsley Robles Date of Service: 06/10/24 Procedure(s): CT abdomen pelvis wo IV con Accession Number(s): [id number] cc: Linda Lorenzo MD; Kingsley Robles Report Number: [id number]: Total DLP = 396.00 mGy-cm CLINICAL HISTORY: [...] in OV> 06/10/241952 DD/ 51 TD/TT: 06/10/241951 Silk Screen Operator: [facility] External Provider IMG CT PROCEDURES Final Result * (ABNORMAL) CBC auto differential (06/10/2024 12:07 PM EST) White Blood Count 11.6(H) 4.8 - 10.8 X10*3/uL [facility] Red Blood Count 4.62 4.20 - 5.50 X10*6/uL [facility] Hemoglobin 13.0 12.0 - 16.0 g/dl [facility] Hematocrit 41.5 37.0 - 47.0 % [facility] Mean Corpuscular Volume 89.8 80.0 - 98.0 fL [facility] Mean Corpuscular Hemoglobin 28.1 27.0 - 33.0 pg [facility] Mean Corpuscular HGB Conc 31.3 31.0 - 35.0 g/dl [facility] Red Cell Distribution Width 15.3 11.0 - 16.0 % [facility] Platelet Count 489(H) 160 - 400 X10*3/uL [facility] Mean Platelet Volume 8.8(L) 9.4 - 12.3 fL [facility] Neutrophils Percent Auto 70.8 45 - 73 % [facility] Imm Gran Pct Auto 0.3 0.0 - 0.4 % [facility] Lymphocytes Percent Auto 20.3 20 - 40 % [facility] Monocytes Percent Auto 6.4 2 - 11 % [facility] Eosinophils Percent Auto 1.8 0 - 4 % [facility] Basophils Percent Auto 0.4 0 - 2 % [facility] NRBC Pct Auto 0.0 0.0 - 0.2 /100WBC [facility] Neutrophils Absolute Auto 8.2 2.0 - 8.3 x10*3/uL [facility] Imm Gran Abs Auto 0.03 0.00 - 0.03 X10*3/uL [facility] Lymphocytes Absolute Auto 2.4 1.2 - 4.9 X10*3/uL [facility] Monocytes Absolute Auto 0.8 0.1 - 1.2 X10*3/uL [facility] Eosinophils Absolute Auto 0.2 0.0 - 0.4 X10*3/uL [facility] Basophils Absolute Auto 0.1 0.0 - 0.2 X10*3/uL [facility] NRBC Abs Auto 0.000 0.0 - 0.012 X10*3/uL [facility] 06/10/2024 12:0 7 PM EST 06/10/2024 12:10 PM EST us Generic External Data Provider LAB BLOOD ORDERAB LES Final Result [facility] [address] [place] [phone] [phone] * (ABNORMAL) Comprehensive Metabolic Panel (06/10/2024 12:07 PM EST) Sodium 142 135 - 145 mmol/L [facility] Potassium 4.7 3.3 - 5.1 mmol/L [facility] Chloride 109(H) 96 - 108 mmol/L [facility] Carbon Dioxide 24 22 - 29 mmol/L [facility] Anion Gap 14 12 - 20 [facility] Urea Nitrogen (BUN) 15 9 - 16 mg/dL [facility] Creatinine, Serum 0.71 0.5 - 1.4 mg/dL [facility] Creatinine Clr Calc Pharmacy 65.6 [facility] Comment:Provided height and weight: 154.94 cm,59.874 kg.eGFR (calculated from the MDRD study equation) and eCrCl(calculated from the Cockcroft-Gault equation) are based ondifferent parameters and may not yield comparable results.If eCrCl result is absurd, please check patient'sheight/weight. Estimated Glomerular Filt Rate >60 [facility] Comment:Chronic Kidney Disea se: Estimated GFR < 60 mL/min/1.93w6Bnaosg Kidney Disease: Estimated GFR < 15 mL/min/1.73m2 Glucose 228(H) 60 - 115 mg/dL [facility] Calcium 10.3(H) 8.4 - 10.2 mg/dL [facility] Bilirubin, Total 0.2 0.0 - 1.0 mg/dL [facility] Aspartate Amino Transferase 24 5 - 31 U/L [facility] Alanine Aminotransferase 19 0 - 31 U/L [facility] Total Protein 7.9 6.5 - 8.0 g/dL [facility] Albumin Level 4.3 3.5 - 5.0 g/dL [facility] Alkaline Phosphatase 164(H) 39 - 117 U/L [facility] 06/10/2024 12:0 7 PM EST 06/10/2024 12:10 PM EST us Generic External Data Provider LAB BLOOD ORDERAB LES Final Result Performing Organization Address [facility]/State/[facility] Co de Phone Number [facility] [address] [place] [phone] * Culture, Urine, Routine (06/10/2024 12:00 AM EST) Urine Urine specimen obtained by clean catch procedure / Unknown 06/10/2024 06/10/2024 Comment:UACC Narrative [facility] - 06/13/2024 7:33 AM EST Escherichia coli Quant > 100,000 cfu/mL Escherichia coli: Ampicillin <=2(S) Escherichia coli: Cefazolin (Urine) <=1(S) Escherichia coli: Cefepime <=0.12(S) Escherichia coli: Ceftriaxone <=0.25(S) Escherichia coli: Ciprofloxacin <=0.06(S) Escherichia coli: Gentamicin <=1(S) Escherichia coli: Nitrofurantoin <=16(S) Escherichia coli: Trimethoprim/Sulfamethoxazole <=20(S) Specimen Source: Urine clean catch us Generic External Data Provider LAB MICROBIOLOGY - GENERAL ORDERABLES Final Result Performing Organization Address [facility]/State/ZIP Co de Phone Number [facility] [address] [facility] [address] [phone] * BI Mammogram Screening Tomosynthesis Bilateral (04/20/2024 11:30 AM EST) Anatomical Region Laterality Modality Breast Bilateral Mammography 04/20/2024 11:3 0 AM EST Narrative 04/26/2024 5:28 PM EST ? [facility] ? [address] ?[place] [address] ? Mammography Report ? Signed ? Patient: Sarkis,Shelby ?MR#: [id number] ?? [id number] ? : 1960 ?Acct:[id number] ? Age/Sex: 63 / F ?ADM Date: 04/20/24 ? Loc: HO.MAMMO ? Attending Dr: Maral Morrissey CNM ? Ordering Physician: Linda Lorenzo MD ?Re ?? sults: 1Negative ? Date of Service: 04/20/24 ?Follow Up: 1 Year From Orig ?? inal Mammogram ? Procedure(s): MM tomosynthesis screening BI ?? Accession Number(s): [id number] ? cc: Linda Lorenzo MD ? EXAMINATION: [...] ??Dulce Lopez DO ??04/26/2024 05:25 PM EST ? Dictated By: ?Dulce Lopez DO ? Signed By: ?<Electronically signed by Dulce Lopez, DO in OV> ? 04/26/24 1725 ? DD/ 1130 ? TD/TT: 04/20/24 1135 ? Silk Screen Operator: ? Procedure Note Pinky, Image - 04/26/2024 [facility] [address] [place] [address] Dr. [place], [place] [address] Mammography Report Signed Patient: Shelby Dockery#: [id number] : 9Acct:[id number] Age/Sex: 63 / FADM Date: 04/20/24 Loc: HO.MAMMO Attending Dr: Maral Morrissey CNM Ordering Physician: Linda Lorenzo sults: 1Negative Date of Service: 04/20/24Follow Up: 1 Year From Orig ina Mammogram Procedure(s): MM tomosynthesis screening BI Accession Number(s): [id number] cc: Linda Lorenzo MD EXAMINATION: MM SCREENING [...] by: Dulce Lopez DO 04/26/2024 05:25 PM [facility] Dictated By: Dulce Lopez DO Signed By: <Electronically signed by Dulce Lopez DO in OV> 04/26/24 1725 DD/ 1130 TD/TT: 04/20/24 1135 Silk Screen Operator: Linda Bond MD [facility] BI PROCEDURES Final Result * (ABNORMAL) Lipid Panel, Standard (11/10/2023 9:02 AM EDT) Triglycerides 260(H) <150 mg/dL [facility] Comment:Desirable Triglyceri de: less than 150 mg/dLBorderline High Triglyceride 150-199 mg/dLHigh Triglyceride: 200-499 mg/dLVery High Triglyceride: greater than or equal to 5OO mg/dL Cholesterol 157 <200 mg/dL [facility] Comment:Desirable Cholestero l: less than 200 mg/dLBorderline High Cholesterol: 200-239 mg/dLHigh Cholesterol: greater than 239 mg/dL LDL Cholesterol Calculated 61 <100 mg/dL [facility] Comment:Desirable LDL: less than 100 mg/dLNear Optimal/Above Optimal LDL: 110- 129 mg/dLBorderline High LDL: 130-159 mg/dLHigh LDL: 160-189 mg/dLVery High LDL: greater than or equal to 190 mg/dL HDL Cholesterol 44 >40 mg/dL [facility] Comment:Desirable HDL: great er than 40 mg/dL Note: This HDL assay may give artificially low results in patients with liver disease. Blood Venous blood specimen / Unknown 11/10/2023 9:02 AM EDT 11/10/2023 12:13 PM EDT Linda Bond MD LAB BLOOD ORDERAB LES Final Result Performing Organization Address [facility] Co de Phone Number [facility] [address] [place] [phone] * Hepatitis C Antibody with Reflex to HCV, RNA, Quantitative, Real-Time PCR (02/03/2023 11:42 AM EDT) Hepatitis C Antibody Nonreactive Nonreactive [facility] Comment:Antibodies to HCV no t detected; does not exclude early acuteHCV infection. Blood Venous blood specimen / Unknown 02/03/2023 11:42 AM EDT 02/03/2023 1:37 PM EDT us Linda Bond MD LAB BLOOD ORDERAB LES Final Result Performing Organization Address City/[facility]/ZIP Co de Phone Number [facility] [address] [place] [phone] * HPV mRNA E6/E7 w/Reflex to HPV Genotypes 16, 18/45 (01/13/2023 11:06 AM EDT) HPV nRNA E6/E7 Not Detected Not Detected [facility] Comment:Methodology: Transcr iption-Mediated AmplificationThis assay detects E6/E7 viral messenger RNA (mRNA) from 14high-risk HPV types (16,18,31,33,35,39,45,51,52,56,58,59,66,68).Cervical sources are required for HPV testing.If a vaginal source from a patient who has had atotal hysterectomy with removal of cervix wassubmitted, please contact the testing laboratoryfor alternative testing options.For additional information, please refer tohttp://education.[employer]/faq/XYO258r9(This link if provided for information/educational purposes only.)THIS TEST WAS PERFORMED AT:[facility] [place] [phone] RUIZ MD HPV mRNA E6/E7 TNP [facility] HPV 16 RNA [facility] HPV 18/45 RNA [facility] 01/13/2023 11:0 6 AM EDT 01/14/2023 11:25 AM EDT Maral Morrissey [facility] CYTOLOGY ORDERABLES F inal Result [facility] [address] [place] [phone] * Pap Smear (01/13/2023 11:06 AM EDT) 01/13/2023 11:0 6 AM EDT 01/14/2023 11:25 AM EDT Narrative [facility] - 01/25/2023 2:15 PM EDT ----- ------- Name: Shelby Dockery ?Age/Sex: 62/F ? : 1960 Unit#: [id number] ?? Attend Dr: MARAL MORRISSEY CNM ?Re01/13/23 ?Status: DEP REF ? [facility] ? Disch: ? ----- ------- SPEC : [id number] ?RECD: 01/14/23 ? STATUS: ??SOUT ? REQ NUM: [id number] ? JAMES: 01/13/23-1106 ? SUBM DR: MARAL MORRISSEY CNM ? ENTERED: ??01/14/23-1222 ?SP TYPE: Pap Smr ?OTHR DR: ? ORDERED: ??Pap Smear ? Interpretation ?? Satisfactory for evaluation. ?? Negative for intraepithelial lesion or malignancy. ?? Moderate inflammation. ?? Atrophic. ? HPV mRNA E6/E7: ?NOT DETECTED ? This assay detects E6/E7 viral messenger RNA (mRNA) from 14 high-risk HPV types (16, 18, ?? 31, 33, 35, 39, 45, 51, 52, 56, 58, 59, 66, 68) ? HPV testing performed by [employer], [place], [place]. ??See reference laboratory ?? portion of the EMR for entire report. ?Clinical Information LMP: Unknown date Previous PAP test: Unknown date/findings ? Material Received ?? ThinPrep-Vaginal/Cervical ----- ------- Signed (signature on file) Meredith Hernandez Red 01/25/23 4065 ? ----- ------- ? END OF REPORT ? us Maral WILLIS LAB CYTOLOGY ORDERABLES F inal Result [facility] [address] [place] [phone] from Last 3 Months or Most Recently Relevant to Health Maintenance Insurance [facility] [employer] H[employer] Care Teams [employer] Relationship Specialty Start Date End Date Linda Lorenzo MD [address] [place] [phone] PCP - General Internal Medicine 10/21/22
--- OUTSIDE RECORDS SUMMARY | 2024-08-19 17:09 | XMS_ITS | Encounter Summary ---
Author Organization [employer] Address [address] [place] [address] Care Team Providers Care Contact Person Name Role Phone Linda Lorenzo MD Primary Care Pro vider Encounter Details Date Type Department Care Team ([facility] st Contact Info) Description 02/25/2024 Orders Only [facility] [address] [place], [place] [phone] Hyun Monsivais MD [address] [place] [address] Social History Tobacco Use Types Packs/Day Years [...] Description 08/26/2024 2:15 PM EDT Office Visit [facility] [address] [place] [phone] Linda Lorenzo MD [address] [place] [phone] documented as of this encounter Visit Diagnoses Not on filedocumented in this encounter Additional Health Concerns Assessment Noted Time PHQ-9 Depression Total Score: 6 06/12/19 24 10:45 AM EST documented as of this encounter Care Teams Contact Person Relationship Specialty Start Date End Date Linda Lorenzo MD [address] [place] [phone] PCP - General Internal Medicine 10/21/22 documented as of this encounter
--- OUTSIDE RECORDS SUMMARY | 2024-08-19 17:09 | XMS_ITS | Encounter Summary ---
Author Organization [employer] Address 75 [facility] 7t [place] [address] Care Team Providers Care Heeler Name Role Phone Linda Lorenzo MD Primary Care Pro vider Reason for Visit * Reason Comments Med Refill Encounter Details Date Type Department Care Team ([facility] st Contact Info) Description 03/03/2023 Refill [facility] [address] [place], [place] [phone] Linda Lorenzo MD 230 [place] [address] Social History Tobacco Use Types Packs/Day Years [...] Description 08/26/2024 2:15 PM EDT Office Visit [facility] [address] [place] [phone] Linda Lorenzo MD [address] [place] [phone] documented as of this encounter Visit Diagnoses Not on filedocumented in this encounter Additional Health Concerns Assessment Noted Time PHQ-9 Depression Total Score: 9 01/08/20 23 11:21 AM EDT documented as of this encounter Care Teams Heeler Relationship Specialty Start Date End Date Linda Lorenzo MD [address] [place] [address] [phone] PCP - General Internal Medicine 10/21/22 documented as of this encounter
--- OUTSIDE RECORDS SUMMARY | 2024-08-19 17:09 | XMS_ITS | Encounter Summary ---
Author Organization [employer] Address 75 [facility] 7t [place] [address] Care Team Providers Care Product Mgr Name Role Phone Linda Lorenzo MD Primary Care Pro vider Reason for Visit * Reason Comments Med Refill Encounter Details Date Type Department Care Team ([facility] st Contact Info) Description 08/18/2024 Refill [facility] 230 [place], [place] [phone] Linda Lorenzo MD 230 [place] [address] Mixed hyperlipidemia Social History Tobacco Use Types Packs/Day Years [...] Description 08/26/2024 2:15 PM EDT Office Visit [facility] [address] [place] [phone] Linda Lorenzo MD [address] [place] [phone] documented as of this encounter Visit Diagnoses Diagnosis Mixed hyperlipidemia documented in this encounter Additional Health Concerns Assessment Noted Time PHQ-9 Depression Total Score: 6 06/12/19 24 10:45 AM EST documented as of this encounter Care Teams Product Mgr Relationship Specialty Start Date End Date Linda Lorenzo MD [address] [place] [phone] PCP - General Internal Medicine 10/21/22 documented as of this encounter
--- OUTSIDE RECORDS SUMMARY | 2024-08-19 17:09 | XMS_ITS | Encounter Summary ---
Author Organization [employer] Address [address] [facility] 7t [place] [address] Care Team Providers Care Checker Stocker Name Role Phone Linda Lorenzo MD Primary Care Pro vider Reason for Visit * Reason Onset Date Comments chart prep 08/17/2024 Encounter Details Date Type Department Care Team ([facility] st Contact Info) Description 08/17/2024 Telephone [facility] MEDICINE 230 [place], [place] [phone] Linda Lorenzo MD 230 [place] [address] chart prep Social History Tobacco Use Types [...] encounter Miscellaneous Notes * Telephone Encounter - Robyn Stephens MA - 08/17/2024 3:45 PM EDT Chart Prep Labs: done Images: done Vaccines due: Covid Due, Tdap Due, Hep A Due, PCV20 Due, and Shingles in pharmacy Due Referrals: Completed Screenings: Colonoscopy , Eye Exam, and Foot Exam Overdue care gaps: Glucose, Disability , and Oral Health documented in this encounter Plan of Treatment Upcoming Encounters Date Type Department Care Team (Late st Contact Info) Description 08/26/2024 2:15 PM EDT Office Visit [facility] MEDICINE [address] [place] [phone] Linda Lorenzo MD [address] [place], [place] [phone] documented as of this encounter Visit Diagnoses Not on filedocumented in this encounter Additional Health Concerns Assessment Noted Time PHQ-9 Depression Total Score: 6 06/12/19 24 10:45 AM EST documented as of this encounter Care Teams Checker Stocker Relationship Specialty Start Date End Date Linda Lorenzo MD [address] [place] [phone] PCP - General Internal Medicine 10/21/22 documented as of this encounter
--- OUTSIDE RECORDS SUMMARY | 2024-08-19 17:09 | XMS_ITS | Encounter Summary ---
Author Organization [employer] Address [address] [facility] [address] 7t [place] [address] Care Team Providers Care Tax Commissioner Name Role Phone Linda Lorenzo MD Primary Care Pro vider Reason for Visit * Reason Comments Med Refill Encounter Details Date Type Department Care Team ([facility] st Contact Info) Description 05/27/2023 Refill [facility] MEDICINE 230 [place], [place] [phone] Juanpablo Watson MD 230 [place] [address] Social History Tobacco Use Types Packs/Day Years [...] Description 08/26/2024 2:15 PM EDT Office Visit [facility] MEDICINE [address] [place] [phone] Linda Lorenzo MD [address] [place] [phone] documented as of this encounter Visit Diagnoses Not on filedocumented in this encounter Additional Health Concerns Assessment Noted Time PHQ-9 Depression Total Score: 9 01/08/20 23 11:21 AM EDT documented as of this encounter Care Teams Tax Commissioner Relationship Specialty Start Date End Date Linda Lorenzo MD [address] [place] [phone] PCP - General Internal Medicine 10/21/22 documented as of this encounter
--- OUTSIDE RECORDS SUMMARY | 2024-08-19 17:09 | XMS_ITS | Encounter Summary ---
Author Organization [employer] Address [address] [facility] [address] 7t [place] [address] Care Team Providers Care Acid Bleacher Name Role Phone Linda Lorenzo MD Primary Care Pro vider Reason for Visit * Reason Comments Med Refill Encounter Details Date Type Department Care Team ([facility] st Contact Info) Description 08/18/2024 Refill [facility] MED[facility]INE 230 [place], [place] [phone] Juanpablo Watson MD 230 [place] [address] Social History Tobacco Use Types Packs/Day Years [...] Description 08/26/2024 2:15 PM EDT Office Visit [facility] MED[facility]INE [address] [place] [phone] Linda Lorenzo MD [address] [place] [phone] documented as of this encounter Visit Diagnoses Not on filedocumented in this encounter Additional Health Concerns Assessment Noted Time PHQ-9 Depression Total Score: 6 06/12/19 24 10:45 AM EST documented as of this encounter Care Teams Acid Bleacher Relationship Specialty Start Date End Date Linda Lorenzo MD [address] [place] [phone] PCP - General Internal Medicine 10/21/22 documented as of this encounter
--- OUTSIDE RECORDS SUMMARY | 2024-08-19 17:09 | XMS_ITS | Encounter Summary ---
Author Organization [employer] Address [address] [facility] [address] 7[address] [place] [address] Care Team Providers Care Rv Mechanic Name Role Phone Linda Lorenzo MD Primary Care Pro vider Reason for Visit * Reason Comments Med Refill Patient walked reque sting refill for Motrin for patient , patient stated she went to pharmacy to get medication and it wasn't ready they sent her to green team. Encounter Details Date Type Department Care Team (Late st Contact Info) Description 01/21/2024 Refill [facility] [address] [place], [place] [phone] Linda Lorenzo MD 230 [place], [place] [phone] Social History Tobacco Use Types Packs/Day Years [...] the past 12 months, has t he [employer], gas, oil or water [employer] threatened to shut off services in your [...] Description 08/26/2024 2:15 PM EDT Office Visit [facility] [address] [place] [address] Linda Lorenzo MD 230 [place] [address] documented as of this encounter Visit Diagnoses Not on filedocumented in this encounter Additional Health Concerns Assessment Noted Time PHQ-9 Depression Total Score: 6 06/12/19 24 10:45 AM EST documented as of this encounter Care Teams Rv Mechanic Relationship Specialty Start Date End Date Linda Lorenzo MD [address] [place] [phone] PCP - General Internal Medicine 10/21/22 documented as of this encounter
--- OUTSIDE RECORDS SUMMARY | 2024-08-19 17:09 | XMS_ITS | Encounter Summary ---
Author Organization [employer] Address [address] [facility] 7t [place] [address] Care Team Providers Care Receiving Dock Checker Name Role Phone Linda Lorenzo MD Primary Care Pro vider Reason for Visit * Reason Onset Date Comments Appointment Confirmation 08/16/2024 Encounter Details Date Type Department Care Team ([facility] Contact Info) Description 08/16/2024 Telephone [facility] MEDICINE 230 [place], [place] [phone] Linda Lorenzo MD 230 [place] [address] Appointment Confirmation Social History Tobacco Use Types Packs/Day Years [...] Telephone Encounter - Robyn Stephens MA - 08/16/2024 3:02 PM EDT Inventory Control Coordinator called Patient to remind her of her appointment coming up on 08/26/24 at 2:15 PM. Patient conformed. * Telephone Encounter - Robyn Stephens MA - 08/16/2024 3:01 PM EDT ----- Message from Linda Bond MD sent at 08/16/2024 1:52 PM EDT ----- Please remind pt of her upcoming apt with me Thanks documented in this encounter Plan of Treatment Upcoming Encounters Date Type Department Care Team (Late st Contact Info) Description 08/26/2024 2:15 PM EDT Office Visit [facility]INE [address] [place] [phone] Linda Lorenzo MD [address] [place] [address] documented as of this encounter Visit Diagnoses Not on filedocumented in this encounter Additional Health Concerns Assessment Noted Time PHQ-9 Depression Total Score: 6 06/12/19 24 10:45 AM EST documented as of this encounter Care Teams Receiving Dock Checker Relationship Specialty Start Date End Date Linda Lorenzo MD [address] [place] [address] PCP - General Internal Medicine 10/21/22 documented as of this encounter
--- OUTSIDE RECORDS SUMMARY | 2024-08-19 17:09 | XMS_ITS | Encounter Summary ---
Author Organization [employer] Address 75 [facility] 7t [place] [address] Care Team Providers Care Woodwinds Teacher Name Role Phone Jhoana Oneal EMILEE Primary Care Provider [phone]- [phone] Linda Lorenzo MD Primary Care Pro vider Encounter Details Date Type Department Care Team (Late st Contact Info) Description 06/06/2022 Orders Only [facility] MEDICINE [address] [place] [address] [phone] Muriel Velazquez LPN Social History Tobacco Use [...] Description 08/26/2024 2:15 PM EDT Office Visit [facility] [address] [place] [address] [phone] Linda Lorenzo MD 230 [place], [place] [phone] documented as of this encounter Visit Diagnoses Not on filedocumented in this encounter Care Teams Woodwinds Teacher Relationship Specialty Start Date End Date Jhoana Oneal FNP PCP - General Family Medicine 04/04/22 10/20/22 Linda Lorenzo MD [address] [place] [phone] PCP - General Internal Medicine 10/21/22 documented as of this encounter
== END 2024-08-19 16:03 | disposition home or self-care (01) ==
LOC: HO.MRI 16:02
PROVIDERS: PCP Student in an Organized Health Care Education/Training Program; Visit Provider Internal Medicine Medical Oncology
DX: D49.2 Neoplasm of unspecified behavior of bone, soft tissue, and skin (principal)
CPT/HCPCS: 74183; A9585

== ENCOUNTER → 2024-08-19 16:03 | Outpatient (BNV) | payer OTHER, SELFPAY | PROVIDERS: PCP Student in an Organized Health Care Education/Training Program; Visit Provider Radiology Diagnostic Radiology | DX: R91.1 Solitary pulmonary nodule (principal) | CPT/HCPCS: 74183 ==

== ENCOUNTER 2024-08-31 11:02 | Outpatient (REF) | payer OTHER, SELFPAY ==
--- NOTE | ~2024-08-31 | PE_ITS ---
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 TECHNIQUE: 63 minutes following the intravenous administration of 16.8 mCi of fluorine 18 FDG, images from the skull base to proximal thigh were obtained using a combined PET/CT scanner with CT scan based attenuation correction. No oral or intravenous contrast was administered. Transverse, coronal, sagittal, and volume reconstruction projections were obtained. The patient's blood glucose as determined by a finger stick, was 113 mg/dL immediately prior to injection. The radiotracer was injected intravenously through left antecubital, without any complications. Total CT exam dose-length product 460 mGy-cm. * These CT images were obtained using dose optimization techniques as appropriate, variously including the following: Automated exposure control * Adjustment of mA and/or kV according to patient size (this includes techniques or standardized protocols for targeted exams where dose is matched to indication/reason for exam; i.e. extremities or head) * Use of iterative reconstruction technique COMPARISON: None available. FINDINGS: HEAD AND NECK: No abnormal radiotracer uptake. No large intracranial hemorrhage, acute territorial infarct or significant shift of midline structures. CHEST: Ports and Devices: None Lungs: There are multiple FDG active lung nodules right upper lobe left lower lobe superior segment, right lower lobe, lingula. The largest nodule with hiatus FDG activity in the lingula measures 1.[address] axial image 142/2. Pleura: There is no pleural effusion or FDG activity in the pleural space. Lymph Nodes: There is weak FDG activity seen in the left hilar region on axial PET slice 152/3. Mediastinum: There is no significant pericardial effusion/thickening. The tracheal airway is widely patent. Thyroid lobes are symmetrical and normal. Breasts/Chest Wall: No abnormal radiotracer activity seen in the axillary lymph nodes or the chest wall. ABDOMEN/PELVIS: Liver/Biliary System: There are multiple FDG avid nodules in the right and left hepatic lobe. Largest lesion left hepatic lobe measures approximately 4.[address] slice 121/2, second largest lesion in the left lobe lateral segment measures 2.[address] slice 112/2. Other largest lesion along the dome of right hepatic lobe measures 2.[address] slice 134/2. No intrahepatic ductal dilatation seen. Pancreas: Normal. Spleen: No abnormal radiotracer uptake. No evidence of splenomegaly. Adrenal Glands: No abnormal radiotracer uptake. Kidneys: No hydronephrosis, hydroureter or renal calculi bilaterally. Bowel: There is no significant bowel dilatation to suggest obstruction. Lymph Nodes: No tracer avid retroperitoneal, mesenteric or pelvic and/or groin lymphadenopathy. Pelvic Organs: The uterus is enlarged likely from underlying fibroid disease. There is moderate peripheral uterine FDG activity with central area of hypodensity likely necrosis or hypovascularity. Scattered calcifications are seen in the adnexa on CT and within the fibroid lesion. MUSCULOSKELETAL: Mild metabolic activity seen in the S1 vertebral body where lytic lesion is suspected on CT axial image 48/2 VASCULAR: Unremarkable THE SITE(S) OF MOST INTENSE FDG AVIDITY: UTERUS, LIVER AND LUNG NODULES. PET/PET CT fusion skull to thigh IMPRESSION: Significant FDG active multiple lung nodules, liver nodules and uterus consistent with primary disease and metastatic versus Solitary metabolic FDG active lesion suspected in the S1 vertebra Electronically signed by: Hal Mai MD 09/02/2024 07:58 AM EDT
--- OUTSIDE RECORDS SUMMARY | 2024-08-31 13:29 | XMS_ITS | Encounter Summary ---
Author Organization [employer] Address 75 [facility] 7t [place] [address] Care Team Providers Care Supervisor Malt House Name Role Phone Linda Lorenzo MD Primary Care Pro vider Reason for Visit * Reason Comments Med Refill Encounter Details Date Type Department Care Team ([facility] st Contact Info) Description 03/04/2023 Refill [facility]INE 230 [place], [place] [phone] Linda Lorenzo MD 230 [place] [address] Social History Tobacco Use Types Packs/Day Years [...] documented as of this encounter Care Teams Supervisor Malt House Relationship Specialty Start Date End Date Linda Lorenzo MD [address] [place] [id number] PCP - General Internal Medicine 10/21/22 documented as of this encounter
--- OUTSIDE RECORDS SUMMARY | 2024-08-31 13:29 | XMS_ITS | Encounter Summary ---
Author Organization [employer] Address [address] [facility] [address] 7[address] [place] [address] Care Team Providers Care Snowmobile Mechanic Name Role Phone Linda Lorenzo MD Primary Care Pro vider Reason for Visit * Reason Comments Med Refill Patient walked reque sting refill for Motrin for patient , patient stated she went to pharmacy to get medication and it wasn't ready they sent her to green team. Encounter Details Date Type Department Care Team (Late st Contact Info) Description 01/21/2024 Refill [facility] MEDICINE 230 [place], [place] [phone] Linda Lorenzo MD 230 [place], [place] [phone] Social History Tobacco Use Types Packs/Day Years [...] the past 12 months, has t he [employer], gas, oil or water company threatened to [...] documented as of this encounter Care Teams Snowmobile Mechanic Relationship Specialty Start Date End Date Linda Lorenzo MD [address] [place] [phone] PCP - General Internal Medicine 10/21/22 documented as of this encounter
--- OUTSIDE RECORDS SUMMARY | 2024-08-31 13:29 | XMS_ITS | Encounter Summary ---
Author Organization [employer] Address 75 [facility] 7t [place] [address] Care Team Providers Care Cheese Packer Name Role Phone Jhoana Oneal Primary Care Provider [phone]- [phone] Linda Lorenzo MD Primary Care Pro vider Encounter Details Date Type Department Care Team (Late st Contact Info) Description 06/06/2022 Orders Only [facility] MEDICINE [address] [place] [address] [phone] Muriel Velazquez LPN Social History Tobacco Use [...] on filedocumented in this encounter Care Teams Cheese Packer Relationship Specialty Start Date End Date Jhoana Oneal FNP PCP - General Family Medicine 04/04/22 10/20/22 Linda Lorenzo MD 230 [place], [place] [phone] PCP - General Internal Medicine 10/21/22 documented as of this encounter
--- OUTSIDE RECORDS SUMMARY | 2024-08-31 13:29 | XMS_ITS | Clinical Summary ---
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) Inject 4.5 mg under the skin 1 (one) time per week. If not available 4.5 mg dose please give 3 mg until can get 4.5 mg dose --thanks 4 each 024 Active triamcinolone (Kenalog) 0.1 % ointment Apply topically 2 times daily. 14 g 024 Active insulin glargine (Lantus SoloStar) 100 UNIT/ML pen Inject 50 Units under the skin at bedtime. 15 mL 11 Active Continuous Glucose Sensor (FreeStyle Eulalio 14 Day Sensor) misc USE DIRECTED EVERY 14 DAYS 14 each 1 Active Continuous Glucose Hair Colorist (FreeStyle Eulalio 14 Day [place]) device Inject 1 Device under the skin 4 times daily. 1 each Active gabapentin (Neurontin) 100 MG capsule Take 1 capsule (100 mg) by mouth Once per day. -continue??gabap entin 300 mg HS and 100 mg in am 90 capsule 024 2024 Active ibuprofen 400 MG tablet Take 1 tablet (400 mg) by mouth every 8 (eight) hours if needed for moderate pain. 30 tablet Active glucose blood (FREESTYLE LITE) test stripIndications :Type 2 diabetes mellitus without complications (CMS/HCC) TEST BLOOD SUGAR ONCE DAILY NEEDED 100 strip 11 Active FreeStyle lancets 1 each by Other route Once per day. Use as needed to verify Eulalio reading. dx type 2 diabetes 60 each 11 Active empagliflozin (Jardiance) 25 MGIndications:Ty pe 2 diabetes mellitus with microalbuminuria , with long-term current use of insulin (CMS/HCC) TAKE 1 TABLET BY MOUTH EVERY MORNING 90 tablet 1 Active pen needle 32G x 5 mm misc USE FOUR TIMES DAILY 100 each 3 025 Active cloNIDine (Catapres) 0.1 MG tablet TAKE [...] BY MOUTH EVERY MORNING 90 tablet Active gabapentin (Neurontin) 300 MG capsule TAKE 1 CAPSULE BY MOUTH AT BEDTIME 30 capsule 1 Active insulin lispro (HumaLOG Rodríguez KwikPen) 100 [...] WITH FOOD 180 tablet 1 025 Active ipratropium (Atrovent HFA) 17 MCG/ACT inhalerIndicatio ns:Chronic cough INHALE 2 PUFFS BY MOUTH 4 TIMES A DAY IN THE MORNING, AT NOON, IN THE EVENING, AND AT BEDTIME 12.9 g 2 025 Active carvedilol (Coreg) 6.25 MG tablet TAKE 1 TABLET BY MOUTH TWICE DAILY IN THE MORNING AND IN THE EVENING WITH FOOD 180 tablet 3 024 2024 Discontinued(R eorder (will not trigger notification to Pharmacy)) ipratropium (Atrovent) 17 MCG/ACT inhalerIndicatio ns:Chronic cough Inhale 2 puffs in the morning, at noon, in the evening, and at bedtime. 12.9 g 5 024 2024 Discontinued rosuvastatin (Crestor) 20 MG tabletIndication s:Mixed hyperlipidemia [...] last XR- per pt done recently at [facility] knee XR -requested already to [...] try to improve DM control -referred to audio/visual manager -MA gave today to pt # to call for apt -increase gabapentin to 200 from 100 mg HS Assessment & Plan (01/07/2023 12:27 PM EDT): Pt reports symptoms of neuropathy in her hands and feet likely associated w uncontrolled DM -will try to improve DM control -referred to audio/visual manager -[place] to check status of referral -start gabapentin 100 mg HS-explained possible SE -if tolerates will increase dose at next apt Assessment & Plan (12/10/2022 12:53 PM EDT): Pt reports symptoms of neuropathy in her hands and feet likely associated w uncontrolled DM -will try to improve DM control -referred today to audio/visual manager -start cymbalta today for depression and may [...] in 12/2022 to f in 1 year -Manager Enrollment referred already-gave today phone number to Call [...] meal -pt on continues glucose check -refusing director acute referral -DM labs in 2 months in [...] in 12/2022 to f in 1 year -Manager Enrollment referred already-gave today phone number to Call [...] meal -pt on continues glucose check -refusing director acute referral -DM labs in 2 months in [...] in 12/2022 to f in 1 year -Manager Enrollment referred already-gave today phone number to Call [...] meal -pt on continues glucose check -refusing director acute referral -DM labs in 2 months in fasting Assessment & Plan (01/07/2023 12:33 PM EDT): 11/2022 hb1AC 10.5 , CBG 237 -DM labs -Pd to be done -ophthalmology : w diabetic retinopathy seen in 06/2022 To f in 12/2022 -Manager Enrollment referred already -pt on jardiance 25 mg [...] on continues glucose check -will discuss about director acute referral at next apt Assessment & Plan (12/10/2022 1:04 PM EDT): Today hb1AC 10.5 , CBG 237 -DM labs -ophthalmology : w diabetic retinopathy seen in 06/2022 To f in 12/2022 -Manager Enrollment referred today -pt on jardiance 25 mg ,insulin basal 50 u HS and lispro 10 u TID and metformin --will increase for now metformin to 1000 mg BID-denies SE w med ,not recalls higher doses. -will consider GLP1 at next apt -advised to continue f CBGS premeals and 2 h after biggest meal -pt on continues glucose check -will discuss about director acute referral at next apt Substance abuse 12/04/2012 [...] EDT): On chronic PPIs -gastric empty study 2019: normal -Abd US 2021:Unremarkable abdominal ultrasound. -used to f w GI but lost care -referred back to GI may need to repeat EGD and colonoscopy -MA to check today status of referral Assessment & Plan (12/10/2022 1:03 PM EDT): On chronic PPIs -gastric empty studue 2019: normal -Abd US 2021:Unremarkable abdominal ultrasound. -used [...] Encounters Date Type Department Care Team Description 08/26/2024 Telephone [facility] MEDICINE [address] [place] [phone] Linda Lorenzo MD Medication Question; Prior Authorization 08/25/2024 Telephone [facility] MEDICINE [address] [place] [address] Linda Lorenzo MD FYI 08/21/2024 Refill [facility] [address] [place] [address] Linda Lorenzo MD Chronic cough 08/19/2024 Orders Only [facility] External Provider, [facility] 08/18/2024 Refill [facility] MEDICINE [address] [place] [address] Linda Lorenzo MD Mixed hyperlipidemia 08/18/2024 Refill [facility] MED[facility]INE [address] [place] [address] Juanpablo Watson MD 08/17/2024 Telephone [facility] [address] [place] [address] Linda Lorenzo MD chart prep 08/16/2024 Telephone [facility] [address] [place] [address] Linda Lorenzo MD Appointment Confirmation 08/09/2024 Refill [facility] [address] [place] [address] Lyla Cha RN Right lower quadrant pain 08/09/2024 Telephone [facility] [address] [place] [address] Linda Lorenzo MD Med Refill 07/22/2024 Telephone [facility] [address] [place] [address] Linda Lorenzo MD 07/19/2024 Refill [facility] [address] [place] [address] Linda Lorenzo MD Other specified abnormal findings of blood chemistry 07/18/2024 Refill [facility] [address] [place] [address] Linda Lorenzo MD Other specified abnormal findings of blood chemistry 07/12/2024 Orders Only GENERIC EXTERNAL DATA DEPARTMENT Provider, Generic External Data 07/08/2024 Telephone [facility] [address] [place] [address] Linda Lorenzo MD Appointment Request 07/07/2024 11:15 AM EST Office Visit [facility] [address] [place] [address] Hyun Monsivais MD Essential hypertension (Primary Dx); Right lower quadrant pain; Type 2 diabetes mellitus with hyperglycemia, with long-term current use of insulin (CMS/HCC); Dietary counseling; Exercise counseling; Overweight; Lesion of liver; Mood disorder (CMS/HCC); Tobacco dependence syndrome 07/07/2024 Travel 06/25/2024 Refill [facility] [address] [place] [address] Linda Lorenzo MD Primary hypertension 06/23/2024 Orders Only [facility] External Provider, [facility] 06/21/2024 11:00 AM EST Office Visit [facility] [address] [place] [address] Hyun Monsivais MD Right lower quadrant pain (Primary Dx); Type 2 diabetes mellitus with hyperglycemia, with long-term current use of insulin (CMS/HCC); Pulmonary nodule, left; Lesion of liver; Essential hypertension 06/21/2024 Telephone [facility] [address] [place] [address] Linda Lorenzo MD 06/21/2024 Travel 06/19/2024 Refill [facility] [address] [place] [address] Linda Lorenzo MD 06/15/2024 Orders Only GENERIC EXTERNAL DATA DEPARTMENT Provider, Generic External Data 06/15/[address] [address] Barb Hines, RN Nurse Triage 06/15/2024 Travel 06/14/[address] [address] Linda Lorenzo MD No Show 06/11/2024 Orders Only [facility] MEDICINE [address] [place] [address] [phone] Yaquelin Subramanian ANP Lung nodule seen on imaging study (Primary Dx); Lesion of liver; Acute cystitis without hematuria 06/11/2024 Telephone [facility] MEDICINE [address] [place] [address] Park Cordero DO Results; Appointment Request 06/10/2024 Telephone [facility] OPTOMETRY [address] [place], [place] [phone] [place], OD 06/10/2024 Orders Only GENERIC EXTERNAL DATA DEPARTMENT Provider, Generic External Data 06/10/2024 Refill [facility] [address] [place], [place] [phone] Linda Lorenzo MD 06/08/2024 Telephone [facility] MEDICINE [address] [place], [place] [phone] Linda Lorenzo MD chart prep from Last 3 Months Immunizations Name Administration [...] Procedure Name Priority Date/Time Associated Diagnosis Comments MR ABDOMEN W AND WO CONTRAST Routine 08/19/2024 6:47 PM EDT CEA STAIN Routine 07/12/2024 12:11 PM EST [...] hyperglycemia, with long-term current use of insulin ([facility]) POCT GLUCOSE Routine 06/21/2024 9:36 AM EST Type 2 diabetes mellitus with hyperglycemia, with long-term current use of insulin ([facility]) URINALYSIS, COMPLETE, WITH REFLEX TO CULTURE Routine [...] Recently Relevant to Health Maintenance Results * MR Abdomen w/ and w/o Contrast (08/19/2024 6:47 PM EDT) Anatomical Region Laterality Modality Abdomen Magnetic Resonan ce 08/19/2024 6:47 PM EDT Narrative 08/19/2024 6:49 PM EDT ? [facility] ?[address] ?[place] [address] ? Magnetic Resonance Report ? Signed ? Patient: Sarkis,Shelby ?MR#: [id number] ?? [id number] ? : 1960 ?Acct:[id number] ? Age/Sex: 63 / F ?ADM Date: 04/03/25 ? Loc: HO.MRI ? Attending Dr: Jean Duggan MD ? Ordering Physician: Jean Duggan MD ?? Date of Service: 08/19/24 ?? Procedure(s): MR abdomen wo/w con ?? Accession Number(s): [id number] ? cc: Jean Duggan MD; Linda Lorenzo MD ? CLINICAL HISTORY: [place] liver,to delineate lesions prior toTACE ? MR abdomen with and without gadolinium ? Comparison: CT/ME/SR - CT ABDOMEN PELVIS WO IV CON - 06/10/24 18:20 EST ?? CT/SR - CT ABDOMEN PELVIS W IV CON - 01/06/24 14:35 EDT ? Findings: ? There are multiple bibasilar pulmonary nodules, largest visualized of ?? which is in the left anterior lung base measuring 18 mm. Heart size is ?? normal. ? Multiple heterogeneously enhancing hepatic masses are present, largest of ?? which is in the right hepatic lobe inferomedially measuring 42 mm, and ?? within the medial segment left hepatic lobe measuring 47 mm. Gallbladder, ?? biliary tree, and pancreas are within normal limits. ? Spleen, adrenals, and kidneys are within normal limits. ? Visualized bowel loops and vasculature are normal in caliber. No ?? adenopathy. ? Visualized osseous structures are within normal limits. ? IMPRESSION: ?? 1. 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 ? This document has been electronically signed by: Isac Calderon MD on ?? 08/19/2024 18:47:44 ? Dictated By: ?Isac Calderon MD ? Signed By: ?<Electronically signed by Isac Calderon MD in OV> ? 08/19/24 1848 ? DD/ 1847 ? TD/TT: 08/19/24 1847 ? Roll Clamp Operator: ? Procedure Note Estevan Vance - 08/19/[address] [address] Magnetic Resonance Report Signed Patient: Shelby Dockery#: [id number] : 9Acct:[id number] Age/Sex: 63 / FADM Date: 08/19/24 Loc: HO.MRI Attending Dr: Jean Duggan MD Ordering Physician: Jean Duggan MD Date of Service: 08/19/24 Procedure(s): MR abdomen wo/w con Accession Number(s): [id number] cc: Jean Duggan MD; Linda Lorenzo MD CLINICAL HISTORY: [place] liver,to delineate lesions prior toTACE MR abdomen with and without gadolinium Comparison: CT/ME/SR - CT ABDOMEN PELVIS WO IV CON - 06/10/24 18:[address]/SR - CT ABDOMEN PELVIS W IV CON - 01/06/24 14:35 EDT Findings: There are multiple bibasilar pulmonary nodules, largest visualized of which is in the left anterior lung base measuring 18 mm. Heart size is normal. Multiple heterogeneously enhancing hepatic masses are present, largest of which is in the right hepatic lobe inferomedially measuring 42 mm, and within the medial segment left hepatic lobe measuring 47 mm. Gallbladder, biliary tree, and pancreas are within normal limits. Spleen, adrenals, and kidneys are within normal limits. Visualized bowel loops and vasculature are normal in caliber. No adenopathy. Visualized osseous structures are within normal limits. IMPRESSION: 1. 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 This document has been electronically signed by: Iasc Calderon MD on 08/19/2024 18:47:44 Dictated By: Isac Calderon MD Signed By: <Electronically signed by Isac Calderon MD in OV> 08/19/241847 DD/ 46 TD/TT: 08/19/241846 Roll Clamp Operator: [facility] External Provider IMG MRI PROCEDURES Final Result * CEA Stain (07/12/2024 12:11 PM EST) 07/12/2024 12:1 1 PM EST 07/12/2024 1:12 PM EST [facility] LABS - 07/28/2024 12:48 PM EDT ----- ------- Name: Shelby Dockery ?Age/Sex: 63/F ? : 1960 Unit#: [id number] ?? Attend Dr: Jean Duggan MD ?Re07/12/24 ?Status: DEP SDC ? Location: HO.SSS ?Disch: ? ----- ------- SPEC : [id number] ?RECD: 07/12/24-1311 ? STATUS: ??SOUT ? REQ NUM: [id number] ? JAMES: 07/12/24-1210 ? SUBM DR: Rakan Ivory ? ENTERED: ??07/12/24-1316 ?SP TYPE: Surgical ? OTHR DR: Jean Duggan MD ?Linda Lorenzo MD ORDERED: ??CEA Stain, HE Stain/2, Gross Micro L5, Cytokeratin, S 100, IHC, Add. immunos/15, ?Special st. 2, CK7, CK20, Napsin, PAX-8, TTF-1, CD10 COMMENTS: Block A1 sent to [facility] for multiple IHC's on 07/23/24. ?Block A1 sent to [facility] for CK EUGENIO, Arginase 1, Glypican-3 ?and [...] Dockery ?Age/Sex: 63/F ? : 1960 Unit#: [id number] ?? Attend Dr: Jean Duggan MD ?Re07/12/24 ?Status: DEP SDC ? Location: HO.SSS ?Disch: ? ----- ------- SPEC : [id number] ?RECD: 07/12/24-1311 ? STATUS: ??SOUT ? REQ NUM: [id number] ? JAMES: 07/12/24-1211 ? SUBM DR: Rakan Ivory ? ENTERED: ??07/12/24-1317 ?SP TYPE: Surgical ? OTHR DR: Jean Duggan MD ?Linda Lorenzo MD ORDERED: ??CEA Stain, HE Stain/2, Gross Micro L5, Cytokeratin, S 100, IHC, Add. immunos/15, ?Special st. 2, CK7, CK20, Napsin, PAX-8, TTF-1, CD10 COMMENTS: Block A1 sent to [facility] for multiple IHC's on 07/23/24. ?Block A1 sent to [facility] for CK EUGENIO, Arginase 1, Glypican-3 ?and Desmin IHC's on 07/15/24. ? Gross Description ?(Continued) Technical services for HMB45, MelanA, myoD1, myogenin, SMA, caldesmon, arginase, EUGENIO keratin, glypican and desmin immunohistochemistry studies performed at [facility] [address] Sumit Graham [place]; [place] #[id number] Copies To: ?? Jean Duggan MD ?? [facility] Oncology/Hematology ?? [address] ?? [place] [address] ?? [phone] ?? Linda Lorenzo MD ?? [address] ?? [place] [address] ?? [phone] ?? Rakan Ivory ?? [address] ?? [place] [address] ?? [phone] ?? [email or web address] ------- Signed (signature on file) Stefano Zamora MD 07/28/24 1248 ? ----- ------- ? END OF REPORT ? us Generic External Data Provider LAB MICROBIOLOGY - GENERAL ORDERABLES Final Result [facility] [address] [place] [phone] * US Guided Needle Liver Biopsy (07/12/2024 11:50 AM EST) Anatomical Region Laterality Modality Liver Ultrasound 07/12/2024 11:5 0 AM EST Narrative 07/12/2024 4:20 PM EST ? [facility] ?[address] ?[place] [address] ? Ultrasound Report ? Signed ? Patient: Sarkis,Shelby ?MR#: [id number] ?? [id number] ? : 1960 ?Acct:[id number] ? Age/Sex: 63 / F ?ADM Date: 02/24/25 ? Loc: HO.SSS ? Attending Dr: Jean Duggan MD ? Ordering Physician: Jean Duggan MD ?? Date of Service: 07/12/24 ?? Procedure(s): US biopsy liver ?? Accession Number(s): [id number] ? cc: Jean Duggan MD; Linda Lorenzo [...] 04:17 PM EST RP ? Dictated By: ?Rakan Ivory ? Signed By: ?<Electronically signed by Rakan Ivory in OV> ? 07/12/247 ?<Electronically signed by Mike Kovacs MD in OV> ? 07/12/24 1620 ? DD/ 1150 ? TD/TT: 07/12/24 1220 ? Roll Clamp Operator: ? Procedure Note Donotuseinterpreter, Image - 07/12/2024 [place] [address] Ultrasound Report Signed Patient: Shelby DockeryMR#: [id number] : 9Acct:[id number] Age/Sex: 63 / FADM Date: 07/12/24 Loc: .[facility] Attending Dr: Jean Duggan MD Ordering Physician: Jean Duggan MD Date of Service: 07/12/24 Procedure(s): US biopsy liver Accession Number(s): [id number] cc: Jean Duggan MD; Linda Lorenzo MD [...] 07/12/24 1620 DD/ 1150 TD/TT: 07/12/24 1220 Roll Clamp Operator: us [facility] External Provider IMG US PROCEDURES Final Result * Type and screen (07/12/2024 10:50 AM EST) Blood Type AP [facility] Antibody Screen NEGATIVE [facility] 07/12/2024 10:5 0 AM EST 07/12/2024 10:56 AM EST us Generic External Data Provider LAB BLOOD BANK TE ST ORDERABLES Final Result Performing Organization Address [facility] de Phone Number [facility] [address] [place] [address] [phone] * (ABNORMAL) Glucose, Whole Blood (07/12/2024 10:28 AM EST) Glucose, Whole Blood 202(H) 60 - 115 mg/dL [facility] Comment:METER #: [id number] 07/12/2024 10:2 8 AM EST 07/12/2024 10:32 AM EST us Generic External Data Provider LAB BLOOD ORDERAB LES Final Result Performing Organization Address [facility] de Phone Number [facility] [address] [place] [address] [phone] * CT Chest w/o Contrast (06/23/2024 3:43 PM EST) Anatomical Region Laterality Modality Body, Chest Computed Tomogra phy 06/23/2024 3:43 PM EST Narrative 06/23/2024 5:00 PM EST ? [facility] ?[address] ?[place] [address] ? CT Scan Report ? Signed ? Patient: Sarkis,Shelby ?MR#: [id number] ?? [id number] ? : 1960 ?Acct:[id number] ? Age/Sex: 63 / F ?ADM Date: 02/05/25 ? Loc: HO.CT ? Attending Dr: Jean Duggan MD ? Ordering Physician: Jean Duggan MD ?? Date of Service: 06/23/24 ?? Procedure(s): CT chest wo IV con ?? Accession Number(s): [id number] ? cc: Jean Duggan MD; Linda Lorenzo MD ? Report Number: ?? [id number]: Total DLP = ??176.00 mGy-cm ?? EXAMINATION: [...] contrast. DLP: 176 mGy/cm. ? FINDINGS: ? PROTOTYPE SPECIAL BUILD: Well-inflated lungs. ? LUNGS: The multiple bilateral [...] DD/ 1543 ? TD/TT: 06/23/24 1615 ? Roll Clamp Operator: MSM ? Procedure Note Pinky, Image - 06/23/[address] [address] [address] Scan Report Signed Patient: Shelby DockeryMR#: [id number] : 9Acct:[id number] Age/Sex: 63 / FADM Date: 06/23/24 Loc: HO.CT Attending Dr: Jean Duggan MD Ordering Physician: Jean Duggan MD Date of Service: 06/23/24 Procedure(s): CT chest wo IV con Accession Number(s): [id number] cc: Jean Duggan MD; Linda Lorenzo MD Report Number: [id number]: Total DLP = 176.00 mGy-cm EXAMINATION: CT [...] refuse IV contrast. DLP: 176 mGy/cm. FINDINGS: PROTOTYPE SPECIAL BUILD: Well-inflated lungs. LUNGS: The multiple bilateral pulmonary [...] by: Hal Mai MD 06/23/2024 04:58 PM [facility] Dictated By: Hal Mai MD Signed By: <Electronically signed by Hal Mai MD in OV> 06/23/24 1658 DD/ 1543 TD/TT: 06/23/24 1615 Roll Clamp Operator: BONITA [facility] External Provider IMG CT PROCEDURES Edited [...] time period is included. Color Urine Yellow [facility] Appearance Urine Clear [facility] PH 5.5 5.0 - 9.0 [facility] Glucose Urine UA >=1000(A) Negative mg/dL [facility] Urine Blood Negative Negative [facility] Specific Belcher - Urine 1.020 1.005 - 1.025 [facility] Urine Protein Negative Neg-Trace mg/dL [facility] Urine Ketones Negative Negative mg/dL [facility] Nitrite Urine Negative Negative [facility] Leukocyte Esterase Urine Negative Negative [facility] RBC Urine 0-2 0 - 2 /HPF [facility] Urine WBC 0-5 0 - 5 /HPF [facility] Urine Squamous Epithelial Cell 0-2 0 - 2 /HPF [facility] Urine Bacteria None Seen None Seen [facility] Hyaline Casts, Urine 0-2 0 - 2 /LPF [facility] 06/15/2024 11:1 0 AM EST 06/15/2024 11:13 AM EST Narrative [facility] - 06/15/2024 11:20 AM EST [id number], Clean Catch us Generic External Data Provider LAB URINE ORDERAB LES Final Result Performing Organization Address [facility]/State/[facility] Co de Phone Number [facility] [address] [place] [address] [phone] * CT Abdomen Pelvis w/o Contrast (06/10/2024 7:52 PM EST) Anatomical Region Laterality Modality Body, Pelvis, Abdomen Computed T omography 06/10/2024 7:52 PM EST Narrative 06/10/2024 7:53 PM EST ? [facility] ?[address] ?[place] [address] ? CT Scan Report ? Signed ? Patient: Sarkis,Shelby ?MR#: [id number] ?? [id number] ? : 1960 ?Acct:[id number] ? Age/Sex: 63 / F ?ADM Date: 06/10/24 ? Loc: HO.ED ? Attending Dr: ? Ordering Physician: Kingsley Robles ?? Date of Service: 06/10/24 ?? Procedure(s): CT abdomen pelvis wo IV con ?? Accession Number(s): [id number] ? cc: Linda Lorenzo MD; Kingsley Robles ? Report Number: ?? [id number]: Total DLP = ??396.00 mGy-cm ? CLINICAL [...] ? DD/ 51 ? TD/TT: 06/10/241951 ? Roll Clamp Operator: ? Procedure Note Pinky, Estevan - 06/10/[address] [place] [address] [address] Scan Report Signed Patient: Shelby DockeryMR#: [id number] : 9Acct:[id number] Age/Sex: 63 / FADM Date: 06/10/24 Loc: HO.ED Attending Dr: Ordering Physician: Kingsley Robles Date of Service: 06/10/24 Procedure(s): CT abdomen pelvis wo IV con Accession Number(s): [id number] cc: Linda Lorenzo MD; Kingsley Robles Report Number: [id number]: Total DLP = 396.00 mGy-cm CLINICAL HISTORY: [...] in OV> 06/10/241952 DD/ 51 TD/TT: 06/10/241951 Roll Clamp Operator: [facility] External Provider IMG CT PROCEDURES Final Result * (ABNORMAL) CBC auto differential (06/10/2024 12:07 PM EST) White Blood Count 11.6(H) 4.8 - 10.8 X10*3/uL [facility] Red Blood Count 4.62 4.20 - 5.50 X10*6/uL [facility] Hemoglobin 13.0 12.0 - 16.0 g/dl [facility] Hematocrit 41.5 37.0 - 47.0 % [facility] Mean Corpuscular Volume 89.8 80.0 - 98.0 fL [facility] Mean Corpuscular Hemoglobin 28.1 27.0 - 33.0 pg [facility] Mean Corpuscular HGB Conc 31.3 31.0 - 35.0 g/dl [facility] Red Cell Distribution Width 15.3 11.0 - 16.0 % [facility] Platelet Count 489(H) 160 - 400 X10*3/uL [facility] Mean Platelet Volume 8.8(L) 9.4 - 12.3 fL [facility] Neutrophils Percent Auto 70.8 45 - 73 % [facility] Imm Gran Pct Auto 0.3 0.0 - 0.4 % [facility] Lymphocytes Percent Auto 20.3 20 - 40 % [facility] Monocytes Percent Auto 6.4 2 - 11 % [facility] Eosinophils Percent Auto 1.8 0 - 4 % [facility] Basophils Percent Auto 0.4 0 - 2 % [facility] NRBC Pct Auto 0.0 0.0 - 0.2 /100WBC [facility] Neutrophils Absolute Auto 8.2 2.0 - 8.3 x10*3/uL [facility] Imm Gran Abs Auto 0.03 0.00 - 0.03 X10*3/uL [facility] Lymphocytes Absolute Auto 2.4 1.2 - 4.9 X10*3/uL [facility] Monocytes Absolute Auto 0.8 0.1 - 1.2 X10*3/uL [facility] Eosinophils Absolute Auto 0.2 0.0 - 0.4 X10*3/uL [facility] Basophils Absolute Auto 0.1 0.0 - 0.2 X10*3/uL [facility] NRBC Abs Auto 0.000 0.0 - 0.012 X10*3/uL [facility] 06/10/2024 12:0 7 PM EST 06/10/2024 12:10 PM EST us Generic External Data Provider LAB BLOOD ORDERAB LES Final Result [facility] [address], [place] [phone] * (ABNORMAL) Comprehensive Metabolic Panel (06/10/2024 12:07 PM EST) Sodium 142 135 - 145 mmol/L [facility] Potassium 4.7 3.3 - 5.1 mmol/L [facility] Chloride 109(H) 96 - 108 mmol/L [facility] Carbon Dioxide 24 22 - 29 mmol/L [facility] Anion Gap 14 12 - 20 [facility] Urea Nitrogen (BUN) 15 9 - 16 mg/dL [facility] Creatinine, Serum 0.71 0.5 - 1.4 mg/dL [facility] Creatinine Clr Calc Pharmacy 65.6 [facility] Comment:Provided height and weight: 154.94 cm,59.874 kg.eGFR (calculated from the MDRD study equation) and eCrCl(calculated from the Cockcroft-Gault equation) are based ondifferent parameters and may not yield comparable results.If eCrCl result is absurd, please check patient'sheight/weight. Estimated Glomerular Filt Rate >60 [facility] Comment:Chronic Kidney Disea se: Estimated GFR < 60 mL/min/1.80f1Docdta Kidney Disease: Estimated GFR < 15 mL/min/1.73m2 Glucose 228(H) 60 - 115 mg/dL [facility] Calcium 10.3(H) 8.4 - 10.2 mg/dL [facility] Bilirubin, Total 0.2 0.0 - 1.0 mg/dL [facility] Aspartate Amino Transferase 24 5 - 31 U/L [facility] Alanine Aminotransferase 19 0 - 31 U/L [facility] Total Protein 7.9 6.5 - 8.0 g/dL [facility] Albumin Level 4.3 3.5 - 5.0 g/dL [facility] Alkaline Phosphatase 164(H) 39 - 117 U/L [facility] 06/10/2024 12:0 7 PM EST 06/10/2024 12:10 PM EST us Generic External Data Provider LAB BLOOD ORDERAB LES Final Result [facility] [address] [place] [address] [phone] * Culture, Urine, Routine (06/10/2024 12:00 AM EST) Urine Urine specimen obtained by clean catch procedure / Unknown 06/10/2024 06/10/2024 Comment:UACC Narrative [facility] - 06/13/2024 7:33 AM EST Escherichia [...] GENERAL ORDERABLES Final Result Performing Organization Address [facility]/State/[facility] Co de Phone Number [facility] [address] [place] [address] [phone] * BI Mammogram Screening Tomosynthesis Bilateral (04/20/2024 11:30 AM EST) Anatomical Region Laterality Modality Breast Bilateral Mammography 04/20/2024 11:3 0 AM EST Narrative 04/26/2024 5:28 PM EST ? [facility] ? [address] ?[place] [address] ? Mammography Report ? Signed ? Patient: Sarkis,Shelby ?MR#: [id number] ?? [id number] ? : 1960 ?Acct:[id number] ? Age/Sex: 63 / F ?ADM Date: 12/03/24 ? Loc: HO.MAMMO ? Attending : Maral Morrissey CNM ? Ordering Physician: Linda Lorenzo MD ?Re ?? sults: 1Negative ? Date of Service: 04/20/24 ?Follow Up: 1 Year From Orig ?? inal Mammogram ? Procedure(s): MM tomosynthesis screening BI ?? Accession Number(s): [id number] ? cc: Linda Lorenzo MD ? EXAMINATION: [...] DD/ 1130 ? TD/TT: 04/20/24 1135 ? Roll Clamp Operator: ? Procedure Note Donotuseinterpreter, Image - 04/26/2024 [facility] [address] [place], [place] [address] Mammography Report Signed Patient: Shelby DockeryMR#: [id number] : 9Acct:[id number] Age/Sex: 63 / FADM Date: 04/20/24 Loc: HO.MAMMO Attending Dr: Maral WILLIS Ordering Physician: Linda Lorenzo sults: 1Negative Date of Service: 04/20/24Follow Up: 1 Year From Orig ina Mammogram Procedure(s): MM tomosynthesis screening BI Accession Number(s): [id number] cc: Linda Lorenzo MD EXAMINATION: MM SCREENING [...] by: Dulce Lopez DO 04/26/2024 05:25 PM [facility] Dictated By: Dulce Lopez DO Signed By: <Electronically signed by Dulce Lopez DO in OV> 04/26/24 1725 DD/ 1130 TD/TT: 04/20/24 1135 Roll Clamp Operator: us Linda Bond MD IMG BI PROCEDURES Final Result * (ABNORMAL) Lipid Panel, Standard (11/10/2023 9:02 AM EDT) Triglycerides 260(H) <150 mg/dL [facility] Comment:Desirable Triglyceri de: less than 150 mg/dLBorderline High Triglyceride 150-199 mg/dLHigh Triglyceride: 200-499 mg/dLVery High Triglyceride: greater than or equal to 5OO mg/dL Cholesterol 157 <200 mg/dL [facility] Comment:Desirable Cholestero l: less than 200 mg/dLBorderline High Cholesterol: 200-239 mg/dLHigh Cholesterol: greater than 239 mg/dL LDL Cholesterol Calculated 61 <100 mg/dL [facility] Comment:Desirable LDL: less than 100 mg/dLNear Optimal/Above Optimal LDL: 110- 129 mg/dLBorderline High LDL: 130-159 mg/dLHigh LDL: 160-189 mg/dLVery High LDL: greater than or equal to 190 mg/dL HDL Cholesterol 44 >40 mg/dL [facility] Comment:Desirable HDL: great er than 40 mg/dL Note: This HDL assay may give artificially low results in patients with liver disease. Blood Venous blood specimen / Unknown 11/10/2023 9:02 AM EDT 11/10/2023 12:13 PM EDT us Linda Bond MD LAB BLOOD ORDERAB LES Final Result Performing Organization Address [facility]/ZIP Co de Phone Number [facility] [address] [place] [phone] * Hepatitis C Antibody with Reflex to HCV, RNA, Quantitative, Real-Time PCR (02/03/2023 11:42 AM EDT) Hepatitis C Antibody Nonreactive Nonreactive [facility] Comment:Antibodies to HCV no t detected; does not exclude early acuteHCV infection. Blood Venous blood specimen / Unknown 02/03/2023 11:42 AM EDT 02/03/2023 1:37 PM EDT us Linda Bond MD LAB BLOOD ORDERAB LES Final Result [facility] [address] [place] [address] [phone] * HPV mRNA E6/E7 w/Reflex to HPV Genotypes 16, 18/45 (01/13/2023 11:06 AM EDT) HPV nRNA E6/E7 Not Detected Not Detected [facility] Comment:Methodology: Transcr iption-Mediated AmplificationThis assay detects E6/E7 viral messenger RNA (mRNA) from 14high-risk HPV types (16,18,31,33,35,39,45,51,52,56,58,59,66,68).Cervical sources are required for HPV testing.If a vaginal source from a patient who has had atotal hysterectomy with removal of cervix wassubmitted, please contact the testing laboratoryfor alternative testing options.For additional information, please refer tohttp://education.[employer]/faq/KQJ820z5(This link if provided for information/educational purposes only.)THIS TEST WAS PERFORMED AT:[facility] [place] [phone] RUIZ MD HPV mRNA E6/E7 [facility] HPV 16 RNA [facility] HPV 18/45 RNA [facility] 01/13/2023 11:0 6 AM EDT 01/14/2023 11:25 AM EDT Maral WILLIS LAB CYTOLOGY ORDERABLES F inal Result [facility] [address] [place] [address] [phone] * Pap Smear (01/13/2023 11:06 AM EDT) 01/13/2023 11:0 6 AM EDT 01/14/2023 11:25 AM EDT Narrative [facility] - 01/25/2023 2:15 PM EDT ----- ------- Name: SarkisAlixShelby ?Age/Sex: 62/F ? : 1960 Unit#: [id number] ?? Attend Dr: MARAL MORRISSEY CNM ?Re01/13/23 ?Status: DEP REF ? Location: HO.HHCLNP ? Disch: ? ----- ------- SPEC : [id number] ?RECD: 01/14/23 ? STATUS: ??SOUT ? REQ NUM: [id number] ? JAMES: 01/13/23-1106 ? SUBM DR: MARAL [...] 66, 68) ? HPV testing performed by [facility], [place], [place]. ??See reference laboratory ?? portion of the EMR for entire report. ?Clinical Information LMP: Unknown date Previous PAP test: Unknown date/findings ? Material Received ?? ThinPrep-Vaginal/Cervical ----- ------- Signed (signature on file) Meredith Hernandez Red 01/25/23 5460 ? ----- ------- ? END OF REPORT ? Maral Morrissey CNM LAB CYTOLOGY ORDERABLES F inal Result [facility] [address] [place] [address] [phone] from Last 3 Months or Most Recently Relevant to Health Maintenance Insurance [facility] [employer] [place] H[employer] Care Teams Assembling Motor Builder Relationship Specialty Start Date End Date Linda Lorenzo MD [address] [place] [phone] PCP - General Internal Medicine 10/21/22
--- OUTSIDE RECORDS SUMMARY | 2024-08-31 13:29 | XMS_ITS | Encounter Summary ---
Author Organization [employer] Address [address] [facility] [address] [place] [address] Care Team Providers Care Clerk Specialist Name Role Phone Linda Lorenzo MD Primary Care Pro vider Encounter Details Date Type Department Care Team ([facility] st Contact Info) Description 02/25/2024 Orders Only [facility] MEDICINE [address] [place], [place] [phone] Hyun Monsivais MD [address] [place] [address] Social History Tobacco Use Types Packs/Day Years [...] documented as of this encounter Care Teams Clerk Specialist Relationship Specialty Start Date End Date Linda Lorenzo MD [address] [place] [phone] PCP - General Internal Medicine 10/21/22 documented as of this encounter
--- OUTSIDE RECORDS SUMMARY | 2024-08-31 13:29 | XMS_ITS | Encounter Summary ---
Author Organization [employer] Address [address] [facility] 7t [place] [address] Care Team Providers Care Chief Fundraising Officer Name Role Phone Linda Lorenzo MD Primary Care Pro vider Reason for Visit * Reason Comments Med Refill Encounter Details Date Type Department Care Team ([facility] st Contact Info) Description 03/03/2023 Refill [facility] MEDICINE [address] [place], [place] [phone] Linda Lorenzo MD [address] [place] [address] Social History Tobacco Use Types Packs/Day Years [...] documented as of this encounter Care Teams Chief Fundraising Officer Relationship Specialty Start Date End Date Linda Lorenzo MD [address] [place] [phone] PCP - General Internal Medicine 10/21/22 documented as of this encounter
--- OUTSIDE RECORDS SUMMARY | 2024-08-31 13:29 | XMS_ITS | Encounter Summary ---
Author Organization [employer] Address [address] [facility] [address] [place] [address] Care Team Providers Care Softball Winder Name Role Phone Linda Lorenzo MD Primary Care Pro vider Reason for Visit * Reason Comments Med Refill Encounter Details Date Type Department Care Team ([facility] st Contact Info) Description 05/27/2023 Refill [facility] MEDICINE [address] [place], [place] [phone] Juanpablo Watson MD [address] [place] [address] Social History Tobacco Use Types Packs/Day Years [...] documented as of this encounter Care Teams Softball Winder Relationship Specialty Start Date End Date Linda Lorenzo MD [address] [place] [phone] PCP - General Internal Medicine 10/21/22 documented as of this encounter
--- OUTSIDE RECORDS SUMMARY | 2024-08-31 13:29 | XMS_ITS | Encounter Summary ---
Author Organization [employer] Address [address] [facility] 7[address] [place] [address] Care Team Providers Care Air Cargo Specialist Name Role Phone Linda Lorenzo MD Primary Care Pro vider Reason for Visit * Reason Onset Date Comments Medication Question 08/26/2024 Prior Authorization 08/26/2024 Encounter Details Date Type Department Care Team ([facility] st Contact Info) Description 08/26/2024 Telephone [facility] MEDICINE [address] [place], [place] [phone] Linda Lorenzo MD [address] [place], [place] [phone] Medication Question; Prior Authorization Social History Tobacco Use Types Packs/Day Years [...] Miscellaneous Notes * Telephone Encounter - Misty Deal RN - 08/30/2024 3:44 PM EDT Faxed signed PA packet to [employer] at [phone]. Confirmation received. Will route to [facility] nurses to see if approved in several days given message below from pharmacy. * Telephone Encounter - Misty Deal RN - 08/27/2024 12:51 PM EDT Generated PA packet for CGM eulalio 2 sensor as recommended by pharmacy. Placed on PCP desk for signature. * Telephone Encounter - Misty Deal RN - 08/26/2024 2:13 PM EDT Incoming phone call from Rosalie at [facility] pharmacy. Pharmacy stating that per pt's insurance, they can only fill 1 CGM Freestyle Eulalio 2 sensor (not 2 as normal per month). Rosalie recommends to re-do prior authorization for the Eulalio 2, advised again Eulalio 3 switch due to pt's insurance formulary. Filled 1 sensor today, pt will need another in 14 days. documented in this encounter Plan of Treatment Not on file documented as of this encounter Visit Diagnoses Not on filedocumented in this encounter Additional Health Concerns Assessment Noted Time PHQ-9 Depression Total Score: 6 06/12/19 24 10:45 AM EST documented as of this encounter Care Teams Air Cargo Specialist Relationship Specialty Start Date End Date Linda Lorenzo MD [address] [place] [phone] PCP - General Internal Medicine 10/21/22 documented as of this encounter
--- OUTSIDE RECORDS SUMMARY | 2024-08-31 13:29 | XMS_ITS | Encounter Summary ---
Author Organization [employer] Address 75 [facility] 7t [place] [address] Care Team Providers Care Leadership Development Manager Name Role Phone Linda Lorenzo MD Primary Care Pro vider Reason for Visit * Reason Onset Date Comments FYI 08/25/2024 Encounter Details Date Type Department Care Team ([facility] st Contact Info) Description 08/25/2024 Telephone [facility] MEDICINE [address] [place], [place] [phone] Linda Lorenzo MD [address] [place] [address] FYI Social History Tobacco Use Types Packs/Day Years [...] Miscellaneous Notes * Telephone Encounter - Delia Moreno - 08/25/2024 10:51 AM EDT Tc from Latricia to cancel 08/26 appt, grandchild states pt has an appt with oncologist tomorrow andit's important. Soil Chemist called pt to r/s appt, no answer. documented in this encounter Plan of Treatment Not on file documented as of this encounter Visit Diagnoses Not on filedocumented in this encounter Additional Health Concerns Assessment Noted Time PHQ-9 Depression Total Score: 6 06/12/19 24 10:45 AM EST documented as of this encounter Care Teams Leadership Development Manager Relationship Specialty Start Date End Date Linda Lorenzo MD [address] [place] [phone] PCP - General Internal Medicine 10/21/22 documented as of this encounter
== END 2024-08-31 11:03 | disposition home or self-care (01) ==
LOC: HO.PET 11:02
PROVIDERS: PCP Student in an Organized Health Care Education/Training Program; Visit Provider Internal Medicine Medical Oncology
DX: Z13.89 Encounter for screening for other disorder (principal)

== ENCOUNTER 2024-09-10 04:53 | Emergency (ER) | payer OTHER, SELFPAY ==
[2024-09-10 05:04] VITALS: BP 141/68; PULSE 96; RESP 18; TEMP 36.4; O2SAT 97; BMI 24.0
--- OUTSIDE RECORDS SUMMARY | 2024-09-10 05:18 | XMS_ITS | Encounter Summary ---
Author Organization [employer] Address 75 [facility] 7t [place] [address] Care Team Providers Care Dye Reel Operator Name Role Phone Linda Lorenzo MD Primary Care Pro vider Reason for Visit * Reason Comments Med Refill Encounter Details Date Type Department Care Team ([facility] st Contact Info) Description 03/04/2023 Refill [facility] MEDICINE [address] [place], [place] [phone] Linda Lorenzo MD [address] [place] [address] Social History Tobacco Use Types Packs/Day Years [...] documented as of this encounter Care Teams Dye Reel Operator Relationship Specialty Start Date End Date Linda Lorenzo MD [address] [place] [phone] PCP - General Internal Medicine 10/21/22 documented as of this encounter
--- OUTSIDE RECORDS SUMMARY | 2024-09-10 05:18 | XMS_ITS | Clinical Summary ---
Author Organization [employer] Address [address] [facility] [address] [place] [address] Care Team Providers Care Clerical Assistant Name Role Phone Linda Lorenzo MD [...] hyperglycemia, with long-term current use of insulin ([facility]) Inject 4.5 mg under the skin 1 [...] DAYS 14 each 1 Active Continuous Glucose Survey And Mapping Technician (FreeStyle [employer]io [address] [place]) device Inject 1 Device under the skin [...] BY MOUTH EVERYDAY AT NOON 90 tablet 2024 Discontinued metFORMIN (Glucophage) 1000 MG tablet TAKE 1 TABLET BY MOUTH TWICE DAILY IN THE MORNING AND IN THE EVENING WITH FOOD 180 tablet 024 2024 Discontinued Active Problems Problem Noted Date Diagnosed Date [...] last XR- per pt done recently at [facility] knee XR -requested already to nurse [...] try to improve DM control -referred to plier worker -MA gave today to pt # to call for apt -increase gabapentin to 200 from 100 mg HS Assessment & Plan (01/07/2023 12:27 PM EDT): Pt reports symptoms of neuropathy in her hands and feet likely associated w uncontrolled DM -will try to improve DM control -referred to plier worker -[place] to check status of referral -start gabapentin 100 mg HS-explained possible SE -if tolerates will increase dose at next apt Assessment & Plan (12/10/2022 12:53 PM EDT): Pt reports symptoms of neuropathy in her hands and feet likely associated w uncontrolled DM -will try to improve DM control -referred today to plier worker -start cymbalta today for depression and may [...] in 12/2022 to f in 1 year -Information Lead referred already-gave today phone number to Call for apt -continue jardiance 25 mg ,resume previous dose of insulin basal 50 u HS and lispro 10 u TID and metformin 1000 mg BID -To start trulicity 0.75 mg weekly-confirm today med is cover w px staff - shruthiempbrendan not covered-denies personal of fx hx of thyroid ca nor pancreatitis hx -px to get trained . Once starts getting GLP1 advise to decrease basal insulin by 20 % ( so levemir to decrease to 40 u HS and lispro 6 u w meals) -advised to continue f CBGS premeals and 2 h after biggest meal -pt on continues glucose check -refusing inside outside sales representative referral -DM labs in 2 months in [...] in 12/2022 to f in 1 year -Information Lead referred already-gave today phone number to Call [...] meal -pt on continues glucose check -refusing inside outside sales representative referral -DM labs in 2 months in [...] in 12/2022 to f in 1 year -Information Lead referred already-gave today phone number to Call [...] meal -pt on continues glucose check -refusing inside outside sales representative referral -DM labs in 2 months in fasting Assessment & Plan (01/07/2023 12:33 PM EDT): 11/2022 hb1AC 10.5 , CBG 237 -DM labs -Pd to be done -ophthalmology : w diabetic retinopathy seen in 06/2022 To f in 12/2022 -Information Lead referred already -pt on jardiance 25 mg [...] on continues glucose check -will discuss about inside outside sales representative referral at next apt Assessment & Plan (12/10/2022 1:04 PM EDT): Today hb1AC 10.5 , CBG 237 -DM labs -ophthalmology : w diabetic retinopathy seen in 06/2022 To f in 12/2022 -Information Lead referred today -pt on jardiance 25 mg ,insulin basal 50 u HS and lispro 10 u TID and metformin --will increase for now metformin to 1000 mg BID-denies SE w med ,not recalls higher doses. -will consider GLP1 at next apt -advised to continue f CBGS premeals and 2 h after biggest meal -pt on continues glucose check -will discuss about inside outside sales representative referral at next apt Substance abuse 12/04/2012 [...] Type Department Care Team Description 08/26/2024 Telephone [facility] MEDICINE [address] [place] [address] Linda Lorenzo MD Medication Question; Prior Authorization 08/25/2024 Telephone [facility] MEDICINE [address] [place] [address] Linda Lorenzo MD FYI 08/21/2024 Refill [facility] [address] [facility] [place] [address] Linda Lorenzo MD Chronic cough 08/19/2024 Orders Only [facility] External Provider, [facility] 08/18/2024 Refill [facility] MED[facility] [address] [place] [address] Linda Lorenzo MD Mixed hyperlipidemia 08/18/2024 Refill [facility] MEDICINE [address] [place] [address] Juanpablo Watson MD 08/17/2024 Telephone [facility] MEDICINE [address] [place] [address] Linda Lorenzo MD chart prep 08/16/2024 Telephone [facility] MEDICINE [address] [place] [address] Linda Lorenzo MD Appointment Confirmation 08/09/2024 Refill [facility] [address] [facility] [place] [address] Lyla Cha RN Right lower quadrant pain 08/09/2024 Telephone [facility] MEDICINE [address] [facility] [place] [address] Linda Lorenzo MD Med Refill 07/22/2024 Telephone [facility] MEDICINE [address] [place] [address] Linda Lorenzo MD 07/19/2024 Refill [facility] MEDICINE [address] [place] [address] Linda Lorenzo MD Other specified abnormal findings of blood chemistry 07/18/2024 Refill [facility] MEDICINE [address] [place] [address] Linda Lorenzo MD Other specified abnormal findings of blood chemistry 07/12/2024 Orders Only GENERIC EXTERNAL DATA DEPARTMENT Provider, Generic External Data 07/08/2024 Telephone [facility] MEDICINE [address] [place] [address] Linda Lorenzo MD Appointment Request 07/07/2024 11:15 AM EST Office Visit [facility] [address] [place] [address] Hyun Monsivais MD Essential hypertension (Primary Dx); Right lower quadrant pain; Type 2 diabetes mellitus with hyperglycemia, with long-term current use of insulin (CMS/HCC); Dietary counseling; Exercise counseling; Overweight; Lesion of liver; Mood disorder (CMS/HCC); Tobacco dependence syndrome 07/07/2024 Travel 06/25/2024 Refill [facility] [address] [place] [address] Linda Lorenzo MD Primary hypertension 06/23/2024 Orders Only [facility] External Provider, [facility] 06/21/2024 11:00 AM EST Office Visit [facility] [address] [place] [address] Hyun Monsivais MD Right lower quadrant pain (Primary Dx); Type 2 diabetes mellitus with hyperglycemia, with long-term current use of insulin (CMS/HCC); Pulmonary nodule, left; Lesion of liver; Essential hypertension 06/21/[address] [address] iLnda Lorenzo MD 06/21/2024 Travel 06/19/2024 Refill [facility] [address] [place], [place] [phone] Linda Lorenzo MD 06/15/2024 Orders Only GENERIC EXTERNAL DATA DEPARTMENT Provider, Generic External Data 06/15/[address] [address] Barb Hines, RN Nurse Triage 06/15/2024 Travel 06/14/[address] [address] Linda Lorenzo MD No Show from Last 3 Months Immunizations Name Administration [...] 01/10/2023, Additional history exists COVID-19 Vaccine ( - season) 2024 Depression Screening 06/12/2024 06/12/2023, 06/12/19 [...] Procedure Name Priority Date/Time Associated Diagnosis Comments PET/CT BONE SKULL BASE TO MID THIGH Routine 08/31/2024 11:30 AM EDT MR ABDOMEN W AND WO CONTRAST Routine [...] TO CULTURE Routine 06/15/2024 11:10 AM EST BI MAMMOGRAM SCREENING TOMOSYNTHESIS BILATERAL [...] Recently Relevant to Health Maintenance Results * PET/CT Bone Skull Base to Mid Thigh (08/31/2024 11:30 AM EDT) Anatomical Region Laterality Modality Body Computed Tomogra phy 08/31/2024 11:3 0 AM EDT Narrative 09/02/2024 8:00 AM EDT ? [facility] ?[address] ?[place] [address] ? PET Report ? Signed ? Patient: Sarkis,Shelby ?MR#: [id number] ?? [id number] ? : 1960 ?Acct:[id number] ? Age/Sex: 63 / F ?ADM Date: 08/31/24 ? Loc: HO.PET ? Attending Dr: Jean Duggan MD ? Ordering Physician: Jean Duggan MD ?? Date of Service: 08/31/24 ?? Procedure(s): PET CT fusion skull to thigh ?? Accession Number(s): [id number] ? cc: Jean Duggan MD; Linda Lorenzo MD ? EXAMINATION: ?? FLUORINE-18 FDG PET/CT SCAN ? CLINICAL INFORMATION: ?? 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 ? TECHNIQUE: ?? 63 minutes following the intravenous administration of 16.8 mCi of ?? fluorine 18 FDG, images from the skull base to proximal thigh were ?? obtained using a combined PET/CT scanner with CT scan based attenuation ?? correction. No oral or intravenous contrast was administered. ?? Transverse, coronal, sagittal, and volume reconstruction projections ?? were obtained. The patient's blood glucose as determined by a finger ?? stick, was 113 mg/dL immediately prior to injection. ? The radiotracer was injected intravenously through left antecubital, ?? without any complications. ? Total CT exam dose-length product 460 mGy-cm. ? * These CT images were obtained using dose optimization techniques as ?? appropriate, variously including the following: Automated exposure ?? control ?? * Adjustment of mA and/or kV according to patient size (this includes ?? techniques or standardized protocols for targeted exams where dose is ?? matched to indication/reason for exam; i.e. extremities or head) ?? * Use of iterative reconstruction technique ? COMPARISON: ?? None available. ? FINDINGS: ? HEAD AND NECK: No abnormal radiotracer uptake. ? No large intracranial hemorrhage, acute territorial infarct or ?? significant shift of midline structures. ? CHEST: ?? Ports and Devices: None ? Lungs: There are multiple FDG active lung nodules right upper lobe left ?? lower lobe superior segment, right lower lobe, lingula. The largest ?? nodule with hiatus FDG activity in the lingula measures 1.[address] axial ?? image 142/2. ? Pleura: There is no pleural effusion or FDG activity in the pleural ?? space. ? Lymph Nodes: There is weak FDG activity seen in the left hilar region ?? on axial PET slice 152/3. ? Mediastinum: There is no significant pericardial effusion/thickening. ?? The tracheal airway is widely patent. Thyroid lobes are symmetrical and ?? normal. ? Breasts/Chest Wall: No abnormal radiotracer activity seen in the ?? axillary lymph nodes or the chest wall. ? ABDOMEN/PELVIS: ?? Liver/Biliary System: There are multiple FDG avid nodules in the right ?? and left hepatic lobe. Largest lesion left hepatic lobe measures ?? approximately 4.[address] slice 121/2, second largest lesion in ?? the left lobe lateral segment measures 2.[address] slice 112/2. ?? Other largest lesion along the dome of right hepatic lobe measures 2.7 ?? cm on axial CT slice 134/2. ??No intrahepatic ductal dilatation seen. ? Pancreas: Normal. ? Spleen: No abnormal radiotracer uptake. No evidence of splenomegaly. ? Adrenal Glands: No abnormal radiotracer uptake. ? Kidneys: No hydronephrosis, hydroureter or renal calculi bilaterally. ? Bowel: There is no significant bowel dilatation to suggest obstruction. ? Lymph Nodes: No tracer avid retroperitoneal, mesenteric or pelvic ?? and/or groin lymphadenopathy. ? Pelvic Organs: The uterus is enlarged likely from underlying fibroid ?? disease. There is moderate peripheral uterine FDG activity with central ?? area of hypodensity likely necrosis or hypovascularity. Scattered ?? calcifications are seen in the adnexa on CT and within the fibroid ?? lesion. ? MUSCULOSKELETAL: Mild metabolic activity seen in the S1 vertebral body ?? where lytic lesion is suspected on CT axial image 48/2 ? VASCULAR: Unremarkable ? THE SITE(S) OF MOST INTENSE FDG AVIDITY: UTERUS, LIVER AND LUNG NODULES. ? PET/PET CT fusion skull to thigh ?? IMPRESSION: ?? Significant FDG active multiple lung nodules, liver nodules and uterus ?? consistent with primary disease and metastatic versus ? Solitary metabolic FDG active lesion suspected in the S1 vertebra ? Electronically signed by: ??Hal Mai MD ??09/02/2024 07:58 AM EDT RP ? Dictated By: ?Hal Mai MD ? Signed By: ?<Electronically signed by Hal Mai MD in OV> ?09/02/24 0758 ? DD/ 1130 ? TD/TT: 08/31/24 1300 ? Tax Services Professional: MSM ? 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 TECHNIQUE: 63 minutes following the intravenous administration of 16.8 mCi of fluorine 18 FDG, images from the skull base to proximal thigh were obtained using a combined PET/CT scanner with CT scan based attenuation correction. No oral or intravenous contrast was administered. Transverse, coronal, sagittal, and volume reconstruction projections were obtained. The patient's blood glucose as determined by a finger stick, was 113 mg/dL immediately prior to injection. The radiotracer was injected intravenously through left antecubital, without any complications. Total CT exam dose-length product 460 mGy-cm. * These CT images were obtained using dose optimization techniques as appropriate, variously including the following: Automated exposure control * Adjustment of mA and/or kV according to patient size (this includes techniques or standardized protocols for targeted exams where dose is matched to indication/reason for exam; i.e. extremities or head) * Use of iterative reconstruction technique COMPARISON: None available. FINDINGS: HEAD AND NECK: No abnormal radiotracer uptake. No large intracranial hemorrhage, acute territorial infarct or significant shift of midline structures. CHEST: Ports and Devices: None Lungs: There are multiple FDG active lung nodules right upper lobe left lower lobe superior segment, right lower lobe, lingula. The largest nodule with hiatus FDG activity in the lingula measures 1.[address] axial image 142/2. Pleura: There is no pleural effusion or FDG activity in the pleural space. Lymph Nodes: There is weak FDG activity seen in the left hilar region on axial PET slice 152/3. Mediastinum: There is no significant pericardial effusion/thickening. The tracheal airway is widely patent. Thyroid lobes are symmetrical and normal. Breasts/Chest Wall: No abnormal radiotracer activity seen in the axillary lymph nodes or the chest wall. ABDOMEN/PELVIS: Liver/Biliary System: There are multiple FDG avid nodules in the right and left hepatic lobe. Largest lesion left hepatic lobe measures approximately 4.[address] slice 121/2, second largest lesion in the left lobe lateral segment measures 2.[address] slice 112/2. Other largest lesion along the dome of right hepatic lobe measures 2.[address] slice 134/2. No intrahepatic ductal dilatation seen. Pancreas: Normal. Spleen: No abnormal radiotracer uptake. No evidence of splenomegaly. Adrenal Glands: No abnormal radiotracer uptake. Kidneys: No hydronephrosis, hydroureter or renal calculi bilaterally. Bowel: There is no significant bowel dilatation to suggest obstruction. Lymph Nodes: No tracer avid retroperitoneal, mesenteric or pelvic and/or groin lymphadenopathy. Pelvic Organs: The uterus is enlarged likely from underlying fibroid disease. There is moderate peripheral uterine FDG activity with central area of hypodensity likely necrosis or hypovascularity. Scattered calcifications are seen in the adnexa on CT and within the fibroid lesion. MUSCULOSKELETAL: Mild metabolic activity seen in the S1 vertebral body where lytic lesion is suspected on CT axial image 48/2 VASCULAR: Unremarkable THE SITE(S) OF MOST INTENSE FDG AVIDITY: UTERUS, LIVER AND LUNG NODULES. PET/PET CT fusion skull to thigh IMPRESSION: Significant FDG active multiple lung nodules, liver nodules and uterus consistent with primary disease and metastatic versus Solitary metabolic FDG active lesion suspected in the S1 vertebra Electronically signed by: Hal Mai MD 09/02/2024 07:58 AM EDT RP Dictated By: Hal Mai MD Signed By: <Electronically signed by Hal Mai MD in OV> 09/02/24 0758 DD/ 1130 TD/TT: 08/31/24 1300 Tax Services Professional: BONITA [facility] External Provider IMG CT PROCEDURES Final Result * MR Abdomen w/ and w/o Contrast (08/19/2024 6:47 PM EDT) Anatomical Region Laterality Modality Abdomen Magnetic Resonan ce 08/19/2024 6:47 PM EDT Narrative 08/19/2024 6:49 PM EDT ? [facility] ?[address] ?[place] [address] ? Magnetic Resonance Report ? Signed ? Patient: Sarkis,Shelby ?MR#: [id number] ?? [id number] ? : 1960 ?Acct:[id number] ? Age/Sex: 63 / F ?ADM Date: 08/19/24 ? Loc: HO.MRI ? Attending Dr: Jean Duggan MD ? Ordering Physician: Jean Duggan MD ?? Date of Service: 08/19/24 ?? Procedure(s): MR abdomen wo/w con ?? Accession Number(s): [id number] ? cc: Jean Duggan MD; Linda Lorenzo MD ? CLINICAL HISTORY: [place] liver,to delineate lesions prior toTACE ? MR abdomen with and without gadolinium ? Comparison: CT/NM/SR - CT ABDOMEN PELVIS WO IV CON [...] in OV> ? 08/19/24 1848 ? DD/ 46 ? TD/TT: 08/19/241846 ? Tax Services Professional: ? Procedure Note Donayo, Image - 08/19/2024 [place] [address] Magnetic Resonance Report Signed Patient: Shelby DockeryMR#: [id number] : 9Acct:[id number] Age/Sex: 63 / FADM Date: 08/19/24 Loc: HO.MRI Attending Dr: Jean Duggan MD Ordering Physician: Jean Duggan MD Date of Service: 08/19/24 Procedure(s): MR abdomen wo/w con Accession Number(s): [id number] cc: Jean Duggan MD; Linda Lorenzo MD CLINICAL HISTORY: [place] liver,to delineate lesions prior toTACE MR abdomen with and without gadolinium Comparison: CT/NM/SR - CT ABDOMEN PELVIS WO IV CON [...] electronically signed by: Isac Calderon MD on 08/19/2024 18:47:44 Dictated By: Isac Calderon MD Signed By: <Electronically signed by Isac Calderon MD in OV> 08/19/241847 DD/ 46 TD/TT: 08/19/241846 Tax Services Professional: [facility] External Provider IMG MRI PROCEDURES Final Result * CEA Stain (07/12/2024 12:11 PM EST) 07/12/2024 12:1 1 PM EST 07/12/2024 1:12 PM EST [facility] LABS - 07/28/2024 12:48 PM EDT ----- ------- Name: Shelby Dockery ?Age/Sex: 63/F ? : 1960 Unit#: [id number] ?? Attend Dr: Jean Duggan MD ?Re07/12/24 ?Status: DEP SDC ? Location: HO.SSS ?Disch: ? ----- ------- SPEC : [id number] ?RECD: 07/12/24-1311 ? STATUS: ??SOUT ? REQ NUM: [id number] ? JAMES: 07/12/24-1 ? SUBM DR: Rakan [...] Dockery ?Age/Sex: 63/F ? : 1960 Unit#: [id number] ?? Attend Dr: Jean Duggan MD ?Re07/12/24 ?Status: DEP SDC ? Location: HO.SSS ?Disch: ? ----- ------- SPEC : [id number] ?RECD: 07/12/24-1311 ? STATUS: ??SOUT ? REQ NUM: [id number] ? JAMES: 07/12/24-1210 ? SUBM DR: Rakan Ivory ? ENTERED: ??07/12/24-1316 ?SP TYPE: Surgical ? OTHR DR: Jean Duggan MD ?Linda Lorenzo MD ORDERED: ??CEA Stain, HE Stain/2, Gross Micro L5, Cytokeratin, S 100, IHC, Add. /15, ?Special st. 2, CK7, CK20, Napsin, PAX-8, TTF-1, CD10 COMMENTS: Block A1 sent to [facility] for multiple IHC's on 07/23/24. ?Block A1 sent to [facility] for CK EUGENIO, Arginase 1, Glypican-3 ?and Desmin IHC's on 07/15/24. ? Gross Description ?(Continued) Technical services for HMB45, MelanA, myoD1, myogenin, SMA, caldesmon, arginase, EUGENIO keratin, glypican and desmin immunohistochemistry studies performed at [facility] [address] Sumit Graham [place]; [facility] #[id number] Copies To: ?? Jean Duggan MD ?? [facility] ?? [address] ?? [place] ?? [phone] ?? Linda Lorenzo MD ?? [address] [facility] ?? [place] ?? [phone] ?? Rakan Ivory ?? [address] [facility] ?? [place] ?? [phone] ?? [email or web address] ----- ------- Signed (signature on file) Stefano Zamora MD 07/28/24 1248 ? ----- ------- ? END OF REPORT ? us Generic External Data Provider LAB MICROBIOLOGY - GENERAL ORDERABLES Final Result Performing Organization Address City/State/[facility] Co de Phone Number [facility] [address] [place] [address] [phone] * US Guided Needle Liver Biopsy (07/12/2024 11:50 AM EST) Anatomical Region Laterality Modality Liver Ultrasound 07/12/2024 11:5 0 AM EST Narrative 07/12/2024 4:20 PM EST ? [facility] ?[address] ?[place] [address] ? Ultrasound Report ? Signed ? Patient: Shelby Dockery ?MR#: [id number] ?? [id number] ? : 1960 ?Acct:[id number] ? Age/Sex: 63 / F ?ADM Date: 07/12/24 ? Loc: HO.SSS ? Attending Dr: Jean Duggan MD ? Ordering Physician: Jean Duggan MD ?? Date of Service: 07/12/24 ?? Procedure(s): US biopsy liver ?? Accession Number(s): [id number] ? cc: Jean Duggan MD; Linda Lorenzo [...] DD/ 1150 ? TD/TT: 07/12/24 1220 ? Tax Services Professional: ? Procedure Note Pinky, Image - 07/12/[address] [address] Ultrasound Report Signed Patient: Shelby DockeryMR#: [id number] : 9Acct:[id number] Age/Sex: 63 / FADM Date: 07/12/24 Loc: .[facility] Attending Dr: Jean Duggan MD Ordering Physician: Jean Duggan MD Date of Service: 07/12/24 Procedure(s): US biopsy liver Accession Number(s): [id number] cc: Jean Duggan MD; Linda Lorenzo MD [...] 07/12/24 1620 DD/ 1150 TD/TT: 07/12/24 1220 Tax Services Professional: us [facility] External Provider IMG US PROCEDURES Final Result * Type and screen (07/12/2024 10:50 AM EST) Blood Type AP [facility] Antibody Screen NEGATIVE [facility] 07/12/2024 10:5 0 AM EST 07/12/2024 10:56 AM EST us Generic External Data Provider LAB BLOOD BANK TE ST ORDERABLES Final Result Performing Organization Address [facility] Co de Phone Number [facility] [address] [place] [address] [phone] * (ABNORMAL) Glucose, Whole Blood (07/12/2024 10:28 AM EST) Glucose, Whole Blood 202(H) 60 - 115 mg/dL [facility] Comment:METER #: [id number] 07/12/2024 10:2 8 AM EST 07/12/2024 10:32 AM EST Generic External Data Provider LAB BLOOD ORDERAB LES Final Result [facility] [address] [place] [address] [phone] * CT Chest w/o Contrast (06/23/2024 3:43 PM EST) Anatomical Region Laterality Modality Body, Chest Computed Tomogra phy 06/23/2024 3:43 PM EST Narrative 06/23/2024 5:00 PM EST ? [facility] ?[address] ?[place] [address] ? CT Scan Report ? Signed ? Patient: Sarkis,Shelby ?MR#: [id number] ?? [id number] ? : 1960 ?Acct:[id number] ? Age/Sex: 63 / F ?ADM Date: 06/23/24 ? Loc: HO.CT ? Attending Dr: Jean Duggan MD ? Ordering Physician: Jean Duggan MD ?? Date of Service: 06/23/24 ?? Procedure(s): CT chest wo IV con ?? Accession Number(s): [id number] ? cc: Jean Duggan MD; Linda Lorenzo MD ? Report Number: ?? [id number]: Total DLP = ??176.00 mGy-cm ?? EXAMINATION: [...] contrast. DLP: 176 mGy/cm. ? FINDINGS: ? SALES PROGRAM MANAGER: Well-inflated lungs. ? LUNGS: The multiple bilateral [...] DD/ 1543 ? TD/TT: 06/23/24 1615 ? Tax Services Professional: MSM ? Procedure Note Donotuseinterpreter, Image - 06/23/[address] [address] [address] Scan Report Signed Patient: Shelby DockeryMR#: [id number] : 9Acct:[id number] Age/Sex: 63 / FADM Date: 06/23/24 Loc: HO.CT Attending Dr: Jean Duggan MD Ordering Physician: Jean Duggan MD Date of Service: 06/23/24 Procedure(s): CT chest wo IV con Accession Number(s): [id number] cc: Jean Duggan MD; Linda Lorenzo MD Report Number: [id number]: Total DLP = 176.00 mGy-cm EXAMINATION: CT [...] refuse IV contrast. DLP: 176 mGy/cm. FINDINGS: SALES PROGRAM MANAGER: Well-inflated lungs. LUNGS: The multiple bilateral pulmonary [...] 06/23/24 1658 DD/ 1543 TD/TT: 06/23/24 1615 Tax Services Professional: [facility] External Provider IMG CT PROCEDURES Edited Result - Final * (ABNORMAL) POCT glycosylated hemoglobin (Hgb A1c) (06/21/2024 9:36 AM EST) Hemoglobin A1C 9.8(A) 4.0 - 6.0 % QC Media Lot # [id number] Lot# Expiration Date 026 Blood Capillary blood specimen / Unknown 06/21/2024 [...] (06/15/2024 11:10 AM EST) Color Urine Yellow [facility] Appearance Urine Clear [facility] PH 5.5 5.0 - 9.0 [facility] Glucose Urine UA >=1000(A) Negative mg/dL [facility] Urine Blood Negative Negative [facility] Specific [place] - Urine 1.020 1.005 - 1.025 [facility] Urine Protein Negative Neg-Trace mg/dL [facility] Urine Ketones Negative Negative mg/dL [facility] Nitrite Urine Negative Negative [facility] Leukocyte Esterase Urine Negative Negative [facility] RBC Urine 0-2 0 - 2 /HPF [facility] Urine WBC 0-5 0 - 5 /HPF [facility] Urine Squamous Epithelial Cell 0-2 0 - 2 /HPF [facility] Urine Bacteria None Seen None Seen [facility] Hyaline Casts, Urine 0-2 0 - 2 /LPF [facility] 06/15/2024 11:1 0 AM EST 06/15/2024 11:13 AM EST Narrative [facility] - 06/15/2024 11:20 AM EST [id number], Clean [employer] us Generic External Data Provider LAB URINE ORDERAB LES Final Result [facility] [address] [place] [phone] * BI Mammogram Screening Tomosynthesis Bilateral (04/20/2024 11:30 AM EST) Anatomical Region Laterality Modality Breast Bilateral Mammography 04/20/2024 11:3 0 AM EST Narrative 04/26/2024 5:28 PM EST ? [facility] ? [address] ?[place], [place] [address] ? Mammography Report ? Signed ? Patient: Sarkis,Shelby ?MR#: [id number] ?? [id number] ? : 1960 ?Acct:[id number] ? Age/Sex: 63 / F ?ADM Date: 04/20/24 ? Loc: HO.MAMMO ? Attending Dr: Maral Morrissey CNM ? Ordering Physician: Linda Lorenzo MD ?Re ?? sults: 1Negative ? Date of Service: 04/20/24 ?Follow Up: 1 Year From Orig ?? inal Mammogram ? Procedure(s): MM tomosynthesis screening BI ?? Accession Number(s): [id number] ? cc: Linda Lorenzo MD ? EXAMINATION: [...] DD/ 1130 ? TD/TT: 04/20/24 1135 ? Tax Services Professional: ? Procedure Note Estevan Vance - 04/26/2024 [facility] [address] [place] [address] Mammography Report Signed Patient: Shelby DockeryMR#: [id number] : 9Acct:[id number] Age/Sex: 63 / FADM Date: 04/20/24 Loc: [facility] Attending Dr: Maral Morrissey CNJase Ordering Physician: Linda Lorenzo sults: 1Negative Date of Service: 04/20/24Follow Up: 1 Year From Orig inal Mammogram Procedure(s): MM tomosynthesis screening BI Accession Number(s): [id number] cc: Linda Lorenzo MD EXAMINATION: MM SCREENING [...] by: Dulce Lopez DO 04/26/2024 05:25 PM [facility] Dictated By: Dulce Lopez DO Signed By: <Electronically signed by Dulce Lopez DO in OV> 04/26/24 1725 DD/ 1130 TD/TT: 04/20/24 1135 Tax Services Professional: Linda Bond MD IMG BI PROCEDURES Final Result * (ABNORMAL) Lipid Panel, Standard (11/10/2023 9:02 AM EDT) Triglycerides 260(H) <150 mg/dL [facility] Comment:Desirable Triglyceri de: less than 150 mg/dLBorderline High Triglyceride 150-199 mg/dLHigh Triglyceride: 200-499 mg/dLVery High Triglyceride: greater than or equal to 5OO mg/dL Cholesterol 157 <200 mg/dL [facility] Comment:Desirable Cholestero l: less than 200 mg/dLBorderline High Cholesterol: 200-239 mg/dLHigh Cholesterol: greater than 239 mg/dL LDL Cholesterol Calculated 61 <100 mg/dL [facility] Comment:Desirable LDL: less than 100 mg/dLNear Optimal/Above Optimal LDL: 110- 129 mg/dLBorderline High LDL: 130-159 mg/dLHigh LDL: 160-189 mg/dLVery High LDL: greater than or equal to 190 mg/dL HDL Cholesterol 44 >40 mg/dL [facility] Comment:Desirable HDL: great er than 40 mg/dL Note: This HDL assay may give artificially low results in patients with liver disease. Blood Venous blood specimen / Unknown 11/10/2023 9:02 AM EDT 11/10/2023 12:13 PM EDT Linda Bond MD LAB BLOOD ORDERAB LES Final Result Performing Organization Address City/[facility]/ZIP Co de Phone Number [facility] [address] [place] [phone] * Hepatitis C Antibody with Reflex to HCV, RNA, Quantitative, Real-Time PCR (02/03/2023 11:42 AM EDT) Pathologist [facility] Hepatitis C Antibody Nonreactive Nonreactive [facility] Comment:Antibodies to HCV no t detected; does not exclude early acuteHCV infection. Blood Venous blood specimen / Unknown 02/03/2023 11:42 AM EDT 02/03/2023 1:37 PM EDT us Linda Bond MD LAB BLOOD ORDERAB LES Final Result Performing Organization Address City/[facility]/ZIP Co de Phone Number [facility] [address] [place] [phone] * HPV mRNA E6/E7 w/Reflex to HPV Genotypes 16, 18/45 (01/13/2023 11:06 AM EDT) Pathologist [facility] HPV nRNA E6/E7 Not Detected Not Detected [facility] Comment:Methodology: Transcr iption-Mediated AmplificationThis assay detects E6/E7 viral messenger RNA (mRNA) from 14high-risk HPV types (16,18,31,33,35,39,45,51,52,56,58,59,66,68).Cervical sources are required for HPV testing.If a vaginal source from a patient who has had atotal hysterectomy with removal of cervix wassubmitted, please contact the testing laboratoryfor alternative testing options.For additional information, please refer tohttp://education.[employer]/faq/THS973v0(This link if provided for information/educational purposes only.)THIS TEST WAS PERFORMED AT:[employer] [place] [phone] RUIZ MD HPV mRNA E6/E7 TNP [facility] HPV 16 RNA TNP [facility] HPV 18/45 RNA TNP [facility] 01/13/2023 11:0 6 AM EDT 01/14/2023 11:25 AM EDT Maral Morrissey CNM LAB CYTOLOGY ORDERABLES F inal Result [facility] [address] [place] [phone] * Pap Smear (01/13/2023 11:06 AM EDT) 01/13/2023 11:0 6 AM EDT 01/14/2023 11:25 AM EDT Narrative [facility] - 01/25/2023 2:15 PM EDT ----- ------- Name: Shelby Dockery ?Age/Sex: 62/F ? : 1960 Unit#: [id number] ?? Attend Dr: MARAL MORRISSEY CNM ?Re01/13/23 ?Status: DEP REF ? Location: HO.HHCLNP ? Disch: ? ----- ------- SPEC : [id number] ?RECD: 01/14/23 ? STATUS: ??SOUT ? REQ NUM: [id number] ? JAMES: 01/13/23110 ? SUBM DR: MARAL MORRISSEY CNJase ? ENTERED: ??01/14/231222 ?SP TYPE: Pap Smr ?OTHR : ? [...] 66, 68) ? HPV testing performed by [employer] [facility] [employer], [place], [place]. ??See reference laboratory ?? portion of the EMR for entire report. ?Clinical Information LMP: Unknown date Previous PAP test: Unknown date/findings ? Material Received ?? ThinPrep-Vaginal/Cervical ----- ------- Signed (signature on file) Meredith Hernandez Red 01/25/23 1415 ? ----- ------- ? END OF REPORT ? us Maral Morrissey [facility] CYTOLOGY ORDERABLES F inal Result [facility] [address] [place] [address] [phone] from Last 3 Months or Most Recently Relevant to Health Maintenance Insurance [facility] [employer] HMO Care Teams Clerical Assistant Relationship Specialty Start Date End Date Linda Lorenzo MD [address] [place] [phone] PCP - General Internal Medicine 10/21/22
--- OUTSIDE RECORDS SUMMARY | 2024-09-10 05:18 | XMS_ITS | Encounter Summary ---
Author Organization [employer] Address [address] [facility] [address]t [place] [address] Care Team Providers Care Steam Shovel Engineer Name Role Phone Linda Lorenzo MD Primary Care Pro vider Reason for Visit * Reason Onset Date Comments Medication Question 08/26/2024 Prior Authorization 08/26/2024 Encounter Details Date Type Department Care Team ([facility] st Contact Info) Description 08/26/2024 Telephone [facility] MEDICINE [address] [place], [place] [phone] Linda Lorenzo MD [address] [place], [place] [phone] Medication Question; Prior Authorization Social History Tobacco [...] Telephone Encounter - Barb Hines RN - 09/09/2024 3:42 PM EDT Received form from [employer] for pt's CGM sensors. Form filled out and faxed back. * Telephone Encounter - Misty Deal RN - 09/02/2024 10:50 AM EDT Called [facility] pharmacy, spoke with Anahi. PA still required but unsure if this is because it is also too soon to fill next sensor. Anahi to call insurance and call back. * Telephone Encounter - Misty Deal RN - 08/30/2024 3:44 PM EDT Faxed signed PA packet to [employer] at [phone]. Confirmation received. Will route to [facility] nurses to see if approved in several days given message below from pharmacy. * Telephone Encounter - Misty Deal RN - 08/27/2024 12:51 PM EDT Generated PA packet for CGM darlyn 2 sensor as recommended by pharmacy. Placed on PCP desk for signature. * Telephone Encounter - Misty Deal RN - 08/26/2024 2:13 PM EDT Incoming phone call from Rosalie at [facility] pharmacy. Pharmacy stating that per pt's insurance, they can only fill 1 CGM Freestyle Darlyn 2 sensor (not 2 as normal per month). Rosalie recommends to re-do prior authorization for the Darlyn 2, advised again Darlyn 3 switch due to pt's insurance formulary. [...] documented as of this encounter Care Teams Steam Shovel Engineer Relationship Specialty Start Date End Date Linda Lorenzo MD [address] [place] [phone] PCP - General Internal Medicine 10/21/22 documented as of this encounter
--- OUTSIDE RECORDS SUMMARY | 2024-09-10 05:18 | XMS_ITS | Encounter Summary ---
Author Organization [employer] Address [address] [facility] 7t [place] [address] Care Team Providers Care Gas Truck Driver Name Role Phone Linda Lorenzo MD Primary Care Pro vider Reason for Visit * Reason Comments Med Refill Encounter Details Date Type Department Care Team ([facility] st Contact Info) Description 03/03/2023 Refill [facility] MEDICINE [address] [place], [place] [phone] Linda Lorenzo MD [address] [place] [phone] Social History Tobacco Use Types Packs/Day Years [...] as of this encounter Care Teams Gas Truck Driver Relationship Specialty Start Date End Date iLnda Lorenzo MD [address] [place] [phone] PCP - General Internal Medicine 10/21/22 documented as of this encounter
--- OUTSIDE RECORDS SUMMARY | 2024-09-10 05:18 | XMS_ITS | Encounter Summary ---
Author Organization [employer] Address [address] [facility] 7t [place] [address] Care Team Providers Care Mud Boss Name Role Phone Jhoana Oneal Primary Care Provider [phone] Linda Lorenzo MD Primary Care Pro vider Encounter Details Date Type Department Care Team (Late st Contact Info) Description 06/06/2022 Orders Only [facility] MEDICINE [address] [place] [address] [phone] Muriel Velazquez LPN Social History Tobacco Use [...] on filedocumented in this encounter Care Teams Mud Boss Relationship Specialty Start Date End Date Jhoana Oneal FNP PCP - General Family Medicine 04/04/22 10/20/22 Linda Lorenzo MD [address] [place], [place] [phone] PCP - General Internal Medicine 10/21/22 documented as of this encounter
--- OUTSIDE RECORDS SUMMARY | 2024-09-10 05:18 | XMS_ITS | Encounter Summary ---
Author Organization [employer] Address [address] [facility] 7t [place] [address] Care Team Providers Care Bill Sorter Name Role Phone Linda Lorenzo MD Primary Care Pro vider Reason for Visit * Reason Onset Date Comments FYI 08/25/2024 Encounter Details Date Type Department Care Team ([facility] st Contact Info) Description 08/25/2024 Telephone [facility] MEDICINE [address] [place], [place] [phone] Linda Lorenzo MD [address] [place] [phone] FYI Social History Tobacco Use Types Packs/Day [...] an appt with oncologist tomorrow andit's important. Paper Coater called pt to r/s appt, no answer. documented in this encounter Plan of Treatment Not on file documented as of this encounter Visit Diagnoses Not on filedocumented in this encounter Additional Health Concerns Assessment Noted Time PHQ-9 Depression Total Score: 6 06/12/19 24 10:45 AM EST documented as of this encounter Care Teams Bill Sorter Relationship Specialty Start Date End Date Linda Lorenzo MD [address] [place] [phone] PCP - General Internal Medicine 10/21/22 documented as of this encounter
--- OUTSIDE RECORDS SUMMARY | 2024-09-10 05:18 | XMS_ITS | Encounter Summary ---
Author Organization [employer] Address [address] [facility] [facility] [address] [place] [address] Care Team Providers Care Timber Robber Name Role Phone Linda Lorenzo MD Primary Care Pro vider Reason for Visit * Reason Comments Med Refill Encounter Details Date Type Department Care Team ([facility] st Contact Info) Description 05/27/2023 Refill [facility] MEDICINE [address] [place], [place] [phone] Juanpablo Watson MD [address] [place] [phone] Social History Tobacco Use Types Packs/Day Years [...] documented as of this encounter Care Teams Timber Robber Relationship Specialty Start Date End Date Linda Lorenzo MD [address] [place] [phone] PCP - General Internal Medicine 10/21/22 documented as of this encounter
--- OUTSIDE RECORDS SUMMARY | 2024-09-10 05:18 | XMS_ITS | Encounter Summary ---
Author Organization [employer] Address [address] [facility] [address] 7[address] [place] [address] Care Team Providers Care Cook Helper Preserves Name Role Phone Linda Lorenzo MD Primary Care Pro vider Encounter Details Date Type Department Care Team ([facility] st Contact Info) Description 02/25/2024 Orders Only [facility] MEDICINE [address] [place], [place] [phone] Hyun Monsivais MD [address] [place] [address] Social History Tobacco Use Types Packs/Day Years [...] documented as of this encounter Care Teams Cook Helper Preserves Relationship Specialty Start Date End Date Linda Lorenzo MD [address] [place] [phone] PCP - General Internal Medicine 10/21/22 documented as of this encounter
[2024-09-10 06:17] LABS: MANUAL DIFF FLAG NO
[2024-09-10 06:18] LABS: Basophils Absolute Auto 0.1 X10*3/uL (0.0-0.2); Basophils Percent Auto 0.4 % (0-2); Eosinophils Absolute Auto 0.4 X10*3/uL (0.0-0.4); Eosinophils Percent Auto 3.3 % (0-4); Hematocrit 35.8 % (37.0-47.0); Imm Gran Abs Auto 0.04 X10*3/uL (0.00-0.03); Imm Gran Pct Auto 0.3 % (0.0-0.4); Lymphocytes Percent Auto 16.6 % (20-40); Mean Corpuscular HGB Conc 30.7 g/dl (31.0-35.0); Mean Corpuscular Volume 87.7 fL (80.0-98.0); Mean Platelet Volume 8.5 fL (9.4-12.3); Monocytes Absolute Auto 0.9 X10*3/uL (0.1-1.2); Neutrophils Absolute Auto 8.8 x10*3/uL (2.0-8.3); Neutrophils Percent Auto 72.4 % (45-73); Platelet Count 545 X10*3/uL (160-400); Red Blood Count 4.08 X10*6/uL (4.20-5.50); Red Cell Distribution Width 17.5 % (11.0-16.0); White Blood Count 12.2 X10*3/uL (4.8-10.8)
[2024-09-10 06:34] LABS: Alanine Aminotransferase 12 U/L (0-31); Alkaline Phosphatase 130 U/L (39-117); Anion Gap 12 (12-20); Aspartate Amino Transferase 25 U/L (5-31); Bilirubin Total 0.2 mg/dL (0.0-1.0); Blood Urea Nitrogen 15 mg/dL (9-16); Calcium 9.9 mg/dL (8.4-10.2); Carbon Dioxide 27 mmol/L (22-29); Chloride 106 mmol/L (96-108); Creatinine Clr Calc Pharmacy 91.5; Estimated Glomerular Filt Rate > 60; Glucose Random 74 mg/dL (60-115); Lipase 34 U/L (8-78); Potassium 4.3 mmol/L (3.3-5.1); Sodium 141 mmol/L (135-145); Total Protein 7.1 g/dL (6.5-8.0)
[2024-09-10 06:37] LABS: Appearance Urine Cloudy; Color Urine Yellow; Glucose Urine UA >=1000 mg/dL (Negative); Leukocyte Esterase Urine Moderate (2+) (Negative); Nitrite Urine Positive (Negative); PH 5.5 (5.0-9.0); UMIC TRIGGER UACC YES; Urine Blood Trace (Negative); Urine Ketones Negative (Negative); Urine Protein Trace mg/dL (Neg-Trace)
--- NOTE | 2024-09-10 06:48 | ED.GENADULT ---
HPI - General Adult General Chief complaint: Abdominal Pain Stated complaint: abd pain Time Seen by Provider: 09/10/24 06:47 Source: patient, RN notes reviewed, old records reviewed and logistics tech Mode of arrival: ambulatory Limitations: language barrier History of Present Illness ED Provider: Matty HPI narrative: Patient is a 63-year-old Romanian speaking female with history of CAD, HTN, HLD, T2DM on insulin, IBD, GERD, nicotine dependence, smoker 50PYH, polysubstance use, known uterine fibroid presenting to the emergency department with complaint of lower abdominal pain. Has known uterine fibroids, is following up with a provider in [place] on 09/17 regarding this. States she dropped her oxycodone and spilled many pills down the sink. Also complains of dysuria. Denies fevers, nausea, vomiting, diarrhea, constipation. MD complaint: abdominal pain Related Data Home Medications ?Medication ?Instructions ?Recorded ?Confirmed aspirin 81 mg tablet,delayed 81 mg PO DAILY 09/20/22 08/16/24 release carvedilol 6.25 mg tablet 6.25 mg PO BID 09/20/22 08/16/24 empagliflozin 25 mg tablet 25 mg PO QAM 09/20/22 08/16/24 (Jardiance) losartan 100 mg tablet 100 mg PO QAM 09/20/22 08/16/24 metformin 500 mg tablet 500 mg PO BID 09/20/22 08/16/24 rosuvastatin 20 mg tablet 20 mg PO BEDTIME 09/20/22 08/16/24 Vitamin D3 2,000 units PO DAILY 11/02/22 08/16/24 clonidine HCl 0.1 mg tablet 0.1 mg PO DAILY 08/13/23 08/16/24 gabapentin 300 mg capsule 300 mg PO BEDTIME 08/13/23 08/16/24 insulin lispro 100 unit/mL 6 unit subcut TID diabetes mellitus 08/13/23 08/16/24 subcutaneous solution dulaglutide 1.5 mg/0.5 mL 1.5 mg subcut QWEEK 07/12/24 08/16/24 subcutaneous pen injector (Trulicity) Previous Rx's ?Medication ?Instructions ?Recorded pantoprazole 40 mg tablet,delayed 40 mg PO QAM #30 tabs 03/22/24 release oxycodone 5 mg tablet 5 mg PO TID PRN Severe Pain (Scale 09/02/24 Score 7-10) #45 tabs cefuroxime axetil 250 mg tablet 250 mg PO BID #14 tabs 09/10/24 Allergies Allergy/AdvReac Type Severity Reaction Status Date / Time morphine [Morphine] Allergy Mild ITCHING, Verified 09/10/24 05:06 pruritus, rash Review of Systems Review of Systems: As per HPI Yes all other systems are reviewed and are negative Constitutional: Constitutional: Reports as per HPI PMFSH Past Medical History Medical History CAD (coronary artery disease) Polysubstance abuse Hypertension Hyperlipidemia Type 2 diabetes mellitus, with long-term current use of insulin IBD (inflammatory bowel disease) Gastroesophageal reflux disease Nicotine dependence, cigarettes, uncomplicated Surgical History History of colonoscopy History of esophagogastroduodenoscopy (EGD) History of appendectomy History of cataract surgery Social History Social History Household Members: Spouse Alcohol intake: current Alcohol intake frequency: holidays/special occasions only Patient Tobacco Use Status: Current everyday Tobacco user Tobacco use type: Cigarette Cigarette Packs Per Day: 1 Years Smoked: onset 11yo, 1ppd x 51yrs, 50PYH Smoked in Last 30 Days: Yes Use of substances other than those prescribed or required for medical reasons: Yes Substance Use Type: Marijuana Advance Directives: No Advance Directives Information Provided: No Do you have a plan to hurt others: No Plan Current occupational status: disabled 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 Blood pressure normal. Heart rate normal. Respiratory rate normal. Temperature normal. Oxygen saturation normal. Const General: cooperative, healthy appearing and no acute distress Orientation/consciousness: oriented to person, oriented to place, oriented to time and patient oriented x3 Limitations: no limitations HENMT Head: Yes normocephalic and Yes atraumatic Ears: external ears normal General nose exam: Normal external nose present Face and sinus: Yes face symmetric Mouth: oropharynx normal and moist mucous membranes Throat: Yes uvula midline Eyes Pupils: Equal, round and reactive pupils present Neck Neck: Yes normal visual inspection and Yes supple Resp Effort & Inspection: normal respiratory effort and able to speak in complete sentences Auscultation: clear to auscultation bilaterally Cardio Rate: regular rate Rhythm: regular rhythm Heart sounds: S1 normal heart sound present and S2 normal heart sound present GI Palpation (GI): Soft to palpation and Tenderness to palpation present (GI) suprapubicly Auscultation: normoactive bowel sounds General: Yes no CVA tenderness Back/Spine/Pelvis Back: no CVA tenderness Skin General skin exam: elasticity normal and turgor normal Neuro General: oriented to person, oriented to place, oriented to time, patient oriented x3, moves all extremities, no focal motor deficits and CN's II-XI intact bilaterally Cranial nerves: Yes Equal, round and reactive pupils present Cognition (Neuro): normal cognition Extrem General: Yes full ROM, Yes no pedal edema and Yes no calf tenderness Psych Mental Status: mental status grossly normal Affect: normal affect Thought process: Normal thought process present Medical Decision Making Medical Decision Making MDM Narrative: Patient is a 63-year-old Romanian speaking female with history of CAD, HTN, HLD, T2DM on insulin, IBD, GERD, nicotine dependence, smoker 50PYH, polysubstance use, known uterine fibroid presenting to the emergency department with complaint of lower abdominal pain. On exam patient is awake, A+Ox3, VS WNL, afebrile, normal neurological exam without focal deficits, physical exam findings as above. Given reported symptoms and physical exam findings, initial differential includes but is not limited to UTI/pyelonephritis, uterine fibroids, chronic abdominal pain. Labs notable for mild leukocytosis without left shift, no evidence of BERNARD. Urinalysis notable for 2+ leukocytes, positive nitrites, trace blood, greater than 50 wbc's, 4+ bacteria, will treat for UTI. Discussed with patient that she will need to follow up with her primary prescriber for refill of her oxycodone. On review of PERSONAL COMPUTER SPECIALIST, patient filled 15 day supply of oxycodone on 09/02/24. Follow up with PCP as needed. Return precautions discussed at bedside. Patient verbalized understanding of and agreement with plan. In-person air purifier servicer was utilized for all interactions, assessments, and discussions. Differential Diagnosis Differential Diagnoses: The differential diagnosis associated with the presentation includes As per [facility] Admission/Observation Consideration of admission/observation: Escalation of care including admission/observation considered Patient would have been admitted to the hospital had their work up had any findings where hospital admission was appropriate and their clinical presentation warranted hospital admission. Lab Data [facility] Lab Attestation statement: I reviewed the patient's lab results. as per [facility] 09/10/24 06:13 09/10/24 06:13 Labs: Lab Results 09/10/24 09/10/24 Range/Units 06:13 06:22 WBC 12.2 H (4.8-10.8) X10*3/uL RBC 4.08 L (4.20-5.50) X10*6/uL Hgb 11.0 L (12.0-16.0) g/dl Hct 35.8 L (37.0-47.0) % MCV 87.7 (80.0-98.0) fL MCH 27.0 (27.0-33.0) pg MCHC 30.7 L (31.0-35.0) g/dl RDW 17.5 H (11.0-16.0) % Plt Count 545 H (160-400) X10*3/uL MPV 8.5 L (9.4-12.3) fL Immature Gran % (Auto) 0.3 (0.0-0.4) % Neut % (Auto) 72.4 (45-73) % Lymph % (Auto) 16.6 L (20-40) % Humphreys % (Auto) 7.0 (2-11) % Eos % (Auto) 3.3 (0-4) % Baso % (Auto) 0.4 (0-2) % Lymph # (Auto) 2.0 (1.2-4.9) X10*3/uL Humphreys # (Auto) 0.9 (0.1-1.2) X10*3/uL Eos # (Auto) 0.4 (0.0-0.4) X10*3/uL Baso # (Auto) 0.1 (0.0-0.2) X10*3/uL Abs Immat Gran (auto) 0.04 H (0.00-0.03) X10*3/uL Absolute Neuts (auto) 8.8 H (2.0-8.3) x10*3/uL Absolute Nucleated RBC 0.000 (0.0-0.012) X10*3/uL Nucleated RBC % (auto) 0.0 (0.0-0.2) /100WBC Sodium 141 (135-145) mmol/L Potassium 4.3 (3.3-5.1) mmol/L Chloride 106 (96-108) mmol/L Carbon Dioxide 27 (22-29) mmol/L Anion Gap 12 (12-20) BUN 15 (9-16) mg/dL Creatinine 0.50 (0.5-1.4) mg/dL Estim Creat Clear Calc 91.5 Estimated GFR > 60 Random Glucose 74 (60-115) mg/dL Calcium 9.9 (8.4-10.2) mg/dL Total Bilirubin 0.2 (0.0-1.0) mg/dL AST 25 (5-31) U/L ALT 12 (0-31) U/L Alkaline Phosphatase 130 H (39-117) U/L Total Protein 7.1 (6.5-8.0) g/dL Albumin 4.0 (3.5-5.0) g/dL Lipase 34 (8-78) U/L Urine Color Yellow Urine Appearance Cloudy Urine pH 5.5 (5.0-9.0) Ur Specific [place] 1.020 (1.005-1.025) Urine Protein Trace (Neg-Trace) mg/dL Urine Glucose (UA) >=1000 H (Negative) mg/dL Urine Ketones Negative (Negative) mg/dL Urine Blood Trace H (Negative) Urine Nitrite Positive H (Negative) Ur Leukocyte Esterase Moderate (2+) H (Negative) Urine RBC 0-2 (0-2) /HPF Urine WBC >50 H (0-5) /HPF Ur Squamous Epith Cells 0-2 (0-2) /HPF Urine Bacteria 4+ (None Seen) Hyaline Casts 0-2 (0-2) /LPF External Record Review External record reviewed: Inpatient record, Office record and Outpatient record Prescription Management I considered prescription management with: Antibiotic Chronic Conditions Patient?s care impacted by: Other (chronic abdominal pain) Discharge Plan Discharge Clinical Impression: Acute UTI Patient Disposition: Home, Self-Care Instructions: Urinary Tract Infection in Women (DC) Additional Instructions: You have been evaluated in the emergency department today for your urinary symptoms. Your evaluation, including urinalysis, suggests that your symptoms are due to urinary tract infection. Please take your prescribed antibiotics for the full course of medication as directed. Please follow-up with your primary care provider within 2 days. Return to the emergency department if you experience fevers 100.4? F or greater, worsening or uncontrolled pain, vomiting, flank pain, or for any other concerning symptoms. Follow up with your regular prescriber to discuss refill of your oxycodone. Prescriptions: New cefuroxime axetil 250 mg tablet 250 mg PO BID Qty: 14 0RF No Action pantoprazole 40 mg tablet,delayed release (DR/EC) 40 mg PO QAM Qty: 30 3RF Vitamin D3 2,000 units 2,000 units PO DAILY carvedilol 6.25 mg tablet 6.25 mg PO BID Jardiance 25 mg tablet 25 mg PO QAM aspirin 81 mg tablet,delayed release (DR/EC) 81 mg PO DAILY rosuvastatin 20 mg tablet 20 mg PO BEDTIME metformin 500 mg tablet 500 mg PO BID losartan 100 mg tablet 100 mg PO QAM oxycodone 5 mg Tablet 5 mg PO TID PRN (Reason: Severe Pain (Scale Score 7-10)) Qty: 45 0RF Rx Instructions: Partial Fill upon patient request. Trulicity 1.5 mg/0.5 mL pen injector 1.5 mg subcut QWEEK insulin lispro 100 unit/mL solution 6 unit subcut TID gabapentin 300 mg capsule 300 mg PO BEDTIME clonidine HCl 0.1 mg tablet 0.1 mg PO DAILY Print Language: Romanian
[2024-09-10 07:19] LABS: Bacteria Urine 4+ (None Seen); Hyaline Casts Urine 0-2 /LPF (0-2); RBC Urine 0-2 /HPF (0-2); Squamous Epithelial Cell Urine 0-2 /HPF (0-2); UACC Culture Trigger YES; WBC Urine >50 /HPF (0-5)
[2024-09-10 08:12] VITALS: BP 141/68; PULSE 96; RESP 18; TEMP 36.4; O2SAT 97
== END 2024-09-10 08:13 | disposition home or self-care (01) ==
PROVIDERS: Emergency Provider Emergency Medicine; PCP Student in an Organized Health Care Education/Training Program
DX: N39.0 Urinary tract infection, site not specified (principal); R10.30 Lower abdominal pain, unspecified; E11.9 Type 2 diabetes mellitus without complications; I10 Essential (primary) hypertension; E78.5 Hyperlipidemia, unspecified; F17.210 Nicotine dependence, cigarettes, uncomplicated; Z79.02 Long term (current) use of antithrombotics/antiplatelets; Z79.82 Long term (current) use of aspirin; Z79.84 Long term (current) use of oral hypoglycemic drugs; Z79.899 Other long term (current) drug therapy; Z79.4 Long term (current) use of insulin; Z79.85 Long-term (current) use of injectable non-insulin antidiabetic drugs
CPT/HCPCS: 36415; 80053; 81001; 81003; 83690; 85025; 87086; 87088; 87186; 99283; 99284

== ENCOUNTER 2024-10-22 02:15 | Inpatient (IN) | payer OTHER, SELFPAY ==
--- NOTE | ~2024-10-22 | CT_ITS ---
CLINICAL HISTORY: sudden onset dizziness and unsteady, [facility] CT angiography head with contrast. CT angiography neck with contrast. 3-D postprocessing Comparison: CT/SR - CT HEAD FOR STROKE - 10/22/24 02:21 EDT MR - MR ABDOMEN WO/W CON - 08/19/24 16:17 EDT Findings: Neck: There is calcified and noncalcified plaque within the common and internal carotid arteries causing no significant stenosis. The left vertebral artery is slightly dominant. The vertebral arteries are patent without stenosis. There is no arterial dissection. There are multiple pulmonary nodules in the visualized upper lungs. Head: The basilar artery is patent without stenosis. The anterior, middle, and posterior cerebral arteries are patent without stenosis. There is no aneurysm. There is no dural venous sinus thrombosis. IMPRESSION: 1. No arterial occlusion, significant stenosis, or dissection. 2. Multiple pulmonary nodules in the visualized upper lungs consistent with metastases. This document has been electronically signed by: Daniel Verde MD on 10/22/2024 03:48:19
--- NOTE | ~2024-10-22 | CT_ITS ---
CLINICAL HISTORY: sudden onset dizziness and unsteady, [facility] CT head without contrast Comparison: None Findings: There is no acute intracranial hemorrhage. Ventricles are within normal limits in size. No mass effect or midline shift is present. The bentley-white matter differentiation appears normal. There is mild generalized cerebral atrophy. Hypoattenuation in the periventricular white matter is consistent with chronic small vessel ischemic disease. There are 2 small chronic infarcts in the right frontal lobe. There is a small chronic infarct in the right basal ganglia. There is mild mucosal thickening in the left maxillary sinus. A portion of the nasal septum is absent/resected. Mastoids are clear. Orbits are unremarkable. No fractures are identified. IMPRESSION: 1. No acute intracranial abnormality. 2. Small chronic infarcts as above. This document has been electronically signed by: Daniel Verde MD on 10/22/2024 02:39:54
--- NOTE | 2024-10-22 02:21 | ECG_ITS ---
Test Reason : stroke protocal Blood Pressure : */* mmHG Vent. Rate : 93 BPM Atrial Rate : 93 BPM P-R Int : 98 ms QRS Dur : 78 ms QT Int : 368 ms P-R-T Axes : 23 -25 52 degrees QTcB Int : 457 ms Sinus rhythm with short NJ Otherwise normal ECG When compared with ECG of 15-Jun-2024 10:58, NJ interval has decreased Criteria for Septal infarct are no longer Present Referred By: Malorie Hunter Electronically Signed By: LAN GOODE
--- NOTE | 2024-10-22 02:29 | ED_ITS ---
HPI - General Adult General Chief complaint: Dizziness Stated complaint: ?STROKE,WOKE UP W/DIXON & ABN SPEECH,LKWT MIDNT,-THIN Time Seen by Provider: 10/22/24 02:20 Source: patient and EMS Mode of arrival: EMS Limitations: no limitations History of Present Illness ED Provider: Dr. Malorie Hunter HPI narrative: Patient comes to the emergency room from home via ambulance. According to the patient, a proximally 1 hour ago, patient woke up and realized that when she got up she was extremity dizzy. Patient describes dizziness as everything Spinning around her, complaining of a severe headache. patient denies any syncopal or near syncopal episodes Related Data Home Medications ?Medication ?Instructions ?Recorded ?Confirmed aspirin 81 mg tablet,delayed 81 mg PO DAILY 09/20/22 10/05/24 release carvedilol 6.25 mg tablet 6.25 mg PO BID 09/20/22 10/05/24 empagliflozin 25 mg tablet 25 mg PO QAM 09/20/22 10/05/24 (Jardiance) losartan 100 mg tablet 100 mg PO QAM 09/20/22 10/05/24 metformin 500 mg tablet 500 mg PO BID 09/20/22 10/05/24 rosuvastatin 20 mg tablet 20 mg PO BEDTIME 09/20/22 10/05/24 Vitamin D3 2,000 units PO DAILY 11/02/22 10/05/24 clonidine HCl 0.1 mg tablet 0.1 mg PO DAILY 08/13/23 10/05/24 gabapentin 300 mg capsule 300 mg PO BEDTIME 08/13/23 10/05/24 insulin lispro 100 unit/mL 6 unit subcut TID diabetes mellitus 08/13/23 10/05/24 subcutaneous solution dulaglutide 1.5 mg/0.5 mL 1.5 mg subcut QWEEK 07/12/24 10/05/24 subcutaneous pen injector (Trulicity) Previous Rx's ?Medication ?Instructions ?Recorded pantoprazole 40 mg tablet,delayed 40 mg PO QAM #30 tabs 03/22/24 release oxycodone 5 mg tablet 5 mg PO TID PRN Severe Pain (Scale 09/02/24 Score 7-10) #45 tabs cefuroxime axetil 250 mg tablet 250 mg PO BID #14 tabs 09/10/24 fentanyl 25 mcg/hr transdermal 1 patch transdermal Q72H #10 ea 09/18/24 patch everolimus (antineoplastic) 10 mg 10 mg PO DAILY #30 tabs 10/05/24 tablet fentanyl 50 mcg/hr transdermal 1 patch transdermal Q72H #10 ea 10/05/24 patch ondansetron HCl 4 mg tablet 4 mg PO Q8H #50 tabs 10/05/24 oxycodone 5 mg tablet 5 mg PO Q6H PRN Breakthrough Pain, 10/05/24 Moderate #50 tabs dexamethasone 0.5 mg/5 mL oral 1 mg (10 mL) PO QID #300 mL 10/10/24 elixir dexamethasone 0.5 mg/5 mL oral 1 mg (10 mL) PO QID #240 mL 10/13/24 elixir oxycodone 10 mg tablet 10 mg PO Q8H PRN Severe Pain 10/14/24 (Scale Score 7-10) #45 tabs polyethylene glycol 3350 17 gram 17 g PO DAILY #30 ea 10/14/24 oral powder packet (Miralax) sennosides 8.6 mg tablet (Senna 8.6 mg PO BEDTIME 30 days #30 tabs 10/14/24 Lax) Allergies Allergy/AdvReac Type Severity Reaction Status Date / Time morphine [Morphine] Allergy Mild ITCHING, Verified 10/22/24 02:43 pruritus, rash Review of Systems 2 Review of Systems: Constitutional : No Weight loss, No Fever, No Chills, No Night Sweats, No Fatigue, No Malaise ENT/Mouth : No Hearing loss, No Ear Pain, No Nasal Congestion, No Sinus Pain, No Hoarseness, No sore throat, No Rhinorrhea, No Swallowing Difficulty Eyes: No Eye Pain, No Swelling, No Redness, No Foreign Body, No Discharge, No Vision Changes Cardiovascular : No Chest Pain, No SOB, No Dyspnea on Exertion, No Orthopnea, No Edema, No Palpitations Respiratory : No Cough, No Sputum, No Wheezing, No Smoke Exposure, No Dyspnea Gastrointestinal : Complaining of Nausea, No Vomiting, No Diarrhea, No Constipation, No abdominal Pain, No Hematochezia, No Melena Genitourinary : no irregular bleeding, No Dysuria, No Urinary Frequency, No Hematuria, No Urinary Incontinence, No Urgency, No Flank Pain, No Urinary Flow Changes, No Hesitancy Musculoskeletal : No joint pain, No Myalgias, No Joint Swelling Skin : No Skin Lesions, No rash Neuro : No Weakness, No Numbness, No Paresthesias, No Loss of Consciousness, complaining of headache, complaining of dizziness, stating that everything is spinning around. Unsteady. Psych : No Anxiety/Panic, No Depression, No SI/HI/AH/VH, No Social Issues, Heme/Lymph: No Bruising, No Bleeding,No Lymphadenopathy Endocrine : No Polyuria, No Polydipsia, No Temperature Intolerance ON LICENSE OF [facility] Past Medical History Medical History CAD (coronary artery disease) Polysubstance abuse Hypertension Hyperlipidemia Type 2 diabetes mellitus, with long-term current use of insulin IBD (inflammatory bowel disease) Gastroesophageal reflux disease Nicotine dependence, cigarettes, uncomplicated Surgical History History of colonoscopy History of esophagogastroduodenoscopy (EGD) History of appendectomy History of cataract surgery Social History Social History Household Members: Spouse Alcohol intake: current Alcohol intake frequency: holidays/special occasions only Patient Tobacco Use Status: Current everyday Tobacco user Tobacco use type: Cigarette Cigarette Packs Per Day: 1 Years Smoked: onset 11yo, 1ppd x 51yrs, 50PYH Substance Use Type: Marijuana Advance Directives: Yes Advance Directives on File: Yes Advance Directives Date on File: 06/21/24 Do you have a plan to hurt others: No Plan Current occupational status: disabled 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 Oriented X3. No acute distress. Eyes: Pupils equal, round and reactive to light. ENT: Pharynx normal. Neck: Normal inspection. Neck supple. No lymph nodes noted. No crepitus CVS: Normal heart rate and rhythm. Pulses normal. Normal S1 and S2 Respiratory: No respiratory distress. Breath sounds normal. No Wheezing. No rales Abdomen: Soft and nontender. No rigidity. No distention. Skin: Skin warm and clammy, slightly pale,. Normal skin turgor. Extremities: No lower extremity edema. No Lacerations. No Rash Neuro: Oriented X 3. No motor deficit. No sensory deficit. Moving all extremities. No slurred speech. CN 2 through 12 grossly intact Psych: calm, a bit anxious NIH Stroke Scale Internal: Initial- Upon Arrival Level of Consciousness: Alert Level of Consciousness Questions: Answers both questions correctly Level of Consciousness Commands: Performs both tasks correctly Best Gaze: Normal Visual: No visual loss Facial Palsy: Normal Motor Arm (Right): No drift Motor Arm (Left): No drift Motor Leg (Right): No drift Motor Leg (Left): No drift Limb Ataxia: Absent Sensory: Normal Best Language: No aphasia Dysarthia: Normal Extinction and Inattention: No abnormality Score: 0 Course Course Course Narrative: on arrival, patient awake, alert and oriented x3. Patient states that she feels very nauseous and everything is spinning. On arrival, NIH score is [address] scan to rule out posterior stroke. Patient receiving IV fluids, diazepam, meclizine, morphine. Medications Administered Discontinued Medications Generic Name Dose Route Start Last Admin Trade Name Freq PRN Reason Stop Dose Admin Diazepam 2.5 mg 10/22/24 02:21 10/22/24 02:59 Diazepam 10 Mg/2 Ml Cartridge IVPUSH 10/22/24 02:22 2.5 mg STAT STA Administration Iohexol 65 ml 10/22/24 02:36 10/22/24 02:36 Iohexol 350 Mg/Ml 100 Ml Infus..Btl IV 10/22/24 02:37 65 ml ONCE ONE Administration Meclizine HCl 50 mg 10/22/24 02:21 10/22/24 02:59 Meclizine Hcl 25 Mg Tablet PO 10/22/24 02:22 50 mg ONCE ONE Administration Ondansetron HCl 4 mg 10/22/24 02:21 10/22/24 02:59 Ondansetron Hcl 4 Mg/2 Ml Vial IVPUSH 10/22/24 02:22 4 mg ONCE ONE Administration Medical Decision Making Medical Decision Making [facility] Narrative: My interpretation of labs: Patient's white blood cell count 12.6, chronic and at baseline for the patient along with the rest of patient's hematology, LFTs with minor abnormalities especially in alkaline phosphatase which is elevated at 193 but chronic for the patient, slightly bumped AST at 48. Troponin negative, urinalysis positive for UTI. Toxicology is positive for fentanyl and cocaine CT and CTA do not show any acute abnormality. patient known to have metastatic liver/ lung cancer. Patient was seen by her hematology/oncologist last week. Patient's vitals are stable. However, every time that we tried to stand of the patient, she states that everything is still spitting and does not feel well. I discussed the patient with Dr. Berger from the Medicine team, patient being admitted Differential Diagnosis Differential Diagnoses: The differential diagnosis associated with the presentation includes ( BPPV, posterior CVA, TIA) Admission/Observation Consideration of admission/observation: Escalation of care including admission/observation considered Consult Healthcare Provider Management of the patient was discussed with: Hospitalist Lab Data [facility] Lab Attestation statement: I reviewed the patient's lab results. 10/22/24 02:55 10/22/24 02:55 Labs: Lab Results 10/22/24 10/22/24 10/22/24 Range/Units 02:35 02:36 02:55 WBC 12.6 H (4.8-10.8) X10*3/uL RBC 3.91 L (4.20-5.50) X10*6/uL Hgb 10.4 L (12.0-16.0) g/dl Hct 33.2 L (37.0-47.0) % MCV 84.9 (80.0-98.0) fL MCH 26.6 L (27.0-33.0) pg MCHC 31.3 (31.0-35.0) g/dl RDW 17.6 H (11.0-16.0) % Plt Count 607 H (160-400) X10*3/uL MPV 8.8 L (9.4-12.3) fL Immature Gran % (Auto) 0.3 (0.0-0.4) % Neut % (Auto) 72.0 (45-73) % Lymph % (Auto) 17.2 L (20-40) % Traverse % (Auto) 8.3 (2-11) % Eos % (Auto) 1.8 (0-4) % Baso % (Auto) 0.4 (0-2) % Lymph # (Auto) 2.2 (1.2-4.9) X10*3/uL Traverse # (Auto) 1.1 (0.1-1.2) X10*3/uL Eos # (Auto) 0.2 (0.0-0.4) X10*3/uL Baso # (Auto) 0.1 (0.0-0.2) X10*3/uL Abs Immat Gran (auto) 0.04 H (0.00-0.03) X10*3/uL Absolute Neuts (auto) 9.1 H (2.0-8.3) x10*3/uL Absolute Nucleated RBC 0.000 (0.0-0.012) X10*3/uL Nucleated RBC % (auto) 0.0 (0.0-0.2) /100WBC Whole Blood PT 13.2 (11.1-13.5) sec Whole Blood INR 1.1 (0.9-1.1) Sodium 139 (135-145) mmol/L Potassium 4.7 (3.3-5.1) mmol/L Chloride 102 (96-108) mmol/L Carbon Dioxide 22 (22-29) mmol/L Anion Gap 20 (12-20) BUN 24 H (9-16) mg/dL Creatinine 0.51 (0.5-1.4) mg/dL Estim Creat Clear Calc 91.0 Estimated GFR > 60 POC Glucose 125 H (60-115) mg/dL Random Glucose 124 H (60-115) mg/dL Calcium 9.9 (8.4-10.2) mg/dL Magnesium 1.7 (1.6-2.6) mg/dL Total Bilirubin 0.1 (0.0-1.0) mg/dL Direct Bilirubin < 0.2 (0.0-0.5) mg/dL AST 48 H (5-31) U/L ALT 12 (0-31) U/L Alkaline Phosphatase 193 H (39-117) U/L Troponin I High Sens 2.7 (<3.5-17.0) ng/L Total Protein 7.0 (6.5-8.0) g/dL Albumin 4.0 (3.5-5.0) g/dL Urine Color Urine Appearance Urine pH (5.0-9.0) Ur Specific [place] (1.005-1.025) Urine Protein (Neg-Trace) mg/dL Urine Glucose (UA) (Negative) mg/dL Urine Ketones (Negative) mg/dL Urine Blood (Negative) Urine Nitrite (Negative) Ur Leukocyte Esterase (Negative) Urine RBC (0-2) /HPF Urine WBC (0-5) /HPF Ur Squamous Epith Cells (0-2) /HPF Urine Bacteria (None Seen) Hyaline Casts (0-2) /LPF Ethyl Alcohol < 10 mg/dL 10/22/24 Range/Units 04:39 WBC (4.8-10.8) X10*3/uL RBC (4.20-5.50) X10*6/uL Hgb (12.0-16.0) g/dl Hct (37.0-47.0) % MCV (80.0-98.0) fL MCH (27.0-33.0) pg MCHC (31.0-35.0) g/dl RDW (11.0-16.0) % Plt Count (160-400) X10*3/uL MPV (9.4-12.3) fL Immature Gran % (Auto) (0.0-0.4) % Neut % (Auto) (45-73) % Lymph % (Auto) (20-40) % Traverse % (Auto) (2-11) % Eos % (Auto) (0-4) % Baso % (Auto) (0-2) % Lymph # (Auto) (1.2-4.9) X10*3/uL Traverse # (Auto) (0.1-1.2) X10*3/uL Eos # (Auto) (0.0-0.4) X10*3/uL Baso # (Auto) (0.0-0.2) X10*3/uL Abs Immat Gran (auto) (0.00-0.03) X10*3/uL Absolute Neuts (auto) (2.0-8.3) x10*3/uL Absolute Nucleated RBC (0.0-0.012) X10*3/uL Nucleated RBC % (auto) (0.0-0.2) /100WBC Whole Blood PT (11.1-13.5) sec Whole Blood INR (0.9-1.1) Sodium (135-145) mmol/L Potassium (3.3-5.1) mmol/L Chloride (96-108) mmol/L Carbon Dioxide (22-29) mmol/L Anion Gap (12-20) BUN (9-16) mg/dL Creatinine (0.5-1.4) mg/dL Estim Creat Clear Calc Estimated GFR POC Glucose (60-115) mg/dL Random Glucose (60-115) mg/dL Calcium (8.4-10.2) mg/dL Magnesium (1.6-2.6) mg/dL Total Bilirubin (0.0-1.0) mg/dL Direct Bilirubin (0.0-0.5) mg/dL AST (5-31) U/L ALT (0-31) U/L Alkaline Phosphatase (39-117) U/L Troponin I High Sens (<3.5-17.0) ng/L Total Protein (6.5-8.0) g/dL Albumin (3.5-5.0) g/dL Urine Color Yellow Urine Appearance Clear Urine pH 6.0 (5.0-9.0) Ur Specific [place] >= 1.030 H (1.005-1.025) Urine Protein Negative (Neg-Trace) mg/dL Urine Glucose (UA) >=1000 H (Negative) mg/dL Urine Ketones Negative (Negative) mg/dL Urine Blood Negative (Negative) Urine Nitrite Positive H (Negative) Ur Leukocyte Esterase Negative (Negative) Urine RBC 0-2 (0-2) /HPF Urine WBC 6-10 H (0-5) /HPF Ur Squamous Epith Cells 0-2 (0-2) /HPF Urine Bacteria 4+ (None Seen) Hyaline Casts 3-5 (0-2) /LPF Ethyl Alcohol mg/dL Independent Interpretation I performed an independent interpretation of an: CT Scan Radiology Impression Discussion of test interpretation with radiology: I have reviewed the radiologist's reading. Radiologist Impression: The basilar artery is patent without stenosis. The anterior, middle, and posterior cerebral arteries are patent without stenosis. There is no aneurysm. There is no dural venous sinus thrombosis. IMPRESSION: 1. No arterial occlusion, significant stenosis, or dissection. 2. Multiple pulmonary nodules in the visualized upper lungs consistent with metastases. Critical Care Time Critical Care Time Critical Care Time: Yes Total Critical Care Time: 75 Attestation: I have personally provided critical care time. Time includes review of lab data, radiology results, discussion with consultants, and monitoring for potential decompensation. Intervention performed as documented. Discharge Plan Discharge Clinical Impression: Benign paroxysmal positional vertigo Patient Disposition: Admitted As Inpatient Prescriptions: No Action pantoprazole 40 mg tablet,delayed release (DR/EC) 40 mg PO QAM Qty: 30 3RF Vitamin D3 2,000 units 2,000 units PO DAILY carvedilol 6.25 mg tablet 6.25 mg PO BID Jardiance 25 mg tablet 25 mg PO QAM aspirin 81 mg tablet,delayed release (DR/EC) 81 mg PO DAILY rosuvastatin 20 mg tablet 20 mg PO BEDTIME metformin 500 mg tablet 500 mg PO BID losartan 100 mg tablet 100 mg PO QAM oxycodone 5 mg Tablet 5 mg PO TID PRN (Reason: Severe Pain (Scale Score 7-10)) Qty: 45 0RF Rx Instructions: Partial Fill upon patient request. fentanyl 25 mcg/hr Patch 72 Hour 1 patch TRANSDERMAL Q72H Qty: 10 0RF Rx Instructions: Partial Fill upon patient request. fentanyl 50 mcg/hr Patch 72 Hour 1 patch TRANSDERMAL Q72H Qty: 10 0RF Rx Instructions: Partial Fill upon patient request. oxycodone 5 mg Tablet 5 mg PO Q6H PRN (Reason: Breakthrough Pain, Moderate) Qty: 50 0RF Rx Instructions: Partial Fill upon patient request. ondansetron HCl 4 mg Tablet 4 mg PO Q8H Qty: 50 4RF everolimus (antineoplastic) 10 mg Tablet 10 mg PO DAILY Qty: 30 5RF dexamethasone 0.5 mg/5 mL Elixir 1 mg PO QID Qty: 300 3RF Rx Instructions: Swish and spit times 1st 8 weeks of therapy for prevention of mucositis. dexamethasone 0.5 mg/5 mL Elixir 1 mg PO QID Qty: 240 3RF Rx Instructions: Swish and spit 4 times a day sennosides [Senna Lax] 8.6 mg Tablet 8.6 mg PO BEDTIME 30 Days Qty: 30 1RF polyethylene glycol 3350 [Miralax] 17 gram Powder In Packet 17 g PO DAILY Qty: 30 1RF oxycodone 10 mg Tablet 10 mg PO Q8H PRN (Reason: Severe Pain (Scale Score 7-10)) Qty: 45 0RF Rx Instructions: Take every 8 hours as needed for pain. Trulicity 1.5 mg/0.5 mL pen injector 1.5 mg subcut QWEEK cefuroxime axetil 250 mg tablet 250 mg PO BID Qty: 14 0RF insulin lispro 100 unit/mL solution 6 unit subcut TID gabapentin 300 mg capsule 300 mg PO BEDTIME clonidine HCl 0.1 mg tablet 0.1 mg PO DAILY Print Language: [place]
[2024-10-22 02:30] VITALS: BP 140/82; BP 155/76; PULSE 83; PULSE 94; RESP 18; TEMP 36.7; O2SAT 96; O2SAT 97; BMI 23.4
[2024-10-22] MEDS: iohexoL 350 MG/ML 100 ML INFUS..BTL 65 ML IV (02:36)
[2024-10-22 02:40] LABS: Glucose, Whole Blood 125 mg/dL (60-115)
[2024-10-22 02:40] LABS: Prothrombin Time Whole Bld POC 13.2 sec (11.1-13.5); ~PT, ~INR - Anti Coag Clinic 1.1 (0.9-1.1)
[2024-10-22 02:59] LABS: MANUAL DIFF FLAG NO
[2024-10-22] MEDS: diazePAM 10 MG/2 ML CARTRIDGE 2.5 MG IVPUSH (02:59)
[2024-10-22] MEDS: Meclizine HCl 25 MG TABLET 50 MG PO (02:59)
[2024-10-22] MEDS: ondansetron HCL 4 MG/2 ML VIAL IVPUSH (02:59)
[2024-10-22 03:00] LABS: Basophils Absolute Auto 0.1 X10*3/uL (0.0-0.2); Basophils Percent Auto 0.4 % (0-2); Eosinophils Absolute Auto 0.2 X10*3/uL (0.0-0.4); Eosinophils Percent Auto 1.8 % (0-4); Hematocrit 33.2 % (37.0-47.0); Hemoglobin 10.4 g/dl (12.0-16.0); Imm Gran Abs Auto 0.04 X10*3/uL (0.00-0.03); Imm Gran Pct Auto 0.3 % (0.0-0.4); Lymphocytes Absolute Auto 2.2 X10*3/uL (1.2-4.9); Lymphocytes Percent Auto 17.2 % (20-40); Mean Corpuscular HGB Conc 31.3 g/dl (31.0-35.0); Mean Corpuscular Hemoglobin 26.6 pg (27.0-33.0); Mean Corpuscular Volume 84.9 fL (80.0-98.0); Mean Platelet Volume 8.8 fL (9.4-12.3); Monocytes Absolute Auto 1.1 X10*3/uL (0.1-1.2); Monocytes Percent Auto 8.3 % (2-11); Neutrophils Absolute Auto 9.1 x10*3/uL (2.0-8.3); Platelet Count 607 X10*3/uL (160-400); Red Blood Count 3.91 X10*6/uL (4.20-5.50); Red Cell Distribution Width 17.6 % (11.0-16.0); White Blood Count 12.6 X10*3/uL (4.8-10.8)
--- NOTE | 2024-10-22 03:13 | PC.NURSE ---
with della roller mill tender, pt alert oriented x3, speech clear, follows command, on room air, reports DIXON, dizziness, and blurred vision. had similar episodes in the past. SANTIAGO 4/5, tongue midline.
--- OUTSIDE RECORDS SUMMARY | 2024-10-22 03:18 | XMS_ITS | Encounter Summary ---
Author Organization [employer] Address [address] [place] [address] Care Team Providers Care Pickle Pumper Name Role Phone Linda Lorenzo MD Primary Care Pro vider Reason for Visit * Reason Comments Med Refill Patient walked reque sting refill for Motrin for patient , patient stated she went to pharmacy to get medication and it wasn't ready they sent her to green team. Encounter Details Date Type Department Care Team ([facility] st Contact Info) Description 01/21/2024 Refill [facility] MEDICINE [address] [place], [place] [phone] Linda Lorenzo MD [address] [place], [place] [phone] Social History Tobacco Use Types Packs/Day Years [...] the past 12 months, has t he [employer], gas, oil or water [employer] threatened to shut off services in your [...] Care Team (Late st Contact Info) Description 12/02/2024 1:15 PM EDT Office Visit [facility] MEDICINE [address] [place] [phone] Linda Lorenzo MD [address] [place] [id number] documented as of this encounter Visit Diagnoses Not on filedocumented in this encounter Additional Health Concerns Assessment Noted Time PHQ-9 Depression Total Score: 6 06/12/19 24 10:45 AM EST documented as of this encounter Care Teams Pickle Pumper Relationship Specialty Start Date End Date Linda Lorenzo MD [address] [place] [id number] PCP - General Internal Medicine 10/21/22 documented as of this encounter
[2024-10-22 03:19] LABS: Troponin-I High Sensitivity 2.7 ng/L (<3.5-17.0)
[2024-10-22 03:29] LABS: Alanine Aminotransferase 12 U/L (0-31); Anion Gap 20 (12-20); Aspartate Amino Transferase 48 U/L (5-31); Bilirubin Direct < 0.2 mg/dL (0.0-0.5); Bilirubin Total 0.1 mg/dL (0.0-1.0); Blood Urea Nitrogen 24 mg/dL (9-16); Calcium 9.9 mg/dL (8.4-10.2); Carbon Dioxide 22 mmol/L (22-29); Chloride 102 mmol/L (96-108); Estimated Glomerular Filt Rate > 60; Ethanol < 10 mg/dL; Glucose Random 124 mg/dL (60-115); Magnesium 1.7 mg/dL (1.6-2.6); Potassium 4.7 mmol/L (3.3-5.1); Sodium 139 mmol/L (135-145)
[2024-10-22 03:57] VITALS: BP 137/62; PULSE 90; RESP 16; TEMP 36.6; O2SAT 98
[2024-10-22 04:04] LABS: Alkaline Phosphatase 193 U/L (39-117)
[2024-10-22 04:37] VITALS: BP 123/72; BP 137/64; PULSE 90; PULSE 99; RESP 16
[2024-10-22 04:38] VITALS: BP 123/72; PULSE 90
[2024-10-22 04:45] LABS: Appearance Urine Clear; Color Urine Yellow; Glucose Urine UA >=1000 mg/dL (Negative); Leukocyte Esterase Urine Negative (Negative); Nitrite Urine Positive (Negative); Specific Gravity - Urine >= 1.030 (1.005-1.025); UMIC TRIGGER UACC YES; Urine Blood Negative (Negative); Urine Ketones Negative (Negative); Urine Protein Negative (Neg-Trace)
[2024-10-22 04:50] LABS: Bacteria Urine 4+ (None Seen); RBC Urine 0-2 /HPF (0-2); Squamous Epithelial Cell Urine 0-2 /HPF (0-2); UACC Culture Trigger YES
--- NOTE | 2024-10-22 04:50 | PC.NURSE ---
pt very unsteady on feet, commode offered, able to void, still endorses DIXON and dizziness provider made aware.
[2024-10-22 05:02] LABS: Amphetamine Screen Urine Not Detected (Not Detect); Barbiturates, Urine Not Detected (Not Detect); Benzodiazepines Screen Urine Not Detected (Not Detect); Buprenorphine Scr Not Detected (Not Detect); Cannabinoid Screen Urine Not Detected (Not Detect); Cocaine Screen Urine POSITIVE (Not Detect); Fentanyl, urine POSITIVE (Not Detect); Methadone Screen, Urine Not Detected (Not Detect); Opiate Screen Urine Not Detected (Not Detect); Oxycodone Screen Urine Not Detected (Not Detect); Phencyclidine Screen Urine Not Detected (Not Detect)
--- NOTE | 2024-10-22 05:19 | PM.IMHP ---
History of Present Illness Date of Service: 10/22/24 Attending physician on admission: Solomon Berger Chief Complaint: dizziness patient is a 63-year-old female with a past medical history significant for pleomorphic epithelioid neoplasm, CAD, polysubstance abuse, HTN, HLD, type 2 diabetes on insulin, IBD and GERD, who presented to the ED due to sudden onset of dizziness and headache around 01:00 today. The patient reports that the room is spinning and she is unable to stand up. She also reports chronic suprapubic pain and urinary tract infections secondary to her cancer. She denies any dysuria or frequency with urination. She also denies any shortness of breath, nausea or vomiting. The patient is a poor historian. Review of Systems Constitutional: Constitutional: Denies chills, Denies fatigue and Denies fever(s) Eyes: Eyes: Denies change in vision and Denies photophobia ENT: Reports dizziness, Denies nasal congestion, Denies nasal discharge, Denies sore throat and Denies throat swelling Cardiovascular: Cardiovascular: Denies chest pain, Denies syncope, Denies rapid heart rate, Denies leg edema, Reports lightheadedness and Denies dyspnea Respiratory: Respiratory: Denies chest congestion, Denies cough, Denies dyspnea and Denies wheezing Gastrointestinal: Gastrointestinal: Reports abdominal pain, Denies diarrhea, Denies nausea and Denies vomiting Musculoskeletal: Musculoskeletal: Denies myalgias Integumentary/Breasts: Skin/Breast: Denies rash Neurologic: Denies confusion, Reports dizziness and Denies syncope Psychiatric: Psychiatric: Denies confusion Endocrine: Endocrine: Denies fatigue Hematologic/Lymphatic: Hematologic/Lymphatic: Denies easy bleeding and Denies easy bruising Allergic/Immunologic: Allergic/Immunologic: Denies throat swelling and Denies wheezing [facility] Medical History Pleomorphic carcinoma CAD (coronary artery disease) Polysubstance abuse Hypertension Hyperlipidemia Type 2 diabetes mellitus, with long-term current use of insulin IBD (inflammatory bowel disease) Gastroesophageal reflux disease Nicotine dependence, cigarettes, uncomplicated Functional capacity: independent ambulation Surgical History History of colonoscopy History of esophagogastroduodenoscopy (EGD) History of appendectomy History of cataract surgery Social History Household Members: Spouse Alcohol intake: current Alcohol intake frequency: holidays/special occasions only Patient Tobacco Use Status: Current everyday Tobacco user Tobacco use type: Cigarette Cigarette Packs Per Day: 1 Years Smoked: onset 11yo, 1ppd x 51yrs, 50PYH Substance Use Type: Marijuana Advance Directives: Yes Advance Directives on File: Yes Advance Directives Date on File: 06/21/24 Do you have a plan to hurt others: No Plan Current occupational status: disabled 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 Narrative: Cocaine use Meds Allergies Allergy/AdvReac Type Severity Reaction Status Date / Time morphine [Morphine] Allergy Mild ITCHING, Verified 10/22/24 02:43 pruritus, rash Active Medications: Current Medications Ceftriaxone Sodium (Ceftriaxone Sodium 1 Gm Vial) 1 gm IVPUSH Q24H PAWAN Sodium Chloride (Ns) 1,000 mls @ 999 mls/hr IVCONT .Q1H1M ONE Stop: 10/22/24 05:55 Home Medications ?Medication ?Instructions ?Recorded ?Confirmed ?Last Taken ?Type aspirin 81 mg tablet,delayed 81 mg PO DAILY 09/20/22 10/05/24 07/07/24 History release carvedilol 6.25 mg tablet 6.25 mg PO BID 09/20/22 10/05/24 Unknown History empagliflozin 25 mg tablet 25 mg PO QAM 09/20/22 10/05/24 07/08/24 09:00 History (Jardiance) losartan 100 mg tablet 100 mg PO QAM 09/20/22 10/05/24 Unknown History metformin 500 mg tablet 500 mg PO BID 09/20/22 10/05/24 Unknown History rosuvastatin 20 mg tablet 20 mg PO BEDTIME 09/20/22 10/05/24 Unknown History Vitamin D3 2,000 units PO DAILY 11/02/22 10/05/24 Unknown History clonidine HCl 0.1 mg tablet 0.1 mg PO DAILY 08/13/23 10/05/24 Unknown History gabapentin 300 mg capsule 300 mg PO BEDTIME 08/13/23 10/05/24 Unknown History insulin lispro 100 unit/mL 6 unit subcut TID diabetes mellitus 08/13/23 10/05/24 Unknown History subcutaneous solution dulaglutide 1.5 mg/0.5 mL 1.5 mg subcut QWEEK 07/12/24 10/05/24 06/24/24 History subcutaneous pen injector (Trulicity) Physical Exam Vital Signs and Narrative: Vital Signs: Last Vital Signs Temp 98 F 10/22/24 03:57 Pulse 90 10/22/24 04:38 Resp 16 10/22/24 04:37 BP 123/72 10/22/24 04:38 Pulse Ox 98 10/22/24 03:57 O2 Del Method Room Air 10/22/24 03:57 BMI result Body Mass Index 23.4 General: AOx3, no acute distress, patient is seen with a official court interpreter. Poor historian, easily distracted and fixating on wanting to eat Resp: no wheezing or rhonchi, diminished in lower lung asher CVS: tachycardic, regular rhythm GI: +BS, lower abdominal tenderness, no distention Skin: Warm, dry Neuro: Cranial nerves II-XII grossly intact bilaterally. Motor grossly intact bilaterally Extremities: No lower extremity pitting edema Psych: Appropriate affect Const: General: No confusion Orientation/consciousness: No confusion Eyes: Direct Ophthalmoscopy: No photophobia Neuro: General: No confusion Results Labs 10/22/24 02:55 10/22/24 02:55 Labs: Laboratory Results - last 24 hr 10/22/24 10/22/24 10/22/24 02:35 02:36 02:55 MCV 84.9 MCH 26.6 L MCHC 31.3 RDW 17.6 H Plt Count 607 H MPV 8.8 L Immature Gran % (Auto) 0.3 Neut % (Auto) 72.0 Lymph % (Auto) 17.2 L [place] % (Auto) 8.3 Eos % (Auto) 1.8 Baso % (Auto) 0.4 Lymph # (Auto) 2.2 [place] # (Auto) 1.1 Eos # (Auto) 0.2 Baso # (Auto) 0.1 Abs Immat Gran (auto) 0.04 H Absolute Neuts (auto) 9.1 H Absolute Nucleated RBC 0.000 Nucleated RBC % (auto) 0.0 Whole Blood PT 13.2 Whole Blood INR 1.1 Anion Gap 20 Estim Creat Clear Calc 91.0 Estimated GFR > 60 POC Glucose 125 H Random Glucose 124 H Calcium 9.9 Magnesium 1.7 Total Bilirubin 0.1 Direct Bilirubin < 0.2 AST 48 H ALT 12 Alkaline Phosphatase 193 H Troponin I High Sens 2.7 Total Protein 7.0 Albumin 4.0 Urine Color Urine Appearance Urine pH Ur Specific [place] Urine Protein Urine Glucose (UA) Urine Ketones Urine Blood Urine Nitrite Ur Leukocyte Esterase Urine RBC Urine WBC Ur Squamous Epith Cells Urine Bacteria Hyaline Casts Urine Opiates Screen Ur Buprenorphine Scrn Ur Oxycodone Screen Urine Methadone Screen Urine Fentanyl Screen Ur Barbiturates Screen Ur Phencyclidine Scrn Ur Amphetamines Screen U Benzodiazepines Scrn Urine Cocaine Screen U Marijuana (THC) Screen Ethyl Alcohol < 10 10/22/24 04:39 MCV MCH MCHC RDW Plt Count MPV Immature Gran % (Auto) Neut % (Auto) Lymph % (Auto) [place] % (Auto) Eos % (Auto) Baso % (Auto) Lymph # (Auto) [place] # (Auto) Eos # (Auto) Baso # (Auto) Abs Immat Gran (auto) Absolute Neuts (auto) Absolute Nucleated RBC Nucleated RBC % (auto) Whole Blood PT Whole Blood INR Anion Gap Estim Creat Clear Calc Estimated GFR POC Glucose Random Glucose Calcium Magnesium Total Bilirubin Direct Bilirubin AST ALT Alkaline Phosphatase Troponin I High Sens Total Protein Albumin Urine Color Yellow Urine Appearance Clear Urine pH 6.0 Ur Specific [place] >= 1.030 H Urine Protein Negative Urine Glucose (UA) >=1000 H Urine Ketones Negative Urine Blood Negative Urine Nitrite Positive H Ur Leukocyte Esterase Negative Urine RBC 0-2 Urine WBC 6-10 H Ur Squamous Epith Cells 0-2 Urine Bacteria 4+ Hyaline Casts 3-5 Urine Opiates Screen Not Detected Ur Buprenorphine Scrn Not Detected Ur Oxycodone Screen Not Detected Urine Methadone Screen Not Detected Urine Fentanyl Screen POSITIVE H Ur Barbiturates Screen Not Detected Ur Phencyclidine Scrn Not Detected Ur Amphetamines Screen Not Detected U Benzodiazepines Scrn Not Detected Urine Cocaine Screen POSITIVE H U Marijuana (THC) Screen Not Detected Ethyl Alcohol Assessment and Plan (1) Sepsis: Status: Acute (2) UTI (urinary tract infection): Status: Acute (3) Headache: Status: Acute (4) Dizziness: Status: Acute (5) Cocaine use: Status: Acute Plan patient is a 63-year-old female with a past medical history significant for pleomorphic epithelioid neoplasm, CAD, polysubstance abuse, HTN, HLD, type 2 diabetes on insulin, IBD and GERD, who presented to the ED due to sudden onset of dizziness and headache around :00 today. sepsis secondary to UTI - WBC 12.6, tachycardic, lactic acid pending, blood cultures x2 pending, not severe sepsis - UA positive, culture pending - started on ceftriaxone in ED, continue - monitor CBC and BMP headache, dizziness - head CT and head/neck CTA negative - patient unable to tolerate orthostatics - given meclizine, diazepam and Dilaudid with improvement - MRI brain - neuro consult cocaine use - UTox positive for cocaine - addiction med consult pleomorphic epitheloid neoplasm - no changes with chest CT, consistent with pulmonary metastasis - followed by Dr. Kaiser - oncology consult type 2 diabetes - sliding scale insulin - diabetic diet - patient reports possible Lantus but amount is unclear. took Lantus before bed last night. await med rec CAD - continue home meds HTN - continue home meds when appropriate HLD - continue home meds full code VTE prophylaxis: Lovenox patient with sepsis secondary to UTI complicated by dizziness and headache, requiring admission for at least 2 midnights stay for IV antibiotics, further evaluation and specialist consultation. Quality Stroke Does the patient have a stroke diagnosis?: No VTE Prior VTE?: No VTE Risk Level:: Medical - moderate - high VTE Device Contraindication: Treatment Not Tolerated VTE Drug Contraindication: N/A - Med Ordered
[2024-10-22] MEDS: HYDROmorphone HCl 0.5 MG/0.5 ML SYRINGE IVPUSH (05:22)
[2024-10-22] MEDS: 0.9 % Sodium Chloride 1,000 ML 999 ML IVCONT (05:22)
[2024-10-22] MEDS: cefTRIAXone sodium 1 GM VIAL IVPUSH (05:45)
[2024-10-22 05:56] LABS: MANUAL DIFF FLAG NO
[2024-10-22 05:57] LABS: Basophils Absolute Auto 0.1 X10*3/uL (0.0-0.2); Basophils Percent Auto 0.6 % (0-2); Eosinophils Absolute Auto 0.2 X10*3/uL (0.0-0.4); Eosinophils Percent Auto 1.9 % (0-4); Hematocrit 35.7 % (37.0-47.0); Hemoglobin 10.7 g/dl (12.0-16.0); Imm Gran Abs Auto 0.05 X10*3/uL (0.00-0.03); Imm Gran Pct Auto 0.4 % (0.0-0.4); Lymphocytes Absolute Auto 2.5 X10*3/uL (1.2-4.9); Lymphocytes Percent Auto 19.6 % (20-40); Mean Corpuscular Hemoglobin 25.7 pg (27.0-33.0); Mean Corpuscular Volume 85.8 fL (80.0-98.0); Mean Platelet Volume 8.7 fL (9.4-12.3); Monocytes Absolute Auto 1.1 X10*3/uL (0.1-1.2); Monocytes Percent Auto 8.7 % (2-11); Neutrophils Absolute Auto 8.8 x10*3/uL (2.0-8.3); Neutrophils Percent Auto 68.8 % (45-73); Platelet Count 627 X10*3/uL (160-400); Red Blood Count 4.16 X10*6/uL (4.20-5.50); Red Cell Distribution Width 17.4 % (11.0-16.0); White Blood Count 12.7 X10*3/uL (4.8-10.8)
[2024-10-22 05:59] LABS: Lactic Acid 3.8 mmol/L (0.5-2.0)
[2024-10-22 06:14] LABS: Anion Gap 19 (12-20); Blood Urea Nitrogen 20 mg/dL (9-16); Calcium 10.2 mg/dL (8.4-10.2); Carbon Dioxide 22 mmol/L (22-29); Chloride 103 mmol/L (96-108); Estimated Glomerular Filt Rate > 60; Glucose Random 104 mg/dL (60-115); Potassium 4.3 mmol/L (3.3-5.1); Sodium 140 mmol/L (135-145)
[2024-10-22] MEDS: Enoxaparin Sodium 40 MG/0.4 ML SYRINGE SUBCUT (06:28)
[2024-10-22 07:25] LABS: Glucose, Whole Blood 82 mg/dL (60-115)
[2024-10-22 07:31] LABS: Reflex Lactate? Lactic Acid Added
[2024-10-22] MEDS: Lactated Ringers 1,000 ML 999 ML IV (07:42)
[2024-10-22 07:46] VITALS: BP 147/75; PULSE 91; RESP 20; TEMP 36.9; O2SAT 95
--- NOTE | 2024-10-22 07:50 | PC.NURSE ---
Assumed care of pt at 0700. Pt resting in bed quietly, a/ox3, speaking in clear/full sentences, no facial droop noted, equal strength bilaterally, neuros intact. Respirations even and unlabored, no increased wob/sob noted, maintaining O2 sat >92% on RA, denies cp/sob, appears in no distress, nsr on color television console monitor, continuous O2 probe monitoring patient. Pt sitting upright in bed eating breakfast, able to independently setup/feed, POC 82- no insulin coverage needed, pt ate 75% of meal. Pt repositioned in bed, transferred into hospital attire. LR hanging per JUL, 18g IV R forearm- patent, asymptomatic, positive blood return. Lactic obtained and sent to lab. Vtals updated in worklist, call cornell sherwood, all needs met at this time.
[2024-10-22 08:08] LABS: ~Lactic Acid-LAB USE ONLY 3.2 mmol/L (0.5-2.0)
--- NOTE | 2024-10-22 08:45 | PC.NURSE ---
Pt requesting to leave AMA, MD Munoz made aware of situation. Pt stated to this RN Take my IV out. I'm leaving Pt IV line removed. Pt educated on risks of leaving AMA. Family and pt at bedside. Aware.
[2024-10-22 09:00] VITALS: BP 147/75; PULSE 91; RESP 20; TEMP 36.9; O2SAT 95
[2024-10-22 09:21] LABS: HBS Num1 0.35 mIU/mL (0-7.99); HBc Num1 0.05 S/CO (0.00-0.79); HBsAGNum1 0.36 S/CO (0.00-0.99); HIV AB/AG Nonreactive (Nonreactive); HIV Num 1 0.06 S/CO (0.00-0.99); Hepatitis B Core Antibody Nonreactive (Nonreactive); Hepatitis B Surface Antigen Negative (Negative); ~Hepatitis B Surface Antibody NONREACTIVE (Nonreactive); ~Hepatitis C Antibody Nonreactive (Nonreactive)
[2024-10-22 09:48] LABS: Reflex Lactate? 2 Y
--- NOTE | 2024-10-22 14:36 | P.DS_ITS ---
DS: Providers Provider Date of Service: 10/22/24 Date of admission: 10/22/24 05:11 Date of discharge: 10/22/24 Primary care physician: Linda Bond MD Consults: 10/22/24 05:36 Consult to Neurology Routine Consulting Provider: [facility] Reason for consultation: dizziness Has provider been notified: No 10/22/24 05:37 Consult to Hematology / Oncology Routine Consulting Provider: Mile Kaiser Reason for consultation: pt of yours, dizziness, sepsis, UTI Has provider been notified: No 10/22/24 08:07 Addiction Medicine Provider Routine Consulting Provider: Addiction [facility] Reason for consultation: cocaine (lprescribed [email or web address] DS: Diagnosis Discharge Diagnosis (1) Sepsis: Status: Acute (2) UTI (urinary tract infection): Status: Acute (3) Headache: Status: Acute (4) Dizziness: Status: Acute (5) Cocaine use: Status: Acute (6) Left against medical advice: Status: Acute DS: Summary Hospital Course Hospital Course: from H+P by hospitalist STEPHON Sosa, 10/22/24: patient is a 63-year-old female with a past medical history significant for pleomorphic epithelioid neoplasm, CAD, polysubstance abuse, HTN, HLD, type 2 diabetes on insulin, IBD and GERD, who presented to the ED due to sudden onset of dizziness and headache around 01:00 today. The patient reports that the room is spinning and she is unable to stand up. She also reports chronic suprapubic pain and urinary tract infections secondary to her cancer. She denies any dysuria or frequency with urination. She also denies any shortness of breath, nausea or vomiting. The patient is a poor historian... ...patient is a 63-year-old female with a past medical history significant for pleomorphic epithelioid neoplasm, CAD, polysubstance abuse, HTN, HLD, type 2 diabetes on insulin, IBD and GERD, who presented to the ED due to sudden onset of dizziness and headache around 01:00 today. sepsis secondary to UTI - WBC 12.6, tachycardic, lactic acid pending, blood cultures x2 pending, not severe sepsis - UA positive, culture pending - started on ceftriaxone in ED, continue - monitor CBC and BMP headache, dizziness - head CT and head/neck CTA negative - patient unable to tolerate orthostatics - given meclizine, diazepam and Dilaudid with improvement - MRI brain - neuro consult cocaine use - UTox positive for cocaine - addiction med consult pleomorphic epitheloid neoplasm - no changes with chest CT, consistent with pulmonary metastasis - followed by Dr. Kaiser - oncology consult type 2 diabetes - sliding scale insulin - diabetic diet - patient reports possible Lantus but amount is unclear. took Lantus before bed last night. await med rec CAD - continue home meds HTN - continue home meds when appropriate HLD - continue home meds full code VTE prophylaxis: Lovenox patient with sepsis secondary to UTI complicated by dizziness and headache, requiring admission for at least 2 midnights stay for IV antibiotics, further evaluation and specialist consultation. Unfortunately, before I started rounding, she signed out AMA. She did not wait for me to talk to her. The RN counseled her on the risks of and disability. I prescribed cefuroxime to cover urine infection though ED never sent a urine culture. Time Attestation Discharge Coordination Time (in mins): 35 Quality: Safe Use of Opioids Does Pt have an Active Cancer Diagnosis on the Problem List?: No Quality: Stroke Does the patient have a stroke diagnosis?: No Physical Exam Vital Signs: Vital Signs: Last Vital Signs Temp 98.4 F 10/22/24 09:00 Pulse 91 10/22/24 09:00 Resp 20 10/22/24 09:00 BP 147/75 H 10/22/24 09:00 Pulse Ox 95 10/22/24 09:00 O2 Del Method Room Air 10/22/24 09:00 BMI result Body Mass Index 23.4 Not examined as she left before I started rounding. DS: Data Data Completed and Pending Completed studies during hospitalization [Text1]: Laboratory Results WBC 12.7 X10*3/uL (4.8-10.8) H 10/22/24 05:49 RBC 4.16 X10*6/uL (4.20-5.50) L 10/22/24 05:49 Hgb 10.7 g/dl (12.0-16.0) L 10/22/24 05:49 Hct 35.7 % (37.0-47.0) L 10/22/24 05:49 MCV 85.8 fL (80.0-98.0) 10/22/24 05:49 MCH 25.7 pg (27.0-33.0) L 10/22/24 05:49 MCHC 30.0 g/dl (31.0-35.0) L 10/22/24 05:49 RDW 17.4 % (11.0-16.0) H 10/22/24 05:49 Plt Count 627 X10*3/uL (160-400) H 10/22/24 05:49 MPV 8.7 fL (9.4-12.3) L 10/22/24 05:49 Immature Gran % (Auto) 0.4 % (0.0-0.4) 10/22/24 05:49 Neut % (Auto) 68.8 % (45-73) 10/22/24 05:49 Lymph % (Auto) 19.6 % (20-40) L 10/22/24 05:49 [place] % (Auto) 8.7 % (2-11) 10/22/24 05:49 Eos % (Auto) 1.9 % (0-4) 10/22/24 05:49 Baso % (Auto) 0.6 % (0-2) 10/22/24 05:49 Lymph # (Auto) 2.5 X10*3/uL (1.2-4.9) 10/22/24 05:49 [place] # (Auto) 1.1 X10*3/uL (0.1-1.2) 10/22/24 05:49 Eos # (Auto) 0.2 X10*3/uL (0.0-0.4) 10/22/24 05:49 Baso # (Auto) 0.1 X10*3/uL (0.0-0.2) 10/22/24 05:49 Abs Immat Gran (auto) 0.05 X10*3/uL (0.00-0.03) H 10/22/24 05:49 Absolute Neuts (auto) 8.8 x10*3/uL (2.0-8.3) H 10/22/24 05:49 Absolute Nucleated RBC 0.000 X10*3/uL (0.0-0.012) 10/22/24 05:49 Nucleated RBC % (auto) 0.0 /100WBC (0.0-0.2) 10/22/24 05:49 Whole Blood PT 13.2 sec (11.1-13.5) 10/22/24 02:36 Whole Blood INR 1.1 (0.9-1.1) 10/22/24 02:36 Sodium 140 mmol/L (135-145) 10/22/24 05:49 Potassium 4.3 mmol/L (3.3-5.1) 10/22/24 05:49 Chloride 103 mmol/L (96-108) 10/22/24 05:49 Carbon Dioxide 22 mmol/L (22-29) 10/22/24 05:49 Anion Gap 19 (12-20) 10/22/24 05:49 BUN 20 mg/dL (9-16) H 10/22/24 05:49 Creatinine 0.45 mg/dL (0.5-1.4) L 10/22/24 05:49 Estim Creat Clear Calc 103.0 10/22/24 05:49 Estimated GFR > 60 10/22/24 05:49 POC Glucose 82 mg/dL (60-115) 10/22/24 07:19 Random Glucose 104 mg/dL (60-115) 10/22/24 05:49 Lactic Acid 3.8 mmol/L (0.5-2.0) H* 10/22/24 05:14 Lactic Acid F/U @ 2Hr 3.2 mmol/L (0.5-2.0) H* 10/22/24 07:42 Calcium 10.2 mg/dL (8.4-10.2) 10/22/24 05:49 Magnesium 1.7 mg/dL (1.6-2.6) 10/22/24 02:55 Total Bilirubin 0.1 mg/dL (0.0-1.0) 10/22/24 02:55 Direct Bilirubin < 0.2 mg/dL (0.0-0.5) 10/22/24 02:55 AST 48 U/L (5-31) H 10/22/24 02:55 ALT 12 U/L (0-31) 10/22/24 02:55 Alkaline Phosphatase 193 U/L (39-117) H 10/22/24 02:55 Troponin I High Sens 2.7 ng/L (<3.5-17.0) 10/22/24 02:55 Total Protein 7.0 g/dL (6.5-8.0) 10/22/24 02:55 Albumin 4.0 g/dL (3.5-5.0) 10/22/24 02:55 Urine Color Yellow 10/22/24 04:39 Urine Appearance Clear 10/22/24 04:39 Urine pH 6.0 (5.0-9.0) 10/22/24 04:39 Ur Specific [place] >= 1.030 (1.005-1.025) H 10/22/24 04:39 Urine Protein Negative mg/dL (Neg-Trace) 10/22/24 04:39 Urine Glucose (UA) >=1000 mg/dL (Negative) H 10/22/24 04:39 Urine Ketones Negative mg/dL (Negative) 10/22/24 04:39 Urine Blood Negative (Negative) 10/22/24 04:39 Urine Nitrite Positive (Negative) H 10/22/24 04:39 Ur Leukocyte Esterase Negative (Negative) 10/22/24 04:39 Urine RBC 0-2 /HPF (0-2) 10/22/24 04:39 Urine WBC 6-10 /HPF (0-5) H 10/22/24 04:39 Ur Squamous Epith Cells 0-2 /HPF (0-2) 10/22/24 04:39 Urine Bacteria 4+ (None Seen) 10/22/24 04:39 Hyaline Casts 3-5 /LPF (0-2) 10/22/24 04:39 Urine Opiates Screen Not Detected (Not Detect) 10/22/24 04:39 Ur Buprenorphine Scrn Not Detected ng/mL (Not Detect) 10/22/24 04:39 Ur Oxycodone Screen Not Detected ng/mL (Not Detect) 10/22/24 04:39 Urine Methadone Screen Not Detected ng/mL (Not Detect) 10/22/24 04:39 Urine Fentanyl Screen POSITIVE (Not Detect) H 10/22/24 04:39 Ur Barbiturates Screen Not Detected (Not Detect) 10/22/24 04:39 Ur Phencyclidine Scrn Not Detected (Not Detect) 10/22/24 04:39 Ur Amphetamines Screen Not Detected (Not Detect) 10/22/24 04:39 U Benzodiazepines Scrn Not Detected (Not Detect) 10/22/24 04:39 Urine Cocaine Screen POSITIVE (Not Detect) H 10/22/24 04:39 U Marijuana (THC) Screen Not Detected (Not Detect) 10/22/24 04:39 Ethyl Alcohol < 10 mg/dL 10/22/24 02:55 Hep Bs Antigen Negative (Negative) 10/22/24 08:35 Hep Bs Antibody NONREACTIVE (Nonreactive) 10/22/24 08:35 Hep B Core Total Ab Nonreactive (Nonreactive) 10/22/24 08:35 Hepatitis C Ab (EIA) Nonreactive (Nonreactive) 10/22/24 08:35 HIV 1&2 Ab/P24 Ag 4thGn Nonreactive (Nonreactive) 10/22/24 08:35 Discharge Plan Discharge Patient Disposition: Left Against Medical Advice Discharge Diagnosis: dizziness cocaine abuse LEFT AGAINST MEDICAL ADVICE Referrals: Linda Lorenzo MD [Primary Care Provider] - 1 Week Discharge Medications: New cefuroxime axetil 500 mg tablet 500 mg PO BID Qty: 14 0RF No Action pantoprazole 40 mg tablet,delayed release (DR/EC) 40 mg PO QAM Qty: 30 3RF Vitamin D3 2,000 units 2,000 units PO DAILY metformin 1,000 mg tablet 1,000 mg PO BID docusate sodium [Stool Softener] 100 mg capsule 100 mg PO BID Atrovent HFA 17 mcg/actuation HFA aerosol inhaler 2 puff INHALATION QID insulin glargine [Lantus Solostar U-100 Insulin] 100 unit/mL (3 mL) insulin pen 50 unit subcut BEDTIME cholecalciferol (vitamin D3) [Vitamin D3] 50 mcg (2,000 unit) capsule 50 mcg PO QAM insulin lispro 100 unit/mL insulin pen, half-unit 15 unit SUBCUT TID carvedilol 6.25 mg tablet 6.25 mg PO BID Jard[place] 25 mg tablet 25 mg PO QAM aspirin 81 mg tablet,delayed release (DR/EC) 81 mg PO DAILY rosuvastatin 20 mg tablet 20 mg PO BEDTIME losartan 100 mg tablet 100 mg PO QAM oxycodone 5 mg Tablet 5 mg PO TID PRN (Reason: Severe Pain (Scale Score 7-10)) Qty: 45 0RF Rx Instructions: Partial Fill upon patient request. fentanyl 25 mcg/hr Patch 72 Hour 1 patch TRANSDERMAL Q72H Qty: 10 0RF Rx Instructions: Partial Fill upon patient request. fentanyl 50 mcg/hr Patch 72 Hour 1 patch TRANSDERMAL Q72H Qty: 10 0RF Rx Instructions: Partial Fill upon patient request. oxycodone 5 mg Tablet 5 mg PO Q6H PRN (Reason: Breakthrough Pain, Moderate) Qty: 50 0RF Rx Instructions: Partial Fill upon patient request. ondansetron HCl 4 mg Tablet 4 mg PO Q8H Qty: 50 4RF everolimus (antineoplastic) 10 mg Tablet 10 mg PO DAILY Qty: 30 5RF dexamethasone 0.5 mg/5 mL Elixir 1 mg PO QID Qty: 300 3RF Rx Instructions: Swish and spit times 1st 8 weeks of therapy for prevention of mucositis. dexamethasone 0.5 mg/5 mL Elixir 1 mg PO QID Qty: 240 3RF Rx Instructions: Swish and spit 4 times a day sennosides [Senna Lax] 8.6 mg Tablet 8.6 mg PO BEDTIME 30 Days Qty: 30 1RF polyethylene glycol 3350 [Miralax] 17 gram Powder In Packet 17 g PO DAILY Qty: 30 1RF oxycodone 10 mg Tablet 10 mg PO Q8H PRN (Reason: Severe Pain (Scale Score 7-10)) Qty: 45 0RF Rx Instructions: Take every 8 hours as needed for pain. Trulicity 1.5 mg/0.5 mL pen injector 1.5 mg subcut QWEEK cefuroxime axetil 250 mg tablet 250 mg PO BID Qty: 14 0RF gabapentin 300 mg capsule 300 mg PO BEDTIME clonidine HCl 0.1 mg tablet 0.1 mg PO DAILY Discharge Orders: Discharge Order (Routine); Ordered 10/22/24 Ordered By: Miky Munoz Stand Alone Forms: Against Medical Advice Print Language: French Care Plan Goals: appropriate medical care Health Concerns: dizziness cocaine abuse LEFT AGAINST MEDICAL ADVICE Plan of Treatment: return to the hospital as soon as you decide you would like to get appropriate medical care Assessment: See Discharge Summary. Discharge Date/Time: 10/22/24 08:57
--- NOTE | 2024-10-22 14:38 | P.CNNE_ITS ---
History of Present Illness Data of Consult Service Date: 10/22/24 Primary Care Provider: Linda Bond MD [facility] Reason for consult: Acute onset of vertigo early this am This is a 63-year-old female with a h/o pleomorphic epithelioid neoplasm of Urinary tract, CAD, polysubstance abuse including cocaine, HTN, HLD, type 2 diabetes on insulin, IBD and GERD, who presented to the ED due to sudden onset of dizziness and headache around 01:00 today. The patient reports that the room is spinning and she is unable to stand up. She also reports chronic suprapubic pain and urinary tract infections secondary to her cancer. She denies any dysuria or frequency with urination. She also denies any shortness of breath, nausea or vomiting. The patient is a poor historian. [facility] Past Medical History Medical History (Updated 10/22/24 @ 14:40 by Ming Trujillo MD) Left against medical advice Pleomorphic carcinoma CAD (coronary artery disease) Polysubstance abuse Hypertension Hyperlipidemia Type 2 diabetes mellitus, with long-term current use of insulin IBD (inflammatory bowel disease) Gastroesophageal reflux disease Nicotine dependence, cigarettes, uncomplicated Surgical History Surgical History History of colonoscopy History of esophagogastroduodenoscopy (EGD) History of appendectomy History of cataract surgery Social History Social History Household Members: Spouse Alcohol intake: current Alcohol intake frequency: holidays/special occasions only Patient Tobacco Use Status: Current everyday Tobacco user Tobacco use type: Cigarette Cigarette Packs Per Day: 1 Years Smoked: onset 11yo, 1ppd x 51yrs, 50PYH Substance Use Type: Marijuana Advance Directives: Yes Advance Directives on File: Yes Advance Directives Date on File: 06/21/24 Do you have a plan to hurt others: No Plan Nutrition Risks: No Nutritional Risk Current occupational status: disabled 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 Meds Allergies Allergy/AdvReac Type Severity Reaction Status Date / Time morphine [Morphine] Allergy Mild ITCHING, Verified 10/22/24 02:43 pruritus, rash Home Medications ?Medication ?Instructions ?Recorded ?Confirmed ?Last Taken ?Type aspirin 81 mg tablet,delayed 81 mg PO DAILY 09/20/22 10/05/2407/07/25 History release carvedilol 6.25 mg tablet 6.25 mg PO BID 09/20/22 10/05/24 Unknown History empagliflozin 25 mg tablet 25 mg PO QAM 09/20/22 10/05/24 07/08/24 09:00 History (Jardiance) losartan 100 mg tablet 100 mg PO QAM 09/20/22 10/05/24 Unknown History rosuvastatin 20 mg tablet 20 mg PO BEDTIME 09/20/22 10/05/24 Unknown History Vitamin D3 2,000 units PO DAILY 11/02/22 10/05/24 Unknown History clonidine HCl 0.1 mg tablet 0.1 mg PO DAILY 08/13/23 10/05/24 Unknown History gabapentin 300 mg capsule 300 mg PO BEDTIME 08/13/23 10/05/24 Unknown History dulaglutide 1.5 mg/0.5 mL 1.5 mg subcut QWEEK 07/12/24 10/05/24 06/24/24 History subcutaneous pen injector (Trulicity) cholecalciferol (vitamin D3) 50 50 mcg PO QAM 10/22/24 Unknown History mcg (2,000 unit) capsule (Vitamin D3) docusate sodium 100 mg capsule 100 mg PO BID 10/22/24 Unknown History (Stool Softener) insulin glargine 100 unit/mL (3 50 unit subcut BEDTIME 10/22/24 Unknown History mL) subcutaneous pen (Lantus Solostar U-100 Insulin) insulin lispro 100 unit/mL 15 unit subcut TID 10/22/24 Unknown History subcutaneous half-unit pen ipratropium bromide 17 2 puff inhalation QID 10/22/24 Unknown History mcg/actuation HFA aerosol inhaler (Atrovent HFA) metformin 1,000 mg tablet 1,000 mg PO BID 10/22/24 Unknown History Physical Exam 2 Vital Signs: Vital Signs: Last Vital Signs Temp 98.4 F 10/22/24 09:00 Pulse 91 10/22/24 09:00 Resp 20 10/22/24 09:00 BP 147/75 H 10/22/24 09:00 Pulse Ox 95 10/22/24 09:00 O2 Del Method Room Air 10/22/24 09:00 BMI result Body Mass Index 23.4 Neuro: Other: Non focal exam Results Labs 10/22/24 05:49 10/22/24 05:49 Labs: Short CBC 10/22/24 10/22/24 Range/Units 02:55 05:49 WBC 12.6 H 12.7 H (4.8-10.8) X10*3/uL Hgb 10.4 L 10.7 L (12.0-16.0) g/dl Hct 33.2 L 35.7 L (37.0-47.0) % Plt Count 607 H 627 H (160-400) X10*3/uL BMP 10/22/24 10/22/24 02:55 05:49 Sodium 139 140 Potassium 4.7 4.3 Chloride 102 103 Carbon Dioxide 22 22 BUN 24 H 20 H Creatinine 0.51 0.45 L Calcium 9.9 10.2 Liver Function 10/22/24 Range/Units 02:55 Total Bilirubin 0.1 (0.0-1.0) mg/dL Direct Bilirubin < 0.2 (0.0-0.5) mg/dL AST 48 H (5-31) U/L ALT 12 (0-31) U/L Alkaline Phosphatase 193 H (39-117) U/L Albumin 4.0 (3.5-5.0) g/dL Urine 10/22/24 Range/Units 04:39 Urine Color Yellow Urine Appearance Clear Urine pH 6.0 (5.0-9.0) Ur Specific [place] >= 1.030 H (1.005-1.025) Urine Protein Negative (Neg-Trace) mg/dL Urine Glucose (UA) >=1000 H (Negative) mg/dL Assessment and Plan (1) Vestibular neuronitis: Status: Acute Recom : Treat symptomatically with Meclizine 25mg tid. If sx do not resolve in 24 hrs , then consider MRI brain Procedures Date of Service Date of Service: 10/22/24
--- NOTE | 2024-10-23 01:48 | PC.NURSE ---
Per MD Bazzi request, RN called number in system and spoke with patient's granddaughter Latricia. She reports that the patient was not present but that she would make the patient aware of our advisement to return to the ER for treatment.
== END 2024-10-22 08:57 | disposition left against medical advice (07) | DRG 872 ==
LOC: HO.ED 05:06 → HO.EDOVER 05:13
PROVIDERS: Admitting Provider Physician Assistant; Emergency Provider Emergency Medicine; PCP Student in an Organized Health Care Education/Training Program; Visit Provider Family Medicine
DX: A41.9 Sepsis, unspecified organism (principal); N39.0 Urinary tract infection, site not specified; C68.9 Malignant neoplasm of urinary organ, unspecified; H81.20 Vestibular neuronitis, unspecified ear; I25.10 Atherosclerotic heart disease of native coronary artery without angina pectoris; F14.90 Cocaine use, unspecified, uncomplicated; E11.9 Type 2 diabetes mellitus without complications; I10 Essential (primary) hypertension; E78.5 Hyperlipidemia, unspecified; F17.210 Nicotine dependence, cigarettes, uncomplicated; Z71.6 Tobacco abuse counseling; Z79.4 Long term (current) use of insulin; Z79.84 Long term (current) use of oral hypoglycemic drugs; Z79.85 Long-term (current) use of injectable non-insulin antidiabetic drugs; Z79.899 Other long term (current) drug therapy
CPT/HCPCS: 36415; 70450; 70496; 70498; 80048; 80076; 80307; 81001; 82947; 83605; 83735; 84484; 85025; 85610; 86704; 86706; 86803; 87040; 87147; 87205; 87340; 87389; 93005; 99285; J0696; J1171; J1650; J2405; J3360; J7120; Q9967

== ENCOUNTER → 2024-10-22 02:20 | Outpatient (BNV) | payer OTHER, SELFPAY | PROVIDERS: Emergency Provider Emergency Medicine; Visit Provider Radiology Diagnostic Radiology | DX: R51.9 Headache, unspecified (principal) | CPT/HCPCS: 70450; 70496; 70498 ==

== ENCOUNTER → 2024-10-22 02:21 | Outpatient (BNV) | payer OTHER, SELFPAY | PROVIDERS: Admitting Provider Physician Assistant; Emergency Provider Emergency Medicine; PCP Student in an Organized Health Care Education/Training Program; Visit Provider Internal Medicine | DX: I63.9 Cerebral infarction, unspecified (principal) | CPT/HCPCS: 93010 ==

== ENCOUNTER → 2024-10-22 05:11 | Outpatient (BNV) | payer OTHER, SELFPAY | PROVIDERS: Admitting Provider Physician Assistant; Emergency Provider Emergency Medicine; PCP Student in an Organized Health Care Education/Training Program; Visit Provider Psychiatry & Neurology Neurology | DX: H81.20 Vestibular neuronitis, unspecified ear (principal) | CPT/HCPCS: 99222 ==

== ENCOUNTER → 2024-10-22 05:11 | Outpatient (BNV) | payer OTHER, SELFPAY | PROVIDERS: Admitting Provider Physician Assistant; Emergency Provider Emergency Medicine; PCP Student in an Organized Health Care Education/Training Program; Visit Provider Family Medicine | DX: A41.9 Sepsis, unspecified organism (principal); N39.0 Urinary tract infection, site not specified; R51.9 Headache, unspecified; R42 Dizziness and giddiness; F14.90 Cocaine use, unspecified, uncomplicated; Z53.29 Procedure and treatment not carried out because of patient's decision for other reasons | CPT/HCPCS: 99223; 99499 ==

== ENCOUNTER 2024-10-23 03:10 | Emergency (ER) | payer OTHER, SELFPAY ==
[2024-10-23 03:20] VITALS: BP 136/70; PULSE 89; RESP 18; TEMP 36.6; O2SAT 97; BMI 23.7
--- NOTE | 2024-10-23 03:48 | PC.NURSE ---
per Md Bazzi verbal order for new labs, blood cultures/lactic acid from triage room
[2024-10-23 04:01] LABS: MANUAL DIFF FLAG NO
[2024-10-23 04:02] LABS: Basophils Absolute Auto 0.1 X10*3/uL (0.0-0.2); Basophils Percent Auto 0.4 % (0-2); Eosinophils Absolute Auto 0.4 X10*3/uL (0.0-0.4); Eosinophils Percent Auto 3.3 % (0-4); Hematocrit 37.4 % (37.0-47.0); Hemoglobin 11.6 g/dl (12.0-16.0); Imm Gran Abs Auto 0.03 X10*3/uL (0.00-0.03); Imm Gran Pct Auto 0.3 % (0.0-0.4); Lymphocytes Absolute Auto 2.6 X10*3/uL (1.2-4.9); Lymphocytes Percent Auto 23.3 % (20-40); Mean Corpuscular Hemoglobin 26.6 pg (27.0-33.0); Mean Corpuscular Volume 85.8 fL (80.0-98.0); Mean Platelet Volume 8.6 fL (9.4-12.3); Monocytes Absolute Auto 0.8 X10*3/uL (0.1-1.2); Monocytes Percent Auto 7.5 % (2-11); Neutrophils Absolute Auto 7.3 x10*3/uL (2.0-8.3); Neutrophils Percent Auto 65.2 % (45-73); Platelet Count 653 X10*3/uL (160-400); Red Blood Count 4.36 X10*6/uL (4.20-5.50); Red Cell Distribution Width 17.6 % (11.0-16.0); White Blood Count 11.2 X10*3/uL (4.8-10.8)
[2024-10-23 04:23] LABS: Alanine Aminotransferase 18 U/L (0-31); Albumin Level 4.5 g/dL (3.5-5.0); Alkaline Phosphatase 227 U/L (39-117); Anion Gap 18 (12-20); Aspartate Amino Transferase 34 U/L (5-31); Bilirubin Total 0.1 mg/dL (0.0-1.0); Blood Urea Nitrogen 12 mg/dL (9-16); Calcium 10.6 mg/dL (8.4-10.2); Carbon Dioxide 26 mmol/L (22-29); Chloride 105 mmol/L (96-108); Creatinine Clr Calc Pharmacy 84.6; Estimated Glomerular Filt Rate > 60; Glucose Random 100 mg/dL (60-115); Lactic Acid 3.8 mmol/L (0.5-2.0); Lipase 33 U/L (8-78); Magnesium 1.8 mg/dL (1.6-2.6); Potassium 4.1 mmol/L (3.3-5.1); Sodium 145 mmol/L (135-145); Total Protein 7.6 g/dL (6.5-8.0)
--- NOTE | 2024-10-23 04:41 | ED_ITS ---
HPI - General Adult General Chief complaint: Recheck/Abnormal Lab/Rx Stated complaint: lab results Time Seen by Provider: 10/23/24 04:40 Source: patient Mode of arrival: ambulatory Limitations: no limitations History of Present Illness ED Provider: HPI narrative: Patient was seen here on 10/22 for benign positional vertigo admitted left against medical advice on same day patient does get in the history of pleomorphic epithelioid neoplasm not on any therapy yet, coronary artery disease, polysubstance abuse especially cocaine, hypotension, type 2 diabetes, IBS denies any fever chills cough feels much better blood culture done on 10/22 showed 1/2 positive for Gram-positive cocci Related Data Home Medications ?Medication ?Instructions ?Recorded ?Confirmed aspirin 81 mg tablet,delayed 81 mg PO DAILY 09/20/22 10/05/24 release carvedilol 6.25 mg tablet 6.25 mg PO BID 09/20/22 10/05/24 empagliflozin 25 mg tablet 25 mg PO QAM 09/20/22 10/05/24 (Jardiance) losartan 100 mg tablet 100 mg PO QAM 09/20/22 10/05/24 rosuvastatin 20 mg tablet 20 mg PO BEDTIME 09/20/22 10/05/24 Vitamin D3 2,000 units PO DAILY 11/02/22 10/05/24 clonidine HCl 0.1 mg tablet 0.1 mg PO DAILY 08/13/23 10/05/24 gabapentin 300 mg capsule 300 mg PO BEDTIME 08/13/23 10/05/24 dulaglutide 1.5 mg/0.5 mL 1.5 mg subcut QWEEK 07/12/24 10/05/24 subcutaneous pen injector (Trulicity) cholecalciferol (vitamin D3) 50 50 mcg PO QAM 10/22/24 mcg (2,000 unit) capsule (Vitamin D3) docusate sodium 100 mg capsule 100 mg PO BID 10/22/24 (Stool Softener) insulin glargine 100 unit/mL (3 50 unit subcut BEDTIME 10/22/24 mL) subcutaneous pen (Lantus Solostar U-100 Insulin) insulin lispro 100 unit/mL 15 unit subcut TID 10/22/24 subcutaneous half-unit pen ipratropium bromide 17 2 puff inhalation QID 10/22/24 mcg/actuation HFA aerosol inhaler (Atrovent HFA) metformin 1,000 mg tablet 1,000 mg PO BID 10/22/24 Previous Rx's ?Medication ?Instructions ?Recorded pantoprazole 40 mg tablet,delayed 40 mg PO QAM #30 tabs 03/22/24 release oxycodone 5 mg tablet 5 mg PO TID PRN Severe Pain (Scale 09/02/24 Score 7-10) #45 tabs cefuroxime axetil 250 mg tablet 250 mg PO BID #14 tabs 09/10/24 fentanyl 25 mcg/hr transdermal 1 patch transdermal Q72H #10 ea 09/18/24 patch everolimus (antineoplastic) 10 mg 10 mg PO DAILY #30 tabs 10/05/24 tablet fentanyl 50 mcg/hr transdermal 1 patch transdermal Q72H #10 ea 10/05/24 patch ondansetron HCl 4 mg tablet 4 mg PO Q8H #50 tabs 10/05/24 oxycodone 5 mg tablet 5 mg PO Q6H PRN Breakthrough Pain, 10/05/24 Moderate #50 tabs dexamethasone 0.5 mg/5 mL oral 1 mg (10 mL) PO QID #300 mL 10/10/24 elixir dexamethasone 0.5 mg/5 mL oral 1 mg (10 mL) PO QID #240 mL 10/13/24 elixir oxycodone 10 mg tablet 10 mg PO Q8H PRN Severe Pain 10/14/24 (Scale Score 7-10) #45 tabs polyethylene glycol 3350 17 gram 17 g PO DAILY #30 ea 10/14/24 oral powder packet (Miralax) sennosides 8.6 mg tablet (Senna 8.6 mg PO BEDTIME 30 days #30 tabs 10/14/24 Lax) cefuroxime axetil 500 mg tablet 500 mg PO BID #14 tabs 10/22/24 Allergies Allergy/AdvReac Type Severity Reaction Status Date / Time morphine [Morphine] Allergy Mild ITCHING, Verified 10/23/24 03:24 pruritus, rash Review of Systems 2 Review of Systems: Yes all other systems are reviewed and are negative PMFSH Past Medical History Medical History Left against medical advice Pleomorphic carcinoma CAD (coronary artery disease) Polysubstance abuse Hypertension Hyperlipidemia Type 2 diabetes mellitus, with long-term current use of insulin IBD (inflammatory bowel disease) Gastroesophageal reflux disease Nicotine dependence, cigarettes, uncomplicated Surgical History History of colonoscopy History of esophagogastroduodenoscopy (EGD) History of appendectomy History of cataract surgery Social History Social History Household Members: Spouse Alcohol intake: current Alcohol intake frequency: holidays/special occasions only Patient Tobacco Use Status: Current everyday Tobacco user Tobacco use type: Cigarette Cigarette Packs Per Day: 1 Years Smoked: onset 11yo, 1ppd x 51yrs, 50PYH Substance Use Type: Marijuana Advance Directives: Yes Advance Directives on File: Yes Advance Directives Date on File: 06/21/24 Do you have a plan to hurt others: No Plan Current occupational status: disabled 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 Oriented X3. No acute distress. Eyes: No pallor or icterus ENT: Pharynx normal. Oral Mucosa moist Neck: Normal inspection. Neck supple. CVS: Normal heart rate and rhythm. Pulses normal. Respiratory: No respiratory distress. Equal air entry bilateral, no wheezing/rales/rhonchi Abdomen: Soft and nontender. Bowel sounds are present, no mass palpable, no CVA tenderness Skin: Skin warm and dry. Normal skin color. Normal skin turgor. Extremities: No lower extremity edema. No calf tenderness Neuro: Oriented X 3. No motor deficit. No sensory deficit.No cerebellar signs , cranial nerves II-XII intact Medications Administered Discontinued Medications Generic Name Dose Route Start Last Admin Trade Name Freq PRN Reason Stop Dose Admin Sodium Chloride 1,707 mls @ 1,707 mls/hr 10/23/24 04:42 10/23/24 05:13 Ns 30 ml/kg infuse over 1 hr (1707 ml) 10/23/24 05:41 Not Given IV .Q1H STA Vancomycin HCl 1,250 mg/ 250 mls @ 166.667 mls/hr 10/23/24 04:42 10/23/24 05:12 Sodium Chloride IV 10/23/24 06:11 166.67 mls/hr ONCE ONE Administration Sodium Chloride 2,000 mls @ 2,000 mls/hr 10/23/24 04:45 10/23/24 06:13 Ns IV 10/23/24 05:41 Infused .Q1H STA Infusion Medical Decision Making Medical Decision Making MDM Narrative: Patient with incidentally Gram-positive cocci in 1 of the 2 blood culture tube MRSA PCR negative for staph aureus will discharge patient home advised to follow with PCP likely the contamination patient does have a chronic lactic acidosis from the use of metformin no signs of sepsis Consult Healthcare Provider Management of the patient was discussed with: Hospitalist Lab Data [facility] Lab Attestation statement: I reviewed the patient's lab results. 10/23/24 03:45 10/23/24 03:45 Labs: Lab Results 10/23/24 10/23/24 10/23/24 Range/Units 03:45 06:03 06:32 WBC 11.2 H (4.8-10.8) X10*3/uL RBC 4.36 (4.20-5.50) X10*6/uL Hgb 11.6 L (12.0-16.0) g/dl Hct 37.4 (37.0-47.0) % MCV 85.8 (80.0-98.0) fL MCH 26.6 L (27.0-33.0) pg MCHC 31.0 (31.0-35.0) g/dl RDW 17.6 H (11.0-16.0) % Plt Count 653 H (160-400) X10*3/uL MPV 8.6 L (9.4-12.3) fL Immature Gran % (Auto) 0.3 (0.0-0.4) % Neut % (Auto) 65.2 (45-73) % Lymph % (Auto) 23.3 (20-40) % [place] % (Auto) 7.5 (2-11) % Eos % (Auto) 3.3 (0-4) % Baso % (Auto) 0.4 (0-2) % Lymph # (Auto) 2.6 (1.2-4.9) X10*3/uL [place] # (Auto) 0.8 (0.1-1.2) X10*3/uL Eos # (Auto) 0.4 (0.0-0.4) X10*3/uL Baso # (Auto) 0.1 (0.0-0.2) X10*3/uL Abs Immat Gran (auto) 0.03 (0.00-0.03) X10*3/uL Absolute Neuts (auto) 7.3 (2.0-8.3) x10*3/uL Absolute Nucleated RBC 0.000 (0.0-0.012) X10*3/uL Nucleated RBC % (auto) 0.0 (0.0-0.2) /100WBC Sodium 145 (135-145) mmol/L Potassium 4.1 (3.3-5.1) mmol/L Chloride 105 (96-108) mmol/L Carbon Dioxide 26 (22-29) mmol/L Anion Gap 18 (12-20) BUN 12 (9-16) mg/dL Creatinine 0.50 (0.5-1.4) mg/dL Estim Creat Clear Calc 84.6 Estimated GFR > 60 Random Glucose 100 (60-115) mg/dL Lactic Acid 3.8 H* (0.5-2.0) mmol/L Lactic Acid F/U @ 2Hr 4.2 H* (0.5-2.0) mmol/L Calcium 10.6 H (8.4-10.2) mg/dL Magnesium 1.8 (1.6-2.6) mg/dL Total Bilirubin 0.1 (0.0-1.0) mg/dL AST 34 H (5-31) U/L ALT 18 (0-31) U/L Alkaline Phosphatase 227 H (39-117) U/L Total Protein 7.6 (6.5-8.0) g/dL Albumin 4.5 (3.5-5.0) g/dL Lipase 33 (8-78) U/L Urine Color Yellow Urine Appearance Clear Urine pH 6.5 (5.0-9.0) Ur Specific [place] >= 1.030 H (1.005-1.025) Urine Protein Negative (Neg-Trace) mg/dL Urine Glucose (UA) >=1000 H (Negative) mg/dL Urine Ketones Negative (Negative) mg/dL Urine Blood Negative (Negative) Urine Nitrite Negative (Negative) Ur Leukocyte Esterase Negative (Negative) Urine RBC 0-2 (0-2) /HPF Urine WBC 6-10 H (0-5) /HPF Ur Squamous Epith Cells 0-2 (0-2) /HPF Urine Bacteria None Seen (None Seen) Hyaline Casts 0-2 (0-2) /LPF Discharge Plan Discharge Clinical Impression: Contamination of blood culture Patient Disposition: Home, Self-Care Instructions: Normal Exam (ED) Additional Instructions: Your blood culture showed contamination from the skin Report to the ER if high fever or not feeling good Prescriptions: No Action pantoprazole 40 mg tablet,delayed release (DR/EC) 40 mg PO QAM Qty: 30 3RF Vitamin D3 2,000 units 2,000 units PO DAILY metformin 1,000 mg tablet 1,000 mg PO BID docusate sodium [Stool Softener] 100 mg capsule 100 mg PO BID Atrovent HFA 17 mcg/actuation HFA aerosol inhaler 2 puff INHALATION QID insulin glargine [Lantus Solostar U-100 Insulin] 100 unit/mL (3 mL) insulin pen 50 unit subcut BEDTIME cholecalciferol (vitamin D3) [Vitamin D3] 50 mcg (2,000 unit) capsule 50 mcg PO QAM insulin lispro 100 unit/mL insulin pen, half-unit 15 unit SUBCUT TID cefuroxime axetil 500 mg tablet 500 mg PO BID Qty: 14 0RF carvedilol 6.25 mg tablet 6.25 mg PO BID Jardiance 25 mg tablet 25 mg PO QAM aspirin 81 mg tablet,delayed release (DR/EC) 81 mg PO DAILY rosuvastatin 20 mg tablet 20 mg PO BEDTIME losartan 100 mg tablet 100 mg PO QAM oxycodone 5 mg Tablet 5 mg PO TID PRN (Reason: Severe Pain (Scale Score 7-10)) Qty: 45 0RF Rx Instructions: Partial Fill upon patient request. fentanyl 25 mcg/hr Patch 72 Hour 1 patch TRANSDERMAL Q72H Qty: 10 0RF Rx Instructions: Partial Fill upon patient request. fentanyl 50 mcg/hr Patch 72 Hour 1 patch TRANSDERMAL Q72H Qty: 10 0RF Rx Instructions: Partial Fill upon patient request. oxycodone 5 mg Tablet 5 mg PO Q6H PRN (Reason: Breakthrough Pain, Moderate) Qty: 50 0RF Rx Instructions: Partial Fill upon patient request. ondansetron HCl 4 mg Tablet 4 mg PO Q8H Qty: 50 4RF everolimus (antineoplastic) 10 mg Tablet 10 mg PO DAILY Qty: 30 5RF dexamethasone 0.5 mg/5 mL Elixir 1 mg PO QID Qty: 300 3RF Rx Instructions: Swish and spit times 1st 8 weeks of therapy for prevention of mucositis. dexamethasone 0.5 mg/5 mL Elixir 1 mg PO QID Qty: 240 3RF Rx Instructions: Swish and spit 4 times a day sennosides [Senna Lax] 8.6 mg Tablet 8.6 mg PO BEDTIME 30 Days Qty: 30 1RF polyethylene glycol 3350 [Miralax] 17 gram Powder In Packet 17 g PO DAILY Qty: 30 1RF oxycodone 10 mg Tablet 10 mg PO Q8H PRN (Reason: Severe Pain (Scale Score 7-10)) Qty: 45 0RF Rx Instructions: Take every 8 hours as needed for pain. Trulicity 1.5 mg/0.5 mL pen injector 1.5 mg subcut QWEEK cefuroxime axetil 250 mg tablet 250 mg PO BID Qty: 14 0RF gabapentin 300 mg capsule 300 mg PO BEDTIME clonidine HCl 0.1 mg tablet 0.1 mg PO DAILY Print Language: Bahamian
[2024-10-23] MEDS: vancomycin HCL 1,250 MG in 0.9 % Sodium Chloride 250 ML 166.67 MG IV (05:12)
[2024-10-23] MEDS: 0.9 % Sodium Chloride 2,000 ML 2000 ML IV (05:13)
--- NOTE | 2024-10-23 05:29 | PC.NURSE ---
IV established, second set of blood cultures obtained and sent. medicated per the MAR, provider at bedside. patient resting quietly in room with visitors at bedside.
[2024-10-23 05:56] LABS: Reflex Lactate? Lactic Acid Added
[2024-10-23 06:31] VITALS: BP 188/86; PULSE 95; RESP 16; TEMP 36.7; O2SAT 96
[2024-10-23 06:35] LABS: ~Lactic Acid-LAB USE ONLY 4.2 mmol/L (0.5-2.0)
--- NOTE | 2024-10-23 06:38 | PC.NURSE ---
ambulated to bathroom using own cane with steady gait. urine sample obtained and sent to lab.
[2024-10-23 06:39] LABS: Appearance Urine Clear; Color Urine Yellow; Glucose Urine UA >=1000 mg/dL (Negative); Leukocyte Esterase Urine Negative (Negative); Nitrite Urine Negative (Negative); PH 6.5 (5.0-9.0); Specific Gravity - Urine >= 1.030 (1.005-1.025); UMIC TRIGGER UACC YES; Urine Blood Negative (Negative); Urine Ketones Negative (Negative); Urine Protein Negative (Neg-Trace)
[2024-10-23 06:44] LABS: Bacteria Urine None Seen (None Seen); Hyaline Casts Urine 0-2 /LPF (0-2); RBC Urine 0-2 /HPF (0-2); Squamous Epithelial Cell Urine 0-2 /HPF (0-2); UACC Culture Trigger YES
[2024-10-23 07:01] VITALS: BP 161/70; PULSE 93; RESP 16; TEMP 36.8; O2SAT 98
[2024-10-23 07:27] VITALS: BP 161/70; PULSE 93; RESP 16; TEMP 36.8; O2SAT 98
[2024-10-23 08:06] LABS: Reflex Lactate? 2 Y
== END 2024-10-23 07:28 | disposition home or self-care (01) ==
PROVIDERS: Emergency Provider Internal Medicine; PCP Student in an Organized Health Care Education/Training Program
DX: E87.22 Chronic metabolic acidosis (principal); R79.9 Abnormal finding of blood chemistry, unspecified; R82.90 Unspecified abnormal findings in urine; E11.9 Type 2 diabetes mellitus without complications; I25.10 Atherosclerotic heart disease of native coronary artery without angina pectoris; I10 Essential (primary) hypertension; E78.5 Hyperlipidemia, unspecified; Z79.4 Long term (current) use of insulin; Z79.899 Other long term (current) drug therapy
CPT/HCPCS: 36415; 80053; 81001; 83605; 83690; 83735; 85025; 87040; 87086; 87088; 87186; 96365; 96366; 99284; J3371